=== PATIENT | female | born 1935 | race Caucasian/White ===

== ENCOUNTER 2016-07-12 05:15 | Day surgery (SDC) | payer OTHER ==
[2016-07-03 13:41] VITALS: BMI 41.0
--- NOTE | 2016-07-03 14:07 | PAT Medication Instructions ---
Service Date Jul 03, 2016. Current Home Medication List Albuterol (Ventolin Hfa), 2 PUFFS INH Q4H PRN for RN Aspirin (Aspirin Ec), 81 MG PO HS Hydrochlorothiazide (Hctz), 25 MG PO QAM Ocuvite Preservision (Ocuvite Preservision), 1 TAB PO BID [Dulera], 2 PUFFS INH BID Medication Instructions For Your Scheduled Surgery - Stopped, per pt: Aspirin (Aspirin Ec), 81 MG PO HS - Hold the following medications the morning of surgery: Hydrochlorothiazide (Hctz), 25 MG PO QAM Ocuvite Preservision (Ocuvite Preservision), 1 TAB PO BID - Take the following medications the morning of surgery: Albuterol (Ventolin Hfa), 2 PUFFS INH Q4H PRN (use if needed; BRING TO HOSPITAL ) [Dulera], 2 PUFFS INH BID - Take the following medications as scheduled the night before surgery: [Dulera], 2 PUFFS INH BID Ocuvite Preservision (Ocuvite Preservision), 1 TAB PO BID If you have any questions please call us at [phone] or [phone] or [phone]
[2016-07-03 14:39] LABS: BASO % 1.1 %; BASO ABS # 0.09 K/uL (0-0.2); COMPLETE YES; EOS % 9.2 %; HEMATOCRIT 41.4 % (37-47); IG% 0.4 %; LYMPH % 33.2 %; LYMPH ABS # 2.75 K/uL (1.2-3.4); MEAN CELL VOLUME 86.6 fL (80-100); MEAN CORPUSCULAR HEMOGLOBIN 30.1 pg (25-34); MEAN CORPUSCULAR HGB CONC 34.8 g/dl (32-36); MEAN PLATELET VOLUME 9.2 fL (7.4-10.4); NEUT % 49.1 %; PLATELET COUNT 251 K/uL (130-400); RED BLOOD COUNT 4.78 M/uL (4.2-5.4); WHITE BLOOD COUNT 8.29 K/uL (4.8-10.8)
[2016-07-03 15:27] LABS: BUN/CREATININE RATIO 18.3 (10-20); CREATININE 0.9 mg/dl (0.60-1.20); POTASSIUM 3.9 mmol/L (3.5-5.1)
[~2016-07-12] VITALS: Ht 165.1 cm; Wt 112.9 kg
[~2016-07-12 05:15] MED LIST: ASPI81TA28 PO; DULERA INH; HYDR25TA4 PO; MULT-190 PO; PRVHFAIN INH
[2016-07-12 05:46] VITALS: BP 208/100; PULSE 87; TEMP 36.6; O2SAT 97; Ht 165.1 cm; Wt 112.9 kg
[2016-07-12] MEDS ORDERED: OXYMETAZOLINE HCL 0.05% NA SPR 15 ML BTL NAE SCH (06:00)
[2016-07-12] MEDS ORDERED: CEFAZOLIN 2000 MG/60 ML D5W IV SCH (06:00)
[2016-07-12] MEDS ORDERED: LACTATED RINGER'S 1000ML 1,000 ML IV SCH ×2 (06:00→08:58)
--- NOTE | 2016-07-12 06:38 | History & Physical Bridge Note ---
H&P Re-Evaluation Bridge Note: I have examined the patient, reviewed the History & Physical and in the interval since the performance of the History & Physical I have noted the following changes of clinical significance: No changes noted
[2016-07-12] MEDS ORDERED: GLYCOPYRROLATE INJ 0.2 MG/ML VIAL ONE (06:40)
[2016-07-12] MEDS ORDERED: MIDAZOLAM HCL 1 MG/ML 2ML VIAL ONE (06:40)
[2016-07-12] MEDS ORDERED: LIDOCAINE HCL 2% 2 ML VIAL (20MG/ML) ONE (06:40)
[2016-07-12] MEDS ORDERED: FENTANYL CITRATE INJ 50 MCG/1 ML 2 ML VIAL ONE (06:40)
[2016-07-12] MEDS ORDERED: ROCURONIUM BROMIDE 10 MG/ML 5 ML VIAL ONE (06:40)
[2016-07-12] MEDS ORDERED: DEXAMETHASONE SOD INJ 4 MG/ML VIAL ONE ×2 (06:40→07:40)
[2016-07-12] MEDS ORDERED: ONDANSETRON INJ 2 MG/ML 2 ML VIAL ONE (06:40)
[2016-07-12] MEDS ORDERED: NEOSTIGMINE METHYLSULFATE 5 MG/5 ML SYR ONE (06:40)
[2016-07-12] MEDS ORDERED: PROPOFOL IV EMULSION 10 MG/ML 20 ML VIAL IV ONE (06:40)
[2016-07-12] MEDS ORDERED: LIDOCAINE/EPINEPHRINE 1% 20 ML VIAL ONE (06:55)
[2016-07-12] MEDS ORDERED: LIDOCAINE 4% W/AFRIN NASAL SOLN 4ML ONE (06:55)
[2016-07-12] MEDS ORDERED: TRIAMCINOLONE ACET 40 MG/ML VIAL ONE (06:57)
[2016-07-12] MEDS ORDERED: FENTANYL CITRATE INJ 50 MCG/1 ML 2 ML VIAL IV PRN (07:00)
[2016-07-12] MEDS ORDERED: ONDANSETRON INJ 2 MG/ML 2 ML VIAL IV PRN ×2 (07:00→09:00)
[2016-07-12] MEDS ORDERED: EpHEDrine SULFATE 50MG/5ML SYR ONE (07:55)
[2016-07-12] MEDS ORDERED: SUCCINYLCHOLINE CHLORIDE 20 MG/ML 10 ML VIAL IV ONE (08:16)
[2016-07-12] MEDS ORDERED: LABETALOL HCL IV 5 MG/ML 20ML ONE (08:52)
[2016-07-12] MEDS ORDERED: ESMOLOL HCL 10 MG/ML 10 ML VIAL ONE (08:59)
[2016-07-12] MEDS ORDERED: OXYMETAZOLINE HCL 0.05% NA SPR 15 ML BTL PRN (09:00)
[2016-07-12] MEDS ORDERED: HYDROCODONE/ACETAMOPHEN 5/325MG TAB PO PRN (09:00)
--- NOTE | 2016-07-12 09:02 | [facility] Operative Report ---
Operative Report Operative Date Jul 12, 2016. Pre-Operative Diagnosis Chronic Sinusitis, nasal septal deviation, hypertrophy of both inferior nasal turbinates Post-Operative Diagnosis SAME Procedure(s) Performed IMAGE-GUIDED BILATERAL ENDOSCOPIC SINUS SURGERY AND INFERIOR TURBINATE REDUCTION Surgeon Dr. Gilles Farias Civil Preparedness Officer Surgeon(s) none Estimated Blood Loss 100 ml Findings 1. SEVERE POLYPOID MUCOSAL THICKENING R>L PARANASAL SINUSES 2. SEVERE B ITH 3. MILD B DNS (NON-OBSTRUCTIVE) Specimens none per surgeon I attest to the content of the Intraoperative Record and any orders documented therein. Any exceptions are noted below.
[2016-07-12] MEDS ORDERED: NURSING VERBAL MED ORDER ONE ×2 (09:30→09:45)
[2016-07-12] MEDS ORDERED: LABETALOL HCL IV 5 MG/ML 20ML IV PRN (09:45)
--- NOTE | 2016-07-12 09:59 | OPERATIVE REPORT ---
DATE OF OPERATION: 07/12/2016 PREOPERATIVE DIAGNOSIS: 1. Chronic polypoid rhinosinusitis. 2. Septal deviation. 3. Bilateral inferior turbinate hypertrophy. POSTOPERATIVE DIAGNOSES: Same. PROCEDURE: Image guided bilateral endoscopic sinus surgery consisting of: 1. Bilateral maxillary antrostomies. 2. Bilateral complete ethmoidectomies. 3. Bilateral sphenoidotomies. 4. Bilateral balloon assisted frontal balloon sinuplasty assisted frontal sinusotomies. 5. Bilateral inferior turbinate outfracture and turbinoplasties. SURGEON: Dr. Farias. ANESTHESIA: General endotracheal. ESTIMATED BLOOD LOSS: 100 mL. FINDINGS: 1. Severe right greater than left polypoid mucosal thickening involving all of the paranasal sinuses. 2. Mild bilateral septal deviation which was nonobstructive. 3. Severe bilateral inferior turbinate hypertrophy. SPECIMENS: None. COMPLICATIONS: None. INDICATIONS FOR THE PROCEDURE: The patient is a 80-year-old female with a history of chronic polypoid rhinosinusitis which has been unresponsive to maximal medical therapy including systemic antibiotics and steroids. A post-treatment CT scan of the sinuses revealed pansinusitis as well as mild bilateral septal deviation and severe bilateral inferior turbinate hypertrophy. She has poor pulmonary status, morbid obesity, and obstructive sleep apnea and therefore surgery was done in the hospital on an outpatient elective basis. OPERATION AND FINDINGS: DETAILS OF PROCEDURE: After informed consent had been obtained from the patient, the patient was wheeled to the operating room and placed on the operating table in the supine position. Monitors were placed and after induction of general endotracheal anesthesia, the patient was prepped in the usual fashion for image guided endoscopic sinus surgery. The PingMe headset was placed over the forehead and was registered, calibrated and verified and used for the majority of the procedure, especially the frontal and sphenoid sinus portions of the case. Lidocaine and epinephrine pledgets were placed in the bilateral nasal cavities and pressure applied. After allowing adequate time for vasoconstriction and anesthesia the left-sided pledgets were removed and a [place] elevator was used to medialize the left middle turbinate. The left middle turbinate and uncinate process were injected with 1% lidocaine with 1:100,000 epinephrine. Lidocaine with epinephrine pledget was then placed in the left middle meatus. The right side was then addressed in a similar fashion. The left-sided pledget was removed and a [place] elevator was used to incise the uncinate process and this was removed using straight Tyler-Cut forceps and powered instrumentation. The natural ostia of the left maxillary sinus was identified and this was enlarged anteriorly, inferiorly, and posteriorly using straight Tyler-Cut forceps, backbiting forceps, and powered instrumentation. Of note, there was severe polypoid mucosal thickening involving the left maxillary sinus. A complete ethmoidectomy was then performed using powered instrumentation. Of note, there was severe polypoid mucosal thickening involving the ethmoid sinus as well. Using both a transnasal approach and a transethmoidal approach the sphenoid sinus was entered. There was mild polypoid mucosal thickening blocking the ostia of the sphenoid sinus. Using a curved frontal sinus suction and the imaged guidance the left frontal sinus was cannulated. A #6 frontal sinus balloon was then inserted and inflated to 12 atmospheres of pressure in 2 different locations to dilate the left frontal recess tract. Polypoid tissue was removed using powered instrumentation. Once the frontal sinus was addressed a pledget was placed into the left ethmoid cavity. The right side was then addressed in a similar fashion with similar intraoperative findings, although the polypoid mucosal thickening was more severe on this side. The septum was then inspected. There was right greater than left mild septal deviation which seemed to be nonobstructive. The decision was made not to perform a septoplasty due to the patient's age and trying to get her case done quickly due to her multiple medical comorbidities. A [place] elevator was used to first infracture and subsequently outfracture the inferior turbinates bilaterally. The inferior turbinates were injected with 1% lidocaine with 1:100,000 epinephrine. Using a 2.0 mm turbinate blade and powered instrumentation, bilateral inferior turbinoplasties were performed in a submucosal fashion. The sinonasal cavities were then suctioned. Merogel was placed into the bilateral ethmoid cavities/middle meati. The oral cavity and oropharynx were then suctioned. An orogastric tube was placed and the stomach was suctioned free of air and stomach contents. This marked the end of the case. The patient tolerated the procedure well. There were no apparent complications. The patient was extubated and transferred to recovery room in stable condition. I attest to the content of the Intraoperative Record and any orders documented therein. Any exceptio ns are noted below.
[2016-07-12 10:00] VITALS: BP 188/73; PULSE 85; TEMP 36.6; O2SAT 94
[2016-07-12] MEDS: LACTATED RINGER'S 1000ML 1,000 ML IV PRN ×2 (10:00→10:27)
--- NOTE | 2016-07-12 10:02 | Anesthesiology Progress Note ---
Anesthesia Post Op Note Date & Time Jul 12, 2016 at 10:02 Vital Signs Pain Intensity: 3 Vital Signs Past 12 Hours Date Time Temp Pulse Resp B/P Pulse Ox O2 Delivery O2 Flow Rate FiO2 07/12/16 09:46 72 15 93 07/12/16 09:46 72 15 07/12/16 09:45 184/79 07/12/16 09:43 185/84 07/12/16 09:41 75 15 07/12/16 09:41 75 15 94 07/12/16 09:40 72 16 07/12/16 09:40 72 16 94 07/12/16 09:37 179/92 07/12/16 09:35 73 18 93 07/12/16 09:35 73 18 07/12/16 09:33 180/87 07/12/16 09:30 73 18 92 07/12/16 09:30 72 18 07/12/16 09:29 75 17 07/12/16 09:29 75 17 94 07/12/16 09:28 172/79 07/12/16 09:24 72 20 07/12/16 09:24 72 20 95 07/12/16 09:22 193/78 07/12/16 09:19 73 18 07/12/16 09:19 73 18 98 07/12/16 09:14 77 19 07/12/16 09:14 77 19 98 07/12/16 09:13 176/99 07/12/16 09:09 81 20 07/12/16 09:09 81 20 100 07/12/16 09:04 77 13 07/12/16 09:04 73 13 121/90 100 07/12/16 08:59 76 18 162/94 100 07/12/16 08:59 78 18 07/12/16 08:55 177/113 07/12/16 08:54 86 21 157/107 98 07/12/16 08:54 85 21 07/12/16 08:51 160/126 07/12/16 08:49 90 20 07/12/16 08:49 36.2 92 16 185/113 98 Mask 10 Manual 07/12/16 08:49 93 20 165/151 100 07/12/16 05:46 36.6 87 24 208/100 97 Room Air Notes Mental Status: alert / awake / arousable, participated in evaluation Pt Amnestic to Procedure: Yes Nausea / Vomiting: adequately controlled Pain: adequately controlled Airway Patency, RR, SpO2: stable & adequate BP & HR: stable & adequate Hydration State: stable & adequate Anesthetic Complications: no major complications apparent BP still elevated but improved from baseline. Labetalol given.
[2016-07-12] MEDS ORDERED: LABETALOL HCL IV 5 MG/ML 20ML IV STA (10:11)
[2016-07-12 10:15] VITALS: BP 198/82; PULSE 83; TEMP 36.6; O2SAT 92
[2016-07-12 10:30] VITALS: BP 198/82; PULSE 83; TEMP 36.6; O2SAT 92
[2016-07-12 11:00] VITALS: BP 199/93; PULSE 88; TEMP 36.8; O2SAT 92
[2016-07-12 12:00] VITALS: BP 165/83; PULSE 94; TEMP 36.4; O2SAT 95
--- NOTE | 2016-07-12 12:43 | Discharge Instructions ---
Discharge Instructions Admission Reason for Admission: Chronic Sinusitis, Nasal Septal Deviation, Hypertr Discharge Discharge Diagnosis / Problem: same Discharge Goals Goal(s): Improve function Activity Recommendations Activity Limitations: as noted below 1. LIGHT ACTIVITY FOR 2WEEKS 2. NO NOSE BLOWING FOR 2WEEKS 3. NO DRIVING WHILE ON NORCO . Current Hospital Diet Patient's current hospital diet: Discharge Diet Recommended Diet: Regular Diet Procedures Procedures Performed: Bilateral Endoscopic Sinus Surgery, Bilateral Inferior Turbinate Outfracture and Turbinoplasty Pending Studies Studies pending at discharge: no Medical Emergencies . Who to Call and When: Medical Emergencies: If at any time you feel your situation is an emergency, please call 911 immediately. . Non-Emergent Contact Non-Emergency issues call your: Surgeon . . "Provider Documentation" section prepared by Gilles Farias. VTE Core Measure Inpt VTE Proph given/why not?: SCD's
== END 2016-07-12 13:00 | disposition home or self-care (01) ==
LOC: C.ACU 05:15
DX: J32.9 Chronic sinusitis, unspecified (principal); J33.1 Polypoid sinus degeneration; J34.2 Deviated nasal septum; J34.3 Hypertrophy of nasal turbinates; K21.9 Gastro-esophageal reflux disease without esophagitis; J45.909 Unspecified asthma, uncomplicated; E78.5 Hyperlipidemia, unspecified; I10 Essential (primary) hypertension; E66.9 Obesity, unspecified; G47.30 Sleep apnea, unspecified; H54.7 Unspecified visual loss

== ENCOUNTER 2017-05-30 23:50 | Emergency (ER) | payer OTHER ==
[~2017-05-30] VITALS: Ht 165.1 cm; Wt 100.3 kg
[2017-05-31 00:06] VITALS: TEMP 36.4; Ht 165.1 cm; Wt 100.3 kg
[2017-05-31] MEDS ORDERED: GLC/500 PO (00:41)
[2017-05-31] MEDS ORDERED: ALBUT/IPRATROP 3MG/0.5MG NEB 3 ML VIAL INH STA (00:47)
--- NOTE | 2017-05-31 00:50 | EMERGENCY ROOM VISIT NOTE ---
History Report prepared by Amaris: Crow Mary Under the Supervision of: Dr. Zeny Thomas D.O. First contact with patient: 00:35 Chief Complaint: RESPIRATORY PROBLEMS Stated Complaint: TROUBLE BREATHING History of Present Illness The patient is a 81 year old female who presents to the Emergency Room with complaints of respiratory symptoms that began a couple of days ago. She states that this is an ongoing issue and has been seeing multiple Pulmonologists to try to help her. They diagnosed her with asthma, but notes the treatment has not been helping. She was recently diagnosed with diabetes and was taken off of her original medication 1 week ago secondary to her insurance. She is currently taking Metformin and Hydrochlorothiazide. She has been intermittently using her Ventolin inhaler with very minimal relief. She uses a CPAP machine whenever she lies down and notes that it does usually help her breath easier. However, it did not help her recently. She does not use oxygen at home. She notes her respiratory symptoms worsen with exertion. She notes that bronchoscopies with mucous extraction help her symptoms significantly, but her last one was a couple of years ago. She denies any fevers or chest pain. Source of History: patient Onset: a couple of days ago Position: other (Respiratory System) Symptom Intensity: moderate Quality: other (Shortness of breath) Timing: constant Modifying Factors (Worsening): exertion Associated Symptoms: No fevers, No chest pain Review of Systems See HPI for pertinent positives & negatives. A total of 10 systems reviewed and were otherwise negative. Past Medical & Surgical Medical Problems: (1) Asthma Family History Diabetes mellitus Heart disease Hypertension Social History Smoking Status: Never Smoker Alcohol Use: none Marital Status: Housing Status: lives with significant other Occupation Status: retired Current/Historical Medications Scheduled Aspirin (Aspirin Ec), 81 MG PO HS Hydrochlorothiazide (Hctz), 25 MG PO QAM Metformin Hcl (Glucophage), 500 MG PO BID Ocuvite Preservision (Ocuvite Preservision), 1 TAB PO BID Prednisone (Prednisone), 50 MG PO DAILY [Dulera], 2 PUFFS INH BID Scheduled PRN Albuterol (Ventolin Hfa), 2 PUFFS INH Q4H PRN for RN Allergies Coded Allergies: No Known Allergies (Verified , 05/31/17) Physical Exam Vital Signs Date Time Temp Pulse Resp B/P (MAP) Pulse Ox O2 Delivery O2 Flow Rate FiO2 05/31/17 04:07 80 20 178/72 98 05/31/17 03:14 85 20 197/109 97 Room Air 05/31/17 01:25 Room Air 98 05/31/17 01:05 89 05/31/17 00:06 36.4 100 20 205/107 94 Room Air Physical Exam HEENT: Head - normocephalic and atraumatic Pupils are equal, round, and reactive to light. Extraocular eye muscles are intact, and sclera are anicteric. Nose - moist nasal mucosa without discharge. Mouth - moist buccal mucosa. Oropharynx is nonerythematous and there is no tonsillar exudate or edema noted. Neck: Supple; no JVD, nuchal rigidity, cervical lymphadenopathy, or auscultated bruits. Heart: Regular rate and rhythm. There is a normal S1 and S2 with no murmurs, clicks, or gallops appreciated. Lungs: Diminished bibasilar breath sounds with expiratory wheezing. Abdomen: Soft, completely nontender, nondistended, with good bowel sounds. There are no palpable pulsatile masses or hepatosplenomegaly. There is no guarding, rigidity, or rebound noted. Extremities: No evidence of cyanosis, clubbing, or edema. There are easily palpable peripheral pulses. Skin: warm and dry with good turgor and no rashes. Medical Decision & Procedures ER Provider Diagnostic Interpretation: Radiology results as stated below per my review and the radiologist's interpretation: CHEST X-RAY 1 VIEW: Unremarkable, unchanged from previous x-rays. Per me. Laboratory Results 05/31/17 01:25 Red Blood Count 4.77, Mean Corpuscular Volume 88.3, Mean Corpuscular Hemoglobin 30.4, Mean Corpuscular Hemoglobin Concent 34.4, Mean Platelet Volume 8.7, Neutrophils (%) (Auto) 55.2, Lymphocytes (%) (Auto) 28.4, Monocytes (%) (Auto) 6.7, Eosinophils (%) (Auto) 8.2, Basophils (%) (Auto) 0.9, Neutrophils # (Auto) 5.29, Lymphocytes # (Auto) 2.72, Monocytes # (Auto) 0.64, Eosinophils # (Auto) 0.79, Basophils # (Auto) 0.09 05/31/17 01:25 Test 05/31/17 01:25 White Blood Count 9.59 K/uL (4.8-10.8) Red Blood Count 4.77 M/uL (4.2-5.4) Hemoglobin 14.5 g/dL (12.0-16.0) Hematocrit 42.1 % (37-47) Mean Corpuscular Volume 88.3 fL (80-100) Mean Corpuscular Hemoglobin 30.4 pg (25-34) Mean Corpuscular Hemoglobin Concent 34.4 g/dl (32-36) Platelet Count 265 K/uL (130-400) Mean Platelet Volume 8.7 fL (7.4-10.4) Neutrophils (%) (Auto) 55.2 % Lymphocytes (%) (Auto) 28.4 % Monocytes (%) (Auto) 6.7 % Eosinophils (%) (Auto) 8.2 % Basophils (%) (Auto) 0.9 % Neutrophils # (Auto) 5.29 K/uL (1.4-6.5) Lymphocytes # (Auto) 2.72 K/uL (1.2-3.4) Monocytes # (Auto) 0.64 K/uL (0.11-0.59) Eosinophils # (Auto) 0.79 K/uL (0-0.5) Basophils # (Auto) 0.09 K/uL (0-0.2) RDW Standard Deviation 43.1 fL (36.4-46.3) RDW Coefficient of Variation 13.3 % (11.5-14.5) Immature Granulocyte % (Auto) 0.6 % Immature Granulocyte # (Auto) 0.06 K/uL (0.00-0.02) Anion Gap 6.0 mmol/L (3-11) Est Creatinine Clear Calc Drug Dose 57.8 ml/min Estimated GFR () 69.1 Estimated GFR (Non- 59.6 BUN/Creatinine Ratio 17.2 (10-20) Calcium Level 9.0 mg/dl (8.5-10.1) Total Creatine Kinase 53 U/L (26-192) Creatine Kinase MB 1.1 ng/ml (0.5-3.6) Creatine Kinase MB Ratio 2.1 (0-3.0) Troponin I < 0.015 ng/ml (0-0.045) Pro-B-Type Natriuretic Peptide 93 pg/ml (0-1800) Laboratory results per my review. Medications Administered Medications (Trade) Dose Ordered Sig/Brian Route Start Time Stop Time Status Last Admin Dose Admin Albuterol/ Ipratropium (Duoneb) 3 ml NOW STAT INH 05/31/17 00:47 05/31/17 00:49 DC 05/31/17 00:57 3 ML Procedure DuoNeb 3 ml INH Solu-Medrol IV 125 mg IV ECG Indication: SOB/dyspnea Rate (beats per minute): 92 Rhythm: normal sinus Findings: no acute ischemic change, no ectopy ED Course 0035: Past medical records reviewed. The patient was evaluated in room C3. A complete history and physical exam was performed. An IV lock was initiated and labs are drones above. 0047: Ordered DuoNeb 3 ml INH. The patient had chest x-ray as described above. 0248: I rechecked the patient at this time. She is feeling better after her nebulizer treatment. I will be ordering her Solu-Medrol. Ordered Solu-Medrol IV 125 mg IV 0313: The patient's blood pressure is up, but she notes that she forgot to take her blood pressure medication today. 0327: The patient is ready for discharge. 0357: Upon reevaluation, the patient is doing well. I discussed findings and results with her. She verbalized agreement of the treatment plan. She was discharged home. Medical Decision The patient is an 81 year old female who presents to the ED with shortness of breath. Differential diagnosis includes CHF, pneumonia, and bronchitis. Laboratory Results: Normal renal function, negative troponin BNP 93, glucose 182, white blood cell count 9.5, stable H&H This is an 81-year-old female patient presents to the emergency department with an acute exacerbation of chronic shortness of breath. The patient describes a long-standing history of shortness of breath for which she uses CPAP. She does have a history of wheezing and has had recent courses of prednisone. She became more concerned tonight because she felt more sure of breath than usual. After receiving the nebulizer treatment and steroids IV, the patient is feeling much better. I've asked her to follow-up with her metal forger's assistant for possible bronchoscopy as this is helped her in the past. She was told to return to the ER if the symptoms worsened. Otherwise, follow up with her primary care doctor Medication Reconcilliation Current Medication List: was personally reviewed by me Blood Pressure Screening Patient's blood pressure: Elevated blood pressure Blood pressure disposition: Elevated BP felt to be situational Impression Primary Impression: Acute wheezy bronchitis Scribe Attestation The scribe's documentation has been prepared under my direction and personally reviewed by me in its entirety. I confirm that the note above accurately reflects all work, treatment, procedures, and medical decision making performed by me. Departure Information Dispostion Home / Self-Care Prescriptions Prednisone (PREDNISONE) 50 Mg Tab 50 MG PO DAILY for 5 Days, TAB Prov: Zeny Thomas, D.O. 05/31/17 Referrals Onofre Mirza MD (PCP) Forms HOME CARE DOCUMENTATION FORM, IMPORTANT VISIT INFORMATION, WORK / SCHOOL INSTRUCTIONS Patient Instructions ED Bronchitis Asthmatic, My [facility] Additional Instructions Rest. Take prednisone - daily for next 5 days Use ventolin - 2 puffs every 4 hours. Follow up with pulmonary med for possible bronchoscopy Return to the ER for worsening symptoms
[2017-05-31 01:42] LABS: BASO % 0.9 %; BASO ABS # 0.09 K/uL (0-0.2); EOS % 8.2 %; EOS ABS # 0.79 K/uL (0-0.5); HEMATOCRIT 42.1 % (37-47); HEMOGLOBIN 14.5 g/dL (12.0-16.0); IG# 0.06 K/uL (0.00-0.02); LYMPH % 28.4 %; LYMPH ABS # 2.72 K/uL (1.2-3.4); MEAN CELL VOLUME 88.3 fL (80-100); MEAN CORPUSCULAR HEMOGLOBIN 30.4 pg (25-34); MEAN CORPUSCULAR HGB CONC 34.4 g/dl (32-36); MEAN PLATELET VOLUME 8.7 fL (7.4-10.4); MONO % 6.7 %; MONO ABS # 0.64 K/uL (0.11-0.59); NEUT % 55.2 %; NEUT ABS # 5.29 K/uL (1.4-6.5); PLATELET COUNT 265 K/uL (130-400); RED CELL DISTRIBUTION WIDTH CV 13.3 % (11.5-14.5); RED CELL DISTRIBUTION WIDTH SD 43.1 fL (36.4-46.3); WHITE BLOOD COUNT 9.59 K/uL (4.8-10.8)
[2017-05-31] MEDS ORDERED: METHYLPREDNISOLONE 125 MG VIAL ONE (02:48)
[2017-05-31 02:58] LABS: BLOOD UREA NITROGEN 16 mg/dl (7-18); CARBON DIOXIDE 30 mmol/L (21-32); CKMB 1.1 ng/ml (0.5-3.6); CREATININE 0.91 mg/dl (0.60-1.20); GLUCOSE 182 mg/dl (70-99); POTASSIUM 3.3 mmol/L (3.5-5.1); SODIUM 138 mmol/L (136-145)
[2017-05-31] MEDS ORDERED: PRED50TA PO (03:46)
[2017-05-31 04:07] VITALS: BP 178/72; PULSE 80; O2SAT 98
--- NOTE | 2017-05-31 07:22 | DIAGNOSTIC IMAGING REPORT ---
CHEST 2 VIEWS ROUTINE CLINICAL HISTORY: eval for sob dyspnea COMPARISON STUDY: 05/03/2017. CT chest 12/27/2015 FINDINGS: Lungs are considered clear. No focal infiltrate. Stable bilateral parenchymal nodularity which has been described previously. Diaphragms are smooth. Costophrenic angles are sharp. IMPRESSION: No acute process. Stable bilateral parenchymal nodularity The above report was generated using voice recognition software. It may contain grammatical, syntax or spelling errors. Electronically signed by: Aaron Orosco M.D. 05/31/2017 7:21 AM Dictated Date/Time: 05/31/2017 7:20 AM
== END 2017-05-31 04:08 | disposition home or self-care (01) ==
LOC: C.EDB 23:51 → C.EDC 05-31 04:08
DX: J20.9 Acute bronchitis, unspecified (principal); E11.9 Type 2 diabetes mellitus without complications; J45.909 Unspecified asthma, uncomplicated; Z79.82 Long term (current) use of aspirin; Z79.84 Long term (current) use of oral hypoglycemic drugs; Z79.899 Other long term (current) drug therapy; Z83.3 Family history of diabetes mellitus; Z82.49 Family history of ischemic heart disease and other diseases of the circulatory system

== ENCOUNTER → 2017-08-09 | Outpatient (CLI) | payer OTHER ==
[~2017-08-09] MED LIST changes: +GLC/500 PO
--- NOTE | 2017-08-09 12:36 | DIAGNOSTIC IMAGING REPORT ---
CHEST 2 VIEWS ROUTINE HISTORY: COUGH COMPARISON: Chest 05/31/2017. FINDINGS: The heart is normal in size. No pleural effusions. No pneumothorax. Bilateral calcified and noncalcified pulmonary nodules are not significantly changed. Dominant nodule within the right midlung zone continues to measure 8 mm. Nodular density within the right lower lobe favors a nipple shadow. No focal lung consolidations to suggest pneumonia. IMPRESSION: No significant change compared to the prior study. No acute process. Stable bilateral pulmonary nodules. Electronically signed by: Robbie Santiago M.D. 08/09/2017 12:35 PM Dictated Date/Time: 08/09/2017 12:33 PM
== END | disposition home or self-care (01) ==
LOC: C.RAD1850 12:13
PROVIDERS: ATTEND Family Medicine
DX: R05 Cough (principal); I51.9 Heart disease, unspecified

== ENCOUNTER 2017-12-26 17:26 | Inpatient (IN) | payer OTHER ==
[~2017-12-26] VITALS: Ht 165.1 cm; Wt 96.6 kg
[2017-12-26 18:37] VITALS: BP 192/117; PULSE 94; TEMP 36.9; O2SAT 96
[2017-12-26 18:55] VITALS: O2SAT 96; Ht 165.1 cm; Wt 96.6 kg
[2017-12-26 19:00] VITALS: O2SAT 96
[2017-12-26] MEDS ORDERED: ALBUT/IPRATROP 3MG/0.5MG NEB 3 ML VIAL INH ONE (20:00)
[2017-12-26] MEDS ORDERED: ONDANSETRON INJ 2 MG/ML 2 ML VIAL IV PRN (20:00)
[2017-12-26] MEDS ORDERED: ALUMINUM/MAGNESIUM/SIMETH (MAALOX MAX) 30 ML UDC PO PRN (20:00)
[2017-12-26] MEDS ORDERED: ACETAMINOPHEN 325 MG TAB PO PRN (20:00)
[2017-12-26] MEDS ORDERED: POLYETHYLENE (MIRALAX) 17 GM PACK PO PRN (20:00)
[2017-12-26] MEDS ORDERED: MAGNESIUM HYDROXIDE SUSP 30 ML UDC PO PRN (20:00)
--- NOTE | 2017-12-26 20:29 | History and Physical ---
History & Physical Date & Time of Service: Dec 26, 2017 at 20:27 Chief Complaint: Obstructive Pulmonary Disease Exacerbation Primary Care Physician: Onofre Mirza MD History of Present Illness Source: patient, family, clinic records, hospital records 82y/oF with hx of asthma/allergic bronchopulmonary aspergillosis, HTN, HLD, impaired glucose, ANIL on cpap and chronic bilateral pulmonary nodules (stable since 2007) presents as a direct admit from [facility] clinic for respiratory distress with worsening productive cough, wheezing and sob x 3 days. Pt reports deep productive coughing for hours on end especially at night. Per daughter, she has been breathing rapidly and turning purple at times. She used to be able to climb a flight of stairs to her bedroom but is unable to do that now due to significant sob. Pt reports using cpap during the day and at night now which really helps her. Per family, she has not been using albuterol neb as prescribed for a long time and not using dulera inhaler daily as instructed either. Per family, pt needs more specific written instructions and education. Associated with nasal congestion and postnasal drip. Denies any fever, chills, cp, n/v, abdominal pain, d/c, dysuria. Of note: pt's has an AR last Sunday and is at [facility], [place], operated by [facility] for cath. Pt was with but was brought back for care as she was not doing well and not covered at the [place]. 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 She received voriconazole for 12weeks and steroid taper. Was started on dulera and montelukast. ECHO: 2015 EF > 70%; grade I diastolic dysfunction, mild aortic valve sclerosis and mild aortic regurg Past Medical/Surgical History Medical Problems: (1) Acute asthma exacerbation (2) Acute asthma exacerbation (3) Acute wheezy bronchitis (4) Aortic dissection (5) Asthma (6) Bronchitis (7) Bronchitis (8) COPD exacerbation (9) Hypertensive urgency (10) Pneumonia (11) Respiratory distress (12) SOB (shortness of breath) Family History Diabetes mellitus Heart disease Hypertension Social History Smoking Status: Never Smoker Marital Status: Occupational Status: retired Immunizations History of Influenza Vaccine: Yes History of Tetanus Vaccine?: Yes Tetanus Immunization Date: Mar 23, 1993 History of Pneumococcal: No History of Hepatitis B Vaccine: No Allergies Coded Allergies: No Known Allergies (Verified , 05/31/17) Home Medications Scheduled Aspirin (Aspirin Ec), 81 MG PO HS Hydrochlorothiazide (Hctz), 25 MG PO QAM Metformin Hcl (Glucophage), 500 MG PO BID Ocuvite Preservision (Ocuvite Preservision), 1 TAB PO BID [Dulera], 2 PUFFS INH BID Scheduled PRN Albuterol (Ventolin Hfa), 2 PUFFS INH 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 Constitutional: No fever, No chills ENT: + problem reported (nasal congestion) Respiratory: + cough, + sputum, + wheezing, + shortness of breath, + dyspnea on exertion, + dyspnea at rest Cardiovascular: No chest pain Abdomen: No pain, No nausea, No vomiting, No diarrhea, No constipation Genitourinary - Female: No dysuria Physical Exam Vital Signs Date Time Temp Pulse Resp B/P (MAP) Pulse Ox O2 Delivery O2 Flow Rate FiO2 12/26/17 18:55 96 CPAP 12/26/17 18:37 36.9 94 20 192/117 (142) 96 CPAP General Appearance: + pertinent finding (Pt is working hard to breath and using CPAP) Head: normocephalic, atraumatic Eyes: normal inspection, EOMI ENT: hearing grossly normal, pharynx normal, + nasal congestion Neck: no adenopathy Respiratory/Chest: + decreased breath sounds (significantly diminished BSs), + wheezing (diffuse), + pertinent finding (poor air movement bilaterally; breathing with pursed lips) Cardiovascular: regular rate, rhythm, no murmur Abdomen/GI: normal bowel sounds, non tender, soft Extremities/Musculoskelatal: no calf tenderness, no pedal edema Neurologic/Psych: alert, oriented x 3 Skin: normal color, warm/dry Diagnostics Laboratory Results 12/26/17 21:05 Red Blood Count 5.00, Mean Corpuscular Volume 87.0, Mean Corpuscular Hemoglobin 29.8, Mean Corpuscular Hemoglobin Concent 34.3, Mean Platelet Volume 9.0, Neutrophils (%) (Auto) 45.7, Lymphocytes (%) (Auto) 31.9, Monocytes (%) (Auto) 5.6, Eosinophils (%) (Auto) 15.6, Basophils (%) (Auto) 0.8, Neutrophils # (Auto ) 4.39, Lymphocytes # (Auto) 3.07, Monocytes # (Auto) 0.54, Eosinophils # (Auto ) 1.50, Basophils # (Auto) 0.08 12/26/17 21:04 Test 12/26/17 21:04 12/26/17 21:05 12/26/17 21:06 Prothrombin Time 10.5 SECONDS (9.0-12.0) Prothromb Time International Ratio 1.0 (0.9-1.1) Anion Gap 6.0 mmol/L (3-11) Est Creatinine Clear Calc Drug Dose 66.8 ml/min Estimated GFR () 85.3 Estimated GFR (Non- 73.6 BUN/Creatinine Ratio 23.4 (10-20) Calcium Level 9.3 mg/dl (8.5-10.1) White Blood Count 9.62 K/uL (4.8-10.8) Red Blood Count 5.00 M/uL (4.2-5.4) Hemoglobin 14.9 g/dL (12.0-16.0) Hematocrit 43.5 % (37-47) Mean Corpuscular Volume 87.0 fL (80-100) Mean Corpuscular Hemoglobin 29.8 pg (25-34) Mean Corpuscular Hemoglobin Concent 34.3 g/dl (32-36) Platelet Count 225 K/uL (130-400) Mean Platelet Volume 9.0 fL (7.4-10.4) Neutrophils (%) (Auto) 45.7 % Lymphocytes (%) (Auto) 31.9 % Monocytes (%) (Auto) 5.6 % Eosinophils (%) (Auto) 15.6 % Basophils (%) (Auto) 0.8 % Neutrophils # (Auto) 4.39 K/uL (1.4-6.5) Lymphocytes # (Auto) 3.07 K/uL (1.2-3.4) Monocytes # (Auto) 0.54 K/uL (0.11-0.59) Eosinophils # (Auto) 1.50 K/uL (0-0.5) Basophils # (Auto) 0.08 K/uL (0-0.2) RDW Standard Deviation 43.0 fL (36.4-46.3) RDW Coefficient of Variation 13.6 % (11.5-14.5) Immature Granulocyte % (Auto) 0.4 % Immature Granulocyte # (Auto) 0.04 K/uL (0.00-0.02) Bedside Glucose 132 mg/dl (70-90) Diagnostic Radiology CHEST ONE VIEW PORTABLE HISTORY: Short of breath. Productive cough. COMPARISON: Chest 08/09/2017. Chest CT 12/27/2015. FINDINGS: No pneumothorax. No pleural effusions. The heart is normal in size. No focal lung consolidations to suggest pneumonia. No evidence for pulmonary edema. There are few scattered calcified and noncalcified pulmonary nodules again noted. These do not appear to be significantly changed. Dominant nodule within the right lung measures 8 mm. IMPRESSION: No significant change compared to the prior study. No acute process. Stable bilateral pulmonary nodules. Impression Assessment and Plan 82y/oF with hx of asthma/allergic bronchopulmonary aspergillosis, HTN, HLD, impaired glucose, ANIL on cpap and chronic bilateral pulmonary nodules (stable since 2007) presents as a direct admit from [facility] clinic for respiratory distress with worsening productive cough, wheezing and sob x 3 days. Concerning for acute exacerbation likely in the setting of viral URI vs. poor management at baseline of inflammatory airway disease as pt has not been using maintenance inhaler dulera or using albuterol nebs as prescribed in a long time per family. 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 She received voriconazole for 12weeks and steroid taper. Pt has appt coming up with inventory control clerk at [facility] to further delineate lung disease. Was started on dulera and montelukast. ECHO: 2015 EF > 70%; grade I diastolic dysfunction, mild aortic valve sclerosis and mild aortic regurg. Acute asthma exacerbation - Afebrile, no WBC elevation - CXR unchanged (pt has hx of stable bilateral pulmonary nodules since 2007) and no acute changes - Received methylpred IV 80mg x 1 - Started on methylpred IV 40mg Q8H - Duoneb QID and PRN as needed - Continued home dulera inhaler daily HTN urgency - Continued home medications: HCTZ - Ordered hydralazine IV 10mg for SBP > 180 and/or DBP > 110 DM - Held metformin - Started on Novolog SSI HLD/CAD - Continued home atorvastatin - Continued home aspirin Allergic rhinitis - Continued home flonase DVT prop: Lovenox Full code Diet: DM2 Resident Physician Supervision Note: I interviewed and examined the patient. Discussed with Dr. Lillie Rubio and agree with findings and plan as documented in the note. Any exceptions or clarifications are listed here: Patient was noted to have extensive bilateral wheezing. Patient reports that she is short of breath, however she does not appear to be in any clinical distress. Patient will be admitted for asthma/allergic bronchopulmonary aspergillosis exacerbation. Will place patient on extensive IV steroids and will monitor for clinical improvement. Will hold off antibiotics at this time. Patient is paced on CPAP at this time and is awaiting dinner tray. Documented By: Jeffry Verma Advanced Directives Existing Living Will: Yes Existing Power of Can Worker: Yes Resuscitation Status VTE Prophylaxis Will order VTE Prophylaxis: Yes Resident Involvement: Resident Care Provided Care Provided: Adult Hospital Medicine
[2017-12-26] MEDS ORDERED: METHYLPREDNISOLONE IV 80 MG in SYRINGE 0 ML IV STA (20:34)
[2017-12-26] MEDS: ALBUT/IPRATROP 3MG/0.5MG NEB 3 ML VIAL INH SCH (20:35)
[2017-12-26] MEDS: INSULIN ASPART 100 UNITS/ML 3 ML PEN SC SCH (21:00)
[2017-12-26] MEDS: CEROVITE ADV FORMULA TAB PO SCH (21:14)
[2017-12-26] MEDS: ASPIRIN 81 MG ECTAB PO SCH (21:14)
[2017-12-26 21:20] LABS: BASO % 0.8 %; BASO ABS # 0.08 K/uL (0-0.2); EOS % 15.6 %; HEMATOCRIT 43.5 % (37-47); HEMOGLOBIN 14.9 g/dL (12.0-16.0); IG# 0.04 K/uL (0.00-0.02); LYMPH % 31.9 %; LYMPH ABS # 3.07 K/uL (1.2-3.4); MEAN CORPUSCULAR HEMOGLOBIN 29.8 pg (25-34); MEAN CORPUSCULAR HGB CONC 34.3 g/dl (32-36); MONO % 5.6 %; MONO ABS # 0.54 K/uL (0.11-0.59); NEUT % 45.7 %; NEUT ABS # 4.39 K/uL (1.4-6.5); PLATELET COUNT 225 K/uL (130-400); RED CELL DISTRIBUTION WIDTH CV 13.6 % (11.5-14.5); WHITE BLOOD COUNT 9.62 K/uL (4.8-10.8)
[2017-12-26 21:22] VITALS: PULSE 90; O2SAT 96
[2017-12-26 21:28] VITALS: BP_SYST 184; BP_SYST 189; BP_DIAS 105; BP_DIAS 98
--- NOTE | 2017-12-26 21:30 | DIAGNOSTIC IMAGING REPORT ---
CHEST ONE VIEW PORTABLE HISTORY: Short of breath. Productive cough. COMPARISON: Chest 08/09/2017. Chest CT 12/27/2015. FINDINGS: No pneumothorax. No pleural effusions. The heart is normal in size. No focal lung consolidations to suggest pneumonia. No evidence for pulmonary edema. There are few scattered calcified and noncalcified pulmonary nodules again noted. These do not appear to be significantly changed. Dominant nodule within the right lung measures 8 mm. IMPRESSION: No significant change compared to the prior study. No acute process. Stable bilateral pulmonary nodules. Electronically signed by: Robbie Santiago M.D. 12/26/2017 9:29 PM Dictated Date/Time: 12/26/2017 9:27 PM
[2017-12-26 21:38] LABS: CALCIUM 9.3 mg/dl (8.5-10.1); CREATININE 0.76 mg/dl (0.60-1.20); POTASSIUM 3.6 mmol/L (3.5-5.1)
[2017-12-26] MEDS ORDERED: HydrALAZINE HCL 20 MG/ML VIAL IV. PRN (22:00)
[2017-12-26 22:41] VITALS: BP 170/85
[2017-12-26] MEDS: ENOXAPARIN 40 MG/0.4 ML SYR SQ SCH (22:42)
[2017-12-27] VITALS (9 sets, daily range): BP systolic 146–177; BP diastolic 82–97; PULSE 78–99; TEMP 36.5–36.9; O2SAT 92–99
[2017-12-27] MEDS: METHYLPREDNISOLONE IV 40 MG in SYRINGE 0 ML IV SCH ×3 (03:55→20:29)
[2017-12-27] MEDS: ALBUT/IPRATROP 3MG/0.5MG NEB 3 ML VIAL INH SCH ×2 (06:57→11:25)
[2017-12-27 07:15] LABS: BASO % 0.5 %; BASO ABS # 0.03 K/uL (0-0.2); EOS % 0.2 %; EOS ABS # 0.01 K/uL (0-0.5); HEMATOCRIT 44.1 % (37-47); HEMOGLOBIN 15.5 g/dL (12.0-16.0); IG# 0.03 K/uL (0.00-0.02); LYMPH % 15.7 %; LYMPH ABS # 0.88 K/uL (1.2-3.4); MEAN CELL VOLUME 86.6 fL (80-100); MEAN CORPUSCULAR HEMOGLOBIN 30.5 pg (25-34); MEAN CORPUSCULAR HGB CONC 35.1 g/dl (32-36); MONO % 1.1 %; MONO ABS # 0.06 K/uL (0.11-0.59); NEUT ABS # 4.59 K/uL (1.4-6.5); PLATELET COUNT 225 K/uL (130-400); RED CELL DISTRIBUTION WIDTH CV 13.4 % (11.5-14.5); RED CELL DISTRIBUTION WIDTH SD 42.5 fL (36.4-46.3)
[2017-12-27 07:41] LABS: CALCIUM 8.9 mg/dl (8.5-10.1); CREATININE 0.71 mg/dl (0.60-1.20)
--- NOTE | 2017-12-27 08:09 | Family Medicine Progress Note ---
Progress Note Date of Service Dec 27, 2017. Subjective Pt evaluation today including: conversation w/ patient, conversation w/ family , physical exam, chart review, lab review, review of studies Pain: 0/10 PO Intake: tolerating Diet Extensive History and conversation with family. Patient reported feeling better after steroids, but still had significant cough. Endorsed tolerating diet, sleeping well, and toileting appropriately. Constitutional: No fever, No chills, No sweats ENT: No hearing loss Respiratory: + cough, + sputum, + wheezing, + shortness of breath Cardiovascular: No chest pain Abdomen: No pain, No nausea, No vomiting, No diarrhea, No constipation Musculoskeletal: No joint pain Psychiatric: No depression symptoms Heme: No abnormal bleeding/bruising Skin: No rash, No itch, No new/changing skin lesions All Other Systems: Reviewed and Negative Medications Current Inpatient Medications Medications (Trade) Dose Ordered Sig/Brian Route Start Time Stop Time Status Last Admin Dose Admin Enoxaparin Sodium (Lovenox Inj) 40 mg Q24H SQ 12/26/17 22:00 01/25/18 21:59 12/26/17 22:42 40 MG Acetaminophen (Tylenol Tab) 650 mg Q4H PRN PO 12/26/17 20:00 01/25/18 19:59 Al Hydrox/Mg Hydrox/Simethicone (Maalox Max Susp) 15 ml Q4H PRN PO 12/26/17 20:00 01/25/18 19:59 Magnesium Hydroxide (Milk Of Magnesia Susp) 30 ml Q6H PRN PO 12/26/17 20:00 01/25/18 19:59 Polyethylene (Miralax Powder Packet) 17 gm DAILY PRN PO 12/26/17 20:00 01/25/18 19:59 Ondansetron HCl (Zofran Inj) 4 mg Q6H PRN IV 12/26/17 20:00 01/25/18 19:59 Methylprednisolone Sodium Succinate 40 mg/Syringe 0.64 ml @ 1.5 mls/min Q8H IV 12/27/17 04:00 01/26/18 03:59 12/27/17 03:55 1.5 MLS/MIN Albuterol/ Ipratropium (Duoneb) 3 ml QIDR INH 12/26/17 20:00 01/25/18 19:59 12/27/17 06:57 3 ML Aspirin (Ecotrin Tab) 81 mg HS PO 12/26/17 21:00 01/25/18 20:59 12/26/17 21:14 81 MG Hydrochlorothiazide (Hydrochlorothiazide Tab) 25 mg QAM PO 12/27/17 09:00 01/26/18 08:59 Multivitamins/ Minerals (Multivitamin W/ Minerals Tab) 1 tab BID PO 12/26/17 21:00 01/25/18 20:59 12/26/17 21:14 1 TAB Miscellaneous Information (Order Awaiting Action) 1 ea QS N/A 12/27/17 00:00 01/26/18 00:00 Insulin Aspart (novoLOG ASPART) SLIDING SCALE G... ACHS SC 12/26/17 21:00 01/25/18 20:59 Hydralazine HCl (HydrALAZINE INJ) 10 mg Q6H PRN IV. 12/26/17 22:00 01/25/18 21:59 12/26/17 22:10 10 MG Objective Vital Signs Date Time Temp Pulse Resp B/P (MAP) Pulse Ox O2 Delivery O2 Flow Rate FiO2 12/27/17 07:09 36.5 84 20 177/97 (123) 98 CPAP 12/27/17 06:57 88 20 96 BiPAP/CPAP 3.0 12/27/17 00:16 36.5 97 20 146/83 (104) 99 3.0 12/27/17 00:00 CPAP 12/26/17 22:41 170/85 (113) 12/26/17 21:28 184/98 (126) 12/26/17 21:28 189/105 (133) 12/26/17 21:22 90 30 96 Nasal Cannula 3.0 12/26/17 19:00 96 CPAP 12/26/17 18:55 96 CPAP 12/26/17 18:37 36.9 94 20 192/117 (142) 96 CPAP Physical Exam General Appearance: WD/WN, no apparent distress Eyes: normal inspection, sclerae normal ENT: hearing grossly normal Neck: supple, no adenopathy, thyroid normal, no carotid bruits, trachea midline Respiratory/Chest: no respiratory distress, no accessory muscle use, + wheezing Cardiovascular: regular rate, rhythm, no edema, no gallop, no murmur Abdomen: normal bowel sounds, non tender, soft, no organomegaly, no pulsatile mass Extremities: normal range of motion, normal inspection, no calf tenderness Neurologic/Psychiatric: alert, normal mood/affect Skin: normal color, warm/dry, no rash Lymphatic: no adenopathy Laboratory Results Last Resulted 12/27/17 06:42 Red Blood Count 5.09, Mean Corpuscular Volume 86.6, Mean Corpuscular Hemoglobin 30.5, Mean Corpuscular Hemoglobin Concent 35.1, Mean Platelet Volume 9.0, Neutrophils (%) (Auto) 82.0, Lymphocytes (%) (Auto) 15.7, Monocytes (%) (Auto) 1.1, Eosinophils (%) (Auto) 0.2, Basophils (%) (Auto) 0.5, Neutrophils # (Auto) 4.59, Lymphocytes # (Auto) 0.88, Monocytes # (Auto) 0.06, Eosinophils # (Auto) 0.01, Basophils # (Auto) 0.03 Last Resulted 12/27/17 06:42 Past 24 Hours Test 12/26/17 21:04 Range/Units Prothromb Time International Ratio 1.0 0.9-1.1 Prothrombin Time 10.5 9.0-12.0 SECONDS Date/Time Source Procedure Growth Status 12/26/17 22:00 Nasal MRSA DNA Surveillance Screen - Final Specimen Positive for MRSA by DNA Probe Complete Assessment and Plan 82y/oF with hx of asthma/allergic bronchopulmonary aspergillosis, HTN, HLD, impaired glucose, ANIL on cpap and chronic bilateral pulmonary nodules (stable since 2007) presents as a direct admit from [facility] clinic for respiratory distress with worsening productive cough, wheezing and sob x 3 days. Concerning for acute exacerbation likely in the setting of viral URI vs. poor management at baseline of inflammatory airway disease as pt has not been using maintenance inhaler dulera or using albuterol nebs as prescribed in a long time per family. 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 She received voriconazole for 12weeks and steroid taper. Pt has appt coming up with cottrell operator at [facility] to further delineate lung disease. Was started on dulera and montelukast. ECHO: 2015 EF > 70%; grade I diastolic dysfunction, mild aortic valve sclerosis and mild aortic regurg. Acute asthma exacerbation - Afebrile, no WBC elevation - CXR unchanged (pt has hx of stable bilateral pulmonary nodules since 2007) and no acute changes - Received methylpred IV 80mg x 1 - Started on methylpred IV 40mg Q8H - Duoneb D/C as it possess anti cholinergic properties and likely will dry her out further exacerbating episode - Started Budesonide q12 and albuterol q4 (nebulized -Mucinex 1200mg q12 for to help clear secretions -1/2 NS @ 80 cc as tolerated to help her rehydrate and hopefully thin secretions - Continued home dulera inhaler daily - could be exacerbation 2/2 to gerd or aspiration - F/U Aspergillus IgG/IgE to rule out Aspergillus and sputum cultures - although unlikely cannot rule out MAC follow up ct scan tomorrow - would consider empiric zithromax as it has anti-inflammatory properties and would tx atypicals Auto-Immune Workup -Given her extensive family history of similar respiratory problems that only respond to steroids, brother on daily pred. 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 -F/U DANISH, EH, RF, C3/C4, ANCA, SPEP, Quantative Ig, Alpha 1 anti trypsin. -When stable suggest PFT with DLCO -For CT Scan tomorrow -Most likely will not have a dx while inpatient however goal is to set a plan in action and work from there HTN urgency - D/C'd HCTZ and would recommend staying away from diuretics as the are very drying - Started losartan - Ordered hydralazine IV 10mg for SBP > 180 and/or DBP > 110 DM - Held metformin, per admitting team I would consider restarting - Started on Novolog SSI HLD/CAD - Continued home atorvastatin - Continued home aspirin Allergic rhinitis - Continued home flonase DVT prop: Lovenox Full code Diet: DM2 Resident Physician Supervision Note: I interviewed and examined the patient. Discussed with Dr. Celaya and agree with findings and plan as documented in the note. Any exceptions or clarifications are listed here: None Documented By: Florentino Pozo cough and wheeze better - notes steroids always help but not long nothing else seems to help has been going on a long time did seem to get better briefly after antifungal treatment years ago vitals noted fatigued but nad no sob at the time of my eval no accessory muscles good effort cough/wheeze/sob -EXTENSIVE review of charts, data, and medical literature and then extensive time in the room w pt and family - likely 75mins involved (or more) today -suspect most likely reactivation of aspergillus causing asthma like picture, vs less likely other similar subtle infections vs least likely autoimmune. doesn't seem to be "regular" asthma or COPD given lack of meaningful response to other treatments -CT chest to check progression from 2016, repeat sputum --> if negative, would ask pulm to bronch for samples. autoimmune labs pending -- if postive for telling findings, would also ocnsider bronch for lung biopsy if possible -for now steroids and supportive care again ~75mins at least spent on case today Continued [facility] stay due to: multiple IV medications needed Discharge planning: home Resident Tracking Resident Involvement: Resident Care Provided Care Provided: Adult Hospital Medicine
[2017-12-27] MEDS: CEROVITE ADV FORMULA TAB PO SCH ×2 (08:20→21:56)
[2017-12-27] MEDS: INSULIN ASPART 100 UNITS/ML 3 ML PEN SC SCH ×4 (08:21→21:54)
--- NOTE | 2017-12-27 08:32 | Clinical Documentation Query ---
KELLI Escobedo : CLINICAL DOCUMENTATION QUERY Patient is an 82 year female admitted for acute asthma exacerbation in the setting of bronchopulmonary aspergillosis. H&P physical assessment noted "pt is working hard to breathe and using CPAP" and "breathing with pursed lips". Respirations as high as 30/minute in the setting of continuous CPAP and supplemental oxygen. As appropriate, consider capture of this clinical scenario as suggested below. Thank you. In your clinical opinion is this patient being managed for: ( X ) Acute respiratory failure POA ( ) Not Agree ( ) Other explanation of clinical findings (No explanation is considered a No Response) ( ) Unable to determine ( ) Need to Discuss (Phone CDS or qliq) (No discussion is considered a No Response) The medical record reflects the following clinical findings, treatment, and risk factors. Clinical Indicators: As above Treatment: continuous CPAP and supplemental oxygen Risk Factors: bronchopulmonary aspergillosis Please clarify and document your clinical opinion in the progress notes and discharge summary. Terms such as "probable", "suspected", "likely", "questionable", "possible", or "still to be ruled out" are acceptable. IF IN AGREEMENT, YOU MUST DOCUMENT ABOVE DIAGNOSTIC STATEMENT IN DAILY PROGRESS NOTES AND DISCHARGE SUMMARY. This document is not part of the patient's record. Thank You, Santino Simpson RN [phone]
[2017-12-27] MEDS ORDERED: HYDROCHLOROTHIAZIDE 25 MG TAB PO SCH (09:00)
[2017-12-27] MEDS ORDERED: PHARMACY GLYCEMIC MGMT CONSULT PRN (12:14)
[2017-12-27] MEDS: SODIUM CHLORIDE 0.45% 1000ML 1,000 ML IV SCH (14:23)
[2017-12-27] MEDS ORDERED: INSULIN GLARGINE SOLOSTAR 100 UNITS/ML 3 ML PEN SC STA (14:35)
[2017-12-27] MEDS: ALBUTEROL 0.5% NEB SOLN 2.5 MG/0.5 ML VIAL INH SCH ×3 (15:14→22:58)
[2017-12-27] MEDS: BUDESONIDE 0.5 MG/2 ML VIAL (PULMICORT) INH SCH (19:03)
--- NOTE | 2017-12-27 19:58 | DIAGNOSTIC IMAGING REPORT ---
(CHEST) THORAX WITHOUT CLINICAL HISTORY: Cough, wheezing, history of aspergillosis. COMPARISON STUDY: Chest x-ray dated 12/26/2017, CT scan dated 12/27/2015 CT DOSE: 411.23 mGy.cm TECHNIQUE: CT of the thorax was performed from the thoracic inlet to the lung bases. Images are reviewed in the axial, sagittal, and coronal planes. IV contrast was not administered for this examination. A dose lowering technique was utilized adhering to the principles of ALARA. FINDINGS: Thyroid: Imaged portions of the thyroid gland are normal in appearance. Thoracic aorta: There is mild dilatation of the ascending thoracic aorta which measures 4 cm. Heart: The heart is normal in size. There are coronary artery calcifications. There is a small pericardial effusion. Lungs and pleural spaces: There are dependent atelectatic changes. There are stable bilateral pulmonary nodules most of which are calcified and likely postinflammatory. There is no acute parenchymal consolidation. There are no pleural effusions. There is minor lower lobe bronchial wall thickening and mucoid impaction. Mediastinum: There is no mediastinal lymphadenopathy. Elisa: There is no evidence of pathologic hilar adenopathy given the limitations of a noncontrast study Axilla: There is no evidence of pathologic axillary lymphadenopathy. Upper abdomen: There are stable hepatic cysts. Skeletal structures: There are no lytic or blastic osseous lesions. IMPRESSION: 1. Minor lower lobe bronchial wall thickening and mucoid impaction 2. Stable postinflammatory pulmonary nodules 3. No focal airspace opacities to indicate a pneumonia. Electronically signed by: Lalo Jimenez M.D. 12/27/2017 7:57 PM Dictated Date/Time: 12/27/2017 7:51 PM
[2017-12-27] MEDS: GUAIFENESIN 600 MG TABCR PO SCH (20:31)
[2017-12-27] MEDS: ASPIRIN 81 MG ECTAB PO SCH (20:32)
[2017-12-27] MEDS ORDERED: INSULIN GLARGINE SOLOSTAR 100 UNITS/ML 3 ML PEN SC ONE (21:00)
[2017-12-27] MEDS: ENOXAPARIN 40 MG/0.4 ML SYR SQ SCH (21:53)
[2017-12-27] MEDS ORDERED: POTASSIUM CHLORIDE 20 MEQ TABCR PO STA (22:27)
[2017-12-28] VITALS: BP 151/90; PULSE 73; TEMP 36.6; O2SAT 91
[2017-12-28] MEDS: INSULIN ASPART 100 UNITS/ML 3 ML PEN SC SCH ×4 (00:30→12:10)
[2017-12-28] MEDS: SODIUM CHLORIDE 0.45% 1000ML 1,000 ML IV SCH (00:31)
[2017-12-28] MEDS: ALBUTEROL 0.5% NEB SOLN 2.5 MG/0.5 ML VIAL INH SCH ×4 (04:00→15:28)
[2017-12-28] MEDS: METHYLPREDNISOLONE IV 40 MG in SYRINGE 0 ML IV SCH ×2 (04:04→12:11)
[2017-12-28 07:07] LABS: HEMOGLOBIN A1C 6.6 % (4.5-5.6)
[2017-12-28 07:14] VITALS: PULSE 80; O2SAT 95
[2017-12-28] MEDS: BUDESONIDE 0.5 MG/2 ML VIAL (PULMICORT) INH SCH (07:14)
[2017-12-28 07:24] VITALS: BP_SYST 179; BP_SYST 180; BP_DIAS 103; BP_DIAS 90; PULSE 83; TEMP 36.5; O2SAT 98
--- NOTE | 2017-12-28 07:32 | Family Medicine Progress Note ---
Progress Note Date of Service Dec 28, 2017. Medications Current Inpatient Medications Medications (Trade) Dose Ordered Sig/Brian Route Start Time Stop Time Status Last Admin Dose Admin Enoxaparin Sodium (Lovenox Inj) 40 mg Q24H SQ 12/26/17 22:00 01/25/18 21:59 12/27/17 21:53 40 MG Acetaminophen (Tylenol Tab) 650 mg Q4H PRN PO 12/26/17 20:00 01/25/18 19:59 Al Hydrox/Mg Hydrox/Simethicone (Maalox Max Susp) 15 ml Q4H PRN PO 12/26/17 20:00 01/25/18 19:59 Magnesium Hydroxide (Milk Of Magnesia Susp) 30 ml Q6H PRN PO 12/26/17 20:00 01/25/18 19:59 Polyethylene (Miralax Powder Packet) 17 gm DAILY PRN PO 12/26/17 20:00 01/25/18 19:59 Ondansetron HCl (Zofran Inj) 4 mg Q6H PRN IV 12/26/17 20:00 01/25/18 19:59 Methylprednisolone Sodium Succinate 40 mg/Syringe 0.64 ml @ 1.5 mls/min Q8H IV 12/27/17 04:00 01/26/18 03:59 12/28/17 04:04 1.5 MLS/MIN Aspirin (Ecotrin Tab) 81 mg HS PO 12/26/17 21:00 01/25/18 20:59 12/27/17 20:32 81 MG Multivitamins/ Minerals (Multivitamin W/ Minerals Tab) 1 tab BID PO 12/26/17 21:00 01/25/18 20:59 12/27/17 21:56 1 TAB Miscellaneous Information (Order Awaiting Action) 1 ea QS N/A 12/27/17 00:00 01/26/18 00:00 Insulin Aspart (novoLOG ASPART) SLIDING SCALE G... ACHS SC 12/26/17 21:00 01/25/18 20:59 12/27/17 21:54 5 UNITS Hydralazine HCl (HydrALAZINE INJ) 10 mg Q6H PRN IV. 12/26/17 22:00 01/25/18 21:59 12/26/17 22:10 10 MG Miscellaneous Information (Consult Glycemic Management Pharmacy) 1 ea UD PRN N/A 12/27/17 12:14 01/26/18 12:13 Albuterol Sulfate (Ventolin 0.5% 2.5MG/0.5ML Neb) 2.5 mg Q4R INH 12/27/17 16:00 01/26/18 15:59 12/28/17 07:14 2.5 MG Budesonide (Pulmicort Respules 0.5MG/ 2ML Neb Soln) 0.5 mg Q12R INH 12/27/17 20:00 01/26/18 19:59 12/28/17 07:14 0.5 MG Sodium Chloride 1,000 ml @ 80 mls/hr [id number] IV 12/27/17 13:45 12/28/17 13:45 12/28/17 00:31 80 MLS/HR Guaifenesin (Mucinex Contr Rel Tab) 1,200 mg Q12 PO 12/27/17 21:00 01/26/18 20:59 12/27/17 20:31 1,200 MG Losartan Potassium (coZAAR TAB) 50 mg QAM PO 12/28/17 09:00 01/27/18 08:59 Objective Vital Signs Date Time Temp Pulse Resp B/P (MAP) Pulse Ox O2 Delivery O2 Flow Rate FiO2 12/28/17 07:24 36.5 83 20 179/103 (128) 98 Room Air 180/90 (120) 12/28/17 07:14 80 16 95 BiPAP/CPAP 21 12/28/17 00:00 CPAP 12/28/17 00:00 36.6 73 18 151/90 (110) 91 CPAP 12/27/17 22:58 78 18 96 Room Air 12/27/17 19:05 99 16 93 Room Air 12/27/17 16:00 93 CPAP 12/27/17 15:15 79 18 93 BiPAP/CPAP 12/27/17 14:45 36.9 86 16 149/82 (104) 92 CPAP 12/27/17 11:26 88 20 96 Room Air 12/27/17 08:20 Room Air Laboratory Results Last Resulted 12/27/17 06:42 Red Blood Count 5.09, Mean Corpuscular Volume 86.6, Mean Corpuscular Hemoglobin 30.5, Mean Corpuscular Hemoglobin Concent 35.1, Mean Platelet Volume 9.0, Neutrophils (%) (Auto) 82.0, Lymphocytes (%) (Auto) 15.7, Monocytes (%) (Auto) 1.1, Eosinophils (%) (Auto) 0.2, Basophils (%) (Auto) 0.5, Neutrophils # (Auto) 4.59, Lymphocytes # (Auto) 0.88, Monocytes # (Auto) 0.06, Eosinophils # (Auto) 0.01, Basophils # (Auto) 0.03 Last Resulted 12/27/17 06:42 12/27/17 07:54 Date/Time Source Procedure Growth Status 12/26/17 22:00 Nasal MRSA DNA Surveillance Screen - Final Specimen Positive for MRSA by DNA Probe Complete 12/27/17 20:34 Sputum Expectorated Sputum Gram Stain Pending Received 12/27/17 20:34 Sputum Expectorated Sputum Sputum Culture Pending Received Assessment and Plan 82y/oF with hx of asthma/allergic bronchopulmonary aspergillosis, HTN, HLD, impaired glucose, ANIL on cpap and chronic bilateral pulmonary nodules (stable since 2007) presents as a direct admit from [facility] clinic for respiratory distress with worsening productive cough, wheezing and sob x 3 days. Concerning for acute exacerbation likely in the setting of viral URI vs. poor management at baseline of inflammatory airway disease as pt has not been using maintenance inhaler dulera or using albuterol nebs as prescribed in a long time per family. 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 She received voriconazole for 12weeks and steroid taper. Pt has appt coming up with cigar roller at [facility] to further delineate lung disease. Was started on dulera and montelukast. ECHO: 2015 EF > 70%; grade I diastolic dysfunction, mild aortic valve sclerosis and mild aortic regurg. Acute asthma exacerbation - Afebrile, no WBC elevation - CXR unchanged (pt has hx of stable bilateral pulmonary nodules since 2007) and no acute changes - Received methylpred IV 80mg x 1 - Started on methylpred IV 40mg Q8H - Duoneb D/C as it possess anti cholinergic properties and likely will dry her out further exacerbating episode - Started Budesonide q12 and albuterol q4 (nebulized -Mucinex 1200mg q12 for to help clear secretions -1/2 NS @ 80 cc as tolerated to help her rehydrate and hopefully thin secretions - Continued home dulera inhaler daily - could be exacerbation 2/2 to gerd or aspiration - F/U Aspergillus IgG/IgE to rule out Aspergillus and sputum cultures - although unlikely cannot rule out MAC follow up ct scan tomorrow - would consider empiric zithromax as it has anti-inflammatory properties and would tx atypicals Auto-Immune Workup -Given her extensive family history of similar respiratory problems that only respond to steroids, brother on daily pred. 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 -F/U DANISH, EH, RF, C3/C4, ANCA, SPEP, Quantative Ig, Alpha 1 anti trypsin. -When stable suggest PFT with DLCO -For CT Scan tomorrow -Most likely will not have a dx while inpatient however goal is to set a plan in action and work from there HTN urgency - D/C'd HCTZ and would recommend staying away from diuretics as the are very drying - Started losartan - Ordered hydralazine IV 10mg for SBP > 180 and/or DBP > 110 DM - Held metformin, per admitting team I would consider restarting - Started on Novolog SSI HLD/CAD - Continued home atorvastatin - Continued home aspirin Allergic rhinitis - Continued home flonase DVT prop: Lovenox Full code Diet: DM2 Resident Tracking Resident Involvement: Resident Care Provided Care Provided: Adult Hospital Medicine
[2017-12-28] MEDS: GUAIFENESIN 600 MG TABCR PO SCH (08:47)
[2017-12-28] MEDS ORDERED: INSULIN GLARGINE SOLOSTAR 100 UNITS/ML 3 ML PEN SC SCH (09:00)
[2017-12-28] MEDS ORDERED: LOSARTAN POTASSIUM 50 MG TAB PO SCH (09:00)
[2017-12-28] MEDS: CEROVITE ADV FORMULA TAB PO SCH (10:29)
[2017-12-28 11:20] VITALS: PULSE 101; O2SAT 94
[2017-12-28] MEDS ORDERED: PLMINS INH ×2 (13:03→14:58)
[2017-12-28] MEDS ORDERED: PRVIN525 INH ×2 (13:03→14:58)
[2017-12-28] MEDS ORDERED: CZR50 PO (13:03)
[2017-12-28] MEDS ORDERED: GFNSR600 PO (13:03)
[2017-12-28] MEDS ORDERED: TRIA1SPR4 NAE (13:03)
--- NOTE | 2017-12-28 13:06 | Pharmacy Progress Note ---
Glycemic Control Intl Consult Date of Service Dec 28, 2017. Scope Glycemic Pharmacist consulted by Dr Celaya on 12/28/17 for glycemic control and to write orders per [facility] inpatient glycemic control protocol Objective Weight (Kilograms): 96.600 Accuchecks BSG (last 24hrs): Test 12/27/17 17:21 12/27/17 20:49 12/28/17 00:17 12/28/17 03:59 Bedside Glucose 207 mg/dl (70-90) 253 mg/dl (70-90) 194 mg/dl (70-90) 192 mg/dl (70-90) Test 12/28/17 07:41 12/28/17 11:30 Bedside Glucose 179 mg/dl (70-90) 253 mg/dl (70-90) Laboratory Data (last 24hrs) Test 12/28/17 06:44 Hemoglobin A1c 6.6 % HbA1c Test 12/28/17 06:44 Hemoglobin A1c 6.6 % (4.5-5.6) H Recent Pertinent Medications Outpatient Anti-diabetic Regimen: * Metformin 500mg BID * A1c = 6.6 % 12/28/17 Risk Factors for Insulin Resistance: * Steroids: Solumedrol 40mg ATC Assessment & Plan ASSESSMENT: * Ms. Lomeli is an 82 yo F unbeknownst to the pharmacy glycemic service. PMHx: HTN , HLD, DMII. P/w acute on chronic Pulmonary exacerbation. Received 80mg SM in the ED 12/26/17 then started on ATC Solumedrol 40mg IV. BSGs have been elevated over the previous 24hrs: [phone]. Likely due to steroids and lack of metabolic coverage. Once I received the glycemic consult I initiated basal insulin and add checks. PLAN FOR INPATIENT GLYCEMIC CONTROL: * Holding outpatient oral diabetes medications * Basal insulin with LANTUS 20 units given 12/27/17 and added lantus scale evening of 12/27/17. Ongoing lantus scale: 16 units for BSGs <200mg/dL. 20 units for BSGs >/=200. * Correctional Insulin with NOVOLOG per scale ACHS * Goal Range: Low 120 mg/dL - High 160 mg/dL * Correction Factor: 20 mg/dL/unit * Nutritional / Prandial insulin per carb ratio of 1 unit per 5 grams CHO consumed * 00,04 checks to help ensure euglycemia in the setting of ATC SM * Please note that the plan above was derived based on current level of insulin resistance and hospital stress. These recommendations are appropriate for inpatient admission only. Plan of care upon discharge will need to be reassessed to avoid potential outpatient hypo/hyperglycemia. Thank you.
--- NOTE | 2017-12-28 13:39 | Discharge Instructions ---
Discharge Instructions Date of Service Dec 28, 2017. Admission Reason for Admission: Obstructive Pulmonary Disease Exacerbation Discharge Discharge Diagnosis / Problem: Obstructive Respirtory Disease Discharge Goals Goal(s): Improve function, Diagnostic testing Activity Recommendations Activity Limitations: resume your previous activity Exercise/Sports Limitations: as tolerated May Resume Sexual Activity: when tolerated Shower/Bathe: no limitations Driving or Machine Use: no limitations Resume activity as tolerated, Do not overexert yourself . Instructions / Follow-Up Instructions / Follow-Up Obstructive Respiratory Disease During this admission you were evaluated for a chronic respiratory disorder. Though an extensive history and physical examination we were unable to conclusively diagnose the cause of your current respiratory condition however we preformed numerous diagnostic tests with that should result in approximately 1 week. During this hospitalization we also made several medication changes in hope to better control your disease. Currently we are casting a wide net and have a large differential (see below) - EH, RF, C3, C4: Collagen vascular disease causing interstitial lung disease - Quantitative Immunoglobulins: were Negative Test for Possible Immunodeficiency - SPEP same for Possible Immunodeficiency - Alpha one antitrypsin: for antitrypsin deficiency or heterogeneity - Aspergillus titers: Aspergillus ABPA and Hypersensitivity Pneumonitis -Aspergillus sputum cultures - DANISH: titer for Sarcoidosis - ANCA levels: for Carlota's Granulomatosis and other Vasculitis - CAT SCAN: to better assess the Lungs and mediastinum - PFT's with DLCO: looking for intestinal lung disease, obstructive vs restrictive vs reversible lung disease - Eosinophil levels: For Eosinophilic Asthma if positive you may be an excellent candidate for NUCALA therapy. Medications: Your chest CT show mucoid impaction and after reviewing your history and outpatient medications we were concerned that you were on too many drying agents, anticholinergic medications, HCTZ. We recommend you stay adequately hydrated and avoid any drying medications - We discontinued your HCTZ and transitioned you to Losartan - We also recommend you drink at a minimum 64fl oz (1/2 gallon) of water everyday as this will help clearing secretions - You may find relief from coughing by turn the shower on full hot and breathing deeply in the steam filled room - While in patient you were given a flutter valve (green oblong device) please try to use out patient once a day to help clear secretions - High blood sugar secondary to Diabetes will cause your body to dry out as well therefore blood sugar control is of the ut most importance. -please resume metformin - Please follow the Prednisone taper as prescribed (60mg for 2 days, then 50mg for 2 days, then 40mg for 2 days, then 30mg for 2 days, then 20mg for 2 days, then 10mg for 2 days. It's Ok to take all the pills at once, and we would recommend taking them earlier in the day since prednisone can make you feel hyper). Should your symptoms not improve or worsen please contact your primary care physician Dr. Mirza or precede directly to the E.R. Should you experience significant shortness of breath, chest pain, paralysis, or weakness please call 911. Thank you for allowing me to participate in your care. Have a wonderful Summer Thank you for allowing Current Hospital Diet Patient's current hospital diet: Diabetes Type 2 Diet Discharge Diet Recommended Diet: AHA Diet (Heart Healthy), Diabetes Type 2 Diet Procedures Procedures Performed: Chest Ct:1. Minor lower lobe bronchial wall thickening and mucoid impaction 2. Stable postinflammatory pulmonary nodules 3. No focal airspace opacities to indicate a pneumonia. CXR:No significant change compared to the prior study. No acute process. Stable bilateral pulmonary nodules. Pending Studies Studies pending at discharge: yes List of pending studies: Please see above Laboratory Results Hemoglobin A1c Test 12/28/17 06:44 Range/Units Estimated Average Glucose 143 mg/dl Hemoglobin A1c 6.6 H 4.5-5.6 % Medical Emergencies . Who to Call and When: Medical Emergencies: If at any time you feel your situation is an emergency, please call 911 immediately. . Non-Emergent Contact Non-Emergency issues call your: Primary Care Provider . . "Provider Documentation" section prepared by Garfield Celaya. .
[2017-12-28] MEDS ORDERED: PRED10TA PO (14:58)
[2017-12-28 15:32] VITALS: BP 180/90; PULSE 101; PULSE 99; TEMP 36.5; O2SAT 94; O2SAT 95
--- NOTE | 2017-12-28 18:47 | Discharge Summary ---
Discharge Summary Date of Service Dec 28, 2017. Discharge Summary Admission Date: Dec 26, 2017 at 17:59 Discharge Date: Dec 28, 2017 Discharge Disposition: Home Principal Diagnosis: Obstructive Repiratory Disease Immunizations: Have You Had Influenza Vaccine: Yes History of Tetanus Vaccine?: Yes Tetanus Immunization Date: Mar 23, 1993 History of Pneumococcal: No History of Hepatitis B Vaccine: No Procedures: Chest CT: IMPRESSION: 1. Minor lower lobe bronchial wall thickening and mucoid impaction 2. Stable postinflammatory pulmonary nodules 3. No focal airspace opacities to indicate a pneumonia. CXR:No significant change compared to the prior study. No acute process. Stable bilateral pulmonary nodules. Consultations: Glycemic consult: Ms. Lomeli is an 82 yo F unbeknownst to the pharmacy glycemic service. PMHx: HTN, HLD, DMII. P/w acute on chronic Pulmonary exacerbation. Received 80mg SM in the ED 12/26/17 then started on ATC Solumedrol 40mg IV. BSGs have been elevated over the previous 24hrs: [phone]. Likely due to steroids and lack of metabolic coverage. Once I received the glycemic consult I initiated basal insulin and add 00,04 checks. Medication Reconciliation New Medications: Prednisone Tab (Prednisone) 10 Mg Tab 10 MG PO UD, #42 TAB 60mg x 2 days then 50mg x 2 days then 40mg x 2 days then 30mg x 2 days then 20mg x 2 days then 10mg x 2 days then stop Triamcinolone Acetonide (Nasal (Nasacort Allergy 24Hr) 55 Mcg/Act Spr 2 SPRAYS KEMAR QD for 30 Days 2 sprays in each nostril once per day Albuterol Sulf (Albuterol Sulfate) 2.5 Mg/0.5 Ml Nebu 2.5 MG INH Q6 for 30 Days, #1 BOX Please take 4 times a day twice in the morning and twice in the evening preferably 6 hours apart until your are seen in the office. Then as needed for chest congestion Budesonide (Inhalation) (Pulmicort Respules 0.5MG/2ML) 0.5 Mg/2 Ml Key 0.5 MG INH Q12R, #60 AMP Please take 2 times a day once in the morning and once before bed until your are seen in the office. Then as needed for chest congestion Guaifenesin Ext Rel (Mucinex Ext Rel) 600 Mg Tabcr 1200 MG PO Q12 for 30 Days Take every 12 hours until your a seen in the office next week and than as needed for chest congestion Losartan Potassium (Losartan Potassium) 50 Mg Tab 50 MG PO QAM for 30 Days, #30 TAB Continued Medications: Albuterol (Ventolin Hfa) 60 Puffs/5400 Mcg Aers 2 PUFFS INH Q4H PRN for RN Aspirin (Aspirin Ec) 81 Mg Tab 81 MG PO HS Metformin Hcl (Glucophage) 500 Mg Tab 500 MG PO BID, TAB Ocuvite Preservision (Ocuvite Preservision) 1 Tab Tab 1 TAB PO BID, TAB [Dulera] () 2 PUFFS INH BID Discontinued Medications: Hydrochlorothiazide (Hctz) 25 Mg Tab 25 MG PO QAM, TAB Discharge Exam Patient was resting comfortably during exam this am. Reports significant improvement in respiratory status. No complaints. Did not sleep well due to hustle and bustle of the hospital. Tolerating diet and toileting appropriately. Review of Systems: Constitutional: No fever, No chills, No sweats Eyes: No worsening of vision ENT: No hearing loss Respiratory: + cough (Resolving), + shortness of breath (Resolving ) Cardiovascular: No chest pain, No edema Abdomen: No pain, No nausea, No vomiting, No diarrhea, No constipation Musculoskeletal: No calf pain Psychiatric: No depression symptoms Endocrine: No fatigue, No excessive thirst, No excessive urination Hematologic / Lymphatic: No abnormal bleeding/bruising, No clotting problems , No swollen lymph nodes Integumentary: No rash, No itch, No new/changing skin lesions Physical Exam: General Appearance: WD/WN, no apparent distress Eyes: normal inspection, EOMI, sclerae normal Neck: supple, no adenopathy, thyroid normal, no JVD, no carotid bruits, trachea midline Respiratory/Chest: chest non-tender, no respiratory distress, no accessory muscle use, + pertinent finding (Obstructive respiratory pattern resolving ) Cardiovascular: regular rate, rhythm, no edema, no gallop, no JVD, no murmur , normal peripheral pulses Abdomen / GI: normal bowel sounds, non tender, soft, no organomegaly, no pulsatile mass, normal rectal exam Extremities: normal inspection, no calf tenderness, normal capillary refill , + pedal edema (1+) Neurologic/Psychiatric: alert, normal mood/affect Skin: normal color, warm/dry, no rash Lymphatic: no adenopathy Hospital Course 82y/oF with hx of asthma/allergic bronchopulmonary aspergillosis, HTN, HLD, impaired glucose, ANIL on cpap and chronic bilateral pulmonary nodules (stable since 2007) presented as a direct admit from [facility] clinic for respiratory distress with worsening productive cough, wheezing and sob x 3 days. Concerned for acute exacerbation likely in the setting of viral URI vs. poor management at baseline of inflammatory airway disease as pt has not been using maintenance inhaler dulera or using albuterol nebs as prescribed in a long time per family. 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 She received voriconazole for 12weeks and steroid taper. Pt has appt coming up with imaging manager at [facility] to further delineate lung disease. Was started on dulera and montelukast. ECHO: 2015 EF > 70%; grade I diastolic dysfunction, mild aortic valve sclerosis and mild aortic regurg. Acute asthma exacerbation - She was Afebrile, no WBC elevation - CXR unchanged (pt has hx of stable bilateral pulmonary nodules since 2007) and no acute changes - Received methylpred IV 80mg x 1 - Started on methylpred IV 40mg Q8H - Duoneb was D/C'd as it possess anti cholinergic properties and likely will dry her out further exacerbating episode - Started Budesonide q12 and albuterol q4 (nebulized) - Mucinex 1200mg q12 for to help clear secretions -1/2 NS @ 80 cc was started to help her rehydrate and hopefully thin secretions - Continued home dulera inhaler daily - could be exacerbation 2/2 to gerd or aspiration - F/U Aspergillus IgG/IgE to rule out Aspergillus and sputum cultures - although unlikely cannot rule out MAC follow up ct scan tomorrow - considered empiric zithromax as it has anti-inflammatory properties and would tx atypicals Auto-Immune Workup -Obtained extensive family history of similar respiratory problems brother on daily pred (brothers, mother, father), and HPI that her respiratory status only improves s/p po/iv steroids. 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 -unable to conclusively diagnose the cause of Pts current respiratory condition during inpatient hospitalization -preformed numerous diagnostic tests with that should result in approximately 1 week. - Currently we are casting a wide net and have a large differential (see below) - EH, RF, C3, C4: Collagen vascular disease causing interstitial lung disease - Quantitative Immunoglobulins: were Negative Test for Possible Immunodeficiency - SPEP same for Possible Immunodeficiency - Alpha one antitrypsin: for antitrypsin deficiency or heterogeneity - Aspergillus titers: Aspergillus ABPA and Hypersensitivity Pneumonitis -Aspergillus sputum cultures - DANISH: titer for Sarcoidosis - ANCA levels: for Carlota's Granulomatosis and other Vasculitis - CAT SCAN: to better assess the Lungs and mediastinum - PFT's with DLCO: looking for intestinal lung disease, obstructive vs restrictive vs reversible lung disease - Eosinophil levels: For Eosinophilic Asthma if positive she may be an excellent candidate for NUCALA therapy. - Plan for close follow up as an outpatient, will f/u next week in clinic and scheduled for pulm f/u next week - Should sputum cultures return negative request pulmonology obtain washings. Cx Dr. Singh Medications Management: - Chest CT showed mucoid impaction - After reviewing history and outpatient medications concerned PT was/is on too many drying agents, anticholinergic medications, HCTZ. -Episode may be 2/2 to significant dryness - Recommended she stay adequately hydrated and avoid any drying medications - Discontinued her HCTZ and transitioned you to Losartan - Recommended she drink at a minimum 64fl oz (1/2 gallon) of water everyday as this will help clearing secretions - Suggested steam therapy to help thin secretions (turn the shower on full hot and breathing deeply in the steam filled room) - Recommended regular use of flutter valve at least qd to clear secretions - High blood sugar 2/2 to Diabetes contributes enhances drying effects, stressed blood sugar control is very important. -please resume metformin - DC'd on Prednisone taper (60mg for 2 days, then 50mg for 2 days, then 40mg for 2 days, then 30mg for 2 days, then 20mg for 2 days, then 10mg for 2 days) HTN urgency - D/C'd HCTZ and recommended staying away from diuretics as the are very drying - Started losartan - Ordered hydralazine IV 10mg for SBP > 180 and/or DBP > 110 DM - Held metformin - Started on Novolog SSI HLD/CAD - Continued home atorvastatin - Continued home aspirin Allergic rhinitis - Dc'd Flonase in favor of Nasacort -Flonase is in an alcohol suspension that can be quite irritating to the nasal epithelium DVT prop: Lovenox Full code Diet: DM2 DC'd: Home Resident Physician Supervision Note: I interviewed and examined the patient. Discussed with Dr. Celaya and agree with findings and plan as documented in the note. Any exceptions or clarifications are listed here: None Documented By: Florentino Pozo feeling better wants to go home vitals noted nad breathing unlabored no pallor or icterus asthma-type flare -?reactivated aspergillus vs other -sputum collected here pending - if negative would ask pulm to do bronch for washings -autoimmune labs pending. if positive, consider lung bx as well if etiology not clear (but would suspect more likely reactivated aspergillus) -stable for home, prednisone taper -accelerated outpt f/u and close f/u as above Total Time Spent: Less than 30 minutes This includes examination of the patient, discharge planning, medication reconciliation, and communication with other providers. Discharge Instructions Please refer to the electronic Patient Visit Report (Discharge Instructions) for additional information. Additional Copies To Katherine Ni PA-C; Onofre Mirza MD; Garfield Celaya M.D.; Coleman Kamara M.D. Resident Tracking Resident Involvement: Resident Care Provided Care Provided: Adult Hospital Medicine
[2017-12-29] MEDS ORDERED: INSULIN ASPART 100 UNITS/ML 3 ML PEN SC SCH
[2017-12-31 13:36] LABS: ANA SCREEN TC 249X NEGATIVE (NEGATIVE)
[2018-01-01 13:24] LABS: COMPLEMENT C4** TC 44982E 26 MG/DL
== END 2017-12-28 15:59 | disposition home or self-care (01) | DRG 198 ==
LOC: C.MED 17:59 → UNDOADMIN 17:59 → C.MS2W 12-27 22:17
PROVIDERS: ADMIT Hospitalist; ATTEND Family Medicine
DX: B44.81 Allergic bronchopulmonary aspergillosis (principal); I16.0 Hypertensive urgency; E11.9 Type 2 diabetes mellitus without complications; E78.5 Hyperlipidemia, unspecified; I25.10 Atherosclerotic heart disease of native coronary artery without angina pectoris; J30.9 Allergic rhinitis, unspecified; G47.33 Obstructive sleep apnea (adult) (pediatric); R91.8 Other nonspecific abnormal finding of lung field; Z79.82 Long term (current) use of aspirin; Z79.84 Long term (current) use of oral hypoglycemic drugs; Z79.899 Other long term (current) drug therapy; Z82.5 Family history of asthma and other chronic lower respiratory diseases

== ENCOUNTER → 2018-01-08 | Outpatient (CLI) | payer OTHER ==
[~2018-01-08] MED LIST changes: +CZR50 PO; +GFNSR600 PO; -HYDR25TA4 PO; +PLMINS INH; +PRED10TA PO; +PRVIN525 INH; +TRIA1SPR4 NAE
--- NOTE | 2018-01-09 08:21 | PULMONARY FUNCTION TEST ---
Pre-bronchodilator spirometry reveals a moderate obstructive ventilatory defect, even more pronounced at low lung volumes. There was an excellent response to bronchodilator suggesting a reversible airways component. Lung volumes demonstrate evidence for significant air trapping. Diffusion capacity was well within normal limits. Clinical correlation is needed.
--- NOTE | 2018-01-13 15:20 | PULMONARY FUNCTION TEST ---
Spirometry is consistent with a moderate obstructive pattern. Repeat study done following bronchodilators showed significant improvement with a 28% increase in FEV1. This would suggest at least partially reversible obstructive airways disease. Flow volume loops were consistent with spirometric findings. Lung volume showed an increased residual volume and FRC and TLC and would be consistent with airflow obstruction. Diffusion capacity was normal at 100%.
== END | disposition home or self-care (01) ==
LOC: C.RC 12:46
PROVIDERS: ATTEND Family Medicine
DX: J45.909 Unspecified asthma, uncomplicated (principal); R05 Cough; R09.82 Postnasal drip; Z99.89 Dependence on other enabling machines and devices

== ENCOUNTER 2022-05-08 14:41 | Observation (INO) ==
[2022-05-08 15:42] LABS: Basophils # (auto) 0.04 K/uL (0-0.2); Basophils % (auto) 0.4 %; Eosinophils # (auto) 0.01 K/uL (0-0.50); Eosinophils % (auto) 0.1 %; Hematocrit (blood only) 40.2 % (34.1-44.9); Hemoglobin 13.6 g/dl (12.0-16.0); Immature Granulocytes # (auto) 0.06 K/uL (0.00-0.02); Immature Granulocytes % (auto) 0.7 %; Lymphocytes # (auto) 1.13 K/uL (1.2-3.4); Lymphocytes % (auto) 12.7 %; Mean Corpuscular Hemoglobin 29.9 pg (25.0-34.0); Mean Corpuscular Hgb Conc 33.8 g/dL (32.0-36.0); Mean Corpuscular Volume 88.4 fL (80.0-100.0); Mean Platelet Volume 9.2 fL (9.4-12.3); Monocytes # (auto) 0.51 K/uL (0.24-0.82); Monocytes % (auto) 5.7 %; Neutrophils # (auto) 7.17 K/uL (1.4-6.5); Neutrophils % (auto) 80.4 %; Platelet Count 274 K/uL (130-400); RDW Coefficient of Variation 13.2 % (11.5-14.5); RDW Standard Deviation 42.5 fL (36.4-46.3); Red Blood Count 4.55 M/uL (3.93-5.22); White Blood Count 8.92 K/ul (4.8-10.8)
[2022-05-08 16:02] LABS: Partial Thromboplastin Ratio 0.9; Partial Thromboplastin Time 25.5 Seconds (21.0-31.0); Prothrombin Time 10.9 Seconds (9.0-12.0)
[2022-05-08 16:10] LABS: Alanine Aminotransferase 15 U/L (7-52); Albumin Globulin Ratio 1.3 (0.9-2); Albumin Level 4.2 gm/dl (3.4-5.0); Alkaline Phosphatase 106 U/L (34-104); Anion Gap 11 (3-11); Aspartate Aminotransferase 20 U/L (13-39); Bilirubin,Total 0.9 mg/dl (0.2-1.0); Blood Urea Nitrogen 29 mg/dl (6-23); Calcium 9.5 mg/dl (8.5-10.1); Carbon Dioxide 28 mmol/L (21-32); Chloride 99 mmol/L (98-107); Est GFR (African American) 40.3 ml/min; Est GFR (Non-African American) 34.8 ml/min; Globulin 3.2 gm/dl (2.5-4.0); Glucose 175 mg/dl (70-99(Fasting)); Potassium 3.7 mmol/L (3.5-5.1); Sodium 138 mmol/L (136-145); Total Protein 7.4 gm/dl (6.0-8.3)
--- NOTE | 2022-05-08 17:03 | Emergency Department Note ---
Impression & Plan Lumbar compression fracture, Cognitive impairment, Fall ED Provider Note NAME: LORIN CHAUDHRY AGE: 86 SEX: F : 1935 ARRIVES VIA: Walk-In INFORMANT: Patient, ED PROVIDER(S): Alpesh Galvan MD Chief Complaint: Fall HPI: Patient presents with family member at bedside due to concern for possible injury status post fall. Patient does not complain of any acute pain or symptoms at this time but the family member heard her fall earlier the morning made around 6 AM. No reported head strike and there was no LOC. The patient was unwilling to get up off the couch but eventually was able to. The patient's family were states that she had complained of some pain at that time. Patient currently denies any pain. Family over did notice a bruise to the left scapular area. Patient does not take any blood thinner medications. Patient does have a known history of memory issues. No pain medication taken prior to arrival and patient denies any current head neck chest back abdominal or extremity pain. Patient does not use a walker or cane at home ROS: See HPI for pertinent positives and negatives. A total of 10 systems were reviewed and otherwise negative. Past medical history: See below Surgical history: See below Social history: See below Physical Exam: GENERAL: NAD, wearing a mask, non-toxic. EYE EXAM: Normal conjunctiva. PERRL, no anisocoria and EOM's grossly intact w/o pain. Head: No reproducible head pain, normocephalic atraumatic. NECK: Supple, no nuchal rigidity, no adenopathy, non-tender. No signs of meningismus. FROM of the neck with good chin to chest and neck extension. No stridor. LUNGS: Clear to auscultation. Normal chest wall mechanics. HEART: NSR, systolic ejection murmur noted. ABDOMEN: Abdomen soft, non-tender, normo-active bowel sounds, no masses, no rebound or guarding. BACK: No CVA TTP. No midline thoracic or lumbar TTP. No overlying skin changes. SKIN: Bruising noted to the left scapular area but without any TTP or overlying skin changes UPPER EXTREMITIES: Upper extremities are grossly normal. No TTP or obvious deformity. LOWER EXTREMITIES: Grossly normal, no edema. No TTP or obvious deformity and no leg length discrepancy. NEURO EXAM: A&O x3, cranial nerves II-XII grossly intact, normal speech, moves all 4 extremities. Differential diagnoses: Fracture, dislocation, contusion, intra-abdominal, pneumothorax, intrathoracic, intracranial, neurologic, compartment syndrome, rhabdomyolysis, as well as other pathologies. Course: Patient was seen and evaluated the bedside. Full history physical exam was performed. Imaging Studies: See Below Cardiac monitoring: An order was placed for continuous cardiac monitoring. The monitor shows a rate of 82 with sinus rhythm. MDM: Patient presents due to concern for fall. The patient does have a bruise to the left scapula but the patient has no reproducible pain is no pain with movement of the left upper extremity. I did offer an x-ray but the patient's family were declined. The patient did with CT head and cervical spine given the unknown mechanism of fall. Lumbar CT also obtained given that the patient had refused to want to walk earlier. Patient had a screening chest x-ray given the scapular bruise. The patient does not exhibit any signs of respiratory distress and has clear breath sounds bilaterally. Check screening no acute findings. CT head and cervical spine negative. The ariel conde's lumbar spinal CT shows concern for L-spine fracture. There is noted retropulsion and mild central canal stenosis. The patient has no lower extremity deficits and was able to get up and ambulate. Given this finding and the patient's dementia I do think the patient would benefit from admission and orthotics. To believe the patient may benefit from a TLSO brace. I did speak the on-call hospitalist Dr. Dailey and the patient was admitted to the medicine service. Past Med/Surg History Medical History (Updated 05/08/22 @ 23:14 by Alpesh Galvan MD) Asthma Bronchitis Cognitive impairment Diabetes Hypertensive urgency Obesity Pneumonia Surgical History H/O tubal ligation Family History Other Family history non-contributory Social History Smoking Status: Never smoker Hx Alcohol Use: Yes Alcohol type: wine Hx Substance Use: No Communication Ability: Effective Outbound Sales Professional Required: No Beliefs That Will Affect Care: None marital status: Current Living Situation: Family current occupational status: retired current occupation: retired teacher Feels Safe at Home: Yes Assistive Devices: CPAP Allergies Allergies Allergy/AdvReac Type Severity Reaction Status Date / Time No Known Allergies Allergy Unknown Verified 08/26/20 20:47 Home Meds Home Medications Medication Instructions Recorded Confirmed aspirin 81 mg tablet,delayed 81 mg PO HS 02/21/18 05/08/22 release metformin 500 mg tablet 1,000 mg PO QAM 02/21/18 05/08/22 atorvastatin 40 mg tablet 40 mg PO QAM 08/29/18 05/08/22 losartan 100 mg tablet 100 mg PO QAM 08/29/18 05/08/22 chlorthalidone 25 mg tablet 25 mg PO DAILY 12/21/18 05/08/22 glipizide 2.5 mg tablet, extended 2.5 mg PO DAILY 12/21/18 05/08/22 release 24 hr metformin 500 mg tablet 500 mg PO QPM 12/21/18 05/08/22 multivitamin with minerals 1 tab PO BID 12/21/18 05/08/22 mometasone-formoterol HFA 100 2 puff inhalation DAILY 08/26/20 05/08/22 mcg-5 mcg/actuation aerosol inhaler (Dulera) sertraline 50 mg tablet 50 mg PO DAILY 08/26/20 05/08/22 alendronate 70 mg tablet 70 mg PO WK 05/08/22 05/08/22 donepezil 10 mg tablet 10 mg PO HS 05/08/22 05/08/22 memantine 10 mg tablet 10 mg PO DAILY 05/08/22 05/08/22 Results & Data (ED) Vital Signs Vital Signs - 24 hr 05/08/22 14:43 05/08/22 18:41 05/08/22 19:42 Temperature 36.7 C Temperature Source Temporal Artery Scan Pulse Rate 86 Pulse Rate [Finger] 80 Respiratory Rate 20 18 Blood Pressure 166/85 H Blood Pressure [Right Arm] 219/107 H Blood Pressure Mean 112 Blood Pressure Mean [Right Arm] 144 Pulse Oximetry 98 95 100 Oxygen Delivery Method Room Air Room Air Room Air Sepsis Recent Fever Within 48 Hours No Sepsis New/Unexplained Change in Mental Status N/A Sepsis Action Taken by Nursing No Action Required 05/08/22 21:27 Temperature Temperature Source Pulse Rate Pulse Rate [Finger] 92 H Respiratory Rate 20 Blood Pressure Blood Pressure [Right Arm] 196/96 H Blood Pressure Mean Blood Pressure Mean [Right Arm] 129 Pulse Oximetry 96 Oxygen Delivery Method Room Air Sepsis Recent Fever Within 48 Hours Sepsis New/Unexplained Change in Mental Status Sepsis Action Taken by Care Home Medications Current Medication List: was personally reviewed by me Laboratory Data Attestation: I reviewed the patient's lab results. Result diagrams: 05/08/22 15:36 05/08/22 15:36 Lab Results 05/08/22 05/08/22 05/08/22 Range/Units 15:36 15:36 15:36 WBC 8.92 (4.8-10.8) K/ul RBC 4.55 (3.93-5.22) M/uL Hgb 13.6 (12.0-16.0) g/dl Hct 40.2 (34.1-44.9) % MCV 88.4 (80.0-100.0) fL MCH 29.9 (25.0-34.0) pg MCHC 33.8 (32.0-36.0) g/dL RDW Std Deviation 42.5 (36.4-46.3) fL RDW Coeff of Shanti 13.2 (11.5-14.5) % Plt Count 274 (130-400) K/uL MPV 9.2 L (9.4-12.3) fL Immature Gran % (Auto) 0.7 % Neut % (Auto) 80.4 % Lymph % (Auto) 12.7 % Parke % (Auto) 5.7 % Eos % (Auto) 0.1 % Baso % (Auto) 0.4 % Neut # (Auto) 7.17 H (1.4-6.5) K/uL Lymph # (Auto) 1.13 L (1.2-3.4) K/uL Parke # (Auto) 0.51 (0.24-0.82) K/uL Eos # (Auto) 0.01 (0-0.50) K/uL Baso # (Auto) 0.04 (0-0.2) K/uL Immature Gran # (Auto) 0.06 H (0.00-0.02) K/uL PT 10.9 (9.0-12.0) Seconds INR 1.0 (0.9-1.1) APTT 25.5 (21.0-31.0) Seconds PTT Ratio 0.9 Sodium 138 (136-145) mmol/L Potassium 3.7 (3.5-5.1) mmol/L Chloride 99 (98-107) mmol/L Carbon Dioxide 28 (21-32) mmol/L Anion Gap 11 (3-11) BUN 29 H (6-23) mg/dl Creatinine 1.38 H (0.6-1.2) mg/dl Est Cr Clr Drug Dosing Not Reportable Est GFR ( Amer) 40.3 ml/min Est GFR (Non-Af Amer) 34.8 ml/min BUN/Creatinine Ratio 21.0 H (10-20) Glucose 175 H (70-99(Fasting)) mg/dl Calcium 9.5 (8.5-10.1) mg/dl Total Bilirubin 0.9 (0.2-1.0) mg/dl AST 20 (13-39) U/L ALT 15 (7-52) U/L Alkaline Phosphatase 106 H (34-104) U/L Total Protein 7.4 (6.0-8.3) gm/dl Albumin 4.2 (3.4-5.0) gm/dl Globulin 3.2 (2.5-4.0) gm/dl Albumin/Globulin Ratio 1.3 (0.9-2) Urine Color Urine Appearance (Clear) Urine pH (4.5-7.5) Ur Specific Bracey (1.000-1.030) Urine Protein (Negative) Urine Glucose (UA) (Negative) Urine Ketones (Negative) Urine Blood (Negative) Urine Nitrite (Negative) Urine Bilirubin (Negative) Urine Urobilinogen (Negative) Ur Leukocyte Esterase (Negative) Urine WBC (Auto) (0-5) /hpf Urine RBC (Auto) (0-4) /hpf U Hyaline Cast (Auto) (0-5) /lpf U Epithel Cells (Auto) (0-5) /lpf Urine Bacteria (Auto) (Negative) Urine Yeast 05/08/22 Range/Units 21:36 WBC (4.8-10.8) K/ul RBC (3.93-5.22) M/uL Hgb (12.0-16.0) g/dl Hct (34.1-44.9) % MCV (80.0-100.0) fL MCH (25.0-34.0) pg MCHC (32.0-36.0) g/dL RDW Std Deviation (36.4-46.3) fL RDW Coeff of Shanti (11.5-14.5) % Plt Count (130-400) K/uL MPV (9.4-12.3) fL Immature Gran % (Auto) % Neut % (Auto) % Lymph % (Auto) % Parke % (Auto) % Eos % (Auto) % Baso % (Auto) % Neut # (Auto) (1.4-6.5) K/uL Lymph # (Auto) (1.2-3.4) K/uL Parke # (Auto) (0.24-0.82) K/uL Eos # (Auto) (0-0.50) K/uL Baso # (Auto) (0-0.2) K/uL Immature Gran # (Auto) (0.00-0.02) K/uL PT (9.0-12.0) Seconds INR (0.9-1.1) APTT (21.0-31.0) Seconds PTT Ratio Sodium (136-145) mmol/L Potassium (3.5-5.1) mmol/L Chloride (98-107) mmol/L Carbon Dioxide (21-32) mmol/L Anion Gap (3-11) BUN (6-23) mg/dl Creatinine (0.6-1.2) mg/dl Est Cr Clr Drug Dosing Est GFR ( Amer) ml/min Est GFR (Non-Af Amer) ml/min BUN/Creatinine Ratio (10-20) Glucose (70-99(Fasting)) mg/dl Calcium (8.5-10.1) mg/dl Total Bilirubin (0.2-1.0) mg/dl AST (13-39) U/L ALT (7-52) U/L Alkaline Phosphatase (34-104) U/L Total Protein (6.0-8.3) gm/dl Albumin (3.4-5.0) gm/dl Globulin (2.5-4.0) gm/dl Albumin/Globulin Ratio (0.9-2) Urine Color Dark Yellow Urine Appearance Turbid A (Clear) Urine pH 5.5 (4.5-7.5) Ur Specific Bracey 1.023 (1.000-1.030) Urine Protein Trace H (Negative) Urine Glucose (UA) Negative (Negative) Urine Ketones 1+ H (Negative) Urine Blood 2+ H (Negative) Urine Nitrite Positive A (Negative) Urine Bilirubin Negative (Negative) Urine Urobilinogen Negative (Negative) Ur Leukocyte Esterase 2+ H (Negative) Urine WBC (Auto) >30 H (0-5) /hpf Urine RBC (Auto) 5-10 H (0-4) /hpf U Hyaline Cast (Auto) 1-5 (0-5) /lpf U Epithel Cells (Auto) 20-30 H (0-5) /lpf Urine Bacteria (Auto) 4+ H (Negative) Urine Yeast Not Reportable Imaging Data Radiologist's Impression: Chest X-Ray 05/08/22 14:50 XR chest 2V PA/lateral HISTORY: 86 years-old Female possible syncope acute syncope COMPARISON: Chest radiographs 08/26/2020 TECHNIQUE: PA and lateral views of the chest FINDINGS: Cardiac silhouette is enlarged. Atherosclerosis of the aorta. No pneumothorax, pleural effusion, airspace consolidation or overt pulmonary edema. Chronic blunting of the costophrenic angles. Chronic interstitial coarsening. Multiple subcentimeter pulmonary nodules appear similar to prior, several of which are calcified. Degenerative changes of the shoulders and spine. IMPRESSION: Cardiomegaly without acute process. ACT 112: Negative or not required by law. The above report was generated using voice recognition software. It may contain grammatical, syntax or spelling errors. Electronically signed by: Hipolito Chavez M.D. 05/08/2022 5:[address] 05/08/22 17:18 CT cervical spine wo con CT DOSE: 466.95 mGycm CLINICAL HISTORY: 86 years-old Female with Trauma. Acute neck pain status post fall COMPARISON: None. TECHNIQUE: Multiple axial CT images of the cervical spine were obtained without contrast. A dose lowering technique was utilized adhering to the principles of ALARA. FINDINGS: Demineralized appearance of the bones. Moderate to severe multilevel degenerative changes of the cervical spine. Degenerative partial bony fusion at C4-C5. Moderate to severe multilevel facet arthrosis. Minimal superior endplate compression at C7 and T1 is likely chronic. No prevertebral edema. Calcified plaque of the carotid bulbs. Mild mucosal thickening of the paranasal sinuses. Calcified granulomata of the left lung apex. No pneumothorax. IMPRESSION: No acute cervical spine fracture or subluxation identified. ACT 112: Negative or not required by law. The above report was generated using voice recognition software. It may contain grammatical, syntax or spelling errors. Electronically signed by: Hipolito Chavez M.D. 05/08/2022 8:[address] 05/08/22 17:18 CT head/brain wo con CLINICAL HISTORY: 86 years-old Female with Trauma. Acute head trauma TECHNIQUE: Multiple axial CT images of the head were obtained without contrast. A dose lowering technique was utilized adhering to the principles of ALARA. CT DOSE: 1459.56 mGycm COMPARISON: Head CT 10/21/2020, brain MRI 06/06/2021 FINDINGS: No acute intracranial hemorrhage, midline shift, intracranial mass, hydrocephalus, territorial ischemia or abnormal extra-axial collection. Involutional changes of the brain parenchyma. White matter hypodensities sugges tive of chronic microvascular ischemic disease. The calvarium is intact. Mastoid air cells are clear. Mild mucoperiosteal thickening of the paranasal sinuses. Hyperostosis frontalis interna. Prior bilateral lens repair. IMPRESSION: No acute intracranial abnormality or calvarial fracture. ACT 112: Negative or not required by law. The above report was generated using voice recognition software. It may contain grammatical, syntax or spelling errors. Electronically signed by: Hipolito Chavez M.D. 05/08/2022 7:[address] 05/08/22 17:18 CT lumbar spine wo con HISTORY: 86 years-old Female Trauma acute low back pain status post fall COMPARISON: CTA chest 02/21/2018 TECHNIQUE: Multiple axial CT images of the lumbar spine were obtained without the use of IV contrast. A dose lowering technique was used consistent with the principals of ALARA. FINDINGS: There is no acute 35% superior endplate compression deformity of the L1 vertebral body with 4 mm retropulsion. Mild central canal stenosis. The posterior elements at this level appear intact. Minimal superior endplate compression without acute fracture line identified involving the L2 and L3 vertebral bodies, likely chronic. Moderate disc space narrowing and vacuum disc phenomenon at L3-L4 and L5-S1. Severe multilevel facet arthrosis. Mild lumbar levoscoliosis. No additional acute fracture or subluxation identified. Nonobstructing 3 mm calculus of the superior pole right kidney. Atherosclerosis of the abdominal aorta without aneurysm. Partially imaged left hepatic lobe cysts redemonstrated. IMPRESSION: 1. Acute 35% superior endplate compression deformity of the L1 vertebral body with 4 mm retropulsion results in mild central canal stenosis. 2. Demineralized appearance of the bones without additional acute fracture or subluxation identified. 3. Right nephrolithiasis. ACT 112: Negative or not required by law. The above report was generated using voice recognition software. It may contain grammatical, syntax or spelling errors. Electronically signed by: Hipolito Chavez M.D. 05/08/2022 8:34 PM Discharge Plan Visit Data Chief Complaint: Back Injury/Pain Stated Complaint: FALL, BACK PAIN ED Provider: Alpesh Galvan Discharge Problem: Lumbar compression fracture, Cognitive impairment, Fall Patient Disposition: Admitted As Inpatient Forms Stand Alone Forms: My [facility] Prescriptions Prescriptions: No Action aspirin 81 mg Tablet,Delayed Release (Dr/Ec) 81 mg PO HS metformin 500 mg Tablet 1,000 mg PO QAM losartan 100 mg tablet 100 mg PO QAM atorvastatin 40 mg tablet 40 mg PO QAM multivitamin with minerals Tablet 1 tab PO BID metformin 500 mg Tablet 500 mg PO QPM glipizide 2.5 mg Tablet Extended Release 24hr 2.5 mg PO DAILY chlorthalidone 25 mg Tablet 25 mg PO DAILY sertraline 50 mg tablet 50 mg PO DAILY Dulera 100-5 mcg/actuation HFA aerosol inhaler 2 puff INHALATION DAILY memantine 10 mg tablet 10 mg PO DAILY donepezil 10 mg tablet 10 mg PO HS alendronate 70 mg tablet 70 mg PO WK Referrals Referrals: Lars Mirza MD [Primary Care Provider] -
--- NOTE | 2022-05-08 17:15 | Electrocardiogram Report ---
Test Reason : Blood Pressure : / mmHG Vent. Rate : 080 BPM Atrial Rate : 080 BPM P-R Int : 148 ms QRS Dur : 098 ms QT Int : 392 ms P-R-T Axes : 055 002 083 degrees QTc Int : 452 ms Sinus rhythm with Premature atrial complexes Nonspecific ST and T wave abnormality Abnormal ECG When compared with ECG of 26-AUG-2020 19:56, No significant change was found Confirmed by Sebastian Briceño ([id number]) on 05/08/2022 5:14:38 PM Referred By: Confirmed By:Sebastian Briceño
--- NOTE | 2022-05-08 17:15 | XRay Report ---
XR chest 2V PA/lateral HISTORY: 86 years-old Female possible syncope acute syncope COMPARISON: Chest radiographs 08/26/2020 TECHNIQUE: PA and lateral views of the chest FINDINGS: Cardiac silhouette is enlarged. Atherosclerosis of the aorta. No pneumothorax, pleural effusion, airs pace consolidation or overt pulmonary edema. Chronic blunting of the costophrenic angles. Chronic int erstitial coarsening. Multiple subcentimeter pulmonary nodules appear similar to prior, several of wh ich are calcified. Degenerative changes of the shoulders and spine. IMPRESSION: Cardiomegaly without acute process. ACT 112: Negative or not required by law. The above report was generated using voice recognition software. It may contain grammatical, syntax o r spelling errors. Electronically signed by: Hipolito Chavez M.D. 05/08/2022 5:14 PM
--- NOTE | 2022-05-08 19:31 | CT Scan Report ---
CT head/brain wo con CLINICAL HISTORY: 86 years-old Female with Trauma. Acute head trauma TECHNIQUE: Multiple axial CT images of the head were obtained without contrast. A dose lowering tech nique was utilized adhering to the principles of ALARA. CT DOSE: 1459.56 mGycm COMPARISON: Head CT 10/21/2020, brain MRI 06/06/2021 FINDINGS: No acute intracranial hemorrhage, midline shift, intracranial mass, hydrocephalus, territorial ischem ia or abnormal extra-axial collection. Involutional changes of the brain parenchyma. White matter hyp odensities suggestive of chronic microvascular ischemic disease. The calvarium is intact. Mastoid air cells are clear. Mild mucoperiosteal thickening of the paranasa l sinuses. Hyperostosis frontalis interna. Prior bilateral lens repair. IMPRESSION: No acute intracranial abnormality or calvarial fracture. ACT 112: Negative or not required by law. The above report was generated using voice recognition software. It may contain grammatical, syntax o r spelling errors. Electronically signed by: Hipolito Chavez M.D. 05/08/2022 7:30 PM
--- NOTE | 2022-05-08 20:26 | CT Scan Report ---
CT cervical spine wo con CT DOSE: 466.95 mGycm CLINICAL HISTORY: 86 years-old Female with Trauma. Acute neck pain status post fall COMPARISON: None. TECHNIQUE: Multiple axial CT images of the cervical spine were obtained without contrast. A dose low ering technique was utilized adhering to the principles of ALARA. FINDINGS: Demineralized appearance of the bones. Moderate to severe multilevel degenerative changes o f the cervical spine. Degenerative partial bony fusion at C4-C5. Moderate to severe multilevel facet arthrosis. Minimal superior endplate compression at C7 and T1 is likely chronic. No prevertebral edema. Calcified plaque of the carotid bulbs. Mild mucosal thickening of the paranasa l sinuses. Calcified granulomata of the left lung apex. No pneumothorax. IMPRESSION: No acute cervical spine fracture or subluxation identified. ACT 112: Negative or not required by law. The above report was generated using voice recognition software. It may contain grammatical, syntax o r spelling errors. Electronically signed by: Hipolito Chavez M.D. 05/08/2022 8:25 PM
--- NOTE | 2022-05-08 20:36 | CT Scan Report ---
CT lumbar spine wo con HISTORY: 86 years-old Female Trauma acute low back pain status post fall COMPARISON: CTA chest 02/21/2018 TECHNIQUE: Multiple axial CT images of the lumbar spine were obtained without the use of IV contrast. A dose lowering technique was used consistent with the principals of ALARA. FINDINGS: There is no acute 35% superior endplate compression deformity of the L1 vertebral body with 4 mm retr opulsion. Mild central canal stenosis. The posterior elements at this level appear intact. Minimal perez perior endplate compression without acute fracture line identified involving the L2 and L3 vertebral bodies, likely chronic. Moderate disc space narrowing and vacuum disc phenomenon at L3-L4 and L5-S1. Severe multilevel facet arthrosis. Mild lumbar levoscoliosis. No additional acute fracture or subluxa tion identified. Nonobstructing 3 mm calculus of the superior pole right kidney. Atherosclerosis of the abdominal aort a without aneurysm. Partially imaged left hepatic lobe cysts redemonstrated. IMPRESSION: 1. Acute 35% superior endplate compression deformity of the L1 vertebral body with 4 mm retropulsion results in mild central canal stenosis. 2. Demineralized appearance of the bones without additional acute fracture or subluxation identified. 3. Right nephrolithiasis. ACT 112: Negative or not required by law. The above report was generated using voice recognition software. It may contain grammatical, syntax o r spelling errors. Electronically signed by: Hipolito Chavez M.D. 05/08/2022 8:34 PM
[2022-05-08 22:06] LABS: Appearance Urine Turbid (Clear); Bacteria Urine Automated 4+ (Negative); Bilirubin Urine Negative (Negative); Blood Urine 2+ (Negative); Color Urine Dark Yellow; Epithelial Cell Urine Auto 20-30 /lpf (0-5); Glucose Urine UA Negative (Negative); Ketones Urine 1+ (Negative); Leukocyte Esterase Urine 2+ (Negative); Nitrite Urine Positive (Negative); Protein Urine Trace (Negative); Specific Gravity Urine 1.023 (1.000-1.030); Urobilinogen Urine Negative (Negative); WBC Urine Automated >30 /hpf (0-5); pH Urine 5.5 (4.5-7.5)
--- NOTE | 2022-05-08 22:23 | History & Physical Report ---
Date of Service May 08, 2022 Assessment & Plan (1) Lumbar compression fracture: Plan: Stephanie is a 86-year-old female with a history of COPD, hypertension, cognitive impairment who presented to [facility] for evaluation of a fall and difficulty ambulating, subsequently found to have an L1 compression fracture. L1 Compression Fracture Unwitnessed mechanical fall onto the ground from the couch at home CT of the lumbar spine demonstrated demineralized appearance of the spine with an acute 35% superior endplate compression deformity of the L1 with 4 mm retropulsion, resulting in mild central canal stenosis. Pain control: Calcitonin spray once daily ordered Tylenol 650mg q8h LISBETH Can consider low-dose tramadol or NSAID (once JENNIFER resolves) if needed - however, attempt to avoid deliriogenic medications w/ history of dementia Consult orthopedics: appreciate insight and guidance on need for back pracing PT, OT ordered Fall precautions ordered, ok to get OOB to chair No red flag symptoms on exam. Monitor. (2) HTN (hypertension): Plan: HTN Hydrate tonight - JENNIFER is mild. Hold losartan for now, resume pending labs tomorrow Continue chlorthalidone (3) Diabetes: Plan: T2DM Last A1c at 6.6% in May 2021 Redraw A1c in the a.m. 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 on Dulera and albuterol as needed We will continue these while she is here No signs of acute exacerbation (6) Dementia: Plan: Dementia History of dementia that is being followed by PCP Continue home dementia medications, donepezil and memantine Delirium precautions Plan Code: DNR/DNI - confirmed with and son at bedside Diet: Diabetic diet Prophylaxis: Heparin Dispo: MedSurg History of Present Illness Primary Care Provider: Lars Mirza MD Stephanie is a 86-year-old female with a history of eosinophilic asthma,ANIL requiring CPAP, diabetes, dementia, osteoporosis, urinary incontinence, hypertension, cognitive impairment who presented to [facility] for evaluation of a fall and difficulty ambulating. and son are at the bedside and provide the majority of the history given patient's dementia. tells me that approximately 3 days ago, he thinks that her fell early in the morning. He initially did not realize anything, however the next day, she reported mild low back pain. She then recounted that she may have fallen the day before. As the day went on, pain became more noticeable, specifically with getting up from chairs and going from the seated to a sitting position. Beginning yesterday, the pain began to get much worse. She denies any numbness or tingling. Denies any loss of bowel or bladder control. Denies any fever, chills, sweats. This is her first fall at home per . She is chronically incontinent, but does not have a significant history of UTIs per . Medications reviewed and include Albuterol, atorvastatin, chlorthalidone, dexamethasone, donezepil, Dulera, Fosamax, glipizide, loratadine, losartan, memantine, metformin, Nucala, sertraline, vitamin B12, vitamin D3 Upon arrival in the emergency room, patient was found to be hypertensive to 166/85 with otherwise normal vital signs. Admission labs revealed BUN 29/creatinine 1.38 (baseline creatinine usually around 1-1.2 per [facility] records) with ALP 106. Urinalysis revealing turbid appearing urine with trace urine, 2+ blood, positive nitrates, and 2+ leuk esterase. Chest x-ray did not demonstrate acute process. Head CT and cervical spine CT did not demonstrate any acute processes. CT of the lumbar spine demonstrated demineralized appearance of the spine with an acute 35% superior endplate compression deformity of the L1 with 4 mm retropulsion, resulting in mild central canal stenosis. Allergies Allergy/AdvReac Type Severity Reaction Status Date / Time No Known Allergies Allergy Unknown Verified 08/26/20 20:47 Home Medications Medication Instructions Recorded Confirmed Type aspirin 81 mg tablet,delayed 81 mg PO HS 02/21/18 05/08/22 History release metformin 500 mg tablet 1,000 mg PO QAM 02/21/18 05/08/22 History atorvastatin 40 mg tablet 40 mg PO QAM 08/29/18 05/08/22 History losartan 100 mg tablet 100 mg PO QAM 08/29/18 05/08/22 History chlorthalidone 25 mg tablet 25 mg PO DAILY 12/21/18 05/08/22 History metformin 500 mg tablet 500 mg PO QPM 12/21/18 05/08/22 History multivitamin with minerals 1 tab PO BID 12/21/18 05/08/22 History mometasone-formoterol HFA 100 2 puff inhalation DAILY 08/26/20 05/08/22 History mcg-5 mcg/actuation aerosol inhaler (Dulera) sertraline 50 mg tablet 50 mg PO DAILY 08/26/20 05/08/22 History alendronate 70 mg tablet 70 mg PO WK 05/08/22 05/08/22 History donepezil 10 mg tablet 10 mg PO HS 05/08/22 05/08/22 History memantine 10 mg tablet 10 mg PO DAILY 05/08/22 05/08/22 History acetaminophen 325 mg tablet 650 mg PO Q6 2 weeks #120 tabs 05/09/22 Rx calcitonin (salmon) 200 1 spray NA DAILY 28 days #3.7 mL 05/09/22 Rx unit/actuation nasal spray cefdinir 300 mg capsule 300 mg PO BID #10 caps 05/09/22 Rx Past Med/Surg History Medical History Asthma Bronchitis Cognitive impairment Diabetes Hypertensive urgency Obesity Pneumonia Surgical History H/O tubal ligation Family History Other Family history non-contributory Social History Smoking Status: Never smoker Hx Alcohol Use: No Hx Substance Use: No Preferred Language: Mauritanian Communication Ability: Impaired Pastry Artist Required: No Beliefs That Will Affect Care: None marital status: Current Living Situation: Spouse current occupational status: retired current occupation: retired teacher How many Children do You have: 2 Other Information That Helps Us Care for You: No Feels Safe at Home: Yes Safety Concerns: Feels Safe At This Time Assistive Devices: Cane and Walker Review of Systems Review of Systems: as per HPI Physical Exam Physical Exam: General: 86-year old female who is alert, oriented, and appears in no acute distress. HEENT: NCAT. - Eyes - Sclera are white, anicteric, and without injection. - Mouth - MMM - Neck - supple, no appreciable JVD Cardiac: Normal rate and regular rhythm; S1 and S2 present with no murmurs, rubs, or gallops. Pulmonary: Good respiratory effort with symmetric expansion of the chest. No use of accessory muscles. Lungs were clear to auscultation bilaterally with no crackles or wheezes. Abdominal: Normoactive bowel sounds. Abdomen was soft, nondistended, and non- tender to palpation. MSK: - Back: Direct observation of the back reveals no appreciable deformities. There was no point tenderness upon vertebral palpation. There was no paraspinal firmn ess and/or tenderness appreciated. Log rolling the hip did not reveal any limitations. Knee ROM and strength were full. Ankle ROM and strength were full. Sensation to light-touch was in-tact. Patellar and Achilles reflexes were 2+. No clonus. Extremities: Upper and lower extremities are warm and well perfused. [] peripheral edema in the lower extremities bilaterally Psych: Well-developed, well-nourished, appropriately dressed for occasion. Behavior is cooperative and appropriate. Affect is WNL. Insight is appropriate. Results & Data Results & Data ([facility]) Vital Signs (Past 12 Hours) Vital Signs Temp Pulse Pulse Resp BP BP Pulse Ox 05/08/22 21:27 92 H 20 196/96 H 96 05/08/22 19:42 80 18 219/107 H 100 05/08/22 18:41 95 05/08/22 14:43 36.7 C 86 20 166/85 H 98 O2 Del Method 05/08/22 21:27 Room Air 05/08/22 19:42 Room Air 05/08/22 18:41 Room Air 05/08/22 14:43 Room Air Supervising Physician Co-Signing Physician Notes Attending addendum: I have physically seen this patient, have supervised the medical residents activities, and agree with the H&P unless as otherwise noted. Assessment and Plan: Superior endplate L1 compression fracture 35%- Admit for pain control Calcitonin spray daily Acetaminophen 650 mg p.o. every 8 hours scheduled Lidoderm patch may be useful Consult PT/OT Consult orthopedics Hypertension/JENNIFER- Creatinine 1.3 at admission, with base 0.99 Hold losartan and chlorthalidone IV fluids recheck laboratories in a.m. Diabetes mellitus- Check hemoglobin A1c Adjust insulin as noted Eosinophilic asthma- Continue Dulera and as needed albuterol Remaining orders and notations as noted Resident Activity Tracking Resident Involvement: Resident Care Provided Care Provided: Adult Hospital Medicine
[2022-05-08] MEDS ORDERED: ACETAMINOPHEN 325 MG TAB PO PRN (23:02)
[2022-05-08] MEDS ORDERED: LACTATED RINGER'S 500 ML IV ONE (23:09)
[2022-05-09] MEDS ORDERED: LACTATED RINGER'S 1,000 ML IV SCH (01:29)
[2022-05-09] MEDS ORDERED: CARBOHYDRATES FOR HYPOGLYCEMIA PO PRN (01:29)
[2022-05-09] MEDS ORDERED: GLUCOSE 40% GEL 15 GM TUBE PO PRN (01:29)
[2022-05-09] MEDS ORDERED: GLUCAGON FOR INJ 1 MG VIAL SQ PRN (01:29)
[2022-05-09] MEDS ORDERED: GLUCOSE 10 TAB/TUBE PO PRN (01:29)
[2022-05-09] MEDS ORDERED: DEXTROSE 50% 50 ML SYRINGE IV PRN (01:29)
[2022-05-09] MEDS ORDERED: INFLUENZA VACCINE HIGH DOSE PF 65+ 0.7 ML SYR IM ONE (01:48)
[2022-05-09] MEDS: ACETAMINOPHEN 325 MG TAB PO SCH ×3 (02:12→12:43)
[2022-05-09 02:32] LABS: Basophils # (auto) 0.05 K/uL (0-0.2); Basophils % (auto) 0.6 %; Eosinophils # (auto) 0.06 K/uL (0-0.50); Eosinophils % (auto) 0.7 %; Hematocrit (blood only) 36.8 % (34.1-44.9); Hemoglobin 12.6 g/dl (12.0-16.0); Immature Granulocytes # (auto) 0.07 K/uL (0.00-0.02); Immature Granulocytes % (auto) 0.8 %; Lymphocytes # (auto) 2.02 K/uL (1.2-3.4); Lymphocytes % (auto) 23.9 %; Mean Corpuscular Hemoglobin 30.2 pg (25.0-34.0); Mean Corpuscular Hgb Conc 34.2 g/dL (32.0-36.0); Mean Corpuscular Volume 88.2 fL (80.0-100.0); Mean Platelet Volume 9.4 fL (9.4-12.3); Monocytes # (auto) 0.66 K/uL (0.24-0.82); Monocytes % (auto) 7.8 %; Neutrophils # (auto) 5.59 K/uL (1.4-6.5); Neutrophils % (auto) 66.2 %; Platelet Count 249 K/uL (130-400); RDW Coefficient of Variation 13.2 % (11.5-14.5); RDW Standard Deviation 42.7 fL (36.4-46.3); Red Blood Count 4.17 M/uL (3.93-5.22); White Blood Count 8.45 K/ul (4.8-10.8)
[2022-05-09 03:10] LABS: Albumin Globulin Ratio 1.4 (0.9-2); Albumin Level 3.8 gm/dl (3.4-5.0); BUN Creatinine Ratio 20.4 (10-20); Bilirubin,Total 0.8 mg/dl (0.2-1.0); Calcium 9.1 mg/dl (8.5-10.1); Creatinine Clr Calc Pharmacy 32.3 ml/min; Est GFR (African American) 38.9 ml/min; Est GFR (Non-African American) 33.6 ml/min; Globulin 2.8 gm/dl (2.5-4.0); Potassium 3.5 mmol/L (3.5-5.1); Total Protein 6.6 gm/dl (6.0-8.3)
[2022-05-09] MEDS: CEFDINIR 300 MG CAP PO SCH ×2 (03:15→08:12)
[2022-05-09] MEDS ORDERED: FLUTICASONE/VILANTEROL 100/25MCG 14 PUFFS/INHALER INH SCH (09:00)
[2022-05-09] MEDS ORDERED: SERTRALINE HCL 50 MG TABLET PO SCH (09:00)
[2022-05-09] MEDS ORDERED: MEMANTINE HCL 10 MG TAB PO SCH (09:00)
[2022-05-09] MEDS ORDERED: CALCITONIN SALMON NA 200 IU/AC 3.7 ML BTL SCH (09:00)
[2022-05-09] MEDS ORDERED: CHLORTHALIDONE 25 MG TAB PO SCH (09:00)
[2022-05-09] MEDS ORDERED: ATORVASTATIN 40 MG TAB PO SCH (09:00)
[2022-05-09] MEDS: INSULIN ASPART PER UNIT SC SCH ×2 (09:02→12:45)
--- NOTE | 2022-05-09 10:18 | Consultation ---
Date of Consultation May 09, 2022 Assessment & Plan (1) Lumbar compression fracture: Dr. Ryder has reviewed imaging. Patient has an acute L1 superior endplate compression fracture status post unwitnessed fall. Pain is minimal. Plan is conservative. I have ordered a TLSO brace to be worn at all times. May remove to bathe. No lifting greater than 5 pounds. Ambulate ad omaira. She is orthopedically stable for discharge. We will see her in the office in about 2 to 3 weeks for follow-up. History of Present Illness Reason for Consultation: Lumbar compression fracture Attending Physician: Jeffry Verma History of Present Illness This is an 86-year-old female who had an unwitnessed fall roughly 2 days ago. Most of her story is relayed from her children in the room with her. She lives at home with her . She states she ambulates independently. There is concern that she fell off the couch a few days ago. [place]aza is able to get up on her own. She has been ambulatory since. She came into the emergency room due to the family noticing a bruise on her right shoulder and complaints of back pain.Lumbar compression fracture She denies leg pain. Denies back pain today. She is up and using the restroom. Allergies Allergy/AdvReac Type Severity Reaction Status Date / Time No Known Allergies Allergy Unknown Verified 08/26/20 20:47 Home Medications Medication Instructions Recorded Confirmed Type aspirin 81 mg tablet,delayed 81 mg PO HS 02/21/18 05/08/22 History release metformin 500 mg tablet 1,000 mg PO QAM 02/21/18 05/08/22 History atorvastatin 40 mg tablet 40 mg PO QAM 08/29/18 05/08/22 History losartan 100 mg tablet 100 mg PO QAM 08/29/18 05/08/22 History chlorthalidone 25 mg tablet 25 mg PO DAILY 12/21/18 05/08/22 History glipizide 2.5 mg tablet, extended 2.5 mg PO DAILY 12/21/18 05/08/22 History release 24 hr metformin 500 mg tablet 500 mg PO QPM 12/21/18 05/08/22 History multivitamin with minerals 1 tab PO BID 12/21/18 05/08/22 History mometasone-formoterol HFA 100 2 puff inhalation DAILY 08/26/20 05/08/22 History mcg-5 mcg/actuation aerosol inhaler (Dulera) sertraline 50 mg tablet 50 mg PO DAILY 08/26/20 05/08/22 History alendronate 70 mg tablet 70 mg PO WK 05/08/22 05/08/22 History donepezil 10 mg tablet 10 mg PO HS 05/08/22 05/08/22 History memantine 10 mg tablet 10 mg PO DAILY 05/08/22 05/08/22 History Patient History Medical History Asthma Bronchitis Cognitive impairment Diabetes Hypertensive urgency Obesity Pneumonia Surgical History H/O tubal ligation Family History Other Family history non-contributory Social History Smoking Status: Never smoker Hx Alcohol Use: No Hx Substance Use: No Preferred Language: Turkish Communication Ability: Effective Rodent Exterminator Required: No Beliefs That Will Affect Care: None marital status: Current Living Situation: Spouse current occupational status: retired current occupation: retired teacher Other Information That Helps Us Care for You: No Feels Safe at Home: Yes Safety Concerns: Feels Safe At This Time Assistive Devices: None Review of Systems Review of Systems: All systems reviewed & are unremarkable except as noted in HPI & below Physical Exam Physical Exam: She is lying in bed in no acute distress. She is seen in conjunction with her son and her daughter She rolls over with ease unassisted She is nontender to patient and percussion about the midline thoracic and lumbar spine No palpable step-offs Strength is intact bilateral lower extremity Negative tension signs bilaterally Negative logrolling bilaterally Constitutional: well developed Eyes: normal visual adams by confrontation ENMT: external ear and nose normal, oropharynx normal Neck: normal visual inspection Respiratory: normal respiratory effort Cardiovascular: Extremities: normal capillary refill Gastrointestinal (Abdomen): Inspection/Auscultation: abdomen normal to inspection Musculoskeletal: Extremities: extremities normal to inspection and strength 5/5 throughout Skin: no rashes, warm and dry Neurologic: normal touch/pain/proprioception and moves all extremities Psychiatric: A+Ox3, euthymic affect Eye Contact: good eye contact Speech: normal rate/rhythm/volume of speech Results & Data ([facility]) Vital Signs (Past 12 Hours) Vital Signs Temp Pulse Resp BP BP Pulse Ox O2 Del Method 05/09/22 06:54 37 C 76 18 164/78 H 98 Room Air 05/09/22 01:38 36.5 C 85 18 160/90 H 98 Room Air 05/08/22 23:43 78 18 208/122 H 99 Room Air Diagnostic Findings [place], [place] [phone] CT Scan Report Patient:LORIN CHAUDHRY Admit Date:05/08/22 MR#:[id number] Address1:[address] [facility] [address] Acct ID:[id number] Address2: Date:[address] [facility] Zip:[place] [address] Age:86 Location:ED Sex:F Room/Bed: Att Phy: Diagnosis:FALL, BACK PAIN Trina Phy:Onofre Mirza MD Service Date:05/08/22 Fam Phy: Interpreting Phy:Hipolito ChavezAdmit Phy: Ordering Phy:Alpesh Galvan MD cc: ~ CT lumbar spine wo con HISTORY: 86 years-old Female Trauma acute low back pain status post fall COMPARISON: CTA chest 02/21/2018 TECHNIQUE: Multiple axial CT images of the lumbar spine were obtained without the use of IV contrast. A dose lowering technique was used consistent with the principals of ALARA. FINDINGS: There is no acute 35% superior endplate compression deformity of the L1 vertebral body with 4 mm retropulsion. Mild central canal stenosis. The posterior elements at this level appear intact. Minimal superior endplate compression without acute fracture line identified involving the L2 and L3 vertebral bodies, likely chronic. Moderate disc space narrowing and vacuum disc phenomenon at L3-L4 and L5-S1. Severe multilevel facet arthrosis. Mild lumbar levoscoliosis. No additional acute fracture or subluxation identified. Nonobstructing 3 mm calculus of the superior pole right kidney. Atherosclerosis of the abdominal aorta without aneurysm. Partially imaged left hepatic lobe cysts redemonstrated. IMPRESSION: 1. Acute 35% superior endplate compression deformity of the L1 vertebral body with 4 mm retropulsion results in mild central canal stenosis. 2. Demineralized appearance of the bones without additional acute fracture or subluxation identified. 3. Right nephrolithiasis. ACT 112: Negative or not required by law. The above report was generated using voice recognition software. It may contain grammatical, syntax or spelling errors. Electronically signed by: Hipolito Chavez M.D. 05/08/2022 8:34 PM Dictated:05/08/222024 Transcribed: 05/08/222024 [place], [place] [phone] CT Scan Report Patient:LORIN CHAUDHRY Admit Date:05/08/22 MR#:[id number] Address1:[address] [facility] Acct ID:[id number] Address2: Date:[address] [facility] Zip:[place] [address] Age:86 Location:ED Sex:F Room/Bed: Att Phy: Diagnosis:FALL, BACK PAIN Trina Phy:Onofre Mirza MD Service Date:05/08/22 Fam Phy: Interpreting Phy:Hipolito ChavezAdmit Phy: Ordering Phy:Alpesh Galvan MD cc: ~ CT cervical spine wo con CT DOSE: 466.95 mGycm CLINICAL HISTORY: 86 years-old Female with Trauma. Acute neck pain status post fall COMPARISON: None. TECHNIQUE: Multiple axial CT images of the cervical spine were obtained without contrast. A dose lowering technique was utilized adhering to the principles of ALARA. FINDINGS: Demineralized appearance of the bones. Moderate to severe multilevel degenerative changes of the cervical spine. Degenerative partial bony fusion at C4-C5. Moderate to severe multilevel facet arthrosis. Minimal superior endplate compression at C7 and T1 is likely chronic. No prevertebral edema. Calcified plaque of the carotid bulbs. Mild mucosal thickening of the paranasal sinuses. Calcified granulomata of the left lung apex. No pneumothorax. IMPRESSION: No acute cervical spine fracture or subluxation identified. ACT 112: Negative or not required by law. The above report was generated using voice recognition software. It may contain grammatical, syntax or spelling errors. Electronically signed by: Hipolito Chavez M.D. 05/08/2022 8:25 PM Dictated:05/08/222020 Transcribed: 05/08/222020 (1) Lumbar compression fracture Encounter type: initial encounter Lumbar vertebra fracture level: L1 Qu alified Code(s): S32.010A - Wedge compression fracture of first lumbar vertebra, initial encounter for closed fracture
[2022-05-09 10:47] LABS: Estimated Average Glucose 131 mg/dl; Hemoglobin A1C 6.2 % (4.5-5.6)
[2022-05-09 11:00] LABS: BUN Creatinine Ratio 21.6 (10-20); Calcium 9.1 mg/dl (8.5-10.1); Est GFR (Non-African American) 34.5 ml/min; Potassium 3.4 mmol/L (3.5-5.1)
[2022-05-09] MEDS ORDERED: POTASSIUM CHLORIDE CRTAB 20 MEQ TABCR PO STA (12:33)
--- NOTE | 2022-05-09 13:03 | Communication Note ---
Date of Service: May 09, 2022 By CMS guidelines, a determination that the admission or continued stay is not medically necessary has been made by a member of the UR committee and a phy sician for this hospital stay, therefore a Code 44 will be completed and the Inpatient admission will be changed to outpatient.
[2022-05-09] MEDS ORDERED: ASPIRIN 81 MG ECTAB PO SCH (21:00)
[2022-05-09] MEDS ORDERED: DONEPEZIL HCL 10 MG TAB PO SCH (21:00)
--- NOTE | 2022-05-10 06:07 | Billing Data ---
Date of Service May 10, 2022 Coding Level of Care Code INT OBSERVATION CARE 70M LVL 3
--- NOTE | 2022-05-16 12:50 | Discharge Summary ---
Date of Service May 09, 2022 Admission HPI Per Admitting Provider Stephanie is a 86-year-old female with a history of eosinophilic asthma,ANIL requiring CPAP, diabetes, dementia, osteoporosis, urinary incontinence, hypertension, cognitive impairment who presented to [facility] for evaluation of a fall and difficulty ambulating. and son are at the bedside and provide the majority of the history given patient's dementia. tells me that approximately 3 days ago, he thinks that her fell early in the morning. He initially did not realize anything, however the next day, she reported mild low back pain. She then recounted that she may have fallen the day before. As the day went on, pain became more noticeable, specifically with getting up from chairs and going from the seated to a sitting position. Beginning yesterday, the pain began to get much worse. She denies any numbness or tingling. Denies any loss of bowel or bladder control. Denies any fever, chills, sweats. This is her first fall at home per . She is chronically incontinent, but does not have a significant history of UTIs per . Medications reviewed and include Albuterol, atorvastatin, chlorthalidone, dexamethasone, donezepil, Dulera, Fosamax, glipizide, loratadine, losartan, memantine, metformin, Nucala, sertraline, vitamin B12, vitamin D3 Upon arrival in the emergency room, patient was found to be hypertensive to 166/85 with otherwise normal vital signs. Admission labs revealed BUN 29/creatinine 1.38 (baseline creatinine usually around 1-1.2 per [facility] records) with ALP 106. Urinalysis revealing turbid appearing urine with trace urine, 2+ blood, positive nitrates, and 2+ leuk esterase. Chest x-ray did not demonstrate acute process. Head CT and cervical spine CT did not demonstrate any acute processes. CT of the lumbar spine demonstrated demineralized appearance of the spine with an acute 35% superior endplate compression deformity of the L1 with 4 mm retropulsion, resulting in mild central canal stenosis. Principal Diagnosis lumbar compression fracture Discharge Exam General: 86-year old female who is alert, oriented, and appears in no acute distress. HEENT: NCAT. - Eyes - Sclera are white, anicteric, and without injection. - Mouth - MMM - Neck - supple, no appreciable JVD Cardiac: Normal rate and regular rhythm; S1 and S2 present with no murmurs, rubs, or gallops. Pulmonary: Good respiratory effort with symmetric expansion of the chest. No use of accessory muscles. Lungs were clear to auscultation bilaterally with no crackles or wheezes. Abdominal: Normoactive bowel sounds. Abdomen was soft, nondistended, and non- tender to palpation. MSK: - Back: Direct observation of the back reveals no appreciable deformities. There was no point tenderness upon vertebral palpation. There was no paraspinal firmness and/or tenderness appreciated. Log rolling the hip did not reveal any limitations. Knee ROM and strength were full. Ankle ROM and strength were full. Sensation to light-touch was in-tact. Patellar and Achilles reflexes were 2+. No clonus. Extremities: Upper and lower extremities are warm and well perfused. [] peripheral edema in the lower extremities bilaterally Psych: Well-developed, well-nourished, appropriately dressed for occasion. Behavior is cooperative and appropriate. Affect is WNL. Insight is appropriate. Discharge Data Allergies Allergy/AdvReac Type Severity Reaction Status Date / Time No Known Allergies Allergy Unknown Verified 08/26/20 20:47 Consultations 05/08/22 22:43 ED Decision to Admit Stat 05/08/22 23:08 Consult Orthopedic Surgery Routine 05/09/22 09:31 Consult Orthopedic Surgery Routine Ordered Studies 05/08/22 17:18 CT cervical spine wo con Stat CT head/brain wo con Stat CT lumbar spine wo con Stat Hospital Course (1) Lumbar compression fracture: Stephanie is a 86-year-old female with a history of COPD, hypertension, cognitive impairment who presented to [facility] for evaluation of a fall and difficulty ambulating, subsequently found to have an L1 compression fracture. L1 Compression Fracture Unwitnessed mechanical fall onto the ground from the couch at home CT of the lumbar spine demonstrated demineralized appearance of the spine with an acute 35% superior endplate compression deformity of the L1 with 4 mm retropulsion, resulting in mild central canal stenosis. Pain control: Calcitonin spray once daily ordered Tylenol 650mg q8h LISBETH Can consider low-dose tramadol or NSAID (once JENNIFER resolves) if needed - however, attempt to avoid deliriogenic medications w/ history of dementia Consult orthopedics: appreciate insight and guidance on need for back pracing PT, OT ordered Fall precautions ordered, ok to get OOB to chair No red flag symptoms on exam. Monitor. On day of discharge: Pain was better controlled. appreciate input from Ortho Dr. Ryder has reviewed imaging. Patient has an acute L1 superior endplate compression fracture status post unwitnessed fall. Pain is minimal. Plan is conservative. I have ordered a TLSO brace to be worn at all times. May remove to bathe. No lifting greater than 5 pounds. Ambulate ad omaira. She is orthopedically stable for discharge. We will see her in the office in about 2 to 3 weeks for follow-up. Will discharge on calcitonin spray (2) HTN (hypertension): HTN Hydrate tonight - JENNIFER is mild. Hold losartan for now, resume pending labs tomorrow Continue chlorthalidone (3) Diabetes: T2DM Last A1c at 6.6% in May 2021 -A!C 6.2 recommend holding glipizide at discharge. (4) JENNIFER (acute kidney injury): JENNIFER Admission labs revealed BUN 29/creatinine 1.38 Baseline creatinine usually around 1-1.2 per [facility] records We will provide gentle rehydration -- suspect she is slightly dehydrated improved to 1.39 (5) Eosinophilic asthma: Eosinophilic Asthma History of eosinophilic asthma well-controlled on Dulera and albuterol as needed We will continue these while she is here No signs of acute exacerbation (6) Dementia: Dementia History of dementia that is being followed by PCP Continue home dementia medications, donepezil and memantine Delirium precautions Plan Code: DNR/DNI - confirmed with and son at bedside Diet: Diabetic diet Total Time Total Time Spent Total Time Spent (In Minutes): 32 Discharge Plan Discharge Items Patient Disposition: Home - Self-Care Reason For Visit: VERTEBRAL FX Discharge Diagnosis: vertebral fracture Activity: Resume your previous activity Non-emergency contact: Primary Care Provider Call non-emergency contact if: you have any medication questions Follow-up/Referrals: Timmy Ryder DO [Surgeon] - 06/14/22 1:40 pm (05/09/22@Ady @ [facility] to call patient if sooner appointment with Dr. Ryder becomes available.) Lars Mirza MD [Primary Care Provider] - Diet: Carb Consistent or DM2 Addtl Attending Provider Instructions: Good afternoon Mrs. Armani, We are glad that you will benefit from your brace and that your pain is minimal. This brace should be worn at all times. May remove to bathe. No lifting greater than [address] Ryder's office to schedule an appointment so that they can see you in 2 to 3 weeks for follow-up. [phone] In regards to your diabetes, our A!C is 6.2; It is very tightly controlled, may benefit from leaving you a little bit sweeter, as there may be concern of having your blood sugars drop too much. Please hold the glipizide and will defer to your PCP when to restart. YOu eduardo need to continue the cefdinir for 5 more days to treat the UTI. Pending Studies at Discharge: No Stand-Alone Forms: My [facility], Smoking Cessation Medications and DC Order Prescriptions: New cefdinir 300 mg Capsule 300 mg PO BID Qty: 10 0RF acetaminophen 325 mg Tablet 650 mg PO Q6 14 Days Qty: 120 0RF calcitonin (salmon) 200 unit/actuation [place],Non-Aerosol 1 spray NA DAILY 28 Days Qty: 3.7 0RF Rx Instructions: One spray in only one nostril per day; alternate your nostrils every day. Continued aspirin 81 mg Tablet,Delayed Release (Dr/Ec) 81 mg PO HS metformin 500 mg Tablet 1,000 mg PO QAM losartan 100 mg tablet 100 mg PO QAM atorvastatin 40 mg tablet 40 mg PO QAM multivitamin with minerals Tablet 1 tab PO BID metformin 500 mg Tablet 500 mg PO QPM chlorthalidone 25 mg Tablet 25 mg PO DAILY sertraline 50 mg tablet 50 mg PO DAILY Dulera 100-5 mcg/actuation HFA aerosol inhaler 2 puff INHALATION DAILY memantine 10 mg tablet 10 mg PO DAILY donepezil 10 mg tablet 10 mg PO HS alendronate 70 mg tablet 70 mg PO WK Discontinued glipizide 2.5 mg Tablet Extended Release 24hr 2.5 mg PO DAILY Discharge Orders: Discharge Order (Routine); Ordered 05/09/22 Ordered By: Jeffry Munson/Other Patient Handouts: Falls Prevent Adjust Living Space Admission Data Admit Date/Time: 05/08/22 23:02 Attending Provider: Jeffry Verma Admit Provider: Florentino Handley Primary Care Provider: Lars Mirza Other Providers: Venkat Celaya ; Savage Mckeon ; Timmy Ryder ; [facility] Other Interventions: Discharge Summary Assessment (RN) Last Done: 05/09/22 13:25 Coding Level of Care Code 14371 OBS Care - Discharge Diagnoses Lumbar compression fracture S32.010A Encounter type: initial encounter Lumbar vertebra fracture level: L1 HTN (hypertension) I10 Diabetes E11.9 JENNIFER (acute kidney injury) N17.9 Eosinophilic asthma J82.83 Dementia F03.90
== END 2022-05-09 15:28 | disposition home or self-care (01) ==
LOC: ED 14:41 → SUATTDRO 23:02 → 3W 23:02 → INTOOBSV 23:02 → 3W 05-09 00:24 → UNDODISIN 05-09 14:01
DX: S32.010A Wedge compression fracture of first lumbar vertebra, initial encounter for closed fracture; N17.9 Acute kidney failure, unspecified; Z79.899 Other long term (current) drug therapy; F03.90 Unspecified dementia, unspecified severity, without behavioral disturbance, psychotic disturbance, mood disturbance, and anxiety; J82.83 Eosinophilic asthma; Z79.84 Long term (current) use of oral hypoglycemic drugs; E11.9 Type 2 diabetes mellitus without complications; I10 Essential (primary) hypertension; W19.XXXA Unspecified fall, initial encounter; Z79.82 Long term (current) use of aspirin; Z66 Do not resuscitate

== ENCOUNTER 2023-05-29 13:57 | Inpatient (IN) ==
[2023-05-29] MEDS ORDERED: SODIUM CHLORIDE 0.9% 500 ML IV ONE (14:17)
[2023-05-29] MEDS ORDERED: SODIUM CHLORIDE 0.9% 500 ML IV SCH (14:30)
[2023-05-29 15:29] LABS: Basophils # (auto) 0.04 K/uL (0.00-0.20); Basophils % (auto) 0.3 %; Hematocrit (blood only) 45.8 % (37.0-47.0); Hemoglobin 15.6 g/dl (12.0-16.0); Immature Granulocytes # (auto) 0.12 K/uL (0.01-0.20); Lymphocytes # (auto) 1.23 K/uL (1.20-3.40); Lymphocytes % (auto) 10.2 %; Mean Corpuscular Hemoglobin 30.6 pg (25.0-34.0); Mean Corpuscular Hgb Conc 34.1 g/dL (32.0-36.0); Mean Platelet Volume 9.2 fL (9.4-12.4); Monocytes # (auto) 0.67 K/uL (0.11-0.59); Monocytes % (auto) 5.5 %; Neutrophils # (auto) 10.04 K/uL (1.40-6.50); Platelet Count 304 K/uL (130-400); RDW Coefficient of Variation 13.5 % (11.5-14.5); RDW Standard Deviation 44.5 fL (36.4-46.3); Red Blood Count 5.09 M/uL (4.20-5.40)
[2023-05-29 15:39] LABS: iSTAT Blood Urea Nitrogen 50 mg/dl (7-18); iSTAT Carbon Dioxide 28 mmol/L (24-31); iSTAT Chloride 97 mmol/L (101-112); iSTAT Glucose > 700 mg/dl (70-99); iSTAT Hematocrit 47 % (37-47); iSTAT Ionized Calcium 1.17 mmol/l (1.12-1.32); iSTAT Potassium 3.3 mmol/L (3.3-5.0); iSTAT Sodium 139 mmol/L (135-144)
[2023-05-29 15:46] LABS: Base Excess VBG 6.3 mEq/L; HCO3 VBG 32 mmol/L; Oxygen Saturation VBG < 60.0 %; PCO2 VBG 51 mmHg (38-50); PO2 VBG 31 mmHg; pH VBG 7.41 (7.36-7.41)
[2023-05-29 15:51] LABS: Albumin Level 4.2 gm/dl (3.4-5.0); BUN Creatinine Ratio 27.2 (10-20); Bilirubin Direct 0.2 mg/dl (0-0.2); Bilirubin,Total 1.1 mg/dl (0.2-1.0); Calcium 10.2 mg/dl (8.6-10.3); Creatinine Clr Calc Pharmacy 23.7 ml/min; Est GFR (African American) 24.7 ml/min; Est GFR (Non-African American) 21.3 ml/min; Magnesium 2.7 mg/dl (1.7-2.4); Potassium 3.4 mmol/L (3.5-5.1); Total Protein 7.8 gm/dl (6.0-8.3); Troponin I High Sensitivity 47.1 pg/ml (0-14)
[2023-05-29 15:55] LABS: Partial Thromboplastin Ratio 0.7; Partial Thromboplastin Time 21 Seconds (21-31); Prothrombin Time 10.9 Seconds (9.0-12.0)
--- OUTSIDE RECORDS SUMMARY | 2023-05-29 16:09 | External Medical Summary | Continuity of Care Document ---
Author Name Unknown Organization [place] [id number] Address [address] [place] [id number] Care Team Providers Care Journalist Name Role Phone Onofre Mirza Primary Care Physician [phone] Encounter [facility] [id number] Date(s): 03/21/23 - 03/21/23 [facility] [employer] [place] [id number] [address] [place], [place] [id number] Encounter Diagnosis Diabetes(Discharge Diagnosis) - 03/21/23 Tinea unguium(Discharge Diagnosis) - 03/21/23 Discharge Disposition: Home or Self Care Attending Physician: NILS Lafleur Christina L Allergies, Adverse Reactions, Alerts No Known Medication Allergies Assessment and Plan Extracted from: Title:Follow Up Visit Author:NILS Lafleur, Lesley Yadav Date:03/21/23 1.Diabetes 2.Tinea unguium -Patient unable to provide self care to toenails due to - verbal consent obtained for debridement with witness -Recommend toenail debridement -Patient had toenails of bilateral digits 1-5 debrided using nail nippers to tolerance, no bleeding noted -Patient instructed to use emery board to nails once per week -Patient had no ingrown toenails or infection noted -Patient is to follow up in3-4 months for treatment if needed in the future Immunizations Given and Recorded Vaccine Date Status Refusal Reason SARS-CoV-2 mRNA (Pfizer 12+) bivalent 1 02/17/22 R ecorded SARS-CoV-2 (COVID-19) mRNA-1273 vaccine 2 08/13/20 Recorded SARS-CoV-2 (COVID-19) mRNA-1273 vaccine 3 07/16/20 Recorded tetanus/diphtheria/pertuss, acel (Tdap) 10/26/17 G iven influenza virus vaccine, inactivated 03/29/17 Give n influenza virus vaccine, inactivated 4 05/24/16 Re corded pneumococcal 13-valent vaccine 5 05/24/16 Recorded tetanus toxoids-diphtheria, Td (Adult) 6 02/20/03 Recorded tetanus toxoids-diphtheria, Td (Adult) 7 01/02/93 Recorded pneumococcal 23-valent vaccine 8 04/11/01 Recorded 1Result Comment: 2022-03-28: Historical information-source unspecified 2Result Comment: 2020-10-18: Historical information-source unspecified 3Result Comment: 2020-10-18: Historical information-source unspecified 4Result Comment: 2017-03-07: Historical information-source unspecified 5Result Comment: 2017-03-07: Historical information-source unspecified 6Result Comment: 2017-03-07: Historical information-source unspecified 7Result Comment: 2017-03-07: Historical information-source unspecified 8Result Comment: 2017-03-07: Historical information-source unspecified Medications albuterol 0.083% for nebulization Start: 04/29/21 16:38:00 EST, 6 mL, inhaled, q6h, Disp# 2,160 mL, Refills: 3, dx reactive airway disease, eosinophilic lung disease, Note to Pharmacy: diagnosis J45.909, PRN: as needed for wheezing, Pharmacy: [facility] Start Date: 04/29/21 Status: Ordered atorvastatin 40 mg oral tablet Start: 03/01/23 16:49:00 EDT, See Instructions, Disp# 90 tab, Refills: 4, TAKE 1 TABLET BY MOUTH DAILY, Pharmacy: [facility] Start Date: 03/01/23 Status: Ordered chlorthalidone 25 mg oral tablet Start: 09/29/22 12:43:00 EDT, See Instructions, Disp# 90 tab, Refills: 1, Take 1 tablet by mouth once daily, Pharmacy: [facility] Start Date: 09/29/22 Status: Ordered Colace Start: 06/06/22 14:06:00 EST Start Date: 06/06/22 Status: Ordered dexAMETHasone 4 mg oral tablet Start: 01/15/23 14:11:00 EDT, See Instructions, Disp# 5 tab, Refills: 2, TAKE 5 TABLETS BY MOUTH 1/2 HOUR PRIOR TO INJECTION ONCE MONTHLY, Pharmacy: [facility] Start Date: 01/15/23 Status: Ordered donepezil 10 mg oral tablet Start: 05/05/22 15:07:00 EST, 1 tab, PO, Daily, Disp# 30 tab, Refills: 5, Pharmacy: [facility] Start Date: 05/05/22 Stop Date: 11/01/22 Status: Ordered Dulera 100 mcg-5 mcg/inh inhalation aerosol Start: 11/20/22 12:32:00 EDT, 2 puff, inhaled, Daily, Disp# 13 g, Refills: 3, Pharmacy: [facility] Start Date: 11/20/22 Stop Date: 03/20/23 Status: Ordered loratadine 10 mg oral tablet Start: 12/27/21 13:59:00 EDT Start Date: 12/27/21 Status: Ordered memantine 10 mg oral tablet Start: 03/12/23 22:19:00 EDT, 0.5 tab, PO, Daily, Disp# 30 tab, Refills: 3, Take half a tab daily, may increase to 1 tab daily in 2 wks on 07/11/21, Note to Pharmacy: Take half a tab daily, may increase to 1 tab daily in 2 wks on 07/11/21, Pharmacy: [facility]... Start Date: 03/12/23 Stop Date: 07/10/23 Status: Ordered Nucala 100 mg subcutaneous injection Start: 04/26/21 14:03:00 EST, 100 mg =, subQ, [id number], Disp# 30 each, Refills: 1, Pharmacy: [facility] Start Date: 04/26/21 Stop Date: 10/11/21 Status: Ordered PreserVision Start: 04/06/17 10:12:00, 1 tab, PO, bid Start Date: 04/06/17 Status: Ordered sertraline 50 mg oral tablet Start: 01/25/23 18:23:00 EDT, See Instructions, Disp# 90 tab, Refills: 0, Take 1 tablet by mouth once daily, Pharmacy: [facility] Start Date: 01/25/23 Status: Ordered Vitamin B12 1000 mcg oral tablet Start: 12/27/21 14:00:00 EDT, 1 tab, PO, Daily Start Date: 12/27/21 Status: Ordered Vitamin D3 5000 intl units (125 mcg) oral tablet Start: 12/27/21 14:02:00 EDT Start Date: 12/27/21 Status: Ordered Mental Status 03/21/23 Barriers to Learning one year None evide nt Mandatory Health Literacy Documentation Yes Health Literacy Communication Barriers N ever Primary Language Thai Problem List Condition Confirmation Course Effective Dates Status H ealth Status Informant Decreased activities of daily living (ADL) Confirmed Active Eosinophilic asthma Confirmed Active Weight disorder Confirmed Active Chronic pulmonary disease Confirmed Active Macular degeneration disease Confirmed Active Moderate dementia without behavioral disturbance Confirmed Active CPAP (continuous positive airway pressure) dependence Confirmed Active Diabetes Confirmed Active Pulmonary eosinophilia Confirmed Active Hyperlipidemia Confirmed Active Hypertension Confirmed Active Cognitive impairment Confirmed Active Tinea unguium Confirmed Active Osteoporosis Confirmed Active Urinary incontinence Confirmed Active Diagnosis Diagnosis Type Effective Dates Health Status Cl inical Service Informant Diabetes Discharge Diagnosis 03/21/23 Tinea unguium Discharge Diagnosis 03/21/23 Procedures Procedure Date Related Diagnosis Body Site Status Chest X-ray 1 11/01/22 Completed KUB X-ray 2 06/01/22 Completed MRI of brain 3 06/06/21 Completed Dual energy X-ray absorptiom etry (DEXA) scan of femoral neck result normal 4 11/18/[address] of head/brain 5 10/21/20 Comple bonita Chest x-ray 6 12/20/18 Completed ECG 12/20/18 Completed DEXA (dual energy X-ray phot on absorptiometry) scan of lateral spine 7 10/10/18 Completed Spirometry 8 01/13/[address] 9 12/27/17 Completed Chest x-ray 10 08/09/17 Completed Chest X-ray 11 05/03/17 Completed Echocardiography 12 02/14/[address] 13 12/27/[address] 14 09/02/15 Completed Echocardiogram 15 09/07/[address] of chest 16 11/06/13 Completed Mammogram 17 10/24/[address] of abdomen and pelvis 18 05/05/08 Completed Colonoscopy 19 09/23/07 Completed REMOTE 30 DAY ECG REV/REPORT 20 11/13/05 Completed Bilateral tubal ligation Completed Chest x-ray one view portable 21 Completed History of nasal sinus surgery Completed 1Impression: No acute abnormalities and in particular no radiographic evidence of pneumonia. 2impression: There is a large stool burden without evidence of inspissated stool 3Senescent change as above with no acute intracranial abnormality identified 4impression: AP spine L1-L4 T-score -1.8 Femur Neck Left T-score -2.6 Femur neck right T-score -2.0 Femur total left T-score -2.2 Femur total right T-score --1.7 Z-score -0.3 5No acute intracranial abnormality. 6no cardiomegaly, n o pleural effusions, no focal consolidation, no acute pulmonary edema, no pneumonia 7The patient is considered osteopenic. AP Spine L1-L4, femur neck right and femur total mean: fracture risk is moderate. Femur neck left: fracture risk is high. 8Spirometry is consistent with a moderate obstructive pattern. Repeat study done following bronchodilators showed significant imporvement with a 28% increase in FEV1. This would suggest at least paartially reversible obstructive airways disease. Flow volume loops were consistent with spirometric findings. Lung volume showed an increased residual volume and FRC and TLC and wo uld be consistent with airflow obstruciton. Diffusion capacity was normal at 100% 91. Minor lower lobe bronchial wall thickening and mucoid impaction 2. Stable postinflammatory pulmonary nodules 3. No focal airspace opacities to indicate a pneumonia 10no significant change compared to the prior study. No acute process. Stable bilateral pulmonary nodules. 11Impression stable pulmonary nodularity. no acute process. no change from the prior exam 12the primary indication after review was seemed appropriate and the exam was preformed there is a 4.6 x 5.6 cm cystic appearing structure in or adjacent to the liver, reommende further imaging normal LV chamber size with mikld concentric LVH nromal LV systolic function without regional wall motion abnormality, ER 55-60% grade I diastolic dysfunciton moderate mitral annular calcification 131. numerous noncalcified and calcified pulmonary nodules. the majority of these are unchanged sinceCT apr 09, 2008 and therefore benign. A few have slightly enlarged but are likely genign given relative stablilty 2. no acute intrathoracic findings. mild subpleural groundglass opacity with no areas of conslidation to suggest pneumonia. no mucoid impaction 141. no evidence of pulmonary embolus 2. interstitial changes at both lung bases 3. Atherosclerotic change with a small focal dissection thoracic aortic apeax 4. pulmonary nodularity slightly progressive from the prior exam [address] suggested 15normal LV chamber size with moderate concentration LVH. Hyperdynamic LV systolc function, EF >70%. no segmental left ventricular wall motion abnormalities are noted. Grade I diastolid cysfunction.Aortic valves sclerosis mild, without significant aortic valvular stenosis. Mild aortic regurgitaiton. Mild mitral annular calcification. Small, loculated anterior pericardial effusion without hemodynamic significance 161. there is no lateral right lung base nodule, to account for the rectly described radiographic finding. this finding therefore represents artifact 2. multiple stable partially calcified and noncalcified bilateral lung nodules, unchanged in size and location since 2007, consistent with benign process. no new nodules in the interaval 3. stable incidental hepatic cysts 17there is no mammographic evidenc of malignancy. 1 yr screening recommended 181. probable liver cysts 2. pulmonary nodules previously described on prior chest Ct 3. no abnormalities seen in kidneys ureters or bladder 4. ken cute abdominal or pelvice process noted 5. calciffied uterine fibroid 19diverticulosis, hemorrhoids repeat in 10 yrs 206 episodes of sob and lightheadedness associated with 4 episodes of isolated ventricular ectopy andtranstelephonic event monitor. no significant arrhythmias observed 21Impression: No significant change compared to the prior study. No acute process. Stable bilateral pulmonary nodules. Social History Social History Type Response Smoking Status Never smoked cigaret meri Sex Female Ortho Outpt Note * NILS Lafleur, Amy Yadav: PERFORM Event Display: Ortho Outpt Note Authored Date: [id number] Chief Complaint scott lcare Primary Care Provider MD Hermes, Onofre Subjective Patient is a very pleasant [id number] today for care. Last seen December 13, 2022. Lowrisk diabetic. No acute concerns noted today. Review of Systems Diabetes,shortness of breath wheezing persistent cough decreased vision cataracts Objective Physical Exam Problem focused bilateral feet: Dorsalis pedis pulsepalpable1 out of 4 posterior tibial pulse nonpalpable capillary refill timeless than 3 secondsskin turgor is good to all digits of both feet with pedal hair noted to be present. Neurovascular status is grossly intact to both feetpatient does not have any burning numbness or tingling,monofilament showed decreased sensation to distal extremitiesproprioception was mildly decreased light touch was mildly decreased Skin is clean and dry without infection no open wounds or breakdowns Interspaces intact without maceration Toenails of digits 1 through 5 of both feet with thickening greater than 1 mm, dystrophy, elongation, pain recommend debridement Assessment/Plan 1.Diabetes 2.Tinea unguium -Patient unable to provide self care to toenails due to - verbal consent obtained for debridement with witness -Recommend toenail debridement -Patient had toenails of bilateral digits 1-5 debrided using nail nippers to tolerance, no bleedingnoted -Patient instructed to use emery board to nails once per week -Patient had no ingrown toenails or infection noted -Patient is to follow up in3-4 months for treatment if needed in the future Electronic Signature on File Electronically Reviewed/Signed by: Amy Lafleur DPM Author Signature Dt/Tm:03/21/2023 03:32 PM Division of Sports Medicine CLR Patient Care team information Care Team Personnel Name: MD Ly Jonathan D Position: Physician - Family Med Member Role: Lifetime Relationship Address: Address: [address] [place] [address] [place] Name: MD Mirza Christopher Position: Physician - Family Med Member Role: Primary Care Provider Address: Address: [address] [place] [address] [place] Care Team Related Persons Name: LIANNA CHAUDHRY Address: home [address] [facility] [place] [phone]
--- OUTSIDE RECORDS SUMMARY | 2023-05-29 16:09 | External Medical Summary | Summary of Care ---
Author Name Unknown Organization [facility] Address [address] [place] [address] Phone [phone] Care Team Providers Care Human Services Manager Name Role Phone Unavailable Primary Care Provider Unavailabl e Reason for Visit * Reason Comments Rash Encounter Details Date Type Department Care Team Description 02/26/2023 Convenient Care Visit [facility] [place] [address] [place] [address] Brent Jaffe PA-C [address] [place] [address] Rash and nonspecific skin eruption* Allergies Active Allergy Reactions Severity Noted Date Comments Atorvastatin Calcium 10/24/2005 Muscle aches Povidone Iodine Other (Please comment) 01/31/20 13 Vaginal irritation during prep for cervical procedure Dairy Digestive 10/08/2012 All dairy products cause congestion/phlegm Simvastatin 07/25/2012 aches and "allergies" with Zocor- resolved off medication documented as of this encounter (statuses as of 02/26/2023) Medications Medication Sig Dispensed Refills Start Date End Date Status PRESERVISION AREDS 2 PO CAPS 1 pill 2 times a day 0 Active VENTOLIN HFA 108 (90 BASE) MCG/ACT IN AERSIndications:Asth ma, moderate persistent,Asthma exacerbation Use two puffs four times a day as needed for increased shortness of breath, cough, or wheezing. 1 Inhaler 3 02/16/2014 Active ALBUTEROL SULFATE (2.5 MG/3ML) 0.083% IN NEBU 3 ml vial in nebulizer every 4 hours as needed, use in place of rescue inhaler (Process through Medicare B - Dx 493.90) 60 Vial 3 08/20/2014 Active albuterol-ipratropiu m (DUONEB) 2.5-0.5 MG/3ML nebulizer solution Inhale 3 mL via nebulizer every 6 hours as needed for Cough or Shortness of Breath. 120 Vial 0 09/24/2014 Active Misc. Devices MISC Use as directed. CPAP at night and with naps 0 Active Respiratory Therapy Supplies (FLUTTER) CARRIE flutter device , use 4- 6 times a day 1 Device 4 03/13/2016 Active Mometasone Furo-Formoterol Fum (DULERA) 200-5 MCG/ACT Inhaler Inhale 2 Puffs by mouth 2 times a day. 1 Inhaler 4 03/16/2016 Active fluticasone (FLONASE) 50 MCG/ACT nasal spray Administer 2 Sprays into each nostril 2 times a day. 1 Bottle 11 05/10/2016 Active PredniSONE (DELTASONE) 20 MG TabletIndications:As thma exacerbation Take 3 tabs for 3 days, 2 tabs for 3 days, 1 tab for 3 days, 1/2 tab for 3 days 20 Tab 0 09/05/2016 Active hydrochlorothiazide (HYDRODIURIL) 25 MG TabletIndications:HT N, goal below 140/90 TAKE ONE TABLET BY MOUTH ONCE DAILY 90 Tab 3 12/11/2016 Active Donepezil HCl 10 MG Oral Tablet (Aricept) TAKE 1 TABLET BY MOUTH ONCE DAILY FOR 30 DAYS 0 01/29/2023 Active Atorvastatin Calcium 40 MG Oral Tablet (Lipitor) Take 1 Tablet by mouth in the morning. 0 Active Aspirin 81 MG Oral Tablet Delayed Release Take by mouth. 0 Active Chlorthalidone 25 MG Oral Tablet (Hygroton) Take 1 Tablet by mouth in the morning. 0 Active Memantine HCl 10 MG Oral Tablet (Namenda) TAKE 1/2 (ONE-HALF) TABLET BY MOUTH ONCE DAILY MAY INCREASE TO 1 TABLET DAILY IN 2 WEEKS ON 07/11/21 0 Active Sertraline HCl 50 MG Oral Tablet (Zoloft) Take 1 Tablet by mouth in the morning. 0 Active documented as of this encounter (statuses as of 02/26/2023) Active Problems Problem Noted Date Moderate persistent asthma with acute ex acerbation 09/06/2016 Elevated IgE level 08/20/2014 Vitamin D deficiency 08/20/2014 Chronic sinusitis 02/13/2013 Nasal sinus polyp 02/13/2013 Mixed rhinitis 01/30/2013 PND (post-nasal drip) 01/30/2013 Thyroid mass 01/03/2013 Overview: 12/14 US 1.5 cm right sided mass. -Left nodular neck mass most likely a lipoma was recently evaluated by ultrasound in January 2013 stable in size per patient report. - The pathophysiology of thyroid nodules reviewed with patient. Since the size of the nodule has been stable in the right side I do not recommend any biopsy at this point. - I do recommend repeat thyroid ultrasound in a couple of years or earlier if there is any change in clinical status. Thyroid nodule 12/25/2012 Overview: 12/14 US ordered. Hx biopsies in past. Former smoker 09/01/2012 ANIL (obstructive sleep apnea) 09/01/2012 Overview: Wears CPAP T and B Retinal hemorrhage, right 09/01/2012 Hepatic cyst 09/01/2012 Rosacea 09/01/2012 Pulmonary nodules 09/01/2012 Overview: Stable on CT [facility] Routine general medical examination at a health care facility 09/01/2012 Overview: 09/16 Blood in urine--DEIRDRE ordered, 09/17 CT chest 8mm nodule, deirdre [address] Elder ordered. PFT @Dr elder 3mo 09/16 hospital ASthma exac. Restart prev inhalers. Seeing Dr Elder 10/14 & 10/13 [facility] Mammo WNl, declined DEXA scan Intolerant statin, zetia, niaspan 2000-Carotid, MRI Brain, TTE WNL Asthma, moderate persistent 08/01/2012 Overview: 04/01/15 IgE high serum. 07/20 PFT_mild restriction, 02/15 ERC-hdt-hscbfnvgdgu 01/30/13 revealed an FEV1 / FVC ratio 61%. FEV1 1.31 L, 62% of predicted. Findings consistent with moderate obstructive airways disease, significant 33% improvement in FEV1 noted post beta 2 agonist bronchodilator. 08/14 PFT--IMPRESSION: Mild obstructive pattern is suggested by reduction in FEV1 to 78% of predicted with a borderline normal obstructive index. There is a clinically significant bronchodilator response. The total lung capacity is normal with a normal diffusion capacity. In past asmanex, dulera used with little relief 09/13 PFT mild obstruction,+air trapping with normal DLCO 09/14 DNR Scanned. Dyslipidemia, goal LDL below 130 009 Overview: Non-toxic multinodular goiter 11/25/2007 HTN, goal below 140/90 11/01/2004 Overview: Cough with ACEI in past DIVERTICULOSIS OF COLON 01/26/2000 FAM HX-ISCHEM HEART DIS documented as of this encounter (statuses as of 02/26/2023) Resolved Problems Problem Noted Date Resolved Date PURE HYPERCHOLESTEROLEM 08/24/1997 05/13/20 09 Overview: Per Lipid Taxonomy. documented as of this encounter (statuses as of 02/26/2023) Immunizations Name Administration Dates Next Due Pneumococcal Conjugate Vacc, 13 Valent (Prevnar) 05/24/2016 Seasonal Influenza, Quadriva lent, No Preserve, IM 05/24/2016 Seasonal Influenza, Split, I IV3, With Preserve, Inj 04/15/2014,04/08/2013,06/02/2012,2005 documented as of this encounter Social History Tobacco Use Types Packs/Day Years Used Date Smoking Tobacco: Never Smokeless Tobacco: Never Tobacco Cessation:Counseling Given: Not Answered Comments:Has lived with second hand smoke most of her life. Alcohol Use Standard Drinks/Week Comments Yes 0 (1 standard drink = 0.6 oz pur e alcohol) occ Sex Assigned at Date Recorded Not on file Job Start Date Occupation Industry Not on file Not on file Not on file documented as of this encounter Last Filed Vital Signs Vital Sign Reading Time Taken Comments Blood Pressure 128/78 02/26/2023 12:40 PM EDT Pulse 82 02/26/2023 12:40 PM EDT Temperature 36.2 C (97.2 F) 02/26/2023 12:40 PM E DT Respiratory Rate 20 02/26/2023 12:40 PM EDT Oxygen Saturation 96% 02/26/2023 12:40 PM EDT Inhaled Oxygen Concentration - - Weight 93.9 kg (207 lb) 02/26/2023 12:40 PM EDT Height 165.1 cm (5' 5") 02/26/2023 12:40 PM EDT Body Mass Index 34.45 02/26/2023 12:40 PM EDT documented in this encounter Progress Notes * Brent Jaffe PA-C - 02/26/2023 1:00 PM EDT Images from the original note were not included. Convenient Care Basic Exam HPI: Stephanie Lomeli is a 87 year old year old female who presents for evaluation of possible shingleson back. Patient has a hx of dementia where was concerned when he noticed a large scatteredrash on the right side of her back on Sunday. Caregiver came this morning and also noticed the rash where he was told to bring patient in for an evaluation (to rule out shingles). Patient does not have a fever or chills. No other symptoms. Review of Systems Unable to perform ROS: Dementia PAST MEDICAL HISTORY: Past Medical History: Diagnosis Date Asthma, severity to be determined 08/01/2012 Diverticulosis of colon 01/26/2000 Dyslipidemia, goal to be determined 05/13/2009 FAM HX-ISCHEM HEART DIS Former smoker 09/01/2012 Hepatic cyst 09/01/2012 HTN, goal to be determined Mucous polyp of cervix atypical squamous metaplasia- no dysplasia/carconoma NONTOX MULTINODUL GOITER 11/25/2007 ANIL (obstructive sleep apnea) 09/01/2012 Pulmonary nodules 09/01/2012 Retinal hemorrhage, right 09/01/2012 Rosacea 09/01/2012 Status asthmaticus Past Surgical History: Procedure Laterality Date COLORECTAL CANCER SCREEN; NOT AT RISK 09/23/07 repeat in 10 years COLORECTAL CANCER SCREEN;W/FLE 01/26/00 Flex/sigmoidsocopy- negative DILATION AND CURETTAGE (D&C) D&C EXERCISE ECHO 12/03 Negative stress echo LIGATE/CUT OVIDUCT(S) Tubal Ligation SINUS SURGERY PROCEDURE NEC Bilateral 07/12/2016 Dr Farias [facility] Social History Tobacco Use Smoking status: Never Smokeless tobacco: Never Tobacco comments: Has lived with second hand smoke most of her life. Substance Use Topics Alcohol use: Yes Comment: occ Vaping/E-Cigarette Use Vaping/E-Cigarette Substances Vaping/E-Cigarette Devices Patient Active Problem List Diagnosis Code DIVERTICULOSIS OF COLON K57.30 FAM HX-ISCHEM HEART DIS Z82.49 HTN, goal below 140/90 I10 Non-toxic multinodular goiter E04.2 Dyslipidemia, goal LDL below 130 E78.5 Asthma, moderate persistent J45.40 Former smoker Z87.891 ANIL (obstructive sleep apnea) G47.33 Retinal hemorrhage, right H35.61 Hepatic cyst K76.89 Rosacea L71.9 Pulmonary nodules R91.8 Routine general medical examination at a health care facility Z00.00 Thyroid nodule E04.1 Thyroid mass E07.9 Mixed rhinitis J31.0 PND (post-nasal drip) R09.82 Chronic sinusitis J32.9 Nasal sinus polyp J33.8 Elevated IgE level R76.8 Vitamin D deficiency E55.9 Moderate persistent asthma with acute exacerbation J45.41 Review of patient's allergies indicates: Allergen Reactions Atorvastatin [Atorvastatin Calcium] Muscle aches Betadine [Povidone Iodine] Other (Please comment) Vaginal irritation during prep for cervical procedure Dairy Digestive All dairy products cause congestion/phlegm Simvastatin aches and "allergies" with Zocor- resolved off medication Current Outpatient Medications Medication Sig Dispense Refill PRESERVISION AREDS 2 PO CAPS 1 pill 2 times a day Mometasone Furo-Formoterol Fum (DULERA) 200-5 MCG/ACT Inhaler Inhale 2 Puffs by mouth 2 times a day. 1 Inhaler 4 fluticasone (FLONASE) 50 MCG/ACT nasal spray Administer 2 Sprays into each nostril 2 times a day. 1Bottle 11 PredniSONE (DELTASONE) 20 MG Tablet Take 3 tabs for 3 days, 2 tabs for 3 days, 1 tab for 3 days, 1/2 tab for 3 days 20 Tab 0 hydrochlorothiazide (HYDRODIURIL) 25 MG Tablet TAKE ONE TABLET BY MOUTH ONCE DAILY 90 Tab 3 Donepezil HCl 10 MG Oral Tablet (Aricept) TAKE 1 TABLET BY MOUTH ONCE DAILY FOR 30 DAYS Atorvastatin Calcium 40 MG Oral Tablet (Lipitor) Take 1 Tablet by mouth in the morning. Aspirin 81 MG Oral Tablet Delayed Release Take by mouth. Chlorthalidone 25 MG Oral Tablet (Hygroton) Take 1 Tablet by mouth in the morning. Memantine HCl 10 MG Oral Tablet (Namenda) TAKE 1/2 (ONE-HALF) TABLET BY MOUTH ONCE DAILY MAY INCREASE TO 1 TABLET DAILY IN 2 WEEKS ON 07/11/21 Sertraline HCl 50 MG Oral Tablet (Zoloft) Take 1 Tablet by mouth in the morning. VENTOLIN HFA 108 (90 BASE) MCG/ACT IN AERS Use two puffs four times a day as needed for increased shortness of breath, cough, or wheezing. 1 Inhaler 3 ALBUTEROL SULFATE (2.5 MG/3ML) 0.083% IN NEBU 3 ml vial in nebulizer every 4 hours as needed, use in place of rescue inhaler (Process through Medicare B - Dx 493.90) 60 Vial 3 albuterol-ipratropium (DUONEB) 2.5-0.5 MG/3ML nebulizer solution Inhale 3 mL via nebulizer every 6 hours as needed for Cough or Shortness of Breath. 120 Vial 0 Misc. Devices MISC Use as directed. CPAP at night and with naps Respiratory Therapy Supplies (FLUTTER) CARRIE flutter device , use 4- 6 times a day 1 Device 4 No current facility-administered medications for this visit. Nursing Notes and Vital Signs reviewed. BP 128/78 (BP Site: Left Arm, BP Position: Sitting, BP Cuff Size: Regular) | Pulse 82 | Temp 36.2 C (97.2 F) (Tympanic) | Resp 20 | Ht 1.651 m (5' 5") | Wt 93.9 kg (207 lb) | SpO2 96% | BMI 34.45kg/m | BSA 2.08 m Physical Exam Vitals and nursing note reviewed. Constitutional: General: She is awake. Appearance: She is obese. HENT: Head: Normocephalic. Skin: Comments: states rash seemed to have improved. Neurological: Mental Status: She is alert. Psychiatric: Behavior: Behavior is cooperative. 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 Patient goals for plan of care were discussed with and let himknow the results (if positive). Follow up with PCP or seek emergency medical attention as needed if symptoms worsen, evolve, or fail to improve. demonstrates understanding of the visit, course of treatment, and instructions. All questions were answered and patient along with agrees to plan of care. Brent Jaffe PA-C [facility] [address] [facility] [address] documented in this encounter Nursing Notes * Coni Malhotra LPN - 02/26/2023 12:47 PM EDT Stephanie Lomeli,is a 87 year old female, who presents to the walk in clinic today c/o painful rash to left side of back since Sunday. Used tylenol that hasn't helped. 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, PCR Lab STAT Rash and nonspecific skin eruption 02/26/2023 1:02 PM EDT Health Maintenance Due Date Last Done Comments DXA Scan 1936 Albumin/Creatinine Ratio 1954 Zoster Vaccines (1 of 2) 1986 DTaP,Tdap,and Td Vaccines (1 - Tdap) 02/21/2003 02/20/2003, 01/02/1993 Pneumococcal Vaccine: 65+ Years (3 - PPSV23 or PCV20) 05/24/2017 05/24/2016, 04/11/2001 Depression Screening 09/06/2017 09/06/2016 Influenza Vaccine (FLU shot) (#1) 2023 03/29/2017, 05/24/2016, 05/24/2016, Additional history exists COVID-19 Vaccine Completed 02/17/2022 GARDASIL-HPV IMMUNIZATION SERIES Aged Out No longer eligible based on patient's age to complete this topic Hepatitis B Aged Out No longer eligi ble based on patient's age to complete this topic MENINGOCOCCAL (MENACTRA/MENVEO) Aged Out No longer eligible based on patient's age to complete this topic documented as of this encounter Medical Devices Not on filedocumented as of this encounter Visit Diagnoses Diagnosis Rash and nonspecific skin eruption- Primary Rash and other nonspecific skin eruption documented in this encounter
--- OUTSIDE RECORDS SUMMARY | 2023-05-29 16:09 | External Medical Summary ---
Author Name Unknown Address Unknown Organization K01:[facility] - [address] [place] [address] Ave. [facility] [address] Laboratory Report Ordering Provider Test Date Status CHELA BERNSTEIN 02/26/2023 13:02:50 Final Observation Date Value Abnormality Reference (Units ) Status Herpes simplex virus 1+2 DNA [Presence] in Specimen by [facility] with probe detection 02/26/2023 13:02:50 Negative Negative Final No Herpes Simplex Virus Type 1 detected by PCR (amplified probe). Herpes simplex virus 1+2 DNA [Presence] in Specimen by SOCO with probe detection 02/26/2023 13:02:50 Negative Negative Final No Herpes Simplex Virus Type 2 detected by PCR (amplified probe). Varicella zoster virus DNA [Presence] in Specimen by [facility] with probe detection 02/26/2023 13:02:50 Negative. No Varicella Zoster Virus detected by PCR (amplified Probe). Negative Final This test was developed and its performance characteristics determined by [facility]. It has not been cleared or approved by the FDA. The laboratory is regulated under CLIA as qualified to perform high- complexity testing. This test is used for clinical purposes. It should not be regarded as investigational or for research. Performing Location LABORATORY [place] [address] [facility] [address]
--- OUTSIDE RECORDS SUMMARY | 2023-05-29 16:10 | External Medical Summary | Continuity of Care Document ---
Author Name Unknown Organization [address] [employer] [place] [id number] Address [address] [place] [id number] Care Team Providers Care Seed Analyst Name Role Phone Onofre Mirza Primary Care Physician [phone] Encounter [facility] [id number] Date(s): 12/13/22 - 12/13/22 [facility] [address] [place] [id number] [facility] [address] [place] [id number] Encounter Diagnosis Diabetes(Discharge Diagnosis) - 12/13/22 Tinea unguium(Discharge Diagnosis) - 12/13/22 Discharge Disposition: Home or Self Care Attending Physician: NILS Lafleur Christina L Referring Physician: MD Mirza Christopher Allergies, Adverse Reactions, Alerts No Known Medication Allergies Assessment and Plan Extracted from: Title:Follow Up Visit Author:NILS Lafleur, Lesley Yadav Date:12/13/22 1.Diabetes 2.Tinea unguium -Patient unable to provide self care to toenails due todiabetes - verbal consent obtained for debridement -Recommend toenail debridement -Patient had toenails of bilateral digits 1-5 debrided using nail nippers to tolerance, no bleeding noted -Patient instructed to use emery board to nails once per week -Patient had no ingrown toenails or infection noted -Patient is to follow up in months for treatment if needed in the future Immunizations Given and Recorded Vaccine Date Status Refusal Reason SARS-CoV-2 mRNA (Pfizer 12+) bivalent 1 02/17/22 R ecorded SARS-CoV-2 (COVID-19) mRNA-1273 vaccine 2 08/13/20 Recorded SARS-CoV-2 (COVID-19) mRNA-1273 vaccine 3 07/16/20 Recorded tetanus/diphtheria/pertuss, acel (Tdap) 03/29/17 G iven influenza virus vaccine, inactivated 03/29/17 [...] J45.909, PRN: as needed for wheezing, Pharmacy: [facility] Start Date: 04/29/21 Status: Ordered atorvastatin 40 mg oral tablet Start: 12/19/21 17:10:00 EDT, See Instructions, Disp# 90 tab, Refills: 4, TAKE 1 TABLET BY MOUTH DAILY, Pharmacy: [facility] Start Date: 12/19/21 Status: Ordered chlorthalidone 25 mg oral tablet Start: 09/29/22 12:43:00 EDT, See Instructions, Disp# 90 tab, Refills: 1, Take 1 tablet by mouth once daily, Pharmacy: [facility] Start Date: 09/29/22 Status: Ordered Colace Start: 06/06/22 14:06:00 EST Start Date: 06/06/22 Status: Ordered dexamethasone 4 mg oral tablet Start: 09/28/22 13:01:00 EDT, See Instructions, Disp# 5 tab, Refills: 2, TAKE 5 TABLETS BY MOUTH 1/2 HOUR PRIOR TO INJECTION ONCE MONTHLY, Pharmacy: [facility] Start Date: 09/28/22 Status: Ordered donepezil 10 mg oral tablet Start: 05/05/22 15:07:00 EST, 1 tab, PO, Daily, Disp# 30 tab, Refills: 5, Pharmacy: [facility] Start Date: 05/05/22 Stop Date: 11/01/22 Status: Ordered Dulera 100 mcg-5 mcg/inh inhalation aerosol Start: 11/20/22 12:32:00 EDT, 2 puff, inhaled, Daily, Disp# 13 g, Refills: 3, Pharmacy: [facility] Start Date: 11/20/22 Stop Date: 03/20/23 Status: Ordered loratadine 10 mg oral tablet Start: 12/27/21 13:59:00 EDT Start Date: 12/27/21 Status: Ordered memantine 10 mg oral tablet Start: 11/22/22 9:08:00 EDT, 0.5 tab, PO, Daily, Disp# 30 tab, Refills: 3, Take half a tab daily, may increase to 1 tab daily in 2 wks on 07/11/21, Note to Pharmacy: Take half a tab daily, may increaseto 1 tab daily in 2 wks on 07/11/21, Pharmacy: [facility]... Start Date: 11/22/22 Stop Date: 03/22/23 Status: Ordered Nucala 100 mg subcutaneous injection Start: 04/26/21 14:03:00 EST, 100 mg =, subQ, [id number], Disp# 30 each, Refills: 1, Pharmacy: [facility] Start Date: 04/26/21 Stop Date: 10/11/21 Status: Ordered PreserVision Start: 04/06/17 10:12:00, 1 tab, PO, bid Start Date: 04/06/17 Status: Ordered sertraline 50 mg oral tablet Start: 05/05/22 15:07:00 EST, See Instructions, Disp# 90 tab, Refills: 2, TAKE 1 TABLET BY MOUTH DAILY, Pharmacy: [facility] Start Date: 05/05/22 Status: Ordered Vitamin B12 1000 mcg oral tablet Start: 12/27/21 14:00:00 EDT, 1 tab, PO, Daily Start Date: 12/27/21 Status: Ordered Vitamin D3 5000 intl units (125 mcg) oral tablet Start: 12/27/21 14:02:00 EDT Start Date: 12/27/21 Status: Ordered Mental Status 12/13/22 Barriers to Learning one year None evide nt Mandatory Health Literacy Documentation Yes Health Literacy Communication Barriers N ever Primary Language Kyrgyz Problem List Condition Confirmation Course Effective Dates [...] Cl inical Service Informant Diabetes Discharge Diagnosis 12/13/22 Tinea unguium Discharge Diagnosis 12/13/22 Procedures Procedure Date Related Diagnosis Body Site [...] Sex Female Ortho Outpt Note * NILS Lafleur Christina L: PERFORM Event Display: Ortho Outpt Note Authored Date: [id number] Chief Complaint nail care Primary Care Provider MD Hermes, Onofre Subjective Patient is a very pleasant 87-year-old female presenting today for care last seen June 14, 2022,low risk diabetic. No acute concerns noted today. Review [...] Toenails of digits 1 through 5 of bilateral feet with thickening greater than 1 mm, dystrophy, elongation, subungual debris, pain recommend debridement Assessment/Plan 1.Diabetes 2.Tinea unguium -Patient unable to provide self care to toenails due todiabetes - verbal consent obtained for debridement -Recommend toenail debridement -Patient had toenails of bilateral digits 1-5 debrided using nail nippers to tolerance, no bleedingnoted -Patient instructed to use emery board to nails once per week -Patient had no ingrown toenails or infection noted -Patient is to follow up in months for treatment if needed in the future Electronic Signature on File Electronically Reviewed/Signed by: Amy Lafleur DPM Author Signature Dt/Tm:12/13/2022 01:43 PM Division of Sports Medicine CLR Patient Care team information Care Team Personnel Name: MD Ly Jonathan D Position: Physician - Family Med Member Role: Lifetime Relationship Address: Address: [address] [place] [address] [place] Name: MD Mirza Christopher Position: Physician - Family Med Member Role: Primary Care Provider Address: Address: [address] [place] [address] Care Team Related Persons Name: LIANNA CHAUDHRY Address: home [address] [facility] [phone]
--- OUTSIDE RECORDS SUMMARY | 2023-05-29 16:10 | External Medical Summary | Continuity of Care Document ---
Author Name Unknown Organization [facility] [address] [place] [address] [address] [id number] Care Team Providers Care Frame Wirer Name Role Phone Onofre Mirza Primary Care Physician [phone] Encounter [facility] [id number] Date(s): 11/30/22 - 11/30/22 [facility] 0 [facility] 207 [facility] Practice Site [address] [facility] [address] [place], [place] [address]Lbrfu [phone] Encounter Diagnosis Skin lesion of back(Discharge Diagnosis) - 11/30/22 Discharge Disposition: Home or Self Care Attending Physician: MD Mirza Christopher Allergies, Adverse Reactions, Alerts No Known Medication Allergies Assessment and Plan Extracted from: Title:Office Visit Note Author:DO Baldwin Audrey Date:11/30/22 1.Skin lesion of back Reassured patient and family the only noted skin lesions are SKs and old scar tissue, they are not cancerous. Patient's family aware to obtain photo of any new skin lesions of concern. Immunizations Given and Recorded Vaccine Date Status Refusal Reason SARS-CoV-2 mRNA ([employer] 12+) bivalent 1 02/17/22 R ecorded SARS-CoV-2 [...] J45.909, PRN: as needed for wheezing, Pharmacy: [facility] [id number] Start Date: 04/29/21 Status: Ordered atorvastatin 40 mg oral tablet Start: 12/19/21 17:10:00 EDT, See Instructions, Disp# 90 tab, Refills: 4, TAKE 1 TABLET BY MOUTH DAILY, Pharmacy: [facility] [id number] Start Date: 12/19/21 Status: Ordered chlorthalidone 25 mg oral tablet Start: 09/29/22 12:43:00 EDT, See Instructions, Disp# 90 tab, Refills: 1, Take 1 tablet by mouth once daily, Pharmacy: [id number] Start Date: 09/29/22 Status: Ordered Colace Start: 06/06/22 14:06:00 EST Start Date: 06/06/22 Status: Ordered dexamethasone 4 mg oral tablet Start: 09/28/22 13:01:00 EDT, See Instructions, Disp# 5 tab, Refills: 2, TAKE 5 TABLETS BY MOUTH 1/2 HOUR PRIOR TO INJECTION ONCE MONTHLY, Pharmacy: [facility] [id number] Start Date: 09/28/22 Status: Ordered donepezil 10 mg oral tablet Start: 05/05/22 15:07:00 EST, 1 tab, PO, Daily, Disp# 30 tab, Refills: 5, Pharmacy: [id number] Start Date: 05/05/22 Stop Date: 11/01/22 Status: Ordered Dulera 100 mcg-5 mcg/inh inhalation aerosol Start: 11/20/22 12:32:00 EDT, 2 puff, inhaled, Daily, Disp# 13 g, Refills: 3, Pharmacy: [id number] Start Date: 11/20/22 Stop Date: [...] daily in 2 wks on 07/11/21, Pharmacy: [facility]... Start Date: 11/22/22 Stop Date: 03/22/23 Status: Ordered Nucala 100 mg subcutaneous injection Start: 04/26/21 14:03:00 EST, 100 mg =, subQ, [id number], Disp# 30 each, Refills: 1, Pharmacy: [facility] Start Date: 04/26/21 Stop Date: 10/11/21 Status: Ordered PreserVision Start: 04/06/17 10:12:00, 1 tab, PO, bid Start Date: 04/06/17 Status: Ordered sertraline 50 mg oral tablet Start: 05/05/22 15:07:00 EST, See Instructions, Disp# 90 tab, Refills: 2, TAKE 1 TABLET BY MOUTH DAILY, Pharmacy: [id number] Start Date: 05/05/22 Status: Ordered Vitamin B12 1000 mcg oral tablet Start: 12/27/21 14:00:00 EDT, 1 tab, PO, Daily Start Date: 12/27/21 Status: Ordered Vitamin D3 5000 intl units (125 mcg) oral tablet Start: 12/27/21 14:02:00 EDT Start Date: 12/27/21 Status: Ordered Mental Status 11/30/22 Barriers to Learning one year None evide nt Mandatory Health Literacy Documentation Yes Health Literacy Communication Barriers N ever Primary Language Yi Problem List Condition Confirmation Course Effective Dates [...] Dates Health Status Cl inical Service Informant Skin lesion of back Discharge Diagnosis 11/30/22 Procedures Procedure Date Related Diagnosis Body Site [...] No acute process. Stable bilateral pulmonary nodules. Vital Signs Most recent to oldest [Reference Range]: 1 Patient Weight 94.5 kg (11/30/22 4:12 PM) Temperature [36.5-37.9 DegC] 36.7 DegC (11/30/22 4:12 PM) Respiratory Rate 20 br/min (11/30/22 4:12 PM) Blood Pressure 130/78mmHg (11/30/22 4:12 PM) Cuff Pulse Pressure 52 mmHg (11/30/22 4:12 PM) BP Location # 1 Right Arm (11/30/22 4:12 PM) Social History Social History Type Response Smoking Status Never smoked cigaret meri Sex Female [facility]CM Outpt Note * DO Baldwin Audrey: WANG Ly MD, Josep Ibanez: MODIFY Event Display: [facility] Outpt Note Authored Date: [id number] Chief Complaint pt is here for a new mole that is a different color and size. Located lower middle of her back. History of Present Illness 87yo Female here for new spot on back. Complained for 2-3 days for bug on her back. noticed a new purple spot on back, size of a dime, sparkly things on the top like sugar or salt. Caregiver also took a look, told them to call thedoctor. Saw it 4 days ago. Not painful Physical Exam Vitals & Measurements T:36.7C RR:20 BP:130/78 SpO2:98% WT:94.5kg WT:94.500kg(Dosing) PHQ2 Data(Data Documented on:11/30/2022 16:10) Emotional health assessment NEGATIVE General: well appearing age appropriate Skin: skin check performed on back, face, chest, abd, arms. Noted SKs on back with some hemangiomas, small area of pale slightly raised scar tissue on mid lower back, no blood vessels noted in tissue. Unable to locate area of concern Assessment/Plan 1.Skin lesion of back Reassured patient and family the only noted skin lesions are SKs and old scar tissue, they are not cancerous. Patient's family aware to obtain photo of any new skin lesions of concern. Attestation I separately obtained a brief history and exam on this patient, discussed the case with and agree with the assessment and plan of Dr. Baldwin. 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 Osteoporosis Pulmonary eosinophilia Sleep apnea Tinea unguium Urinary incontinence Weight disorder Procedure/Surgical History Chest X-ray (11/01/2022)KUB X-ray (06/01/2022)MRI of brain (06/06/2021)Dual energy X-ray absorptiometry (DEXA) scan of femoral neck result normal (11/18/2020)CT of head/brain (10/21/2020)ECG (12/20/2018)Chest x-ray (12/20/2018)DEXA (dual energy X-ray photon absorptiometry) scan of lateral spine (10/10/2018)Spirometry (01/13/2018)Chest CT (12/27/2017)Chest x-ray (08/09/2017)Chest X-ray (05/03/2017)Echocardiography (02/14/2016)Chest CT (12/27/2015)Chest CT (09/02/2015)Echocardiogram (09/07/2014)CT of chest (11/06/2013)Mammogram (10/24/2012)CT of abdomen and pelvis (05/05/2008)Colonoscopy (09/23/2007)REMOTE 30 DAY ECG REV/REPORT ()Chest x-ray one view portableBilateral tubal ligationHistory of nasal sinus surgery Medications albuterol(albuterol 0.083% for nebulization), 5 mg= 6 mL, inhaled, q6h, PRN, 3 refills atorvastatin(atorvastatin 40 mg oral tablet), See Instructions, 4 refills chlorthalidone(chlorthalidone 25 mg oral tablet), See Instructions cholecalciferol(Vitamin D3 5000 intl units (125 mcg) oral tablet) cyanocobalamin(Vitamin B12 1000 mcg oral tablet), 1000 mcg= 1 tab, PO, Daily dexamethasone(dexamethasone 4 mg oral tablet), See Instructions, 2 refills docusate(Colace) donepezil(donepezil 10 mg oral tablet), 10 mg= 1 tab, PO, Daily, 5 refills formoterol-mometasone(Dulera 100 mcg-5 mcg/inh inhalation aerosol), 2 puff, inhaled, Daily, 3 refills loratadine(loratadine 10 mg oral tablet) memantine(memantine 10 mg oral tablet), 5 mg= 0.5 tab, PO, Daily, 3 refills mepolizumab(Nucala 100 mg subcutaneous injection), 100 mg, subQ, [id number], 1 refills multivitamin with minerals(PreserVision), 1 tab, PO, bid sertraline(sertraline 50 mg oral tablet), See Instructions, 2 refills Allergies No Known Medication Allergies Social History Smoking Status Never smoked cigarettes Alcohol - Low Risk - Comments: one ounce wine daily Exercise - Does not exercise Home/Environment Lives with:Spouse Living situation:Home with assistance Nutrition/Health - Medium Risk Other - Comments: 1.5 cups coffee Substance Abuse - Denies Substance Abuse Tobacco - Denies Tobacco Use Family History Cancer...: MGM. Heart attack: Father. Hypertension: Mother, Father, Sister and Brother. Lung disease...: Brother. Stroke: Mother. Health Status Family Member(s) Immunizations Vaccine Date Status SARS-CoV-2 mRNA ([employer] +) bivalent 02/17/2022 Recorded Comments : 2022-03-28: Historical information-source unspecified SARS-CoV-2 (COVID-19) mRNA-1273 vaccine 08/13/2020 Recorded Comments : 2020-10-18: Historical information-source unspecified SARS-CoV-2 (COVID-19) mRNA-1273 vaccine 07/16/2020 Recorded Comments : 2020-10-18: Historical information-source unspecified tetanus/diphtheria/pertuss, acel (Tdap) 03/29/2017 Given influenza virus vaccine, inactivated 03/29/2017 Given pneumococcal 13-valent vaccine 05/24/2016 Recorded Comments : 2017-03-07: Historical information-source unspecified influenza virus vaccine, inactivated 05/24/2016 Recorded Comments : 2017-03-07: Historical information-source unspecified tetanus toxoids-diphtheria, Td (Adult) 02/20/2003 Recorded Comments : 2017-03-07: Historical information-source unspecified pneumococcal 23-valent vaccine 04/11/2001 Recorded Comments : 2017-03-07: Historical information-source unspecified tetanus toxoids-diphtheria, Td (Adult) 01/02/1993 Recorded Comments : 2017-03-07: Historical information-source unspecified Recommendations Health Maintenance Pending(in the next year) OverDue Adult Influenza Vaccine due12/02/21and every 1year Due Adult COVID-19 Vaccination due11/30/22Unknown Frequency Falls Plan of Care due11/30/22Unknown Frequency Pneumococcal Vaccine Older Adults due11/30/22One-time only Shingles Vaccine due11/30/22One-time only Due In Future Medicare Annual Wellness Visit not due until12/27/22and every 1year Diabetes Management A1c not due until05/09/23and every 1year Diabetic Eye Exam not due until06/13/23and every 2year Body Mass Index not due until11/30/23and every 1year Satisfied(in the past 1 year) Satisfied Adult COVID-19 Vaccination on02/17/22.Satisfied by DO Baldwin Audrey Body Mass Index on11/01/22.Satisfied by FAM Wolfe Paul Diabetes Management A1c on05/09/22.Satisfied by GAVIOTA Campuzano Lynnae Medicare Annual Wellness Visit on12/27/21.Satisfied by SYSTEM Electronic Signature on File Electronically Reviewed/Signed by: Sheila Baldwin DO Author Signature Dt/Tm:11/30/2022 04:44 PM Resident Department of Family Medicine Electronically Reviewed/Signed by: Josep Ly MD Cosigner Signature Dt/Tm: 11/30/2022 05:47 PM [facility]oc[facility] [address] [place] [address] , [place] Patient Care team information Care Team Personnel Name: MD Malachi, Josep Ibanez Position: Physician - Family Med Member Role: Lifetime Relationship Address: Address: [address] [place] [address] [place] Name: MD Mirza Christopher Position: Physician - Family Med Member Role: Primary Care Provider Address: Address: [address] [place] [address] [place] Care Team Related Persons Name: RICHA LIANNA Address: home [address] [place] [id number]
--- NOTE | 2023-05-29 16:12 | CT Scan Report ---
CT SCAN OF THE CERVICAL SPINE CLINICAL HISTORY: Fall. COMPARISON STUDY: CT of the cervical spine dated 05/08/2022. TECHNIQUE: CT scan of the cervical spine is performed from the skull base to the upper thoracic spine . Images are reviewed in the axial, sagittal, and coronal planes. IV contrast was not administered fo r this examination. A dose lowering technique was utilized adhering to the principles of ALARA. FINDINGS: Skeletal structures: The skeletal structures are osteopenic. There is no evidence of fracture or subl uxation involving the cervical spine. Vertebral body height and alignment are maintained. There is st raightening of the cervical lordosis. Anterior osteophytes are seen throughout. The odontoid process and lateral masses are intact. The atlantoaxial articulation is preserved noting productive degenerat jennie change. The spinous processes appear intact. There is mild multilevel facet arthropathy. Intervertebral discs: Moderate to severe disc space narrowing is seen at all cervical levels between C3-C4 and C6-C7. Central canal: Posterior disc osteophyte complexes are seen at all cervical disc between C3-C4 and C6 -C7. This may contribute to mild multilevel acquired compromise of the central canal. Soft tissues: The prevertebral and paraspinous soft tissues are within normal limits. There is athero sclerotic calcification of the carotid bulbs. Calvarium: The visualized calvarium at the skull base appears intact. Brain parenchyma: Partially visualized brain parenchyma at the skull base is within normal limits. Sinuses and mastoids: There is [id number] mucosal thickening within the ethmoid and maxillary s inuses. Mild mucosal thickening is noted in the sphenoid sinuses. The mastoid air cells are well pneu matized. Lung apices: Calcified granulomas are noted in the left upper lobe. Apical lung parenchyma is otherwi se clear as visualized. IMPRESSION: 1. There is no evidence of fracture or subluxation involving the cervical spine. 2. Osteopenia and spondylotic change as above. ACT 112: Negative or not required by law. Electronically signed by: Bryant Cr M.D. 05/29/2023 4:09 PM
--- NOTE | 2023-05-29 16:14 | CT Scan Report ---
CT SCAN OF THE BRAIN WITHOUT IV CONTRAST CLINICAL HISTORY: Fall. COMPARISON STUDY: CT of the brain dated 05/08/2022. TECHNIQUE: Unenhanced axial CT scan of the brain is performed from the vertex to the skull base. A do se lowering technique was utilized adhering to the principles of ALARA. The patient was scanned twice due to motion artifact. FINDINGS: Brain parenchyma: There is age-related involutional change noting [id number] subcortical and pe riventricular microangiopathic disease. There is no hemorrhage, mass effect, or evidence of acute ter ritorial ischemia by CT criteria. Corrales-white matter differentiation is preserved. No extra-axial flui d collection is seen. Ventricles, sulci, cisterns: Prominent secondary to involutional change. Intracranial vasculature: There is atherosclerotic calcification of the cavernous carotid and vertebr al artery. Calvarium: The skeletal structures are osteopenic. No depressed calvarial fracture is seen. Sinuses and mastoids: There is evidence of previous paranasal sinus surgery. Mucosal thickening is no bonita within the ethmoid, maxillary, and sphenoid sinuses. The mastoid air cells are well pneumatized. Orbits: The bony orbits are grossly intact. There are bilateral ocular lens implants. IMPRESSION: There is no hemorrhage, mass effect, or evidence of acute territorial ischemia by CT santi quinones. ACT 112: Negative or not required by law. Electronically signed by: Bryant Cr M.D. 05/29/2023 4:12 PM
--- NOTE | 2023-05-29 16:15 | CT Scan Report ---
ABDOMEN AND PELVIS CT WITHOUT CONTRAST CT DOSE: 3064.62 mGy.cm HISTORY: Acute abdominal trauma status post fall fall TECHNIQUE: Multiaxial CT images of the abdomen and pelvis were performed without contrast. A dose lo wering technique was utilized adhering to the principles of ALARA. COMPARISON STUDY: CT abdomen 05/05/2008, CT lumbar spine 05/08/2022 FINDINGS: Coronary artery and dense mitral annular calcifications. Calcified granulomata of the right lower lobe. No free air. The unenhanced spleen, adrenal glands and gallbladder appear unremarkable. Mildly atrophic pancreas with scattered punctate calcifications suggestive of chronic pancreatitis. A few probable cysts of the liver again seen measuring up to 2.5 cm. There are 2 nonobstructing calculi in the right kidney measuring up to 3 mm. Mildly atrophic left kid reanna with cortical thinning. No ureteral calculi or hydronephrosis. The urinary bladder is within norm al limits. Fibroid uterus. Atherosclerosis of the aorta and branch vessels. Mild fusiform ectasia of the infrarenal abdominal aorta measures about 2.5 cm. No lymphadenopathy. Tiny hiatal hernia. Colonic diverticulosis. No bowel obstruction or bowel wall thickening. Normal gianluca endix. Unremarkable soft tissues. Degenerative changes of the spine, pelvis and hips. There is progre ssive vertebral body height loss in the chronic severe L1 burst fracture demonstrating 6 mm retropuls ion and moderate central canal stenosis with AP dimension of the thecal sac measuring 7 mm. IMPRESSION: 1. No acute posttraumatic intra-abdominal or intrapelvic abnormality. 2. No acute fracture identified. 3. Nonobstructing right nephrolithiasis. No ureteral calculi or hydronephrosis. 4. Progressive vertebral body height loss and retropulsion within the chronic L1 burst fracture now r esulting in moderate central canal stenosis. 5. Additional findings as above. ACT 112: Negative or not required by law. The above report was generated using voice recognition software. It may contain grammatical, syntax o r spelling errors. Electronically signed by: Hipolito Chavez M.D. 05/29/2023 4:13 PM
[2023-05-29] MEDS ORDERED: POTASSIUM CHLORIDE 20 MEQ/15 ML UDC PO STA (16:32)
[2023-05-29] MEDS ORDERED: GLUCOSE 40% GEL 15 GM TUBE PO PRN (16:33)
[2023-05-29] MEDS ORDERED: DEXTROSE 50% 50 ML SYRINGE IV PRN (16:33)
[2023-05-29] MEDS ORDERED: STAT IV Infusion **Titration per Protocol STA (16:33)
[2023-05-29] MEDS ORDERED: CARBOHYDRATES FOR HYPOGLYCEMIA PO PRN (16:33)
[2023-05-29] MEDS ORDERED: GLUCOSE 10 TAB/TUBE PO PRN (16:33)
[2023-05-29] MEDS ORDERED: GLUCAGON FOR INJ 1 MG VIAL SQ PRN (16:33)
[2023-05-29] MEDS ORDERED: DKA GOAL RANGE 150-250 mg/dl ONE (16:35)
[2023-05-29] MEDS ORDERED: INSULIN REGULAR 250 UNITS in SODIUM CHLORIDE 0.9% 247.5 ML IV SCH (16:45)
[2023-05-29] MEDS: NSS + 20MEQ KCL 20 MEQ/1,000 ML BAG IV SCH (16:47)
[2023-05-29] MEDS: POTASSIUM CHLORIDE / WTR 10 MEQ/100 ML PLCT IV SCH ×2 (16:47→18:45)
[2023-05-29 17:09] LABS: HCO3 ABG 27 mmol/L (19-24); PCO2 ABG 39 mmHg (35-46); PO2 ABG 116 mmHg (80-95); pH ABG 7.45 (7.35-7.45)
[2023-05-29 17:10] LABS: Allen Test Pos (Pos)
[2023-05-29 17:14] LABS: Basophils # (auto) 0.03 K/uL (0.00-0.20); Basophils % (auto) 0.3 %; Immature Granulocytes # (auto) 0.08 K/uL (0.01-0.20); Immature Granulocytes % (auto) 0.7 %; Lymphocytes # (auto) 1.16 K/uL (1.20-3.40); Lymphocytes % (auto) 10.5 %; Mean Corpuscular Hemoglobin 30.4 pg (25.0-34.0); Mean Corpuscular Hgb Conc 34.1 g/dL (32.0-36.0); Mean Corpuscular Volume 89.1 fL (80.0-100.0); Mean Platelet Volume 9.2 fL (9.4-12.4); Monocytes # (auto) 0.64 K/uL (0.11-0.59); Monocytes % (auto) 5.8 %; Neutrophils # (auto) 9.15 K/uL (1.40-6.50); Neutrophils % (auto) 82.7 %; Platelet Count 270 K/uL (130-400); RDW Coefficient of Variation 13.4 % (11.5-14.5); RDW Standard Deviation 43.4 fL (36.4-46.3); White Blood Count 11.06 K/ul (4.8-10.8)
[2023-05-29 17:33] LABS: Estimated Average Glucose 295 mg/dl; Hemoglobin A1C 11.9 % (4.5-5.6)
[2023-05-29 17:38] LABS: Albumin Globulin Ratio 1.2 (0.9-2); Albumin Level 3.6 gm/dl (3.4-5.0); BUN Creatinine Ratio 30.5 (10-20); Bilirubin,Total 0.9 mg/dl (0.2-1.0); Calcium 9.3 mg/dl (8.6-10.3); Creatinine Clr Calc Pharmacy 27.6 ml/min; Est GFR (African American) 29.6 ml/min; Est GFR (Non-African American) 25.6 ml/min; Globulin 3.1 gm/dl (2.5-4.0); Magnesium 2.5 mg/dl (1.7-2.4); Phosphorus 4.2 mg/dl (2.5-4.9); Potassium 3.2 mmol/L (3.5-5.1); Total Protein 6.7 gm/dl (6.0-8.3)
[2023-05-29 18:40] LABS: Appearance Urine Clear (Clear); Bacteria Urine Automated Negative (Negative); Bilirubin Urine Negative (Negative); Blood Urine 1+ (Negative); Color Urine Yellow; Epithelial Cell Urine Auto 0-5 /lpf (0-5); Glucose Urine UA 3+ (Negative); Ketones Urine 1+ (Negative); Leukocyte Esterase Urine Negative (Negative); Nitrite Urine Negative (Negative); Protein Urine Trace (Negative); Specific Gravity Urine 1.028 (1.000-1.030); Urobilinogen Urine Negative (Negative)
--- NOTE | 2023-05-29 19:44 | History & Physical Report ---
Date of Service May 29, 2023 Assessment & Plan (1) Hyperglycemia due to diabetes mellitus: Plan: 87yo Female with PMH DM2 Dementia COPD HTN here for concern AMS found to have hyperglycemia. DKA -on admit glucose 718 -potassium 3.4 -anion gap 16 -WBC 12.1 -started insulin drip -potassium repleted, on NSS+KCl -admit to med/tele -consulted glycemic pharmacy -BMP q4h -continue either glipizide 2.5mg or insulin regime for outpatient Fall -CT head A/P cervical spine negative -XR pelvis femur chest unremarkable JENNIFER on CKD -creat 1.77 -continue fluids -UA consistent with DKA, urine culture pending Hypermagesium -Mg 2.7 -continue fluids Trop elevated -trop 47.1, likely exertional ishemia COPD -continue dulera Depression -continue sertraline Dementia -continue donipezil and memantine -continue Seroquel HS HTN -continue chlorthalidone HLD -continue atorvastatin FENa: carb consistent Code Status: DNR/DNI DVT PPX: SCDs PT/OT: ordered Dispo: med/tele Sheila Baldwin D.O. PGY 3, FCM (2) Dementia: (3) Fall: (4) HTN (hypertension): (5) COPD (chronic obstructive pulmonary disease): History of Present Illness Primary Care Provider: Sheila Baldwin DO 87yo Female with PMH DM2 Dementia COPD HTN here for concern AMS found to have hyperglycemia. Patient here with and daughter, history from daughter. 4 days ago patient had decrease in appetite and water intake, was sleeping significantly more, had a fall where she hit her head, was difficult for family to help her to the bathroom. Daughter had home test kits noted her urine had ketones and some concern for UTI. Patient was brought to ED. Family states her mentation improved significantly on insulin. At this time patient denies any pain. Lives with son and family program specialist. Patient was initially on metformin for DM2, this was discontinued due to continued GI upset, was originally doing well without medication, appetite was doing better on liberalized diet. Discussed with family given this hospitalization it would be better for her to start a different medication for her diabetes, family open to possible glipizide or insulin if needed. Allergies Allergy/AdvReac Type Severity Reaction Status Date / Time No Known Allergies Allergy Unknown Verified 05/29/23 21:29 Home Medications Medication Instructions Recorded Confirmed Type atorvastatin 40 mg tablet 40 mg PO QAM 08/29/18 05/29/23 History chlorthalidone 25 mg tablet 25 mg PO DAILY 12/21/18 05/29/23 History multivitamin with minerals 1 tab PO BID 12/21/18 05/29/23 History mometasone-formoterol HFA 100 2 puff inhalation DAILY 08/26/20 05/29/23 History mcg-5 mcg/actuation aerosol inhaler (Dulera) sertraline 50 mg tablet 50 mg PO DAILY 08/26/20 05/29/23 History donepezil 10 mg tablet 10 mg PO HS 05/08/22 05/29/23 History memantine 10 mg tablet 10 mg PO DAILY 05/08/22 05/29/23 History albuterol sulfate 2.5 mg/3 mL 2.5 mg inhalation DIRECTED PRN 05/29/23 05/29/23 History (0.083 %) solution for nebulization Shortness Of Breath Or Wheezing cholecalciferol (vitamin D3) 125 5,000 unit PO DAILY 05/29/23 05/29/23 History mcg (5,000 unit) tablet (Vitamin D3) cyanocobalamin (vitamin B-12) 1,000 mcg PO DAILY 05/29/23 05/29/23 History 1,000 mcg tablet (Vitamin B-12) dexamethasone 4 mg tablet 4 mg PO DIRECTED 05/29/23 05/29/23 History loratadine 10 mg tablet (Claritin) 10 mg PO DAILY 05/29/23 05/29/23 History mepolizumab 100 mg subcutaneous 100 mg subcut .[id number] 05/29/23 05/29/23 History solution (Nucala) quetiapine 25 mg tablet 12.5 mg PO HS 05/29/23 05/29/23 History Past Med/Surg History Medical History (Updated 05/29/23 @ 21:52 by Jesse Donaldson MD) Cognitive impairment Obesity Diabetes Hypertensive urgency Pneumonia Bronchitis Asthma Surgical History H/O tubal ligation Family History Other Family history non-contributory Social History Smoking Status: Never smoker Second Hand Exposure: No; Do You Dip or Chew Tobacco: No; Tobacco Cessation Education Requested by Patient: No Hx Alcohol Use: No Hx Substance Use: No Preferred Language: Malay Communication Ability: Effective Lap Winding Machine Operator Required: No Beliefs That Will Affect Care: None marital status: Current Living Situation: Spouse current occupational status: retired current occupation: retired teacher How many Children do You have: 2 Other Information That Helps Us Care for You: No Feels Safe at Home: Yes Safety Concerns: Feels Safe At This Time Assistive Devices: Walker Physical Exam Constitutional: well developed, well nourished and + obese Eyes: PERRL, conjunctivae normal, anicteric sclerae ENMT: external ear and nose normal, oropharynx normal Neck: trachea midline, no thyromegaly Respiratory: normal respiratory effort Auscultation: + wheezes (throughout) Cardiovascular: Rate/Rhythm: regular rate and regular rhythm Heart Sounds: + murmur (systolic) Gastrointestinal (Abdomen): Inspection/Auscultation: abdomen normal to inspection Percussion/Palpation: abdomen nontender Skin: no rashes, warm and dry Genitourinary: sutton in place Results & Data Results & Data Vital Signs (Past 12 Hours) Vital Signs Temp Pulse Pulse Resp BP BP Pulse Ox 05/29/23 18:41 102 H 18 146/94 H 97 05/29/23 17:40 101 H 05/29/23 16:03 93 H 18 200/120 H 95 05/29/23 15:04 89 05/29/23 14:17 05/29/23 14:09 37.2 C 91 H 12 181/121 H 94 O2 Del Method 05/29/23 18:41 05/29/23 17:40 05/29/23 16:03 Room Air 05/29/23 15:04 05/29/23 14:17 Room Air 05/29/23 14:09 Room Air Supervising Physician Co-Signing Physician Notes Attending addendum: I have physically seen this patient, have supervised the medical residents activities, and agree with the H&P unless as otherwise noted. Assessment and Plan: Hyperglycemia due to diabetes mellitus- Glucose 718 on admission Anion gap 16, WBC 12.1, potassium 3.4 Patient was started on insulin drip in ED per protocol Glycemic pharmacy consult BMP, magnesium, venous blood gas and phosphorus every 4 hours Holding oral medications Patient had been having episodes of low blood sugar on her previous medication of metformin, which was held appropriately Patient likely had excessive intake is associated with holiday season Acute kidney injury superimposed on CKD- Creatinine 2.06, and improved to 1.7 1:07 liter normal saline, with base 1.3 Continue to follow serially Elevated troponin/hypertension- The patient will be admitted to telemetry for serial cardiac enzymes, serial EKG's, cardiac rhythm monitoring and a 2-D echocardiogram with Dopplers. Troponin 47.1 likely supply demand mismatch type II process Status post fall CT head and cervical spine negative X-ray pelvis, femur and chest all negative Remaining orders and notations as noted Resident Activity Tracking Resident Involvement: Resident Care Provided Care Provided: Adult Hospital Medicine (3) Fall Encounter type: initial encounter Qualified Code(s): W19.XXXA - Unspecified fall, initial encounter
[2023-05-29] MEDS ORDERED: PHARMACY GLYCEMIC MGMT CONSULT PRN (20:02)
[2023-05-29] MEDS: INSULIN ASPART PER UNIT CHARGE SC SCH (20:31)
[2023-05-29] MEDS ORDERED: ALBUTEROL 0.083% NEBU SOLN 3 ML VIAL NEB PRN (21:18)
--- NOTE | 2023-05-29 21:41 | Emergency Department Note ---
History of Present Illness General Chief complaint: Illness Time Seen by Provider: 05/29/23 14:08 Source: family (Daughter and at bedside) History of Present Illness Provider complaint: Fatigue 87-year-old female with history of dementia presents emergency department with daughter and who are at bedside. Daughter reports that the patient been increasingly fatigued. They reports for the last 5 days it has been going on since she fell. They report that the patient not been eating or drinking. Daughter reports that the patient's blood sugars have been high and she is not been eating or drinking. Daughter reports she is concerned that the patient has UTI. Daughter reports that the patient has a history of diabetes however her doctors and herself have decided not to give the patient metformin anymore because is been causing her problems and that they decided not to switch her to insulin because they thought to be too much for the patient to manage. Home Medications Medication Instructions Recorded Confirmed Type atorvastatin 40 mg tablet 40 mg PO QAM 08/29/18 05/29/23 History chlorthalidone 25 mg tablet 25 mg PO DAILY 12/21/18 05/29/23 History multivitamin with minerals 1 tab PO BID 12/21/18 05/29/23 History mometasone-formoterol HFA 100 2 puff inhalation DAILY 08/26/20 05/29/23 History mcg-5 mcg/actuation aerosol inhaler (Dulera) sertraline 50 mg tablet 50 mg PO DAILY 08/26/20 05/29/23 History donepezil 10 mg tablet 10 mg PO HS 05/08/22 05/29/23 History memantine 10 mg tablet 10 mg PO DAILY 05/08/22 05/29/23 History albuterol sulfate 2.5 mg/3 mL 2.5 mg inhalation DIRECTED PRN 05/29/23 05/29/23 History (0.083 %) solution for nebulization Shortness Of Breath Or Wheezing cholecalciferol (vitamin D3) 125 5,000 unit PO DAILY 05/29/23 05/29/23 History mcg (5,000 unit) tablet (Vitamin D3) cyanocobalamin (vitamin B-12) 1,000 mcg PO DAILY 05/29/23 05/29/23 History 1,000 mcg tablet (Vitamin B-12) dexamethasone 4 mg tablet 4 mg PO DIRECTED 05/29/23 05/29/23 History loratadine 10 mg tablet (Claritin) 10 mg PO DAILY 05/29/23 05/29/23 History mepolizumab 100 mg subcutaneous 100 mg subcut .[id number] 05/29/23 05/29/23 History solution (Nucala) quetiapine 25 mg tablet 12.5 mg PO HS 05/29/23 05/29/23 History Allergies Allergy/AdvReac Type Severity Reaction Status Date / Time No Known Allergies Allergy Unknown Verified 05/29/23 21:29 Past Med/Surg History Medical History (Updated 05/29/23 @ 21:52 by Jesse Donaldson MD) Cognitive impairment Obesity Diabetes Hypertensive urgency Pneumonia Bronchitis Asthma Surgical History H/O tubal ligation Family History Other Family history non-contributory Social History Smoking Status: Former smoker Do You Dip or Chew Tobacco: No; Hx Alcohol Use: No Hx Substance Use: No Preferred Language: [place] Communication Ability: Impaired Informatics Developer Required: No Beliefs That Will Affect Care: None marital status: Current Living Situation: Spouse current occupational status: retired current occupation: retired teacher How many Children do You have: 2 Feels Safe at Home: Yes Assistive Devices: Cane and Walker Physical Exam Vital Signs Vital Signs - 24 hr 05/29/23 14:09 05/29/23 14:17 05/29/23 15:04 Temperature 37.2 C Temperature Source Oral Pulse Rate 91 H 89 Pulse Rate [Apical] Respiratory Rate 12 Respiratory Effort / Characteristics Respiratory Depth Respiratory Pattern Blood Pressure 181/121 H Blood Pressure [Left Arm] Blood Pressure Mean 141 Blood Pressure Mean [Left Arm] Pulse Oximetry 94 Oxygen Delivery Method Room Air Room Air Sepsis Recent Fever Within 48 Hours No Sepsis New/Unexplained Change in Mental Status N/A Sepsis Action Taken by Nursing No Action Required 05/29/23 16:03 05/29/23 17:40 05/29/23 18:41 Temperature Temperature Source Pulse Rate 101 H Pulse Rate [Apical] 93 H 102 H Respiratory Rate 18 18 Respiratory Effort / Characteristics Respiratory Depth Respiratory Pattern Blood Pressure Blood Pressure [Left Arm] 200/120 H 146/94 H Blood Pressure Mean Blood Pressure Mean [Left Arm] 146 111 Pulse Oximetry 95 97 Oxygen Delivery Method Room Air Sepsis Recent Fever Within 48 Hours Sepsis New/Unexplained Change in Mental Status Sepsis Action Taken by Nursing 05/29/23 20:27 05/29/23 21:24 Temperature Temperature Source Pulse Rate 81 Pulse Rate [Apical] 81 Respiratory Rate 18 Respiratory Effort / Characteristics Non-Labored Spontaneous Respiratory Depth Normal Respiratory Pattern Regular Blood Pressure Blood Pressure [Left Arm] 135/86 Blood Pressure Mean Blood Pressure Mean [Left Arm] 102 Pulse Oximetry 97 Oxygen Delivery Method Sepsis Recent Fever Within 48 Hours Sepsis New/Unexplained Change in Mental Status Sepsis Action Taken by Nursing Physical Exam GENERAL: Ill-appearing HENT: Exam performed. -Head: Normocephalic and atraumatic. -Mouth: dry mucous membranes EYES: Conjunctivae and EOM are normal. Pupils are equal, round, and reactive to light. Right eye exhibits no discharge. Left eye exhibits no discharge. No scleral icterus. NECK: Normal range of motion. Neck supple. No JVD present. No spinous process tenderness present. No rigidity. No tracheal deviation and normal range of motion present. CV: Normal rate, regular rhythm, normal heart sounds and intact distal pulses. There is no peripheral edema. Palpable radial pulses bue. PULM/CHEST: Effort normal and breath sounds normal. No respiratory distress. No stridor. She has no wheezes. She has no rales. ABD: The abdomen is soft. She has no distension. No mass is present. There is no tenderness. There is no rebound, no guarding MUSC/SKEL: Normal range of motion. There is no peripheral edema, tenderness or deformity. Pelvis stable. LYMPH: No cervical adenopathy. NEURO: Motor and sensation grossly intact Course Course 1408: The patient was evaluated in room B12A. A complete history and physical exam was performed Cardiac monitoring: An order was placed for continuous cardiac monitoring. The monitor shows a rate of 80 with sinus rhythm interpreted by me Discussed with the patient's daughter who is the POA. She states that the patient is DNR/DNI but they are okay with getting IV fluids IV antibiotics and IV insulin if needed. 1914: Vital signs stable. Labs show white blood cell count 12.1 hemoglobin 15.6. VBG shows venous pH of 7.41 venous pCO2 51 bicarb 32. Potassium 3.4. Anion gap 16. Glucose 789. Creatinine 2.06. Potassium repletion will be started in the emergency department as well as insulin drip. Imaging shows no acute traumatic injury.Patient will be admitted to the medicine service. Dr. Johnson notified and aware of the patient. Administered Medications Potassium Chloride/Sodium Chloride (Normal Saline W/20 Meq Kcl) 20 meq in 1,000 mls @ 100 mls/hr IV .Q10H LISBETH; Protocol Stop: 06/28/23 16:44 Last Admin: 05/29/23 16:47 Dose: 100 mls/hr Documented By: ALISON Insulin Human Regular 250 (units/ Sodium Chloride) 250 mls @ 13.2 mls/hr IV .[id number] LISBETH; Protocol Stop: 06/28/23 16:44 Last Titration: 05/29/23 21:03 Dose: 13.2 unit/hr, 13.2 mls/hr Documented By: LATONIA Co-signed By: NICHOLE Titration: 05/29/23 20:09 Dose: 13.2 unit/hr, 13.2 mls/hr Documented By: LATONIA Co-signed By: NICHOLE Titration: 05/29/23 18:54 Dose: 11 unit/hr, 11 mls/hr Documented By: ALISON Co-signed By: fixture designer: 05/29/23 17:23 Dose: 9.2 unit/hr, 9.2 mls/hr Documented By: ALISON Co-signed By: IHSAN Insulin Aspart (Insulin Aspart Per Unit Charge) 0 units SC Q6 [facility] Stop: 06/28/23 17:59 Last Admin: 05/29/23 20:31 Dose: Not Given Documented By: MED Co-signed By: ERICW Discontinued Medications Sodium Chloride (Nss) 500 mls @ 125 mls/hr IV .Q4H LISBETH Stop: 06/28/23 14:29 Last Admin: 05/29/23 18:46 Dose: Not Given Documented By: ALISON Sodium Chloride (Nss) 500 mls @ 999 mls/hr IV .Q31M ONE Stop: 05/29/23 14:47 Last Infusion: 05/29/23 18:45 Dose: Infused Documented By: Admin: 05/29/23 16:06 Dose: 999 mls/hr Documented By: ALISON Potassium Chloride (K Uche / Wtr) 10 meq in 100 mls @ 100 mls/hr IV Q1H LISBETH Stop: 05/29/23 18:44 Last Admin: 05/29/23 18:45 Dose: 100 mls/hr Documented By: Infusion: 05/29/23 17:47 Dose: Infused Documented By: Admin: 05/29/23 16:47 Dose: 100 mls/hr Documented By: ALISON Potassium Chloride (Potassium Chloride 20 Meq/15 Ml Udc) 40 meq PO NOW STA Stop: 05/29/23 16:33 Last Admin: 05/29/23 16:47 Dose: 40 meq Documented By: ALISON Critical Care Time Critical Care Time: Yes Total Critical Care Time: 86 I have personally spent greater than 86 minutes of critical care time in the direct management of this patient. This includes bedside care, interpretation of diagnostic studies, and testing, discussion with consultants, patient, and family members, and other required patient management activities. This 86 minutes is in excess of all separately billable procedures. Medical Decision Making Laboratory Data Attestation: I reviewed the patient's lab results. 05/29/23 16:59 05/29/23 16:59 Lab Results 05/29/23 05/29/23 05/29/23 Range/Units 14:09 15:13 15:21 WBC 12.10 H (4.8-10.8) K/ul RBC 5.09 (4.20-5.40) M/uL Hgb 15.6 (12.0-16.0) g/dl POC Hgb 16.0 (12.0-16.0) g/dl Hct 45.8 (37.0-47.0) % POC Hct 47 (37-47) % MCV 90.0 (80.0-100.0) fL MCH 30.6 (25.0-34.0) pg MCHC 34.1 (32.0-36.0) g/dL RDW Std Deviation 44.5 (36.4-46.3) fL RDW Coeff of Shanti 13.5 (11.5-14.5) % Plt Count 304 (130-400) K/uL MPV 9.2 L (9.4-12.4) fL Immature Gran % (Auto) 1.0 % Neut % (Auto) 83.0 % Lymph % (Auto) 10.2 % Dickens % (Auto) 5.5 % Eos % (Auto) 0.0 % Baso % (Auto) 0.3 % Neut # (Auto) 10.04 H (1.40-6.50) K/uL Lymph # (Auto) 1.23 (1.20-3.40) K/uL Dickens # (Auto) 0.67 H (0.11-0.59) K/uL Eos # (Auto) 0.00 (0.00-0.50) K/uL Baso # (Auto) 0.04 (0.00-0.20) K/uL Immature Gran # (Auto) 0.12 (0.01-0.20) K/uL PT 10.9 (9.0-12.0) Seconds INR 1.0 (0.9-1.1) APTT 21 (21-31) Seconds PTT Ratio 0.7 ABG pH (7.35-7.45) ABG pCO2 (35-46) mmHg ABG pO2 (80-95) mmHg ABG HCO3 (19-24) mmol/L ABG O2 Saturation (90-95) % ABG Base Excess (-9-1.8) mEq/L Milad Test (Pos) VBG pH (7.36-7.41) VBG pCO2 (38-50) mmHg VBG pO2 mmHg VBG HCO3 mmol/L VBG O2 Saturation % VBG Base Excess mEq/L Oxygen Given POC Sodium 139 (135-144) mmol/L Sodium 140 (136-145) mmol/L POC Potassium 3.3 (3.3-5.0) mmol/L Potassium 3.4 L (3.5-5.1) mmol/L POC Chloride 97 L (101-112) mmol/L Chloride 94 L (98-107) mmol/L Carbon Dioxide 30 (21-32) mmol/L POC Total CO2 28 (24-31) mmol/L Anion Gap 16 H (3-11) POC Anion Gap 18.0 (16-25) mmol/L POC BUN 50 H (7-18) mg/dl BUN 56 H (6-23) mg/dl Creatinine 2.06 H (0.6-1.2) mg/dl POC Creatinine 2.0 H (0.6-1.3) mg/dl Est Cr Clr Drug Dosing 23.7 ml/min Est GFR ( Amer) 24.7 ml/min Est GFR (Non-Af Amer) 21.3 ml/min BUN/Creatinine Ratio 27.2 H (10-20) Glucose 789 H* (70-99(Fasting)) mg/dl POC Glucose > 600 H* (70-99) mg/dl POC Glucose (other) > 700 H* (70-99) mg/dl Estimat Average Glucose mg/dl Hemoglobin A1c (4.5-5.6) % Calcium 10.2 (8.6-10.3) mg/dl POC Ioniz Calcium Clarence 1.17 (1.12-1.32) mmol/l Phosphorus (2.5-4.9) mg/dl Magnesium 2.7 H (1.7-2.4) mg/dl Total Bilirubin 1.1 H (0.2-1.0) mg/dl Direct Bilirubin 0.2 (0-0.2) mg/dl AST 17 (13-39) U/L ALT 20 (7-52) U/L Alkaline Phosphatase 126 H (34-104) U/L Troponin I High Sens 47.1 H (0-14) pg/ml Total Protein 7.8 (6.0-8.3) gm/dl Albumin 4.2 (3.4-5.0) gm/dl Globulin (2.5-4.0) gm/dl Albumin/Globulin Ratio (0.9-2) Lipase 50 (11-82) U/L Urine Color Urine Appearance (Clear) Urine pH (4.5-7.5) Ur Specific [place] (1.000-1.030) Urine Protein (Negative) Urine Glucose (UA) (Negative) Urine Ketones (Negative) Urine Blood (Negative) Urine Nitrite (Negative) Urine Bilirubin (Negative) Urine Urobilinogen (Negative) Ur Leukocyte Esterase (Negative) Urine WBC (Auto) (0-5) /hpf Urine RBC (Auto) (0-4) /hpf U Hyaline Cast (Auto) (0-5) /lpf U Epithel Cells (Auto) (0-5) /lpf Urine Bacteria (Auto) (Negative) 05/29/23 05/29/23 05/29/23 Range/Units 15:36 16:59 17:17 WBC 11.06 H (4.8-10.8) K/ul RBC 4.60 (4.20-5.40) M/uL Hgb 14.0 (12.0-16.0) g/dl POC Hgb (12.0-16.0) g/dl Hct 41.0 (37.0-47.0) % POC Hct (37-47) % MCV 89.1 (80.0-100.0) fL MCH 30.4 (25.0-34.0) pg MCHC 34.1 (32.0-36.0) g/dL RDW Std Deviation 43.4 (36.4-46.3) fL RDW Coeff of Shanti 13.4 (11.5-14.5) % Plt Count 270 (130-400) K/uL MPV 9.2 L (9.4-12.4) fL Immature Gran % (Auto) 0.7 % Neut % (Auto) 82.7 % Lymph % (Auto) 10.5 % Dickens % (Auto) 5.8 % Eos % (Auto) 0.0 % Baso % (Auto) 0.3 % Neut # (Auto) 9.15 H (1.40-6.50) K/uL Lymph # (Auto) 1.16 L (1.20-3.40) K/uL Dickens # (Auto) 0.64 H (0.11-0.59) K/uL Eos # (Auto) 0.00 (0.00-0.50) K/uL Baso # (Auto) 0.03 (0.00-0.20) K/uL Immature Gran # (Auto) 0.08 (0.01-0.20) K/uL PT (9.0-12.0) Seconds INR (0.9-1.1) APTT (21-31) Seconds PTT Ratio ABG pH 7.45 (7.35-7.45) ABG pCO2 39 (35-46) mmHg ABG pO2 116 H (80-95) mmHg ABG HCO3 27 H (19-24) mmol/L ABG O2 Saturation 99.0 H (90-95) % ABG Base Excess 3.0 H (-9-1.8) mEq/L Milad Test Pos (Pos) VBG pH 7.41 (7.36-7.41) VBG pCO2 51 H (38-50) mmHg VBG pO2 31 mmHg VBG HCO3 32 mmol/L VBG O2 Saturation < 60.0 % VBG Base Excess 6.3 mEq/L Oxygen Given 2 L POC Sodium (135-144) mmol/L Sodium 140 (136-145) mmol/L POC Potassium (3.3-5.0) mmol/L Potassium 3.2 L (3.5-5.1) mmol/L POC Chloride (101-112) mmol/L Chloride 99 (98-107) mmol/L Carbon Dioxide 26 (21-32) mmol/L POC Total CO2 (24-31) mmol/L Anion Gap 15 H (3-11) POC Anion Gap (16-25) mmol/L POC BUN (7-18) mg/dl BUN 54 H (6-23) mg/dl Creatinine 1.77 H (0.6-1.2) mg/dl POC Creatinine (0.6-1.3) mg/dl Est Cr Clr Drug Dosing 27.6 ml/min Est GFR ( Amer) 29.6 ml/min Est GFR (Non-Af Amer) 25.6 ml/min BUN/Creatinine Ratio 30.5 H (10-20) Glucose 718 H* (70-99(Fasting)) mg/dl POC Glucose > 600 H* (70-99) mg/dl POC Glucose (other) (70-99) mg/dl Estimat Average Glucose 295 mg/dl Hemoglobin A1c 11.9 H (4.5-5.6) % Calcium 9.3 (8.6-10.3) mg/dl POC Ioniz Calcium Clarence (1.12-1.32) mmol/l Phosphorus 4.2 (2.5-4.9) mg/dl Magnesium 2.5 H (1.7-2.4) mg/dl Total Bilirubin 0.9 (0.2-1.0) mg/dl Direct Bilirubin (0-0.2) mg/dl AST 17 (13-39) U/L ALT 16 (7-52) U/L Alkaline Phosphatase 107 H (34-104) U/L Troponin I High Sens (0-14) pg/ml Total Protein 6.7 (6.0-8.3) gm/dl Albumin 3.6 (3.4-5.0) gm/dl Globulin 3.1 (2.5-4.0) gm/dl Albumin/Globulin Ratio 1.2 (0.9-2) Lipase (11-82) U/L Urine Color Urine Appearance (Clear) Urine pH (4.5-7.5) Ur Specific [place] (1.000-1.030) Urine Protein (Negative) Urine Glucose (UA) (Negative) Urine Ketones (Negative) Urine Blood (Negative) Urine Nitrite (Negative) Urine Bilirubin (Negative) Urine Urobilinogen (Negative) Ur Leukocyte Esterase (Negative) Urine WBC (Auto) (0-5) /hpf Urine RBC (Auto) (0-4) /hpf U Hyaline Cast (Auto) (0-5) /lpf U Epithel Cells (Auto) (0-5) /lpf Urine Bacteria (Auto) (Negative) 05/29/23 05/29/23 05/29/23 Range/Units 18:22 19:37 20:03 WBC (4.8-10.8) K/ul RBC (4.20-5.40) M/uL Hgb (12.0-16.0) g/dl POC Hgb (12.0-16.0) g/dl Hct (37.0-47.0) % POC Hct (37-47) % MCV (80.0-100.0) fL MCH (25.0-34.0) pg MCHC (32.0-36.0) g/dL RDW Std Deviation (36.4-46.3) fL RDW Coeff of Shanti (11.5-14.5) % Plt Count (130-400) K/uL MPV (9.4-12.4) fL Immature Gran % (Auto) % Neut % (Auto) % Lymph % (Auto) % Dickens % (Auto) % Eos % (Auto) % Baso % (Auto) % Neut # (Auto) (1.40-6.50) K/uL Lymph # (Auto) (1.20-3.40) K/uL Dickens # (Auto) (0.11-0.59) K/uL Eos # (Auto) (0.00-0.50) K/uL Baso # (Auto) (0.00-0.20) K/uL Immature Gran # (Auto) (0.01-0.20) K/uL PT (9.0-12.0) Seconds INR (0.9-1.1) APTT (21-31) Seconds PTT Ratio ABG pH (7.35-7.45) ABG pCO2 (35-46) mmHg ABG pO2 (80-95) mmHg ABG HCO3 (19-24) mmol/L ABG O2 Saturation (90-95) % ABG Base Excess (-9-1.8) mEq/L Milad Test (Pos) VBG pH (7.36-7.41) VBG pCO2 (38-50) mmHg VBG pO2 mmHg VBG HCO3 mmol/L VBG O2 Saturation % VBG Base Excess mEq/L Oxygen Given POC Sodium (135-144) mmol/L Sodium (136-145) mmol/L POC Potassium (3.3-5.0) mmol/L Potassium (3.5-5.1) mmol/L POC Chloride (101-112) mmol/L Chloride (98-107) mmol/L Carbon Dioxide (21-32) mmol/L POC Total CO2 (24-31) mmol/L Anion Gap (3-11) POC Anion Gap (16-25) mmol/L POC BUN (7-18) mg/dl BUN (6-23) mg/dl Creatinine (0.6-1.2) mg/dl POC Creatinine (0.6-1.3) mg/dl Est Cr Clr Drug Dosing ml/min Est GFR ( Amer) ml/min Est GFR (Non-Af Amer) ml/min BUN/Creatinine Ratio (10-20) Glucose (70-99(Fasting)) mg/dl POC Glucose 539 H* 577 H* (70-99) mg/dl POC Glucose (other) (70-99) mg/dl Estimat Average Glucose mg/dl Hemoglobin A1c (4.5-5.6) % Calcium (8.6-10.3) mg/dl POC Ioniz Calcium Clarence (1.12-1.32) mmol/l Phosphorus (2.5-4.9) mg/dl Magnesium (1.7-2.4) mg/dl Total Bilirubin (0.2-1.0) mg/dl Direct Bilirubin (0-0.2) mg/dl AST (13-39) U/L ALT (7-52) U/L Alkaline Phosphatase (34-104) U/L Troponin I High Sens (0-14) pg/ml Total Protein (6.0-8.3) gm/dl Albumin (3.4-5.0) gm/dl Globulin (2.5-4.0) gm/dl Albumin/Globulin Ratio (0.9-2) Lipase (11-82) U/L Urine Color Yellow Urine Appearance Clear (Clear) Urine pH 6.0 (4.5-7.5) Ur Specific [place] 1.028 (1.000-1.030) Urine Protein Trace H (Negative) Urine Glucose (UA) 3+ H (Negative) Urine Ketones 1+ H (Negative) Urine Blood 1+ H (Negative) Urine Nitrite Negative (Negative) Urine Bilirubin Negative (Negative) Urine Urobilinogen Negative (Negative) Ur Leukocyte Esterase Negative (Negative) Urine WBC (Auto) 1-5 (0-5) /hpf Urine RBC (Auto) 5-10 H (0-4) /hpf U Hyaline Cast (Auto) 1-5 (0-5) /lpf U Epithel Cells (Auto) 0-5 (0-5) /lpf Urine Bacteria (Auto) Negative (Negative) 05/29/23 Range/Units 20:59 WBC (4.8-10.8) K/ul RBC (4.20-5.40) M/uL Hgb (12.0-16.0) g/dl POC Hgb (12.0-16.0) g/dl Hct (37.0-47.0) % POC Hct (37-47) % MCV (80.0-100.0) fL MCH (25.0-34.0) pg MCHC (32.0-36.0) g/dL RDW Std Deviation (36.4-46.3) fL RDW Coeff of Shanti (11.5-14.5) % Plt Count (130-400) K/uL MPV (9.4-12.4) fL Immature Gran % (Auto) % Neut % (Auto) % Lymph % (Auto) % Dickens % (Auto) % Eos % (Auto) % Baso % (Auto) % Neut # (Auto) (1.40-6.50) K/uL Lymph # (Auto) (1.20-3.40) K/uL Dickens # (Auto) (0.11-0.59) K/uL Eos # (Auto) (0.00-0.50) K/uL Baso # (Auto) (0.00-0.20) K/uL Immature Gran # (Auto) (0.01-0.20) K/uL PT (9.0-12.0) Seconds INR (0.9-1.1) APTT (21-31) Seconds PTT Ratio ABG pH (7.35-7.45) ABG pCO2 (35-46) mmHg ABG pO2 (80-95) mmHg ABG HCO3 (19-24) mmol/L ABG O2 Saturation (90-95) % ABG Base Excess (-9-1.8) mEq/L Milad Test (Pos) VBG pH (7.36-7.41) VBG pCO2 (38-50) mmHg VBG pO2 mmHg VBG HCO3 mmol/L VBG O2 Saturation % VBG Base Excess mEq/L Oxygen Given POC Sodium (135-144) mmol/L Sodium (136-145) mmol/L POC Potassium (3.3-5.0) mmol/L Potassium (3.5-5.1) mmol/L POC Chloride (101-112) mmol/L Chloride (98-107) mmol/L Carbon Dioxide (21-32) mmol/L POC Total CO2 (24-31) mmol/L Anion Gap (3-11) POC Anion Gap (16-25) mmol/L POC BUN (7-18) mg/dl BUN (6-23) mg/dl Creatinine (0.6-1.2) mg/dl POC Creatinine (0.6-1.3) mg/dl Est Cr Clr Drug Dosing ml/min Est GFR ( Amer) ml/min Est GFR (Non-Af Amer) ml/min BUN/Creatinine Ratio (10-20) Glucose (70-99(Fasting)) mg/dl POC Glucose 462 H* (70-99) mg/dl POC Glucose (other) (70-99) mg/dl Estimat Average Glucose mg/dl Hemoglobin A1c (4.5-5.6) % Calcium (8.6-10.3) mg/dl POC Ioniz Calcium Clarence (1.12-1.32) mmol/l Phosphorus (2.5-4.9) mg/dl Magnesium (1.7-2.4) mg/dl Total Bilirubin (0.2-1.0) mg/dl Direct Bilirubin (0-0.2) mg/dl AST (13-39) U/L ALT (7-52) U/L Alkaline Phosphatase (34-104) U/L Troponin I High Sens (0-14) pg/ml Total Protein (6.0-8.3) gm/dl Albumin (3.4-5.0) gm/dl Globulin (2.5-4.0) gm/dl Albumin/Globulin Ratio (0.9-2) Lipase (11-82) U/L Urine Color Urine Appearance (Clear) Urine pH (4.5-7.5) Ur Specific [place] (1.000-1.030) Urine Protein (Negative) Urine Glucose (UA) (Negative) Urine Ketones (Negative) Urine Blood (Negative) Urine Nitrite (Negative) Urine Bilirubin (Negative) Urine Urobilinogen (Negative) Ur Leukocyte Esterase (Negative) Urine WBC (Auto) (0-5) /hpf Urine RBC (Auto) (0-4) /hpf U Hyaline Cast (Auto) (0-5) /lpf U Epithel Cells (Auto) (0-5) /lpf Urine Bacteria (Auto) (Negative) Imaging Data Attestation: I personally reviewed and interpreted this imaging study as follows: My Impression: Chest x-ray: Chest x-ray negative. Airway clear. No pneumothorax. No consolidation. No cardiomegaly or cephalization.. No free air under the diaphragm. No fractures of the skeletal structures. Pelvis x-ray: No acute fracture or dislocation Femur x-ray: No acute fracture or dislocation Radiologist's Impression: Cervical Spine CT 05/29/23 14:17 CT SCAN OF THE CERVICAL SPINE CLINICAL HISTORY: Fall. COMPARISON STUDY: CT of the cervical spine dated 05/08/2022. TECHNIQUE: CT scan of the cervical spine is performed from the skull base to the upper thoracic spine. Images are reviewed in the axial, sagittal, and coronal planes. IV contrast was not administered for this examination. A dose lowering technique was utilized adhering to the principles of ALARA. FINDINGS: Skeletal structures: The skeletal structures are osteopenic. There is no evidence of fracture or subluxation involving the cervical spine. Vertebral body height and alignment are maintained. There is straightening of the cervical lordosis. Anterior osteophytes are seen throughout. The odontoid process and lateral masses are intact. The atlantoaxial articulation is preserved noting productive degenerative change. The spinous processes appear intact. There is mild multilevel facet arthropathy. Intervertebral discs: Moderate to severe disc space narrowing is seen at all cervical levels between C3-C4 and C6-C7. Central canal: Posterior disc osteophyte complexes are seen at all cervical disc between C3-C4 and C6-C7. This may contribute to mild multilevel acquired compromise of the central canal. Soft tissues: The prevertebral and paraspinous soft tissues are within normal limits. There is atherosclerotic calcification of the carotid bulbs. Calvarium: The visualized calvarium at the skull base appears intact. Brain parenchyma: Partially visualized brain parenchyma at the skull base is within normal limits. Sinuses and mastoids: There is [id number] mucosal thickening within the ethmoid and maxillary sinuses. Mild mucosal thickening is noted in the sphenoid sinuses. The mastoid air cells are well pneumatized. Lung apices: Calcified granulomas are noted in the left upper lobe. Apical lung parenchyma is otherwise clear as visualized. IMPRESSION: 1. There is no evidence of fracture or subluxation involving the cervical spine. 2. Osteopenia and spondylotic change as above. ACT 112: Negative or not required by law. Electronically signed by: Bryant Cr M.D. 05/29/2023 4:[address] 05/29/23 14:17 CT SCAN OF THE BRAIN WITHOUT IV CONTRAST CLINICAL HISTORY: Fall. COMPARISON STUDY: CT of the brain dated 05/08/2022. TECHNIQUE: Unenhanced axial CT scan of the brain is performed from the vertex to the skull base. A dose lowering technique was utilized adhering to the principles of ALARA. The patient was scanned twice due to motion artifact. FINDINGS: Brain parenchyma: There is age-related involutional change noting [id number] subcortical and periventricular microangiopathic disease. There is no hemorrhage, mass effect, or evidence of acute territorial ischemia by CT criteria. [place]-white matter differentiation is preserved. No extra-axial fluid collection is seen. Ventricles, sulci, cisterns: Prominent secondary to involutional change. Intracranial vasculature: There is atherosclerotic calcification of the cavernous carotid and vertebral artery. Calvarium: The skeletal structures are osteopenic. No depressed calvarial fracture is seen. Sinuses and mastoids: There is evidence of previous paranasal sinus surgery. Mucosal thickening is noted within the ethmoid, maxillary, and sphenoid sinuses. The mastoid air cells are well pneumatized. Orbits: The bony orbits are grossly intact. There are bilateral ocular lens implants. IMPRESSION: There is no hemorrhage, mass effect, or evidence of acute territorial ischemia by CT criteria. ACT 112: Negative or not required by law. Electronically signed by: Bryant Cr M.D. 05/29/2023 4:12 PM Abdomen/Pelvis CT 05/29/23 15:[address] WITHOUT CONTRAST CT DOSE: 3064.62 mGy.cm HISTORY: Acute abdominal trauma status post fall fall TECHNIQUE: Multiaxial CT images of the abdomen and pelvis were performed without contrast. A dose lowering technique was utilized adhering to the principles of ALARA. COMPARISON STUDY: CT abdomen 05/05/2008, CT lumbar spine 05/08/2022 FINDINGS: Coronary artery and dense mitral annular calcifications. Calcified granulomata of the right lower lobe. No free air. The unenhanced spleen, adrenal glands and gallbladder appear unremarkable. Mildly atrophic pancreas with scattered punctate calcifications suggestive of chronic pancreatitis. A few probable cysts of the liver again seen measuring up to 2.5 cm. There are 2 nonobstructing calculi in the right kidney measuring up to 3 mm. Mildly atrophic left kidney with cortical thinning. No ureteral calculi or hydronephrosis. The urinary bladder is within normal limits. Fibroid uterus. Atherosclerosis of the aorta and branch vessels. Mild fusiform ectasia of the infrarenal abdominal aorta measures about 2.5 cm. No lymphadenopathy. Tiny hiatal hernia. Colonic diverticulosis. No bowel obstruction or bowel wall thickening. Normal appendix. Unremarkable soft tissues. Degenerative changes of the spine, pelvis and hips. There is progressive vertebral body height loss in the chronic severe L1 burst fracture demonstrating 6 mm retropulsion and moderate central canal stenosis with AP dimension of the thecal sac measuring 7 mm. IMPRESSION: 1. No acute posttraumatic intra-abdominal or intrapelvic abnormality. 2. No acute fracture identified. 3. Nonobstructing right nephrolithiasis. No ureteral calculi or hydronephrosis. 4. Progressive vertebral body height loss and retropulsion within the chronic L1 burst fracture now resulting in moderate central canal stenosis. 5. Additional findings as above. ACT 112: Negative or not required by law. The above report was generated using voice recognition software. It may contain grammatical, syntax or spelling errors. Electronically signed by: Hipolito Chavez M.D. 05/29/2023 4:13 PM [facility] Narrative 1408: The patient was evaluated in room B12A. A complete history and physical exam was performed Cardiac monitoring: An order was placed for continuous cardiac monitoring. The monitor shows a rate of 80 with sinus rhythm interpreted by me Discussed with the patient's daughter who is the POA. She states that the patient is DNR/DNI but they are okay with getting IV fluids IV antibiotics and IV insulin if needed. 1914: Vital signs stable. Labs show white blood cell count 12.1 hemoglobin 15.6. VBG shows venous pH of 7.41 venous pCO2 51 bicarb 32. Potassium 3.4. Anion gap 16. Glucose 789. Creatinine 2.06. Potassium repletion will be started in the emergency department as well as insulin drip. Imaging shows no acute traumatic injury.Patient will be admitted to the medicine service. Dr. Johnson notified and aware of the patient. Impression & Plan DKA (diabetic ketoacidosis), JENNIFER (acute kidney injury), Dementia, Acute dehydration Discharge Plan Visit Data Chief Complaint: Illness ED Provider: Jesse Donaldson Discharge Problem: DKA (diabetic ketoacidosis), JENNIFER (acute kidney injury), Dementia, Acute dehydration Patient Disposition: Admitted As Inpatient Forms Stand Alone Forms: My [facility] Prescriptions Prescriptions: No Action atorvastatin 40 mg tablet 40 mg PO QAM multivitamin with minerals Tablet 1 tab PO BID chlorthalidone 25 mg Tablet 25 mg PO DAILY sertraline 50 mg tablet 50 mg PO DAILY Dulera 100-5 mcg/actuation HFA aerosol inhaler 2 puff INHALATION DAILY memantine 10 mg tablet 10 mg PO DAILY donepezil 10 mg tablet 10 mg PO HS quetiapine 25 mg tablet 12.5 mg PO HS albuterol sulfate 2.5 mg /3 mL (0.083 %) Solution For Nebulization 2.5 mg INHALATION DIRECTED PRN (Reason: Shortness Of Breath Or Wheezing) cyanocobalamin (vitamin B-12) [Vitamin B-12] 1,000 mcg Tablet 1,000 mcg PO DAILY dexamethasone 4 mg tablet 4 mg PO DIRECTED loratadine [Claritin] 10 mg Tablet 10 mg PO DAILY cholecalciferol (vitamin D3) [Vitamin D3] 125 mcg (5,000 unit) Tablet 5,000 unit PO DAILY Nucala 100 mg Recon Soln 100 mg SUBCUT .[id number] Referrals Referrals: Sheila Baldwin DO [Primary Care Provider] - Discharge Problem: DKA (diabetic ketoacidosis) Qualifiers: Diabetes mellitus type: other specified (including ESTEBAN) Diabetes mellitus complication detail: without coma Qualified Code(s): E13.10 - Other specified diabetes mellitus with ketoacidosis without coma Dementia Qualifiers: Dementia type: unspecified type Dementia severity: unspecified severity D ementia behavioral or psychological symptom: unspecified whether behavioral, psychotic, or mood disturbance or anxiety Qualified Code(s): F03.90 - Unspecified dementia, unspecified severity, without behavioral disturbance, psychotic disturbance, mood disturbance, and anxiety
[2023-05-29 21:45] LABS: BUN Creatinine Ratio 27.9 (10-20); Calcium 9.6 mg/dl (8.6-10.3); Creatinine Clr Calc Pharmacy 26.7 ml/min; Est GFR (African American) 28.5 ml/min; Est GFR (Non-African American) 24.5 ml/min; Magnesium 2.5 mg/dl (1.7-2.4); Phosphorus 2.3 mg/dl (2.5-4.9); Potassium 3.5 mmol/L (3.5-5.1)
[2023-05-29] MEDS ORDERED: POTASSIUM PHOS 3 MMOL/1 ML INFUSION IV STA (22:27)
[2023-05-29] MEDS ORDERED: POTASSIUM PHOSPHATE 6 MMOL in 0.9 % SODIUM CHLORIDE 100 ML IV ONE (22:45)
[2023-05-30] MEDS: DONEPEZIL HCL 10 MG TAB PO SCH ×2 (00:55→21:13)
[2023-05-30 01:23] LABS: BUN Creatinine Ratio 26.6 (10-20); Calcium 9.6 mg/dl (8.6-10.3); Creatinine Clr Calc Pharmacy 26.5 ml/min; Est GFR (African American) 28.3 ml/min; Est GFR (Non-African American) 24.4 ml/min; Magnesium 2.5 mg/dl (1.7-2.4); Phosphorus 2.5 mg/dl (2.5-4.9); Potassium 3.4 mmol/L (3.5-5.1)
[2023-05-30] MEDS: INSULIN ASPART PER UNIT CHARGE SC SCH ×2 (02:25→06:19)
[2023-05-30] MEDS: SODIUM CHLOR 0.45% + 20MEQ KCL 20 MEQ/1,000 ML BAG IV SCH ×2 (03:48→14:28)
[2023-05-30 05:30] LABS: BUN Creatinine Ratio 27.2 (10-20); Calcium 9.4 mg/dl (8.6-10.3); Creatinine Clr Calc Pharmacy 28.2 ml/min; Est GFR (African American) 30.5 ml/min; Est GFR (Non-African American) 26.3 ml/min; Magnesium 2.4 mg/dl (1.7-2.4); Phosphorus 2.6 mg/dl (2.5-4.9); Potassium 3.2 mmol/L (3.5-5.1)
[2023-05-30] MEDS ORDERED: POTASSIUM CHLORIDE CRTAB 20 MEQ TABCR PO ONE (06:30)
--- NOTE | 2023-05-30 07:01 | XRay Report ---
XR chest 1V not portable HISTORY: 87 years-old Female fall acute chest trauma status post fall COMPARISON: 11/01/2022 TECHNIQUE: AP view of the chest FINDINGS: Cardiomediastinal and hilar silhouettes are within normal limits. There is no pneumothorax, pleural e ffusion, airspace consolidation or pulmonary edema. Degenerative changes of the shoulders and spine. Unchanged calcified granulomata of the lungs. IMPRESSION: No acute process of the chest. ACT 112: Negative or not required by law. The above report was generated using voice recognition software. It may contain grammatical, syntax o r spelling errors. Electronically signed by: Hipolito Chavez M.D. 05/30/2023 6:59 AM
[2023-05-30] MEDS: NSS + 20MEQ KCL 20 MEQ/1,000 ML BAG IV SCH (07:03)
--- NOTE | 2023-05-30 07:05 | XRay Report ---
XR pelvis 1-2V routine, XR femur RT 2V routine HISTORY: 87 years-old Female fall acute pain of the pelvis and right hip status post recent fall. COMPARISON: CT abdomen and pelvis of same day TECHNIQUE: AP view of the pelvis with 2 views of the right femur FINDINGS: PELVIS: Calcified uterine fibroids. Arterial calcifications are also noted. Moderate osteoarthritis of the hi ps. No acute fracture, dislocation or avascular necrosis. FEMUR: No acute fracture or dislocation. IMPRESSION: No acute fracture or dislocation. ACT 112: Negative or not required by law. The above report was generated using voice recognition software. It may contain grammatical, syntax o r spelling errors. Electronically signed by: Hipolito Chavez M.D. 05/30/2023 7:04 AM
--- NOTE | 2023-05-30 07:40 | Hospitalist Progress Note ---
Date of Service May 30, 2023 Assessment & Plan (1) Hyperglycemia due to diabetes mellitus: Plan: Pt is a 87 yo female with a past medical history of uncontrolled DMT2 not on any medications outpatient, HTN, COPD, and dementia who presents to the hospital on 05/29/23 for DKA, fall, and AMS. Diabetic ketoacidosis - on admit glucose 718, potassium 3.4, anion gap 16 - HA1c was 11.9% on admission - was on insulin drip initially until AG closed, then started on lantus and SSI, glycemic consult to pharmacy - potassium 3.2, so will do TID repletion today with check tomorrow - suggest continue insulin regime for outpatient, likely benefit most from just daily lantus to keep her sugars under better control, goal would not be ideal control but HA1c <10% would be hopefully enough to avoid another incidence of DKA Fall - appears to be a mechanical fall/due to deconditioning/weakness - CT head A/P cervical spine negative, CXR, hip/pelvis, CT abd all negative for signs of injury - brain MRI pending - will get PT/OT eval HTN, uncontrolled - BP here has been high but at first permissible, now 200/130s, so will do labetolol - continue home chlorthalidone Trop elevated - trop 47, 62, trop repeat pending - suspect likely exertional ischemia JENNIFER on CKD - creat 1.6 today - continue to monitor - UA consistent with DKA, urine culture pending - with climbing WBC count, will do Rocephin empirically while awaiting urine cx COPD -continue Dulera Depression -continue sertraline Dementia -continue donepezil and memantine -continue Seroquel HS HLD -continue atorvastatin DVT PPX: SCDs (2) Dementia: (3) Fall: (4) HTN (hypertension): (5) COPD (chronic obstructive pulmonary disease): Admission and Anticipated Discharge Date Admission Date: May 29, 2023 Supervising Physician Co-Signing Physician Notes ATTESTATION I also saw the patient and confirmed seay portions of the history and exam. I agree with the impression and plan in the resident documentation, and as summarized below. At the time of our examination, the patient had remained in the emergency department awaiting an inpatient bed. and daughter at bedside. Daughter explains that the patient seems to be more tired today compared to late yesterday. Patient herself has no complaints other than being tired. EXAM 109/64, 102, 21, 37.2, 95% on room air Sleepy but awakens to voice. Seemingly alert and oriented. Heart tachycardic but regular Respirations symmetrical, nonlabored; lungs clear Abdomen is soft and nontender Extremities with trace edema at the sock line. DATA Labs White blood cell count 16.4, hemoglobin 14.2 Sodium 147, potassium 4.1, BUN 46, creatinine 1.61 Phosphorus 3 Magnesium 2.3 Troponin I 47.1, 62.3 Micro Urine cultures pending IMPRESSION & PLAN DKA Insulin drip transition to Lantus with short acting before every meal Discussed with family would like to see her discharged on daily dose of long- acting insulin; very loose glycemic goals given overall condition, and doubt that before every meal short acting dosing would be feasible given home situation Status post fall Suspect preceding weakness leading to fall CT head unremarkable MRI brain is pending Leukocytosis Suspect reactive, will cover with empiric antibiotics pending urine culture results Additional per resident documentation Subjective Pt is a 87 yo female with a past medical history of uncontrolled DMT2 not on any medications outpatient, HTN, COPD, and dementia who presents to the hospital on 05/29/23 for DKA, fall, and AMS. Today, pt was seen this morning and appeared tearful but denied pain anywhere. Was difficult to get history from her as she states that she lives at home with her parents (which is highly unlikely given her age 87) and she denied having any recollection of falling or what happened the last few days to bring her in. Called daughter and spoke to her over the phone. She states that the pt had fallen in the living room 4-5 days ago, seemed to just be weak and her legs gave out from under her. She states she denied any pain anywhere after the fall, had not passed out, and seemed normal after the fall. She states that then the days afterwards she was sleeping a lot more than usual, stopped wanting to eat, and stopped wanting to drink anything. She states yesterday she was noted to be really weak when standing so they decided to bring her in. She usually lives at home with her and a nurse aid visits daily and her son usually lives with her as well but he is in [place] visiting family for the holidays. Review of Systems Review of Systems: Per HPI. Physical Exam Physical Exam: General:Fatigued appearing but awake, no acute distress, not oriented Cardio: Regular rate and rhythm, Resp:Lungs clear to auscultation b/l, GI: Soft and nontender, nondistended, bowel sounds active Skin: Warm, pink, dry, Ext: Minor LE edema Results & Data Results & Data Vital Signs (Past 12 Hours) Vital Signs Pulse Pulse Resp BP BP Pulse Ox Pulse Ox 05/30/23 07:29 91 H 05/30/23 06:00 163/109 H 05/30/23 06:00 86 18 97 05/30/23 05:30 92 H 14 98 05/30/23 05:02 135/80 05/30/23 05:02 86 16 92 05/30/23 05:00 90 17 97 05/30/23 04:30 101 H 15 98 05/30/23 04:00 184/103 H 05/30/23 04:00 95 H 15 96 05/30/23 03:30 96 H 13 97 05/30/23 03:00 94 H 17 96 05/30/23 03:00 165/97 H 05/30/23 02:30 87 14 05/30/23 02:01 90 19 98 05/30/23 02:01 170/78 H 05/30/23 02:00 88 15 96 05/30/23 01:30 79 21 92 05/30/23 01:00 134/87 05/30/23 01:00 86 16 97 05/30/23 00:57 97 05/30/23 00:30 82 14 97 05/30/23 00:00 149/86 H 05/30/23 00:00 88 18 99 05/29/23 23:30 84 16 97 05/29/23 23:01 85 16 98 05/29/23 23:01 155/90 H 05/29/23 23:00 83 16 98 05/29/23 22:30 85 17 95 05/29/23 22:27 133/87 05/29/23 22:27 89 24 96 05/29/23 22:13 83 24 128/90 96 05/29/23 22:00 84 20 97 05/29/23 22:00 128/90 05/29/23 21:31 82 16 97 05/29/23 21:31 154/89 H 12/26/23 21:30 82 16 97 05/29/23 21:24 81 05/29/23 21:00 84 22 98 05/29/23 21:00 129/96 05/29/23 20:30 131/81 05/29/23 20:30 78 15 97 05/29/23 20:28 84 17 98 05/29/23 20:28 135/86 05/29/23 20:27 81 18 135/86 97 05/29/23 20:00 156/95 H 05/29/23 20:00 81 16 97 O2 Del Method O2 Del Method O2 Flow Rate 05/30/23 07:29 05/30/23 06:00 05/30/23 06:00 05/30/23 05:30 05/30/23 05:02 05/30/23 05:02 05/30/23 05:00 05/30/23 04:30 05/30/23 04:00 05/30/23 04:00 05/30/23 03:30 05/30/23 03:00 05/30/23 03:00 05/30/23 02:30 05/30/23 02:01 05/30/23 02:01 05/30/23 02:00 05/30/23 01:30 05/30/23 01:00 05/30/23 01:00 05/30/23 00:57 Room Air 05/30/23 00:30 05/30/23 00:00 05/30/23 00:00 05/29/23 23:30 05/29/23 23:01 05/29/23 23:01 05/29/23 23:00 05/29/23 22:30 05/29/23 22:27 05/29/23 22:27 05/29/23 22:13 Nasal Cannula 1 05/29/23 22:00 05/29/23 22:00 05/29/23 21:31 05/29/23 21:31 05/29/23 21:30 05/29/23 21:24 05/29/23 21:00 05/29/23 21:00 05/29/23 20:30 05/29/23 20:30 05/29/23 20:28 05/29/23 20:28 05/29/23 20:27 05/29/23 20:00 05/29/23 20:00 Resident Activity Tracking Resident Involvement: Resident Care Provided Care Provided: Adult Hospital Medicine (2) Dementia Dementia behavioral or psychological symptom: unspecified whether behavioral, psychotic, or mood disturbance or anxiety Dementia severity: unspecified severity Dementia type: unspecified type Qualified Code(s): F03.90 - Unspecified dementia, unspecified severity, without behavioral disturbance, psychotic disturbance, mood disturbance, and anxiety (3) Fall Encounter type: initial encounter Qualified Code(s): W19.XXXA - Unspecified fall, initial encounter
[2023-05-30] MEDS ORDERED: LANTUS PER UNIT CHARGE SC ONE ×2 (08:00→11:00)
[2023-05-30 09:25] LABS: Hematocrit (blood only) 43.4 % (37.0-47.0); Hemoglobin 14.2 g/dl (12.0-16.0); Mean Corpuscular Hemoglobin 30.3 pg (25.0-34.0); Mean Corpuscular Hgb Conc 32.7 g/dL (32.0-36.0); Mean Corpuscular Volume 92.5 fL (80.0-100.0); Mean Platelet Volume 8.7 fL (9.4-12.4); Platelet Count 285 K/uL (130-400); RDW Coefficient of Variation 13.7 % (11.5-14.5); RDW Standard Deviation 45.7 fL (36.4-46.3); Red Blood Count 4.69 M/uL (4.20-5.40)
[2023-05-30 09:46] LABS: BUN Creatinine Ratio 28.6 (10-20); Calcium 9.2 mg/dl (8.6-10.3); Creatinine Clr Calc Pharmacy 30.3 ml/min; Est GFR (African American) 33.2 ml/min; Est GFR (Non-African American) 28.7 ml/min; Magnesium 2.3 mg/dl (1.7-2.4); Potassium 4.1 mmol/L (3.5-5.1)
[2023-05-30] MEDS: ATORVASTATIN 40 MG TAB PO SCH (10:08)
[2023-05-30] MEDS: FLUTICASONE/VILANTEROL 100/25MCG 14 PUFFS/INHALER INH SCH (10:09)
[2023-05-30] MEDS: CHLORTHALIDONE 25 MG TAB PO SCH (10:09)
[2023-05-30] MEDS: MEMANTINE HCL 10 MG TAB PO SCH (10:10)
[2023-05-30] MEDS: SERTRALINE HCL 50 MG TABLET PO SCH (10:11)
[2023-05-30] MEDS: POTASSIUM CHLORIDE CRTAB 20 MEQ TABCR PO SCH ×3 (10:14→21:18)
--- NOTE | 2023-05-30 10:37 | Billing Data ---
Date of Service May 30, 2023 Coding Level of Care Code 13217 INT INP/OBS CARE
[2023-05-30 10:45] LABS: Troponin I High Sensitivity 62.3 pg/ml (0-14)
[2023-05-30] MEDS: INSULIN ASPART PER UNIT CHARGE SQ SCH ×4 (11:02→21:11)
[2023-05-30] MEDS ORDERED: LABETALOL HCL IV 5 MG/ML 20ML IV STA (13:07)
[2023-05-30] MEDS: cefTRIAXone SODIUM 2,000 MG in DEXTROSE 5 % MINI-B 50 ML IV SCH (14:28)
--- NOTE | 2023-05-30 14:49 | Pharmacy Report ---
Pharmacy Glycemic Short Note 2 - Date of Service May 30, 2023 - Glycemic Short BSG Results (Last 24 hours): 05/29/23 05/29/23 05/29/23 15:13 15:21 16:59 Glucose 789 H* 718 H* POC Glucose POC Glucose (other) > 700 H* 05/29/23 05/29/23 05/29/23 17:17 19:37 20:03 Glucose POC Glucose > 600 H* 539 H* 577 H* POC Glucose (other) 05/29/23 05/29/23 05/29/23 20:59 21:00 22:01 Glucose 495 H* POC Glucose 462 H* 362 H* POC Glucose (other) 05/29/23 05/30/23 05/30/23 23:02 00:00 00:50 Glucose 209 H POC Glucose 320 H* 251 H POC Glucose (other) 05/30/23 05/30/23 05/30/23 01:03 01:26 02:00 Glucose POC Glucose 148 H 147 H 139 H POC Glucose (other) 05/30/23 05/30/23 05/30/23 02:42 03:47 04:56 Glucose POC Glucose 173 H 167 H 141 H POC Glucose (other) 05/30/23 05/30/23 05/30/23 05:02 06:03 07:07 Glucose 168 H POC Glucose 133 H 114 H POC Glucose (other) 05/30/23 05/30/23 05/30/23 09:07 10:32 14:23 Glucose 223 H POC Glucose 244 H 304 H* POC Glucose (other) OUTPATIENT ANTIDIABETIC REGIMEN: * N/A * HbA1C = 11.9% ASSESSMENT: * Ms Lomeli is an 87 y/o F without a history of diabetes who presents with hyperglycemia. * Patient's insulin infusion was initially begun at 9 units/hour and was titrated upwards to 10.6 units/hr. Eventually overnight, the insulin infusion titrated down to 3.3 units/hr until it was held in the AM. Patient's potassium was < 3.5 meq/L * Insulin infusion stopped at 0.2 units/kg (20 units) of Lantus given. Insulin dosing as been delayed due to patient testing. * Will have scale of Lantus this evening which is weight-based. * Novolog weight-based stress of 2. PLAN FOR INPATIENT GLYCEMIC CONTROL: * Basal insulin * Lantus 20 units SQ x 1 then 0-15 units SQ BID * Bolus insulin * NovoLog per scale ACHS or Q6hrs while NPO * Goal Range: Low 110 mg/dL - High 140 mg/dL * Correction Factor: 25 mg/dL/unit * Nutritional / Prandial insulin per carb ratio of 1 unit per 8 grams CHO consumed
[2023-05-30] MEDS ORDERED: LORazepam 2 MG/1 ML VIAL IV PRN (15:04)
[2023-05-30 15:36] LABS: BUN Creatinine Ratio 27.1 (10-20); Calcium 8.6 mg/dl (8.6-10.3); Creatinine Clr Calc Pharmacy 27.6 ml/min; Est GFR (African American) 29.6 ml/min; Est GFR (Non-African American) 25.6 ml/min; Magnesium 2.1 mg/dl (1.7-2.4); Phosphorus 3.2 mg/dl (2.5-4.9); Potassium 4.3 mmol/L (3.5-5.1); Troponin I High Sensitivity 44.5 pg/ml (0-14)
[2023-05-30] MEDS ORDERED: LORazepam 1 MG/1 ML SYR ED Inj Use ONE (16:59)
--- NOTE | 2023-05-30 18:39 | Magnetic Resonance Report ---
MRI OF THE BRAIN WITHOUT CONTRAST CLINICAL HISTORY: Increased fatigue. Fall. Evaluate for stroke. COMPARISON STUDY: MRI of the brain June 06, 2021. Head CT May 29, 2023. TECHNIQUE: Utilizing a 1.5 Marissa magnet and dedicated coil, multiplanar, multiecho imaging of the bra in was performed without IV contrast. FINDINGS: There are no foci of restricted diffusion to suggest acute infarct. No acute intracranial h emorrhage, midline shift or mass effect is present. Ventricular system is stable. Basal cisterns are patent. Moderate atrophy is again noted. Scattered small white matter T2 hyperintense foci suggest mi ld small vessel disease. Calvarial signal is normal. The appearance of the brain is similar to MRI of June 06, 2021. No intracranial masses identified on unenhanced exam. Flow-voids for the major intr acranial vessels are present. IMPRESSION: No acute intracranial findings. ACT 112: Negative or not required by law. Electronically signed by: Lai Ramos M.D. 05/30/2023 6:37 PM
[2023-05-30 19:38] LABS: BUN Creatinine Ratio 25.4 (10-20); Blood Urea Nitrogen 46 mg/dl (6-23); Calcium 8.5 mg/dl (8.6-10.3); Carbon Dioxide 23 mmol/L (21-32); Chloride 105 mmol/L (98-107); Est GFR (African American) 28.8 ml/min; Est GFR (Non-African American) 24.9 ml/min; Glucose 333 mg/dl (70-99(Fasting)); Phosphorus 3.1 mg/dl (2.5-4.9)
[2023-05-30 20:06] LABS: Magnesium 2.1 mg/dl (1.7-2.4); Potassium 4.1 mmol/L (3.5-5.1)
[2023-05-30] MEDS: LANTUS PER UNIT CHARGE SC SCH (21:14)
[2023-05-30] MEDS: QUEtiapine FUMARATE 25 MG TABLET PO SCH (21:50)
[2023-05-31 01:40] LABS: BUN Creatinine Ratio 26.7 (10-20); Calcium 8.6 mg/dl (8.6-10.3); Creatinine Clr Calc Pharmacy 28.4 ml/min; Est GFR (African American) 30.7 ml/min; Est GFR (Non-African American) 26.5 ml/min; Magnesium 2.2 mg/dl (1.7-2.4); Phosphorus 2.6 mg/dl (2.5-4.9); Potassium 4.4 mmol/L (3.5-5.1)
[2023-05-31] MEDS: SODIUM CHLOR 0.45% + 20MEQ KCL 20 MEQ/1,000 ML BAG IV SCH ×2 (01:57→12:06)
[2023-05-31 03:06] LABS: Basophils # (auto) 0.05 K/uL (0.00-0.20); Basophils % (auto) 0.4 %; Eosinophils # (auto) 0.08 K/uL (0.00-0.50); Eosinophils % (auto) 0.7 %; Hematocrit (blood only) 41.2 % (37.0-47.0); Hemoglobin 13.3 g/dl (12.0-16.0); Immature Granulocytes # (auto) 0.23 K/uL (0.01-0.20); Lymphocytes # (auto) 2.78 K/uL (1.20-3.40); Lymphocytes % (auto) 24.2 %; Mean Corpuscular Hgb Conc 32.3 g/dL (32.0-36.0); Mean Corpuscular Volume 92.8 fL (80.0-100.0); Monocytes # (auto) 0.81 K/uL (0.11-0.59); Neutrophils # (auto) 7.55 K/uL (1.40-6.50); Neutrophils % (auto) 65.7 %; Nucleated RBC # (auto) 0.03 K/uL (0.00-0.12); Nucleated RBC % (auto) 0.3 %; Platelet Count 266 K/uL (130-400); RDW Coefficient of Variation 13.8 % (11.5-14.5); RDW Standard Deviation 46.7 fL (36.4-46.3); Red Blood Count 4.44 M/uL (4.20-5.40)
[2023-05-31 03:23] LABS: Albumin Globulin Ratio 1.2 (0.9-2); Albumin Level 3.3 gm/dl (3.4-5.0); BUN Creatinine Ratio 26.3 (10-20); Bilirubin,Total 0.8 mg/dl (0.2-1.0); Calcium 8.3 mg/dl (8.6-10.3); Creatinine Clr Calc Pharmacy 28.6 ml/min; Est GFR (African American) 30.9 ml/min; Est GFR (Non-African American) 26.6 ml/min; Globulin 2.8 gm/dl (2.5-4.0); Potassium 3.9 mmol/L (3.5-5.1); Total Protein 6.1 gm/dl (6.0-8.3)
--- NOTE | 2023-05-31 07:31 | Hospitalist Progress Note ---
Date of Service May 31, 2023 Assessment & Plan (1) Hyperglycemia due to diabetes mellitus: Plan: Pt is a 87 yo female with a past medical history of uncontrolled DMT2 not on any medications outpatient, HTN, COPD, and dementia who presents to the hospital on 05/29/23 for DKA, fall, and AMS. Today, PT/OT recommend rehab. Started losartan for persistently elevated BPs. Spoke to daughter Austen over the phone this morning and she is agreeable to have pt go to rehab with preference for a place in or close to [place] where she lives. Pt also agreeable to rehab as well. Will D/C IVF and encourage oral intake. Diabetic ketoacidosis - on admit glucose 718, potassium 3.4, anion gap 16 - HA1c was 11.9% on admission - was on insulin drip initially until AG closed, then started on lantus and SSI, glycemic consult to pharmacy - potassium 3.2, so will do TID repletion today with check tomorrow - suggest continue insulin regime for outpatient, likely benefit most from just daily lantus to keep her sugars under better control, goal would not be ideal control but HA1c <10% would be hopefully enough to avoid another incidence of DKA Fall - appears to be a mechanical fall/due to deconditioning/weakness - CT head A/P cervical spine negative, CXR, hip/pelvis, CT abd all negative for signs of injury - brain MRI pending - PT/OT eval; recommending rehab HTN, uncontrolled - BP here has been high, permissible at first before straying into 190-200s systolic - continue home chlorthalidone - will start her on losartan today Trop elevated - trop 47, 62, now downtrending - suspect likely exertional ischemia JENNIFER on CKD - creat 1.6 today - continue to monitor - UA consistent with DKA, urine culture pending - with climbing WBC count, will do Rocephin empirically while awaiting urine cx COPD -continue Dulera Depression -continue sertraline Dementia -continue donepezil and memantine -continue Seroquel HS HLD -continue atorvastatin DVT PPX: SCDs (2) Dementia: (3) Fall: (4) HTN (hypertension): (5) COPD (chronic obstructive pulmonary disease): Admission and Anticipated Discharge Date Admission Date: May 29, 2023 Supervising Physician Co-Signing Physician Notes ATTESTATION I also saw the patient and confirmed seay portions of the history and exam. I agree with the impression and plan in the resident documentation, and as summarized below. At the time of our examination, the patient remains in the emergency department awaiting bed availability. He seems to be more awake today when compared to yesterday. Unfortunately, her and daughter are not at bedside; has been admitted to another facility in [place] after suffering a fall. EXAM 112/63, 80, 20, 37.2, 94% on room air Awake. Alert and oriented. Soft-spoken but answers questions appropriately Heart is regular Respirations symmetrical, nonlabored; lungs clear Abdomen is soft and nontender Extremities with trace edema at the sock line. DATA Labs White blood cell count 11.5, hemoglobin 13.3 Sodium 140, potassium 3.9, BUN 45, creatinine 1.71 Micro Pulmonary urine culture collected 05/30/2023 shows no growth IMPRESSION & PLAN DKA Insulin drip transition to Lantus with short acting before every meal Discussed with family would like to see her discharged on daily dose of long- acting insulin; very loose glycemic goals given overall condition; Given logistics, probably would not be able to administer sliding scale insulin, so goal would be to use long-acting insulin once daily Status post fall Suspect preceding weakness leading to fall CT head unremarkable MRI brain nonacute PT/OT consultation pending With her now hospitalized, there may be a placement issue as well Leukocytosis Suspect reactive, Improving, cultures negative; No recurrence of fever last 24 hours Additional per resident documentation Subjective Pt is a 87 yo female with a past medical history of uncontrolled DMT2 not on any medications outpatient, HTN, COPD, and dementia who presents to the hospital on 05/29/23 for DKA, fall, and AMS. Today, pt states she is feeling fine. She states that she thinks she probably feels better than she did yesterday. No acute questions or concerns today. No acute distress. Review of Systems Review of Systems: Per HPI. Physical Exam Physical Exam: General:Fatigued appearing, no acute distress, oriented to self and place today Cardio: Regular rate and rhythm, Resp:Lungs clear to auscultation b/l, GI: Soft and nontender, nondistended, bowel sounds active Skin: Warm, pink, dry, Ext: Minor LE edema Results & Data Results & Data Vital Signs (Past 12 Hours) Vital Signs Pulse Resp BP Pulse Ox O2 Del Method 05/31/23 07:02 83 05/31/23 05:00 81 16 197/102 H 96 Room Air 05/31/23 02:23 85 05/31/23 01:10 83 18 196/111 H 95 Room Air 05/30/23 22:30 79 18 111/83 96 05/30/23 22:30 154/103 H 05/30/23 22:30 97 05/30/23 22:15 97 05/30/23 22:01 98 05/30/23 22:00 97 05/30/23 21:45 155/109 H 05/30/23 21:45 155/109 H 05/30/23 21:45 96 05/30/23 21:31 96 05/30/23 21:31 136/94 05/30/23 21:15 160/105 H 05/30/23 21:15 95 05/30/23 21:00 96 05/30/23 21:00 151/108 H 05/30/23 21:00 151/108 H 05/30/23 20:47 179/95 H 05/30/23 20:47 98 05/30/23 20:30 97 05/30/23 20:16 96 05/30/23 20:00 94 05/30/23 19:45 133/102 H Resident Activity Tracking Resident Involvement: Resident Care Provided Care Provided: Adult Hospital Medicine (2) Dementia Dementia behavioral or psychological symptom: unspecified whether behavioral, psychotic, or mood disturbance or anxiety Dementia severity: unspecified sever ity Dementia type: unspecified type Qualified Code(s): F03.90 - Unspecified dementia, unspecified severity, without behavioral disturbance, psychotic disturbance, mood disturbance, and anxiety (3) Fall Encounter type: initial encounter Qualified Code(s): W19.XXXA - Unspecified fall, initial encounter
[2023-05-31] MEDS: LOSARTAN POTASSIUM 25 MG TAB PO SCH (08:59)
[2023-05-31] MEDS: CHLORTHALIDONE 25 MG TAB PO SCH (09:01)
[2023-05-31] MEDS: SERTRALINE HCL 50 MG TABLET PO SCH (09:01)
[2023-05-31] MEDS: ATORVASTATIN 40 MG TAB PO SCH (09:01)
[2023-05-31] MEDS: MEMANTINE HCL 10 MG TAB PO SCH (09:02)
[2023-05-31] MEDS: INSULIN ASPART PER UNIT CHARGE SQ SCH ×4 (09:32→21:01)
[2023-05-31] MEDS: FLUTICASONE/VILANTEROL 100/25MCG 14 PUFFS/INHALER INH SCH (09:34)
[2023-05-31] MEDS: LANTUS PER UNIT CHARGE SC SCH ×2 (10:01→21:00)
[2023-05-31] MEDS: cefTRIAXone SODIUM 2,000 MG in DEXTROSE 5 % MINI-B 50 ML IV SCH (14:06)
[2023-05-31] MEDS: DONEPEZIL HCL 10 MG TAB PO SCH (20:47)
[2023-05-31] MEDS: QUEtiapine FUMARATE 25 MG TABLET PO SCH (20:47)
[2023-06-01 06:34] LABS: Basophils # (auto) 0.07 K/uL (0.00-0.20); Basophils % (auto) 0.7 %; Eosinophils # (auto) 0.07 K/uL (0.00-0.50); Eosinophils % (auto) 0.7 %; Hematocrit (blood only) 37.9 % (37.0-47.0); Hemoglobin 12.6 g/dl (12.0-16.0); Immature Granulocytes # (auto) 0.41 K/uL (0.01-0.20); Immature Granulocytes % (auto) 4.1 %; Lymphocytes # (auto) 2.72 K/uL (1.20-3.40); Lymphocytes % (auto) 26.9 %; Mean Corpuscular Hemoglobin 29.9 pg (25.0-34.0); Mean Corpuscular Hgb Conc 33.2 g/dL (32.0-36.0); Mean Platelet Volume 8.9 fL (9.4-12.4); Monocytes # (auto) 0.62 K/uL (0.11-0.59); Monocytes % (auto) 6.1 %; Neutrophils # (auto) 6.22 K/uL (1.40-6.50); Neutrophils % (auto) 61.5 %; Platelet Count 199 K/uL (130-400); RDW Coefficient of Variation 13.8 % (11.5-14.5); RDW Standard Deviation 44.8 fL (36.4-46.3); Red Blood Count 4.21 M/uL (4.20-5.40); White Blood Count 10.11 K/ul (4.8-10.8)
--- NOTE | 2023-06-01 06:48 | Hospitalist Progress Note ---
Date of Service June 01, 2023 Assessment & Plan (1) Hyperglycemia due to diabetes mellitus: Plan: Pt is a 87 yo female with a past medical history of uncontrolled DMT2 not on any medications outpatient, HTN, COPD, and dementia who presents to the hospital on 05/29/23 for DKA, fall, and AMS. Today, awaiting placement to rehab at this time. Potassium low today and being repleted. Given softer BPs yesterday, will decrease losartan 25 -> 12.5. Pharmacy to find adequate once daily dosing of insulin in anticipation for discharge hopefully in the next few days so we can send her home with a once daily regime that works for her. Diabetic ketoacidosis - on admit glucose 718, potassium 3.4, anion gap 16 - HA1c was 11.9% on admission - was on insulin drip initially until AG closed, then started on lantus and SSI, glycemic consult to pharmacy - potassium 3.2, so will do TID repletion today with check tomorrow - suggest continue insulin regime for outpatient, likely benefit most from just daily lantus to keep her sugars under better control, goal would not be ideal control but HA1c <10% would be hopefully enough to avoid another incidence of DKA Fall - appears to be a mechanical fall/due to deconditioning/weakness - CT head A/P cervical spine negative, CXR, hip/pelvis, CT abd all negative for signs of injury - brain MRI pending - PT/OT eval; recommending rehab HTN, uncontrolled - BP here has been high, permissible at first before straying into 190-200s systolic - continue home chlorthalidone - BPs have improved, continue losartan but at a lower dose Trop elevated - trop 47, 62, now downtrending - suspect likely exertional ischemia JENNIFER on CKD - creat 1.6 today - continue to monitor - UA consistent with DKA, urine culture pending, negative so far COPD -continue Dulera Depression -continue sertraline Dementia -continue donepezil and memantine -continue Seroquel HS HLD -continue atorvastatin DVT PPX: SCDs (2) Dementia: (3) Fall: (4) HTN (hypertension): (5) COPD (chronic obstructive pulmonary disease): Admission and Anticipated Discharge Date Admission Date: May 29, 2023 Supervising Physician Co-Signing Physician Notes I personally examined the patient and verified seay points of history and exam, discussed case, and agree with decision making and plan documented by Dr. Renae. Appreciate pharmacy assisting with insulin titration, will work to get patient on Lantus once daily dosing. Monitoring blood pressures closely. Continue potassium supplementation. Anticipate discharge to [facility] in [place]. Subjective Pt is a 87 yo female with a past medical history of uncontrolled DMT2 not on any medications outpatient, HTN, COPD, and dementia who presents to the hospital on 05/29/23 for DKA, fall, and AMS. Today, pt states she is feeling fine. No pain anywhere and thinks she was able to eat without trouble yesterday (says she does not recall getting sick at least). No chest pain or SOB. No questions or complaints at this time. Review of Systems Review of Systems: Per HPI. Physical Exam Physical Exam: General:Fatigued appearing, no acute distress, oriented to self and place today Cardio: Regular rate and rhythm, Resp:Lungs clear to auscultation b/l, GI: Soft and nontender, nondistended, bowel sounds active Skin: Warm, pink, dry, Ext: Minor LE edema Results & Data Results & Data Vital Signs (Past 12 Hours) Vital Signs Temp Pulse Pulse Resp BP Pulse Ox O2 Del Method 06/01/23 04:46 36.7 C 73 18 158/88 H 96 Room Air 06/01/23 00:00 36.4 C L 77 20 131/82 96 Room Air 05/31/23 22:23 Room Air 05/31/23 21:35 79 05/31/23 19:42 37.1 C 85 16 130/79 97 Room Air Resident Activity Tracking Resident Involvement: Resident Care Provided Care Provided: Adult Hospital Medicine (2) Dementia Dementia behavioral or psychological symptom: unspecified whether behavioral, psychotic, or mood disturbance or anxiety Dementia severity: unspecified severity Dementia type: unspecified type Qualified Code(s): F03.90 - Unspecified dementia, unspecified severity, without behavioral disturbance, psychotic disturbance, mood disturbance, and anxiety (3) Fall Encounter type: initial encounter Qualified Code(s): W19.XXXA - Unspecified fall, initial encounter
[2023-06-01 07:14] LABS: Albumin Globulin Ratio 1.2 (0.9-2); Albumin Level 2.9 gm/dl (3.4-5.0); BUN Creatinine Ratio 27.6 (10-20); Bilirubin,Total 0.7 mg/dl (0.2-1.0); Calcium 7.8 mg/dl (8.6-10.3); Creatinine Clr Calc Pharmacy 36.9 ml/min; Est GFR (African American) 41.5 ml/min; Est GFR (Non-African American) 35.8 ml/min; Globulin 2.4 gm/dl (2.5-4.0); Potassium 2.8 mmol/L (3.5-5.1); Total Protein 5.3 gm/dl (6.0-8.3)
[2023-06-01] MEDS: CHLORTHALIDONE 25 MG TAB PO SCH (08:38)
[2023-06-01] MEDS: SERTRALINE HCL 50 MG TABLET PO SCH (08:39)
[2023-06-01] MEDS: LOSARTAN POTASSIUM 25 MG TAB PO SCH (08:39)
[2023-06-01] MEDS: ATORVASTATIN 40 MG TAB PO SCH (08:39)
[2023-06-01] MEDS: MEMANTINE HCL 10 MG TAB PO SCH (08:39)
[2023-06-01] MEDS ORDERED: LANTUS PER UNIT CHARGE SC SCH ×2 (09:00→16:30)
[2023-06-01] MEDS: INSULIN ASPART PER UNIT CHARGE SQ SCH ×4 (09:45→21:17)
[2023-06-01] MEDS: FLUTICASONE/VILANTEROL 100/25MCG 14 PUFFS/INHALER INH SCH (09:46)
[2023-06-01] MEDS: POTASSIUM CHLORIDE CRTAB 20 MEQ TABCR PO SCH ×3 (09:46→19:31)
--- NOTE | 2023-06-01 14:19 | Pharmacy Report ---
Pharmacy Glycemic Short Note 2 - Date of Service June 01, 2023 - Glycemic Short BSG Results (Last 24 hours): 05/31/23 05/31/23 06/01/23 16:43 20:29 06:09 Glucose 101 H POC Glucose 155 H 224 H 06/01/23 06/01/23 07:43 12:06 Glucose POC Glucose 101 H 204 H OUTPATIENT ANTIDIABETIC REGIMEN: * N/A * HbA1C = 11.9% ASSESSMENT: 06/01/23 * Patient's BSGs yesterday were [id number] mg/dL. Patient received 33 units of insulin (25 units of basal and 8 units of bolus). * BSGs today are 101-204 mg/dL. * Will transition patient to once daily Lantus dosing to help with discharge. Lantus 8 units this AM with 4 units at dinner. * Scale of Lantus for tomorrow. * Continue Novolog. Suspect patient is carbohydrate sensitive so consider tightening CR tomorrow. BACKGROUND * Ms Lomeli is an 87 y/o F without a history of diabetes who presents with hyperglycemia. * Patient's insulin infusion was initially begun at 9 units/hour and was titrated upwards to 10.6 units/hr. Eventually overnight, the insulin infusion titrated down to 3.3 units/hr until it was held in the AM. Patient's potassium was < 3.5 meq/L * Insulin infusion stopped at 0.2 units/kg (20 units) of Lantus given. Insulin dosing as been delayed due to patient testing. * Will have scale of Lantus this evening which is weight-based. * Novolog weight-based stress of 2. PLAN FOR INPATIENT GLYCEMIC CONTROL: * Basal insulin * Lantus 8 units this morning and 4 units with dinner * Lantus 10-12 units SQ qAM (see eMAR for details) * Bolus insulin * NovoLog per scale ACHS or Q6hrs while NPO * Goal Range: Low 110 mg/dL - High 140 mg/dL * Correction Factor: 25 mg/dL/unit * Nutritional / Prandial insulin per carb ratio of 1 unit per 6 grams CHO consumed
[2023-06-01 16:49] LABS: BUN Creatinine Ratio 26.2 (10-20); Blood Urea Nitrogen 38 mg/dl (6-23); Carbon Dioxide 25 mmol/L (21-32); Chloride 99 mmol/L (98-107); Creatinine Clr Calc Pharmacy 34.1 ml/min; Est GFR (African American) 37.7 ml/min; Est GFR (Non-African American) 32.5 ml/min; Glucose 154 mg/dl (70-99(Fasting))
[2023-06-01] MEDS: DONEPEZIL HCL 10 MG TAB PO SCH (19:31)
[2023-06-01] MEDS: QUEtiapine FUMARATE 25 MG TABLET PO SCH (19:31)
--- NOTE | 2023-06-02 06:53 | Hospitalist Progress Note ---
Date of Service June 02, 2023 Assessment & Plan (1) Hyperglycemia due to diabetes mellitus: Plan: Pt is a 87 yo female with a past medical history of uncontrolled DMT2 not on any medications outpatient, HTN, COPD, and dementia who presents to the hospital on 05/29/23 for DKA, fall, and AMS. Today, awaiting placement. Diabetic ketoacidosis - on admit glucose 718, potassium 3.4, anion gap 16 - HA1c was 11.9% on admission - was on insulin drip initially until AG closed, then started on lantus and SSI, glycemic consult to pharmacy - potassium 3.2, so will do TID repletion today with check tomorrow - suggest continue insulin regime for outpatient, likely benefit most from just daily lantus to keep her sugars under better control, goal would not be ideal control but HA1c <10% would be hopefully enough to avoid another incidence of DKA - pt got 10 units lantus yesterday and sugars acceptable if not better than necessarily desired, will D/C SSI to see how sugars do today on this regime of 10 units basal a day, as pt will only do 1x daily lantus on discharge Fall - appears to be a mechanical fall/due to deconditioning/weakness - CT head A/P cervical spine negative, CXR, hip/pelvis, CT abd all negative for signs of injury - brain MRI pending - PT/OT eval; recommending rehab Hypokalemia - noted to have hypokalemia yesterday which was repleted with 40 mEq po K TID yesterday - several incidences of hypokalemia likely related to initiation of insulin during this admission when pt is insulin naive and the intracellular shift of potassium secondary to insulin - will do 40 mEq of insulin daily for her, K+ stable today HTN, uncontrolled - BP here has been high, permissible at first before straying into 190-200s systolic - continue home chlorthalidone - BPs have improved, continue losartan but at a lower dose Trop elevated - trop 47, 62, now downtrending - suspect likely exertional ischemia JENNIFER on CKD - creat 1.6 today - continue to monitor - UA consistent with DKA, urine culture pending, negative so far COPD -continue Dulera Depression -continue sertraline Dementia -continue donepezil and memantine -continue Seroquel HS HLD -continue atorvastatin DVT PPX: SCDs (2) Dementia: (3) Fall: (4) HTN (hypertension): (5) COPD (chronic obstructive pulmonary disease): Admission and Anticipated Discharge Date Admission Date: May 29, 2023 Supervising Physician Co-Signing Physician Notes I personally examined the patient and verified seay points of history and exam, discussed case, and agree with decision making and plan documented by Dr. Renae. Patient with son at bedside during exam. Patient eating lunch. She denied any pain or concerns and remains pleasantly confused. Working on insulin requirement for once daily dosing and glycemic control. Plan is for discharge to [facility] for rehabilitation. Subjective Pt is a 87 yo female with a past medical history of uncontrolled DMT2 not on any medications outpatient, HTN, COPD, and dementia who presents to the hospital on 05/29/23 for DKA, fall, and AMS. Today, pt states she is feeling okay today. No acute questions or complaints. Pt not very talkative this morning but denies pain anywhere. Review of Systems Review of Systems: Per HPI. Physical Exam Physical Exam: General:Fatigued appearing, no acute distress, oriented to self and place Cardio: Regular rate and rhythm, systolic murmur appreciated Resp:Lungs clear to auscultation b/l, GI: Soft and nontender, nondistended, bowel sounds active Skin: Warm, pink, dry, Ext: Minor LE edema, extensive bruising noted on R hand and elbow Results & Data Results & Data Vital Signs (Past 12 Hours) Vital Signs Temp Pulse Resp BP Pulse Ox O2 Del Method 06/02/23 03:14 36.6 C 82 18 119/72 99 Room Air 06/02/23 00:00 36.5 C 80 18 134/78 100 Room Air 06/01/23 19:00 36.5 C 78 20 148/83 H 99 Room Air Resident Activity Tracking Resident Involvement: Resident Care Provided Care Provided: Adult Hospital Medicine (2) Dementia Dementia behavioral or psychological symptom: unspecified whether behavioral, psychotic, or mood disturbance or anxiety Dementia severity: unspecified severity Dementia type: unspecified type Qualified Code(s): F03.90 - Unspecified dementia, unspecified severity, without behavioral disturbance, psychotic disturbance, mood disturbance, and anxiety (3) Fall Encounter type: initial encounter Qualified Code(s): W19.XXXA - Unspecified fall, initial encounter
[2023-06-02 06:55] LABS: Basophils # (auto) 0.05 K/uL (0.00-0.20); Basophils % (auto) 0.5 %; Eosinophils # (auto) 0.06 K/uL (0.00-0.50); Eosinophils % (auto) 0.6 %; Hematocrit (blood only) 37.8 % (37.0-47.0); Hemoglobin 12.8 g/dl (12.0-16.0); Immature Granulocytes # (auto) 0.33 K/uL (0.01-0.20); Immature Granulocytes % (auto) 3.4 %; Lymphocytes # (auto) 1.96 K/uL (1.20-3.40); Lymphocytes % (auto) 20.4 %; Mean Corpuscular Hemoglobin 30.3 pg (25.0-34.0); Mean Corpuscular Hgb Conc 33.9 g/dL (32.0-36.0); Mean Corpuscular Volume 89.6 fL (80.0-100.0); Monocytes # (auto) 0.65 K/uL (0.11-0.59); Monocytes % (auto) 6.8 %; Neutrophils # (auto) 6.54 K/uL (1.40-6.50); Neutrophils % (auto) 68.3 %; Platelet Count 192 K/uL (130-400); RDW Coefficient of Variation 13.8 % (11.5-14.5); RDW Standard Deviation 44.4 fL (36.4-46.3); Red Blood Count 4.22 M/uL (4.20-5.40); White Blood Count 9.59 K/ul (4.8-10.8)
[2023-06-02 07:14] LABS: Albumin Globulin Ratio 1.2 (0.9-2); BUN Creatinine Ratio 23.1 (10-20); Bilirubin,Total 0.8 mg/dl (0.2-1.0); Calcium 7.8 mg/dl (8.6-10.3); Creatinine Clr Calc Pharmacy 38.2 ml/min; Est GFR (Non-African American) 37.1 ml/min; Globulin 2.5 gm/dl (2.5-4.0); Potassium 3.5 mmol/L (3.5-5.1); Total Protein 5.5 gm/dl (6.0-8.3)
[2023-06-02] MEDS: CHLORTHALIDONE 25 MG TAB PO SCH (09:14)
[2023-06-02] MEDS: MEMANTINE HCL 10 MG TAB PO SCH (09:14)
[2023-06-02] MEDS: SERTRALINE HCL 50 MG TABLET PO SCH (09:14)
[2023-06-02] MEDS: ATORVASTATIN 40 MG TAB PO SCH (09:14)
[2023-06-02] MEDS: LOSARTAN POTASSIUM 25 MG TAB PO SCH (09:15)
[2023-06-02] MEDS: FLUTICASONE/VILANTEROL 100/25MCG 14 PUFFS/INHALER INH SCH (09:15)
[2023-06-02] MEDS: INSULIN ASPART PER UNIT CHARGE SQ SCH ×4 (09:16→21:32)
[2023-06-02] MEDS: LANTUS PER UNIT CHARGE SC SCH (09:19)
[2023-06-02] MEDS: DONEPEZIL HCL 10 MG TAB PO SCH (21:23)
[2023-06-02] MEDS: QUEtiapine FUMARATE 25 MG TABLET PO SCH (21:23)
[2023-06-03 06:25] LABS: Basophils # (auto) 0.06 K/uL (0.00-0.20); Basophils % (auto) 0.7 %; Eosinophils # (auto) 0.02 K/uL (0.00-0.50); Eosinophils % (auto) 0.2 %; Hematocrit (blood only) 36.5 % (37.0-47.0); Hemoglobin 12.8 g/dl (12.0-16.0); Immature Granulocytes # (auto) 0.32 K/uL (0.01-0.20); Immature Granulocytes % (auto) 3.5 %; Lymphocytes # (auto) 1.92 K/uL (1.20-3.40); Lymphocytes % (auto) 21.1 %; Mean Corpuscular Hemoglobin 30.4 pg (25.0-34.0); Mean Corpuscular Hgb Conc 35.1 g/dL (32.0-36.0); Mean Corpuscular Volume 86.7 fL (80.0-100.0); Mean Platelet Volume 9.4 fL (9.4-12.4); Monocytes # (auto) 0.67 K/uL (0.11-0.59); Monocytes % (auto) 7.4 %; Neutrophils # (auto) 6.09 K/uL (1.40-6.50); Neutrophils % (auto) 67.1 %; Platelet Count 218 K/uL (130-400); RDW Coefficient of Variation 13.7 % (11.5-14.5); RDW Standard Deviation 41.6 fL (36.4-46.3); Red Blood Count 4.21 M/uL (4.20-5.40); White Blood Count 9.08 K/ul (4.8-10.8)
[2023-06-03 06:41] LABS: Albumin Globulin Ratio 1.2 (0.9-2); BUN Creatinine Ratio 21.2 (10-20); Bilirubin,Total 0.8 mg/dl (0.2-1.0); Creatinine Clr Calc Pharmacy 43.9 ml/min; Globulin 2.6 gm/dl (2.5-4.0); Total Protein 5.6 gm/dl (6.0-8.3)
--- NOTE | 2023-06-03 06:58 | Hospitalist Progress Note ---
Date of Service June 03, 2023 Assessment & Plan (1) Hyperglycemia due to diabetes mellitus: Plan: Pt is a 87 yo female with a past medical history of uncontrolled DMT2 not on any medications outpatient, HTN, COPD, and dementia who presents to the hospital on 05/29/23 for DKA, fall, and AMS. Today, awaiting placement. Diabetic ketoacidosis - on admit glucose 718, potassium 3.4, anion gap 16 - HA1c was 11.9% on admission - was on insulin drip initially until AG closed, then started on lantus and SSI, glycemic consult to pharmacy - potassium 3.2, so will do TID repletion today with check tomorrow - suggest continue insulin regime for outpatient, likely benefit most from just daily lantus to keep her sugars under better control, goal would not be ideal control but HA1c <10% would be hopefully enough to avoid another incidence of DKA - pt got 10 units lantus yesterday and sugars acceptable if not better than necessarily desired, will D/C SSI to see how sugars do today on this regime of 10 units basal a day, as pt will only do 1x daily lantus on discharge Fall - appears to be a mechanical fall/due to deconditioning/weakness - CT head A/P cervical spine negative, CXR, hip/pelvis, CT abd all negative for signs of injury - brain MRI pending - PT/OT eval; recommending rehab Hypokalemia - noted to have hypokalemia yesterday which was repleted with 40 mEq po K TID yesterday - several incidences of hypokalemia likely related to initiation of insulin during this admission when pt is insulin naive and the intracellular shift of potassium secondary to insulin - will do 40 mEq of insulin daily for her, K+ stable today HTN, uncontrolled - BP here has been high, permissible at first before straying into 190-200s systolic - continue home chlorthalidone - BPs have improved, continue losartan but at a lower dose Trop elevated - trop 47, 62, now downtrending - suspect likely exertional ischemia JENNIFER on CKD - creat 1.6 today - continue to monitor - UA consistent with DKA, urine culture pending, negative so far COPD -continue Dulera Depression -continue sertraline Dementia -continue donepezil and memantine -continue Seroquel HS HLD -continue atorvastatin DVT PPX: SCDs (2) Dementia: (3) Fall: (4) HTN (hypertension): (5) COPD (chronic obstructive pulmonary disease): Admission and Anticipated Discharge Date Admission Date: May 29, 2023 Subjective Pt is a 87 yo female with a past medical history of uncontrolled DMT2 not on any medications outpatient, HTN, COPD, and dementia who presents to the hospital on 05/29/23 for DKA, fall, and AMS. Today, Review of Systems Review of Systems: Per HPI. Physical Exam Physical Exam: General:Fatigued appearing, no acute distress, oriented to self and place Cardio: Regular rate and rhythm, systolic murmur appreciated Resp:Lungs clear to auscultation b/l, GI: Soft and nontender, nondistended, bowel sounds active Skin: Warm, pink, dry, Ext: Minor LE edema, extensive bruising noted on R hand and elbow Results & Data Results & Data Vital Signs (Past 12 Hours) Vital Signs Temp Pulse Pulse Resp BP Pulse Ox O2 Del Method 06/03/23 03:59 36.7 C 79 20 122/73 98 Room Air 06/03/23 00:45 Room Air 06/03/23 00:44 82 06/02/23 23:30 36.5 C 86 18 134/79 96 Room Air 06/02/23 19:00 36.9 C 81 18 140/82 98 Room Air (2) Dementia Dementia behavioral or psychological symptom: unspecified whether behavioral, psychotic, or mood disturbance or anxiety Dementia severity: unspecified severity Dementia type: unspecified type Qualified Code(s): F03.90 - Unspecified dementia, unspecified severity, without behavioral disturbance, psychotic disturbance, mood disturbance, and anxiety (3) Fall Encounter type: initial encounter Qualified Code(s): W19.XXXA - Unspecified fall, initial encounter
[2023-06-03] MEDS ORDERED: POTASSIUM CHLORIDE CRTAB 20 MEQ TABCR PO SCH (09:00)
[2023-06-03] MEDS: ATORVASTATIN 40 MG TAB PO SCH (09:59)
[2023-06-03] MEDS: FLUTICASONE/VILANTEROL 100/25MCG 14 PUFFS/INHALER INH SCH (09:59)
[2023-06-03] MEDS: SERTRALINE HCL 50 MG TABLET PO SCH (09:59)
[2023-06-03] MEDS: MEMANTINE HCL 10 MG TAB PO SCH (10:00)
[2023-06-03] MEDS: LOSARTAN POTASSIUM 25 MG TAB PO SCH (10:00)
[2023-06-03] MEDS: CHLORTHALIDONE 25 MG TAB PO SCH (10:00)
[2023-06-03] MEDS: LANTUS PER UNIT CHARGE SC SCH (10:07)
[2023-06-03] MEDS: INSULIN ASPART PER UNIT CHARGE SQ SCH ×2 (10:07→13:37)
[2023-06-03] MEDS ORDERED: POTASSIUM CHLORIDE CRTAB 20 MEQ TABCR PO ONE (14:00)
--- NOTE | 2023-06-03 14:14 | Discharge Summary ---
Date of Service June 03, 2023 Admission HPI Per Admitting Provider 87yo Female with PMH DM2 Dementia COPD HTN here for concern AMS found to have hyperglycemia. Patient here with and daughter, history from daughter. 4 days ago patient had decrease in appetite and water intake, was sleeping significantly more, had a fall where she hit her head, was difficult for family to help her to the bathroom. Daughter had home test kits noted her urine had ketones and some concern for UTI. Patient was brought to ED. Family states her mentation improved significantly on insulin. At this time patient denies any pain. Lives with son and sports physician. Patient was initially on metformin for DM2, this was discontinued due to continued GI upset, was originally doing well without medication, appetite was doing better on liberalized diet. Discussed with family given this hospita lization it would be better for her to start a different medication for her diabetes, family open to possible glipizide or insulin if needed. Admission Exam Per Admitting Provider Constitutional: well developed, well nourished and + obese Eyes: PERRL, conjunctivae normal, anicteric sclerae ENMT: external ear and nose normal, oropharynx normal Neck: trachea midline, no thyromegaly Respiratory: normal respiratory effort Auscultation: + wheezes (throughout) Cardiovascular: Rate/Rhythm: regular rate and regular rhythm Heart Sounds: + murmur (systolic) Gastrointestinal (Abdomen): Inspection/Auscultation: abdomen normal to inspection Percussion/Palpation: abdomen nontender Skin: no rashes, warm and dry Genitourinary: sutton in place Principal Diagnosis Diabetic ketoacidosis, weakness with fall Discharge Exam General:Fatigued appearing, no acute distress, oriented to self and place Cardio: Regular rate and rhythm, systolic murmur appreciated Resp:Lungs clear to auscultation b/l, GI: Soft and nontender, nondistended, bowel sounds active Skin: Warm, pink, dry, Ext: Minor LE edema, extensive bruising noted on R hand and elbow Discharge Data Allergies Allergy/AdvReac Type Severity Reaction Status Date / Time No Known Allergies Allergy Unknown Verified 05/29/23 21:29 Consultations 05/29/23 16:34 ED Decision to Admit Stat Ordered Studies 05/29/23 14:17 CT cervical spine wo con Stat CT head/brain wo con Stat 05/29/23 15:25 CT abd pelvis wo con Stat 05/30/23 15:05 MRI Brain [MR brain wo con] Urgent Diabetes Follow up Diabetes Follow-up Needed for HgbA1c >9% Hospital Course (1) Hyperglycemia due to diabetes mellitus: Pt is a 87 yo female with a past medical history of uncontrolled DMT2 not on any medications outpatient, HTN, COPD, and dementia who presented to the hospital on 05/29/23 for DKA, fall, and AMS. Pt has remained stable, sugars have been stable on 10 units daily lantus + SSI (range 110-160, correction factor 15, carb ratio 5), goal is not perfect HA1c but keeping pt safely out of DKA range, so this regime can be loosened. Ideally, she would be on a once daily lantus only. Potassium level needs to be monitored as with the initiation of insulin, pt gets hypokalemic (as expected). Will maintain her on 40 mEq of K+ daily but monitor. Diabetic ketoacidosis - on admit glucose 718, potassium 3.4, anion gap 16 - HA1c was 11.9% on admission - was on insulin drip initially until AG closed, then started on lantus and SSI, glycemic consult to pharmacy - potassium 3.2, so will do TID repletion today with check tomorrow - suggest continue insulin regime for outpatient, likely benefit most from just daily lantus to keep her sugars under better control, goal would not be ideal control but HA1c <10% would be hopefully enough to avoid another incidence of DKA - pt given 10 units lantus + SSI and sugars acceptable if not better than necessarily desired, Fall - appears to be a mechanical fall/due to deconditioning/weakness - CT head A/P cervical spine negative, CXR, hip/pelvis, CT abd all negative for signs of injury - brain MRI pending - PT/OT eval; recommending rehab Hypokalemia - noted to have hypokalemia yesterday which was repleted with 40 mEq po K TID yesterday - several incidences of hypokalemia likely related to initiation of insulin during this admission when pt is insulin naive and the intracellular shift of potassium secondary to insulin - will do 40 mEq of insulin daily for her, K+ stable today HTN, uncontrolled - BP here has been high, permissible at first before straying into 190-200s systolic - continue home chlorthalidone - BPs have improved, continue losartan but at a lower dose Trop elevated - trop 47, 62, now downtrending - suspect likely exertional ischemia JENNIFER on CKD - creat 1.6 today - continue to monitor - UA consistent with DKA, urine culture pending, negative so far COPD -continue Dulera Depression -continue sertraline Dementia -continue donepezil and memantine -continue Seroquel HS HLD -continue atorvastatin (2) Dementia: (3) Fall: (4) HTN (hypertension): (5) COPD (chronic obstructive pulmonary disease): Total Time Total Time Spent Total Time Spent (In Minutes): As per attending attestation. Discharge Plan Discharge Items Patient Disposition: Transfer Inpatient Rehab Fac Reason For Visit: HYPERGLYCEMIA Discharge Diagnosis: Diabetic ketoacidosis, weakness with fall Activity: As commented below Activity Comment: As tolerated. Non-emergency contact: Primary Care Provider Call non-emergency contact if: you have any medication questions Follow-up/Referrals: Sheila Baldwin DO [Primary Care Provider] - Diet: Carb Consistent or DM2 Addtl Attending Provider Instructions: Pt is a 87 yo female with a past medical history of uncontrolled DMT2 not on any medications outpatient, HTN, COPD, and dementia who presented to the hospital on 05/29/23 for DKA, fall, and AMS. Pt has remained stable, sugars have been stable on 10 units daily lantus + SSI (range 110-160, correction factor 15, carb ratio 5), goal is not perfect HA1c but keeping pt safely out of DKA range, so this regime can be loosened. Ideally, she would be on a once daily lantus only. Potassium level needs to be monitored as with the initiation of insulin, pt gets hypokalemic (as expected). Will maintain her on 40 mEq of K+ daily but monitor. Pt also started on losartan 12.5mg for BP control, which has been well tolerated. Recommend continuing. Pt is incontinent of urine so we will send to [facility] with sutton, but ideally if pt gets stronger and able to transfer more safely it should be pulled to reduce future risk of infection. New meds: - losartan 12.5 mg daily - potassium chloride 40 mEq daily - lantus 10 units qam - Insulin aspart (BG range 110-160, CF 15, CR 5) - recommended Diabetic ketoacidosis - on admit glucose 718, potassium 3.4, anion gap 16 - HA1c was 11.9% on admission - was on insulin drip initially until AG closed, then started on lantus and SSI, glycemic consult to pharmacy - potassium 3.2, so will do TID repletion today with check tomorrow - suggest continue insulin regime for outpatient, likely benefit most from just daily lantus to keep her sugars under better control, goal would not be ideal control but HA1c <10% would be hopefully enough to avoid another incidence of DKA - pt given 10 units lantus + SSI and sugars acceptable if not better than necessarily desired, Fall - appears to be a mechanical fall/due to deconditioning/weakness - CT head A/P cervical spine negative, CXR, hip/pelvis, CT abd all negative for signs of injury - brain MRI pending - PT/OT eval; recommending rehab Hypokalemia - noted to have hypokalemia yesterday which was repleted with 40 mEq po K TID yesterday - several incidences of hypokalemia likely related to initiation of insulin during this admission when pt is insulin naive and the intracellular shift of potassium secondary to insulin - will do 40 mEq of insulin daily for her, K+ stable today HTN, uncontrolled - BP here has been high, permissible at first before straying into 190-200s systolic - continue home chlorthalidone - BPs have improved, continue losartan but at a lower dose Trop elevated - trop 47, 62, now downtrending - suspect likely exertional ischemia JENNIFER on CKD - creat 1.6 today - continue to monitor - UA consistent with DKA, urine culture pending, negative so far COPD -continue Dulera Depression -continue sertraline Dementia -continue donepezil and memantine -continue Seroquel HS HLD -continue atorvastatin DVT PPX: SCDs Pending Studies at Discharge: No Stand-Alone Forms: My [facility] Skilled Items Patient informed of condition?: Yes DNR: Yes Discharge Level of Care: Acute rehab Communicable Disease: No Discharge Prognosis: Stable Lines: None Urinary Catheter: Yes Medications and DC Order Prescriptions: New insulin glargine [Lantus U-100 Insulin] 100 unit/mL Solution 10 unit SC QAM Qty: 10 2RF potassium chloride 20 mEq Tablet,Er Particles/Crystals 40 meq PO QAM Qty: 30 1RF losartan 25 mg Tablet 12.5 mg PO QAM Qty: 30 3RF Continued atorvastatin 40 mg tablet 40 mg PO QAM multivitamin with minerals Tablet 1 tab PO BID chlorthalidone 25 mg Tablet 25 mg PO DAILY sertraline 50 mg tablet 50 mg PO DAILY Dulera 100-5 mcg/actuation HFA aerosol inhaler 2 puff INHALATION DAILY memantine 10 mg tablet 10 mg PO DAILY donepezil 10 mg tablet 10 mg PO HS quetiapine 25 mg tablet 12.5 mg PO HS albuterol sulfate 2.5 mg /3 mL (0.083 %) Solution For Nebulization 2.5 mg INHALATION DIRECTED PRN (Reason: Shortness Of Breath Or Wheezing) cyanocobalamin (vitamin B-12) [Vitamin B-12] 1,000 mcg Tablet 1,000 mcg PO DAILY dexamethasone 4 mg tablet 4 mg PO DIRECTED loratadine [Claritin] 10 mg Tablet 10 mg PO DAILY cholecalciferol (vitamin D3) [Vitamin D3] 125 mcg (5,000 unit) Tablet 5,000 unit PO DAILY Nucala 100 mg Recon Soln 100 mg SUBCUT .[id number] Discharge Orders: Discharge Order (Routine); Ordered 06/03/23 Ordered By: Estella Munson/Other Patient Handouts: High Blood Sugar (Hyperglycemia), Managing Type 2 Diabetes Admission Data Admit Date/Time: 05/29/23 19:46 Attending Provider: Lauren Velásquez Admit Provider: Sheila Baldwin Primary Care Provider: Sheila Baldwin Other Providers: Savage Mckeon Supervising Physician Co-Signing Physician Notes I personally examined the patient and verified seay points of history and exam, discussed case, and agree with decision making and plan documented by Dr. Renae. Improvement of glycemic control on insulin regimen including basal and sliding scale coverage, A1c currently 11.9%, patient will need to maintain follow-up with PCP to improve A1c, she is on an ARB and statin, unfortunately this is difficult in the setting of her advanced dementia. Advised continued monitoring of potassium levels as patient has been requiring supplementation throughout hospitalization. Patient medically stable for discharge to [facility] in [place], thankfully she will be joining her who is also staying there. Resident Activity Tracking Resident Involvement: Resident Care Provided Care Provided: Adult Hospital Medicine
== END 2023-06-03 17:24 | DRG 638 ==
LOC: ED 13:57 → SUATTDRO 19:46 → EDINP 19:46 → 2N 05-30 23:11

== ENCOUNTER 2023-08-28 15:30 | Inpatient (IN) ==
--- NOTE | 2023-08-28 16:13 | Emergency Department Note ---
History of Present Illness General Chief complaint: Illness Time Seen by Provider: 08/28/23 15:47 History of Present Illness 88-year-old female presents emergency department with her daughter who is at bedside who states that on Sunday she tested positive for COVID. Patient's son who is her primary caregiver is also very sick at home with COVID that started on Sunday. Patient has a history of dementia. Patient's had decreased p.o. intake of fever to 100 this morning some increased work of breathing and shortness of breath and generalized weakness. Patient is unable to ambulate due to weakness. Patient's daughter is at bedside states that she cannot handle her at home and cannot lift her at all there is no other complaints such as reported chest pain or significant shortness of breath according to the patient's daughter. Patient has had clear sputum. There are no other mitigating or alleviating factors. Home Medications Medication Instructions Recorded Confirmed Type atorvastatin 40 mg tablet 40 mg PO QAM 08/29/18 05/29/23 History chlorthalidone 25 mg tablet 25 mg PO DAILY 12/21/18 05/29/23 History multivitamin with minerals 1 tab PO BID 12/21/18 05/29/23 History mometasone-formoterol HFA 100 2 puff inhalation DAILY 08/26/20 05/29/23 History mcg-5 mcg/actuation aerosol inhaler (Dulera) sertraline 50 mg tablet 50 mg PO DAILY 08/26/20 05/29/23 History donepezil 10 mg tablet 10 mg PO HS 05/08/22 05/29/23 History memantine 10 mg tablet 10 mg PO DAILY 05/08/22 05/29/23 History albuterol sulfate 2.5 mg/3 mL 2.5 mg inhalation DIRECTED PRN 05/29/23 05/29/23 History (0.083 %) solution for nebulization Shortness Of Breath Or Wheezing cholecalciferol (vitamin D3) 125 5,000 unit PO DAILY 05/29/23 05/29/23 History mcg (5,000 unit) tablet (Vitamin D3) cyanocobalamin (vitamin B-12) 1,000 mcg PO DAILY 05/29/23 05/29/23 History 1,000 mcg tablet (Vitamin B-12) dexamethasone 4 mg tablet 4 mg PO DIRECTED 05/29/23 05/29/23 History loratadine 10 mg tablet (Claritin) 10 mg PO DAILY 05/29/23 05/29/23 History mepolizumab 100 mg subcutaneous 100 mg subcut .[id number] 05/29/23 05/29/23 History solution (Nucala) quetiapine 25 mg tablet 12.5 mg PO HS 05/29/23 05/29/23 History insulin glargine 100 unit/mL (3 15 unit (0.15 mL) subcut QAM #15 mL 06/03/23 Rx mL) subcutaneous pen losartan 25 mg tablet 12.5 mg (1/2 x 25 mg) PO QAM #30 06/03/23 Rx tabs potassium chloride 20 mEq 40 meq (2 x 20 mEq) PO QAM #30 tabs 06/03/23 Rx tablet,extended release(part/cryst) Allergies Allergy/AdvReac Type Severity Reaction Status Date / Time No Known Allergies Allergy Unknown Verified 05/29/23 21:29 Past Med/Surg History Medical History (Updated 08/28/23 @ 17:08 by Rai Newsome DO) Acute dehydration DKA (diabetic ketoacidosis) Fall Cognitive impairment Obesity Diabetes Hypertensive urgency Pneumonia Bronchitis Asthma Surgical History H/O tubal ligation Family History Other Family history non-contributory Social History Smoking Status: Never smoker Second Hand Exposure: No; Do You Dip or Chew Tobacco: No; Hx Alcohol Use: No Hx Substance Use: No Preferred Language: Wolof Communication Ability: Impaired Press Operator Apprentice Required: No Beliefs That Will Affect Care: None marital status: Current Living Situation: Spouse current occupational status: retired current occupation: retired teacher How many Children do You have: 2 Feels Safe at Home: Yes Assistive Devices: Walker Review of Systems Unobtainable due to cognitive status Physical Exam Vital Signs Vital Signs - 24 hr 08/28/23 15:42 08/28/23 15:42 08/28/23 16:04 Temperature 36.9 C Temperature Source Oral Pulse Rate 94 H 94 H Pulse Rate [Apical] 94 H Respiratory Rate 20 20 Respiratory Effort / Characteristics Non-Labored Spontaneous Short of Breath Respiratory Depth Normal Normal Respiratory Pattern Regular Blood Pressure 156/89 H Blood Pressure [Right Arm] 156/89 H Blood Pressure Mean 111 Blood Pressure Mean [Right Arm] 111 Blood Pressure Position Lying Blood Pressure Position [Right Arm] Lying Pulse Oximetry 94 94 Oxygen Delivery Method Room Air Room Air Sepsis Recent Fever Within 48 Hours Yes Sepsis New/Unexplained Change in Mental Status N/A Sepsis Action Taken by Nursing No Action Required 08/28/23 16:19 08/28/23 17:24 Temperature Temperature Source Pulse Rate 90 Pulse Rate [Apical] 84 Respiratory Rate 20 20 Respiratory Effort / Characteristics Non-Labored Accessory Muscle Use Respiratory Depth Normal Respiratory Pattern Regular Blood Pressure Blood Pressure [Right Arm] 156/90 H Blood Pressure Mean Blood Pressure Mean [Right Arm] 112 Blood Pressure Position Blood Pressure Position [Right Arm] Lying Pulse Oximetry 92 95 Oxygen Delivery Method Room Air Room Air Sepsis Recent Fever Within 48 Hours Sepsis New/Unexplained Change in Mental Status Sepsis Action Taken by Nursing GENERAL: Patient is awake alert in no acute distress patient is resting comfortably and showing no signs of anxiety EYES: The conjunctivae are clear. The pupils are round and reactive. EARS, NOSE, MOUTH AND THROAT: The nose is without any evidence of any deformity. Mucous membranes are moist. Tongue is midline. NECK: The neck is nontender and supple. RESPIRATORY: Normal respiratory effort is noted there is no evidence of wheezing rhonchi or rales CARDIOVASCULAR: Regular rate and rhythm noted there no murmurs rubs or gallops normal S1 normal S2. GASTROINTESTINAL: The abdomen is soft. Abdomen is nontender. BACK: No midline tenderness or or step-off noted range of motion in flexion extension as well as rotation no signs of muscle spasm noted MUSCULOSKELETAL/EXTREMITIES: There is no evidence of gross deformity full range of motion is noted in the hips and shoulders. Bilateral lower extremity edema SKIN: There is no obvious evidence of any rash. There are no petechiae, pallor or cyanosis noted. NEUROLOGIC: Patient is awake alert; nonverbal Course Reevaluation(s) Reevaluation #1: Patient was started on IV fluids, p.o. potassium. Time: 17:52 Consultations Consultation #1: Case was discussed with the [facility] hospitalist for admission for COVID and weakness Time: 17:52 Administered Medications Discontinued Medications Sodium Chloride (Nss) 1,000 mls @ 999 mls/hr IV .[id number] ONE Stop: 08/28/23 17:01 Last Infusion: 08/28/23 17:25 Dose: Infused Documented By: Admin: 08/28/23 16:14 Dose: 999 mls/hr Documented By: LIT Potassium Chloride (Potassium Chloride 10 Meq Tabcr) 40 meq PO NOW STA Stop: 08/28/23 16:51 Last Admin: 08/28/23 17:37 Dose: 40 meq Documented By: BRITTANY Medical Decision Making Medical Records Attestation: I reviewed the patient's medical records. Home Medications Current Medication List: was personally reviewed by me Laboratory Data Attestation: I reviewed the patient's lab results. Patient's labs interpreted by me mild hypokalemia, mild hyperglycemia 08/28/23 15:44 08/28/23 15:44 Lab Results 08/28/23 08/28/23 08/28/23 Range/Units 15:44 16:15 17:05 WBC 6.86 (4.8-10.8) K/ul RBC 4.54 (4.20-5.40) M/uL Hgb 12.7 (12.0-16.0) g/dl Hct 38.1 (37.0-47.0) % MCV 83.9 (80.0-100.0) fL MCH 28.0 (25.0-34.0) pg MCHC 33.3 (32.0-36.0) g/dL RDW Std Deviation 44.4 (36.4-46.3) fL RDW Coeff of Shanti 14.7 H (11.5-14.5) % Plt Count 226 (130-400) K/uL MPV 9.2 L (9.4-12.4) fL Immature Gran % (Auto) 0.9 % Neut % (Auto) 74.3 % Lymph % (Auto) 16.9 % [place] % (Auto) 7.0 % Eos % (Auto) 0.0 % Baso % (Auto) 0.9 % Neut # (Auto) 5.10 (1.40-6.50) K/uL Lymph # (Auto) 1.16 L (1.20-3.40) K/uL [place] # (Auto) 0.48 (0.11-0.59) K/uL Eos # (Auto) 0.00 (0.00-0.50) K/uL Baso # (Auto) 0.06 (0.00-0.20) K/uL Immature Gran # (Auto) 0.06 (0.01-0.20) K/uL Sodium 137 (136-145) mmol/L Potassium 3.1 L (3.5-5.1) mmol/L Chloride 97 L (98-107) mmol/L Carbon Dioxide 32 (21-32) mmol/L Anion Gap 8 (3-11) BUN 23 (6-23) mg/dl Creatinine 1.22 H (0.6-1.2) mg/dl Est Cr Clr Drug Dosing 36.2 ml/min Est GFR ( Amer) 46.1 ml/min Est GFR (Non-Af Amer) 39.8 ml/min BUN/Creatinine Ratio 18.9 (10-20) Glucose 146 H (70-99(Fasting)) mg/dl Lactate 1.1 (0.4-2.0) mmol/L Calcium 9.2 (8.6-10.3) mg/dl Magnesium 1.8 (1.7-2.4) mg/dl Total Bilirubin 0.6 (0.2-1.0) mg/dl Direct Bilirubin 0.1 (0-0.2) mg/dl AST 17 (13-39) U/L ALT 11 (7-52) U/L Alkaline Phosphatase 87 (34-104) U/L Troponin I High Sens 24.8 H (0-14) pg/ml Total Protein 6.8 (6.0-8.3) gm/dl Albumin 3.7 (3.4-5.0) gm/dl Procalcitonin 0.07 (0-0.5) ng/ml SARS-CoV-2 (PCR) POSITIVE (Negative) Influenza Type A (PCR) Negative (Neg) Influenza Type B (PCR) Negative (Neg) RSV (RT-PCR) Negative (Neg) Imaging Data Attestation: I personally reviewed and interpreted this imaging study as follows: My Impression: Chest x-ray interpreted by me as negative for infiltrate Radiologist's Impression: Chest X-Ray 08/28/23 15:50 XR chest 1V portable CLINICAL HISTORY: Sepsis TECHNIQUE: Single frontal radiograph of the chest was obtained. Comparison: Comparison is made to chest radiograph 05/29/2023 FINDINGS: No lines and tubes are seen. The cardiomediastinal silhouette is normal. The lungs are clear. No evidence of pleural effusion or pneumothorax. IMPRESSION: No acute abnormalities and in particular no radiographic evidence of pneumonia. ACT 112: Negative or not required by law. Electronically signed by: Peter Bosch M.D. 08/28/2023 4:13 PM ECG Data Attestation: I personally reviewed and interpreted this ECG as follows: MDM Narrative Medical decision making differential diagnosis includes COVID, pneumonia, electrolyte disturbance, dehydration, viral syndrome, failure to thrive Plan is to check sepsis labs, give IV fluids, respiratory swab Patient's daughter at bedside provide me history of the patient having COVID and history of dementia he is unable to take care of her at home as her son is also positive with COVID and is the primary caregiver to the mother. Patient was started on IV fluids, given p.o. potassium. Patient is COVID- positive. Patient has significant weakness but no signs of severe sepsis at this time. According to the family the patient is unable to be cared for at home and daughter is unable to take care of her as the son of the patient is also violently sick according to them at home with COVID and he is the primary caregiver. Case will be discussed with the [facility] hospitalist for admission Impression & Plan COVID-19, Weakness, Acute hypokalemia Discharge Plan Visit Data Chief Complaint: Illness ED Provider: Rai Newsome Discharge Problem: COVID-19, Weakness, Acute hypokalemia Patient Disposition: Admitted As Inpatient Forms Stand Alone Forms: My [facility] Prescriptions Prescriptions: No Action atorvastatin 40 mg tablet 40 mg PO QAM multivitamin with minerals Tablet 1 tab PO BID chlorthalidone 25 mg Tablet 25 mg PO DAILY sertraline 50 mg tablet 50 mg PO DAILY Dulera 100-5 mcg/actuation HFA aerosol inhaler 2 puff INHALATION DAILY memantine 10 mg tablet 10 mg PO DAILY donepezil 10 mg tablet 10 mg PO HS quetiapine 25 mg tablet 12.5 mg PO HS albuterol sulfate 2.5 mg /3 mL (0.083 %) Solution For Nebulization 2.5 mg INHALATION DIRECTED PRN (Reason: Shortness Of Breath Or Wheezing) cyanocobalamin (vitamin B-12) [Vitamin B-12] 1,000 mcg Tablet 1,000 mcg PO DAILY dexamethasone 4 mg tablet 4 mg PO DIRECTED loratadine [Claritin] 10 mg Tablet 10 mg PO DAILY cholecalciferol (vitamin D3) [Vitamin D3] 125 mcg (5,000 unit) Tablet 5,000 unit PO DAILY Nucala 100 mg Recon Soln 100 mg SUBCUT .[id number] potassium chloride 20 mEq Tablet,Er Particles/Crystals 40 meq PO QAM Qty: 30 1RF losartan 25 mg Tablet 12.5 mg PO QAM Qty: 30 3RF insulin glargine 100 unit/mL (3 mL) insulin pen 15 unit subcut QAM Qty: 15 3RF Referrals Referrals: Sheila Baldwin DO [Primary Care Provider] -
[2023-08-28] MEDS: SODIUM CHLORIDE 0.9% 1,000 ML IV ONE (16:14)
[2023-08-28 16:23] LABS: Basophils # (auto) 0.06 K/uL (0.00-0.20); Basophils % (auto) 0.9 %; Hematocrit (blood only) 38.1 % (37.0-47.0); Hemoglobin 12.7 g/dl (12.0-16.0); Immature Granulocytes # (auto) 0.06 K/uL (0.01-0.20); Immature Granulocytes % (auto) 0.9 %; Lymphocytes # (auto) 1.16 K/uL (1.20-3.40); Lymphocytes % (auto) 16.9 %; Mean Corpuscular Hgb Conc 33.3 g/dL (32.0-36.0); Mean Corpuscular Volume 83.9 fL (80.0-100.0); Mean Platelet Volume 9.2 fL (9.4-12.4); Monocytes # (auto) 0.48 K/uL (0.11-0.59); Neutrophils % (auto) 74.3 %; Platelet Count 226 K/uL (130-400); RDW Coefficient of Variation 14.7 % (11.5-14.5); RDW Standard Deviation 44.4 fL (36.4-46.3); Red Blood Count 4.54 M/uL (4.20-5.40); White Blood Count 6.86 K/ul (4.8-10.8)
[2023-08-28 16:40] LABS: Albumin Level 3.7 gm/dl (3.4-5.0); BUN Creatinine Ratio 18.9 (10-20); Bilirubin Direct 0.1 mg/dl (0-0.2); Bilirubin,Total 0.6 mg/dl (0.2-1.0); Calcium 9.2 mg/dl (8.6-10.3); Creatinine Clr Calc Pharmacy 36.2 ml/min; Est GFR (African American) 46.1 ml/min; Est GFR (Non-African American) 39.8 ml/min; Magnesium 1.8 mg/dl (1.7-2.4); Potassium 3.1 mmol/L (3.5-5.1); Total Protein 6.8 gm/dl (6.0-8.3)
[2023-08-28 16:46] LABS: Troponin I High Sensitivity 24.8 pg/ml (0-14)
[2023-08-28 17:03] LABS: Influenza A virus by PCR Negative (Neg); Influenza B virus by PCR Negative (Neg); RSV by PCR Negative (Neg); SARS CoV2 RNA(COVID-19) Ceph POSITIVE (Negative)
[2023-08-28] MEDS: POTASSIUM CHLORIDE 10 MEQ TABCR PO STA (17:37)
--- NOTE | 2023-08-28 19:51 | History & Physical Report ---
Date of Service August 28, 2023 Assessment & Plan (1) COVID-19: Plan: No hypoxia to suggest need for steroids Discussed Paxlovid with her daughter and she would like to start this (renal dosing sent to pharmacy and daughter will bring in) PT/OT (2) Asthma exacerbation: Plan: Duonbes, formoterol\budesonide NEB Discussed systemic steroids with her daughter and elected to hold off for now as significantly improved with IV fluids only since coming to the ER and diabetes will be much harder to control. (3) Right leg swelling: Plan: US venous doppler (4) Acute hypokalemia: Plan: On admission: magnesium 1.8, Potassium 3.1 Replace with 40 mEq KCl p.o. Holding chlorthalidone due to dehydration Repeat with a.m. labs (5) Weakness: (6) Dementia: Plan: Continue donepezil and memantine Adderall ER QAM - reportedly this has helped tremendously with her night and day cycles Monitor for delirium (7) Eosinophilic asthma: Plan: Switch inhalers to formoterol/budesonide nebulizers BID On Nucala as outpatient (8) Diabetes: Plan: HbA1C 11.9 in May, repeat with AM labs Continue Lantus 28 units daily Novolog: --Goal BSG Range: Low 140 mg/dL, High 180 mg/dL --Correction Factor: 45 mg/dL/unit --Carbohydrate ratio = 15 g/unit --BSGs ACHS if eating, q6h if npo (9) HTN (hypertension): Plan: Hold chlorthalidone due to dehydration Continue losartan Plan VTE Prophylaxis - Heparin 5000 units SQ BID Diet - T2DM Disposition - admit to med/surg Admission and Anticipated Discharge Date Admission Date: August 28, 2023 History of Present Illness Chief Complaint: Generalized weakness Primary Care Provider: Sheila Baldwin DO Stephanie Lomeli is an 88 year old female with dementia and eosinophilic asthma who presents to the ER with generalized weakness, shortness of breath. Patient unable to give any history due to dementia. History taken from her daughter at bedside. She lives with her son who was diagnosed with COVID. The patient has symptoms for the last 2 days with increased weakness, shortness of breath and tired all the time. No cough, nasal congestion, nausea, vomiting, abdominal pain, diarrhea, urinary symptoms. The patient has severe eosinophilic asthma treated with Nucala once a month. Reportedly steroids have not been effective for exacerbations in the past. Allergies Allergy/AdvReac Type Severity Reaction Status Date / Time No Known Allergies Allergy Unknown Verified 08/28/23 18:11 Home Medications Medication Instructions Recorded Confirmed Type atorvastatin 40 mg tablet 40 mg PO QAM 08/29/18 08/28/23 History chlorthalidone 25 mg tablet 25 mg PO DAILY 12/21/18 08/28/23 History multivitamin with minerals 1 tab PO BID 12/21/18 08/28/23 History mometasone-formoterol HFA 100 2 puff inhalation DAILY 08/26/20 08/28/23 History mcg-5 mcg/actuation aerosol inhaler (Dulera) sertraline 50 mg tablet 50 mg PO DAILY 08/26/20 08/28/23 History donepezil 10 mg tablet 10 mg PO HS 05/08/22 08/28/23 History memantine 10 mg tablet 10 mg PO DAILY 05/08/22 08/28/23 History albuterol sulfate 2.5 mg/3 mL 2.5 mg inhalation DIRECTED PRN 05/29/23 08/28/23 History (0.083 %) solution for nebulization Shortness Of Breath Or Wheezing cholecalciferol (vitamin D3) 125 5,000 unit PO DAILY 05/29/23 08/28/23 History mcg (5,000 unit) tablet (Vitamin D3) cyanocobalamin (vitamin B-12) 1,000 mcg PO DAILY 05/29/23 08/28/23 History 1,000 mcg tablet (Vitamin B-12) dexamethasone 4 mg tablet 4 mg PO DIRECTED 05/29/23 08/28/23 History loratadine 10 mg tablet (Claritin) 10 mg PO DAILY 05/29/23 08/28/23 History mepolizumab 100 mg subcutaneous 100 mg subcut .[id number] 05/29/23 08/28/23 History solution (Nucala) losartan 25 mg tablet 12.5 mg (1/2 x 25 mg) PO QAM #30 06/03/23 08/28/23 Rx tabs potassium chloride 20 mEq 40 meq (2 x 20 mEq) PO QAM #30 tabs 06/03/23 08/28/23 Rx tablet,extended release(part/cryst) bromocriptine 5 mg capsule 5 mg PO BID 08/28/23 08/28/23 History dextroamphetamine-amphetamine ER 15 mg PO DAILY 08/28/23 08/28/23 History 15 mg 24hr capsule,extend release docusate sodium 100 mg capsule 100 mg PO DAILY 08/28/23 08/28/23 History (Colace) insulin glargine 100 unit/mL (3 28 unit subcut QAM 08/28/23 08/28/23 History mL) subcutaneous pen (Lantus Solostar U-100 Insulin) mometasone-formoterol HFA 100 2 inh inhalation DAILY 08/28/23 08/28/23 History mcg-5 mcg/actuation aerosol inhaler (Dulera) nirmatrelvir 150 mg-ritonavir 100 See Rx Instructions PO .COMPLEX 08/28/23 Rx mg tablets in a dose pack #20 ea (Paxlovid) Past Med/Surg History Medical History (Updated 08/29/23 @ 02:07 by Josep Montero MD) Acute dehydration DKA (diabetic ketoacidosis) Fall Cognitive impairment Obesity Diabetes Hypertensive urgency Pneumonia Bronchitis Asthma Surgical History H/O tubal ligation Family History Other Family history non-contributory Social History Smoking Status: Never smoker Second Hand Exposure: No; Do You Dip or Chew Tobacco: No; Hx Alcohol Use: No Hx Substance Use: No Preferred Language: Kazakh Communication Ability: Effective Communication Ability Comment: Dementia Flatbed Driver Required: No Beliefs That Will Affect Care: None marital status: Current Living Situation: Family current occupational status: retired current occupation: retired teacher How many Children do You have: 2 Feels Safe at Home: Yes Assistive Devices: Walker Review of Systems Review of Systems: All systems reviewed & are unremarkable except as noted in HPI & below Physical Exam Constitutional: WD/WN, vitals as above Eyes: + anicteric sclerae; normal pupil size ENMT: Mouth: + dry oral mucous membranes Respiratory: normal respiratory effort; no respiratory distress Auscultation: + wheezes (expirator); breath sounds present, no diminished lung sounds, no crackles, no rales and no rhonchi Cardiovascular: RRR, no murmur, no edema Gastrointestinal (Abdomen): normal bowel sounds, soft, nontender, no hepatosplenomegaly Skin: no rashes, warm and dry Neurologic: moves all extremities and awake; not confused Results & Data Results & Data Vital Signs (Past 12 Hours) Vital Signs Temp Pulse Pulse Resp BP BP Pulse Ox 08/28/23 19:29 08/28/23 19:18 84 20 174/103 H 94 08/28/23 17:24 84 20 156/90 H 95 08/28/23 16:19 90 20 92 08/28/23 16:04 94 H 08/28/23 15:42 94 H 20 156/89 H 94 08/28/23 15:42 36.9 C 94 H 20 156/89 H 94 O2 Del Method 08/28/23 19:29 Room Air 08/28/23 19:18 Room Air 08/28/23 17:24 Room Air 08/28/23 16:19 Room Air 08/28/23 16:04 08/28/23 15:42 Room Air 08/28/23 15:42 Room Air Laboratory Results Abnormal lab results 08/28/23 08/28/23 Range/Units 15:44 17:44 RDW Coeff of Shanti 14.7 H (11.5-14.5) % MPV 9.2 L (9.4-12.4) fL Lymph # (Auto) 1.16 L (1.20-3.40) K/uL Potassium 3.1 L (3.5-5.1) mmol/L Chloride 97 L (98-107) mmol/L Creatinine 1.22 H (0.6-1.2) mg/dl Glucose 146 H (70-99(Fasting)) mg/dl Troponin I High Sens 24.8 H 24.1 H (0-14) pg/ml Diagnostic Findings XR chest 1V portable CLINICAL HISTORY: Sepsis TECHNIQUE: Single frontal radiograph of the chest was obtained. Comparison: Comparison is made to chest radiograph 05/29/2023 FINDINGS: No lines and tubes are seen. The cardiomediastinal silhouette is normal. The lungs are clear. No evidence of pleural effusion or pneumothorax. IMPRESSION: No acute abnormalities and in particular no radiographic evidence of pneumonia. Medications Administered ER Medications Given: Normal saline 1000ml bolus Potassium chloride 40 meq PO Code Status & VTE Plan Code Status DNR/DNI VTE Prophylaxis Plan VTE Prophylaxis will be ordered: Yes PG Care Time/CCT Total # of Minutes Spent Total Time Spent with Patient: Total time spent is greater than 50% in coordination of care (as documented) at patient's floor/unit and/or counseling patient: Coding Level of Care Code 98090 INT INP/OBS CARE 3/75MIN Diagnoses COVID-19 U07.1 Asthma exacerbation J45.901 Right leg swelling M79.89 Acute hypokalemia E87.6 Weakness R53.1 Dementia F03.90 Dementia behavioral or psychological symptom: unspecified whether behavioral, psychotic, or mood disturbance or anxiety Dementia severity: unspecified severity Dementia type: unspecified type Eosinophilic asthma J82.83 Diabetes E11.9 HTN (hypertension) I10 (6) Dementia Dementia behavioral or psychological symptom: unspecified whether behavioral, psychotic, or mood disturbance or anxiety Dementia severity: unspecified severity Dementia type: unspecified type Qualified Code(s): F03.90 - Unspecified dementia, unspecified severity, without behavioral disturbance, psychotic disturbance, mood disturbance, and anxiety
[2023-08-28] MEDS ORDERED: GLUCAGON FOR INJ 1 MG VIAL SQ PRN (20:46)
[2023-08-28] MEDS ORDERED: GLUCOSE 10 TAB/TUBE PO PRN (20:46)
[2023-08-28] MEDS ORDERED: DEXTROSE 50% 50 ML SYRINGE IV PRN (20:46)
[2023-08-28] MEDS ORDERED: CARBOHYDRATES FOR HYPOGLYCEMIA PO PRN (20:46)
[2023-08-28] MEDS ORDERED: GLUCOSE 40% GEL 15 GM TUBE PO PRN (20:46)
[2023-08-28] MEDS: BUDESONIDE 0.5 MG/2 ML VIAL (PULMICORT) NEB SCH (21:10)
[2023-08-28] MEDS: FORMOTEROL 20 MCG/2 ML VIAL NEB SCH (21:10)
[2023-08-28] MEDS: INSULIN ASPART PER UNIT CHARGE SC SCH (21:15)
[2023-08-28] MEDS: BROMOCRIPTINE MESYLATE 2.5 MG TAB PO SCH (21:50)
[2023-08-28] MEDS: DONEPEZIL HCL 10 MG TAB PO SCH (21:50)
[2023-08-28] MEDS: ALBUT/IPRATROP 3MG/0.5MG NEB 3 ML VIAL NEB SCH (23:27)
[2023-08-28] MEDS: LACTATED RINGER'S 1,000 ML IV SCH (23:39)
[2023-08-28] MEDS: HEPARIN SOD 5,000 UNIT/0.5 ML VIAL SQ SCH (23:40)
--- NOTE | 2023-08-29 06:43 | Ultrasound Report ---
ULTRASOUND RIGHT LOWER EXTREMITY VENOUS CLINICAL HISTORY: Right leg swelling. Covid. COMPARISON STUDY: No priors. TECHNIQUE: Portable real-time grayscale and color Doppler sonography of the deep veins of the right l ower extremity was performed from the inguinal crease to the calf. Compression and augmentation were utilized. FINDINGS: There is no sonographic evidence of deep venous thrombosis identified in the right lower ex tremity. The common femoral, superficial femoral, and popliteal veins are patent and normally jenelle sible. The greater saphenous vein and the profunda femoris vein at the junction with the common femor al vein are clear. The visualized calf veins are patent. IMPRESSION: There is no sonographic evidence of deep venous thrombosis identified in the right lower extremity. ACT 112: Negative or not required by law. Electronically signed by: Bryant Cr M.D. 08/29/2023 6:40 AM
--- OUTSIDE RECORDS SUMMARY | 2023-08-29 07:43 | External Medical Summary | Continuity of Care Document ---
Author Name Unknown Organization [address] [place] [phone] Care Team Providers Care Prison Teacher Name Role Phone Amy Lafleur Primary Care Physician [phone] [facility]counter [facility] [id number] Date(s): 07/20/23 - 07/20/23 [facility] 0 [facility] 207 [facility] [address] [address] [phone] Encounter Diagnosis Hospital discharge follow-up(Discharge Diagnosis) - 07/20/23 Chronic pulmonary disease(Discharge Diagnosis) - 07/20/23 Cognitive impairment(Discharge Diagnosis) - 07/20/23 Diabetes(Discharge Diagnosis) - 07/20/23 Hyperlipidemia(Discharge Diagnosis) - 07/20/23 Hypertension(Discharge Diagnosis) - 07/20/23 Urinary incontinence(Discharge Diagnosis) - 07/20/23 Hypokalemia(Discharge Diagnosis) - 07/20/23 Tremor(Discharge Diagnosis) - 07/20/23 Eosinophilic asthma(Discharge Diagnosis) - 07/20/23 Discharge Disposition: Home or Self Care Attending Physician: MD Babar, [place] Allergies, Adverse Reactions, Alerts No Known Medication Allergies Assessment and Plan Extracted from: Title:Office Visit Note Author:DO Baldwin Audrey Date:07/20/23 1.Hospital discharge follo w-up Reviewed hospital records, medical decision making, labs, medication changes, specialist recommendations. 2.Chronic pulmonary disease Will continue Dulera at this time, patient has difficulty with powder administration of Breo Ellipta. Will send refill of Nucala as well for eosinophilic asthma, unsure which pharmacy this was previously sent to as [facility] is unable to fill it. 3.Cognitive impairment Continue memantine donepazil Seroquel discontinued due to increased sedation patient was started on adderall with some benefit increased alertness during daytime, no concerns with appetite or sleep, is more interactive, will continue this medication at this time. Was started on bromocriptine for tremor with some improvement, will continue this medication at this time. Noted further cognitive decline increased assistance/guidance needed with ADLs with some slow progressive weakness that may be due to worsening dementia. Previous caregiver Husbandrecently had decrease in physical ability and unable to care for her, son Rai is living and caring for her with nursing assistance however he also has multiple chronic medical conditions. [facility]Sent care management consult to assist family with searching for nursing homes/ assisted living, Daughter states if things were to continue to progress she and her brother would not be able to continue care for her at home Will f/u in 3 months 4.Diabetes Patient originally on metformin was having diarrhea nausea appetite loss so was discontinued, unfortunately patient became hyperglycemic, with recent hospitalization was started on lantus 34U daily and bromocriptine. Patient has had at least 1 episode of hypoglycemia corrected with orange juice. BSG 70-100. Discussed with daughter tight glycemic control is not necessary at this time, will decrease lantus to 28U daily, continue to trend BSG 5.Hyperlipidemia continue rosuvastatin 6.Hypertension May continue chlorthalidone and losartan at this time given recent hypertension, patient tolerating medication well 7.Urinary incontinence Using depends, scheduled bathroom visits. Patient still ambulatory enough to use bathroom Immunizations Given and Recorded Vaccine Date Status Refusal Reason influenza virus vaccine, inactivated 04/19/23 Give n influenza virus vaccine, inactivated 03/29/17 Give n influenza virus vaccine, inactivated 1 05/24/16 Re corded SARS-CoV-2 mRNA (Pfizer 12+) bivalent 2 02/17/22 R ecorded SARS-CoV-2 (COVID-19) mRNA-1273 vaccine 3 08/13/20 Recorded SARS-CoV-2 (COVID-19) mRNA-1273 vaccine 4 07/16/20 Recorded tetanus/diphtheria/pertuss, acel (Tdap) 03/29/17 G iven pneumococcal 13-valent vaccine 5 05/24/16 Recorded tetanus toxoids-diphtheria, Td (Adult) 6 02/20/03 Recorded tetanus toxoids-diphtheria, Td (Adult) 7 01/02/93 Recorded pneumococcal 23-valent vaccine 8 04/11/01 Recorded 1Result Comment: 2017-03-07: Historical information-source unspecified 2Result Comment: 2022-03-28: Historical information-source unspecified 3Result Comment: 2020-10-18: Historical information-source unspecified 4Result Comment: 2020-10-18: Historical information-source unspecified 5Result Comment: 2017-03-07: Historical information-source unspecified 6Result Comment: 2017-03-07: Historical information-source unspecified 7Result Comment: 2017-03-07: Historical information-source unspecified 8Result Comment: 2017-03-07: Historical information-source unspecified Medications albuterol 0.083% for nebulization Start: 04/29/21 16:38:00 EST, 6 mL, inhaled, q6h, Disp# 2,160 mL, Refills: 3, dx reactive airway disease, eosinophilic lung disease, Note to Pharmacy: diagnosis J45.909, PRN: as needed for wheezing, Pharmacy: [facility] Start Date: 04/29/21 Status: Ordered amphetamine-dextroamphetamine 15 mg oral capsule, extended release Start: 07/20/23 15:24:00 EST, 15 mg =, PO, qAM, Disp# 30 tab, Refills: 0, [facility] Start Date: 07/20/23 Stop Date: 08/19/23 Status: Ordered atorvastatin 40 mg oral tablet Start: 03/01/23 16:49:00 EDT, See Instructions, Disp# 90 tab, Refills: 4, TAKE 1 TABLET BY MOUTH DAILY, [facility] Start Date: 03/01/23 Status: Ordered bromocriptine 5 mg oral capsule Start: 07/20/23 14:26:00 EST, 1 cap, PO, bid, Disp# 60 cap, Refills: 3, Pharmacy: [facility] Start Date: 07/20/23 Stop Date: 11/17/23 Status: Ordered chlorthalidone 25 mg oral tablet Start: 04/05/23 16:47:00 EDT, 1 tab, PO, Daily, Disp# 90 tab, Refills: 4, Pharmacy: [facility] Start Date: 04/05/23 Status: Ordered Colace Start: 06/06/22 14:06:00 EST Start Date: 06/06/22 Status: Ordered dexAMETHasone 4 mg oral tablet Start: 04/05/23 16:47:00 EDT, 5 tab, PO, qmonth (30 days), Disp# 5 tab, Refills: 6, Pharmacy: [facility] [id number] Start Date: 04/05/23 Status: Ordered donepezil 10 mg oral tablet Start: 07/20/23 14:27:00 EST, 1 tab, PO, Daily, Disp# 30 tab, Refills: 2, Pharmacy: [facility] [id number] Start Date: 07/20/23 Stop Date: 10/18/23 Status: Ordered Dulera 100 mcg-5 mcg/inh inhalation aerosol Start: 07/20/23 14:29:00 EST, 2 puff, inhaled, Daily, Disp# 13 g, Refills: 3, Pharmacy: [facility] [id number] Start Date: 07/20/23 Stop Date: 11/17/23 Status: Ordered Lantus Solostar Pen 100 units/mL subcutaneous solution Start: 07/20/23 15:13:00 EST, 28 unit =, subQ, Daily, Disp# 15 mL, Refills: 2, administer in the morning. If blood sugar under 70, give orange juice, Pharmacy: [facility] [id number] Start Date: 07/20/23 Stop Date: 10/18/23 Status: Ordered loratadine 10 mg oral tablet Start: 12/27/21 13:59:00 EDT Start Date: 12/27/21 Status: Ordered losartan 25 mg oral tablet Start: 07/20/23 14:25:00 EST, 1 tab, PO, Daily, Disp# 30 tab, Refills: 3, Pharmacy: [facility] [id number] Start Date: 07/20/23 Stop Date: 11/17/23 Status: Ordered memantine 10 mg oral tablet Start: 07/20/23 14:30:00 EST, 0.5 tab, PO, Daily, Disp# 30 tab, Refills: 3, Take half a tab daily, may increase to 1 tab daily in 2 wks on 07/11/21, Note to Pharmacy: Take half a tab daily, may increase to 1 tab daily in 2 wks on 07/11/21, [facility]: [facility] Start Date: 07/20/23 Stop Date: 11/17/23 Status: Ordered Nucala 100 mg subcutaneous injection Start: 07/20/23 14:32:00 EST, 100 mg =, subQ, [id number], Disp# 30 each, Refills: 1, [facility] Start Date: 07/20/23 Stop Date: 01/04/24 Status: Ordered potassium chloride 10 mEq oral capsule, extended release Start: 07/20/23 14:22:00 EST, 2 cap, PO, bid, Disp# 120 cap, Refills: 2, Pharmacy: [id number] Start Date: 07/20/23 Stop Date: 10/18/23 Status: Ordered PreserVision Start: 04/06/17 10:12:00, 1 tab, PO, bid Start Date: 04/06/17 Status: Ordered sertraline 50 mg oral tablet Start: 07/20/23 14:31:00 EST, 1 tab, PO, Daily, Disp# 90 tab, Refills: 1, Pharmacy: [facility] Start Date: 07/20/23 Status: Ordered Vitamin B12 1000 mcg oral tablet Start: 12/27/21 14:00:00 EDT, 1 tab, PO, Daily Start Date: 12/27/21 Status: Ordered Vitamin D3 5000 intl units (125 mcg) oral tablet Start: 12/27/21 14:02:00 EDT Start Date: 12/27/21 Status: Ordered Mental Status 07/20/23 Barriers to Learning one year None evide nt Mandatory Health Literacy Documentation Yes Health Literacy Communication Barriers N ever Primary Language Romanian Problem List Condition Confirmation Course Effective Dates [...] Diagnosis Diagnosis Type Effective Dates Health Status Clinical Service Informant Diabetes Discharge Diagnosis 07/20/23 Hypertension Discharge Diagnosis 07/20/23 Hospital discharge follow-up Discharge Diagnosis 07/20/23 Chronic pulmonary disease Discharge Diagnosis 07/20/23 Cognitive impairment Discharge Diagnosis 07/20/23 Hyperlipidemia Discharge Diagnosis 07/20/23 Urinary incontinence Discharge Diagnosis 07/20/23 Tremor Discharge Diagnosis 07/20/23 Non-Specified Hypokalemia Discharge Diagnosis 07/20/23 Non-Specified Eosinophilic asthma Discharge Diagnosis 07/20/23 Non-Specified Procedures Procedure Date Related Diagnosis Body Site [...] Most recent to oldest [Reference Range]: 1 Temperature [36.5-37.9 DegC] 36.6 DegC (07/20/23 1:54 PM) Blood Pressure 138/76mmHg (07/20/23 1:54 PM) Cuff Pulse Pressure 62 mmHg (07/20/23 1:54 PM) BP Location # 1 Left Arm, Other: (07/20/23 1:54 PM) Social History Social History Type Response Smoking Status Never smoked cigaret meri Sex Female FCM Outpt Note * DO Baldwin Audrey: PERFORM MD Babar, [place]: MODIFY Event Display: FCM Outpt Note Authored Date: [id number] Chief Complaint Here for hospital admission f/u. History of Present Illness 88yo Female here for hospital f/u, was in [facility] 05/29/23-06/03/23 for weakness AMS 2/2 hyperglycemia also recently had fall brain bleed DM2 In hospital recommended starting lantus 10U daily -glucose 75-110 family gives orange juice if too low HTN hospital recommended starting losartan 12.5mg -continue chlorthalidone HLD continue rosuvastatin Urinary Incontinence -was sent to rehab with a sutton, was removed -family encouraging scheduled bathroom with depends Weakness -was sent to inpatient rehab, tolerated well -loosing muscle, not walking as much as she did, getting harder for her. Still ok walking from bathroom to bad, today was struggling -balance is declining -still has some home PT/OT Hypokalemia -hospital recommended starting 40meq K daily -last K level was 3 on 07/09 Depression -continue sertraline COPD -continue dulera -still on nucala Dementia -continue donepizil, memantine -stopped seroquel due to stupor, was started on aderrall, made her more alert throughout the day, only happened once -was started on bromocriptine for tremors, helps -has some difficulty word finding Living situation - recent hospitalization -lives with and son Rai, who has history TIA and balance issues -next door neighbor is PT, can be called for help -personal driver -Rai helping with shower and dressing -lost the home pharmacist critical care, looking for new agency still has PT/OT -Van and nurse helping to sort medications -Van giving insulin Brushing teeth, can feed self, washes hands, needs prompting -Van helps put her in bed -may need to consider assisted living in the future -working on getting med alert Daughter visits weekly -they did buy a portable wheelchair no difficulty swallowing -sleeping well, no longer waking at night Physical Exam Vitals & Measurements T:36.6C BP:138/76 SpO2:97% PHQ2 Data(Data Documented on:07/20/2023 13:52) Emotional health assessment NEGATIVE General: Well appearing age appropriate calm cooperative, in wheel chair Heart: RRR, +S1 S2, systolic murmur Lungs: CTA b/l, no wheezes/rales/rhonchi Extremities: no swelling, no rash HEENT: PERRLA, EOMI, normocephalic atraumatic, Neuro: CN2-12 intact b/l, gait mildly unsteady with support taking small closely spaced steps, equivocal crank test Musculoskeletal: 5/5 strength in upper extremities, difficulty with hip flexion noted, patient has difficulty lifting foot onto wheelchair step Psych: AAOx1, frequently answers 'i don't know' to most questions Assessment/Plan 1.Hospital discharge follow-up Reviewed hospital records, medical decision making, labs, medication changes, specialist recommendations. 2.Chronic pulmonary disease Will continue Dulera at this time, patient has difficulty with powder administration of Breo Ellipta. Will send refill of Nucala as well for eosinophilic asthma, unsure which pharmacy this was previously sent to as [facility] to [facility]. 3.Cognitive impairment Continue memantine donepazil Seroquel discontinued due to increased sedation patient was started on adderall with some benefit increased alertness during daytime, no concerns with appetite or sleep, is more interactive, will continue this medication at this time. Was started on bromocriptine for tremor with some improvement, will continue this medication at this time. Noted further cognitive decline increased assistance/guidance needed with ADLs with some slow progressive weakness that may be due to worsening dementia. Previous caregiver Husbandrecently had decrease in physical ability and unable to care for her, son Rai is living and caring for her with nursing assistance however he also has multiple chronic medical conditions. [facility]Sent care management consult to assist family with searching for nursing homes/ assisted living, Daughter states if things were to continue to progress she and her brother would not be able to continue care for her at home Will f/u in 3 months 4.Diabetes Patient originally on metformin was having diarrhea nausea appetite loss so was discontinued, unfortunately patient became hyperglycemic, with recent hospitalization was started on lantus 34U daily and bromocriptine. Patient has had at least 1 episode of hypoglycemia corrected with orange juice. BSG 70-100. Discussed with daughter tight glycemic control is not necessary at this time, will decrease lantus to 28U daily, continue to trend BSG 5.Hyperlipidemia continue rosuvastatin 6.Hypertension May continue chlorthalidone and losartan at this time given recent hypertension, patient toleratingmedication well 7.Urinary incontinence Using depends, scheduled bathroom visits. Patient still ambulatory enough to use bathroom Attestation Pt seen and examined in concert with Dr. Baldwin, agree with history and physical as documented above.Plan reviewed in detail. Any corrections or additions are noted here Discussed with daughter who's with the patient about polypharmacy, side effects of medication, especially Adderall. Patient is more awake during daytimewhen she takesAdderall, she's more interactive with people around her. Andsleep is better since she's awake mostlyduring the day . This medicine was prescribed when she was in Rehab. Informed daughter that we will continue to prescribe the medication but be aware of the side effects. We will keep her on the same dose. Problem List/Past Medical History Ongoing Chronic pulmonary [...] 6 mL, inhaled, q6h, PRN, 3 refills amphetamine-dextroamphetamine(amphetamine-dextroamphetamine 15 mg oral capsule, extended release), 15 mg, PO, qAM atorvastatin(atorvastatin 40 mg oral tablet), See Instructions, 4 refills bromocriptine(bromocriptine 5 mg oral capsule), 5 mg= 1 cap, PO, bid, 3 refills chlorthalidone(chlorthalidone 25 mg oral tablet), 1 tab, PO, Daily cholecalciferol(Vitamin D3 5000 intl units (125 mcg) oral tablet) cyanocobalamin(Vitamin B12 1000 mcg oral tablet), 1000 mcg= 1 tab, PO, Daily dexAMETHasone(dexAMETHasone 4 mg oral tablet), 5 tab, PO, qmonth (30 days) docusate(Colace) donepezil(donepezil 10 mg oral tablet), 1 tab, PO, Daily, 2 refills formoterol-mometasone(Dulera 100 mcg-5 mcg/inh inhalation aerosol), 2 puff, inhaled, Daily, 3 refills insulin glargine(Lantus Solostar Pen 100 units/mL subcutaneous solution), 28 unit, subQ, Daily, 2 refills loratadine(loratadine 10 mg oral tablet) losartan(losartan 25 mg oral tablet), 25 mg= 1 tab, PO, Daily, 3 refills memantine(memantine 10 mg oral tablet), 5 mg= 0.5 tab, PO, Daily, 3 refills mepolizumab(Nucala 100 mg subcutaneous injection), 100 mg, subQ, [id number], 1 refills multivitamin with minerals(PreserVision), 1 tab, PO, bid potassium chloride(potassium chloride 10 mEq oral capsule, extended release), 20 mEq= 2 cap, PO, bid, 2 refills sertraline(sertraline 50 mg oral tablet), 1 tab, PO, Daily, 1 refills Allergies No Known Medication Allergies Social [...] Status Family Member(s) Immunizations Vaccine Date Status influenza virus vaccine, inactivated 04/19/2023 Given SARS-CoV-2 mRNA (Pfizer 12+) bivalent 02/17/2022 Recorded Comments : 2022-03-28: Historical [...] Health Maintenance Pending(in the next year) OverDue Medicare Annual Wellness Visit due12/27/22and every 1year Diabetes Management A1c due05/10/23and every 366day Due Diabetic Eye Exam due06/14/23and every 731day Adult COVID-19 Vaccination due07/20/23Unknown Frequency Adult Social Determinants of Health Screening due07/20/23Unknown Frequency Falls Plan of Care due07/20/23Unknown Frequency Pneumococcal Vaccine Older Adults due07/20/23One-time only Shingles Vaccine due07/20/23One-time only Due In Future Adult Influenza Vaccine not due until12/02/23and every 1year Body Mass Index not due until04/19/24and every 366day Satisfied(in the past 1 year) Satisfied Adult Influenza Vaccine on04/19/23.Satisfied by GAVIOTA Weiss Cassidy Body Mass Index on04/19/23.Satisfied by GAVIOTA Price Courtney D Electronic Signature on File Electronically Reviewed/Signed by: Sheila Baldwin DO Author Signature Dt/Tm:07/20/2023 04:34 PM Resident Department of Family Medicine Electronically Reviewed/Signed by: Massiel Eckert MD Cosigner Signature Dt/Tm: 07/21/2023 07:15 PM Department of Family Medicine AD Patient Care team information Care Team Personnel Name: MD Ly Jonathan D Position: Physician - Family Med Member Role: Lifetime Relationship Address: Address: [address] [place] [address] [place] Name: DO Renae Amanda Position: Resident Member Role: Lifetime Relationship Address: Address: [address] [place] [address] [place] Name: NILS Lafleur Christina L Position: Physician - Podiatry Member Role: Primary Care Provider Address: Address: [address] [place], [place] [phone] Care Team Related Persons Name: LIANNA CHAUDHRY Address: home [address] [facility] [place] [id number] Name: DEEPTHI CHAUDHRY Address: [place] Address: home [address] [place] [id number]
[2023-08-29] MEDS ORDERED: DEXTROAMPHETAMINE/AMPHETAMINE ER 10 MG CAP PO SCH (09:00)
[2023-08-29] MEDS ORDERED: DEXTROAMPHETAMINE/AMPHETAMINE ER 5 MG CAP PO SCH (09:00)
[2023-08-29] MEDS: LANTUS PER UNIT CHARGE SQ SCH (09:01)
[2023-08-29] MEDS: LOSARTAN POTASSIUM 25 MG TAB PO SCH (09:05)
[2023-08-29] MEDS: MEMANTINE HCL 10 MG TAB PO SCH (09:05)
[2023-08-29] MEDS: SERTRALINE HCL 50 MG TABLET PO SCH (09:06)
[2023-08-29] MEDS: POTASSIUM CHLORIDE CRTAB 20 MEQ TABCR PO SCH (09:06)
[2023-08-29] MEDS: LORATADINE 10 MG TAB PO SCH (09:06)
[2023-08-29] MEDS: DOCUSATE SODIUM 100 MG CAP PO SCH (09:06)
[2023-08-29] MEDS: DEXTROAMPHETAMINE/AMPHETAMINE ER 10 MG CAP PO SCH (09:24)
[2023-08-29] MEDS: DEXTROAMPHETAMINE/AMPHETAMINE ER 5 MG CAP PO SCH (09:24)
[2023-08-29 09:26] LABS: Basophils # (auto) 0.04 K/uL (0.00-0.20); Basophils % (auto) 0.9 %; Eosinophils # (auto) 0.01 K/uL (0.00-0.50); Eosinophils % (auto) 0.2 %; Hematocrit (blood only) 37.6 % (37.0-47.0); Hemoglobin 11.9 g/dl (12.0-16.0); Immature Granulocytes # (auto) 0.05 K/uL (0.01-0.20); Immature Granulocytes % (auto) 1.1 %; Lymphocytes # (auto) 0.76 K/uL (1.20-3.40); Lymphocytes % (auto) 16.7 %; Mean Corpuscular Hemoglobin 27.2 pg (25.0-34.0); Mean Corpuscular Hgb Conc 31.6 g/dL (32.0-36.0); Mean Platelet Volume 9.2 fL (9.4-12.4); Monocytes # (auto) 0.38 K/uL (0.11-0.59); Monocytes % (auto) 8.3 %; Neutrophils # (auto) 3.32 K/uL (1.40-6.50); Neutrophils % (auto) 72.8 %; Platelet Count 196 K/uL (130-400); RDW Coefficient of Variation 14.6 % (11.5-14.5); RDW Standard Deviation 45.8 fL (36.4-46.3); Red Blood Count 4.37 M/uL (4.20-5.40); White Blood Count 4.56 K/ul (4.8-10.8)
[2023-08-29 09:42] LABS: BUN Creatinine Ratio 18.6 (10-20); Calcium 8.5 mg/dl (8.6-10.3); Creatinine Clr Calc Pharmacy 43.4 ml/min; Est GFR (African American) 57.3 ml/min; Est GFR (Non-African American) 49.4 ml/min; Potassium 3.1 mmol/L (3.5-5.1)
[2023-08-29 10:36] LABS: Estimated Average Glucose 126 mg/dl
[2023-08-29] MEDS: POTASSIUM CHLORIDE CRTAB 20 MEQ TABCR PO STA (12:54)
[2023-08-29] MEDS: REMDESIVIR 200 mg: Day 1 IV ONE (13:46)
[2023-08-29] MEDS: PAXLOVID PO SCH (15:08)
--- NOTE | 2023-08-29 15:34 | Hospitalist Progress Note ---
Date of Service August 29, 2023 Assessment & Plan (1) COVID-19: Plan: No hypoxia to suggest need for steroids but does have wheezing-patient family reports that steroids do not work for her in the past Chest x-ray negative for pneumonia, procalcitonin negative, blood cultures no growth Appetite and weakness are both improving with IV fluids and time Continue bronchodilators Continue Paxlovid but will have to hold bromocriptine and Adderall while on it PT/OT recommends rehab versus home with 25/12 care-daughter prefers [facility] his whole family is sick with COVID right now and unable to properly care for her With mildly elevated troponin demand ischemia, no ECG changes (2) Asthma exacerbation: Plan: Continues with wheezing Duonebs, formoterol\budesonide NEB Discussed systemic steroids with her daughter and elected to hold off for now as significantly improved with IV fluids only since coming to the ER and diabetes will be much harder to control. (3) Right leg swelling: Plan: US venous doppler negative No appreciative edema today Holding home chlorthalidone for dehydration and hypokalemia (4) Acute hypokalemia: Plan: On admission: magnesium 1.8, Potassium 3.1-potassium remains low today Continue to replace with 40 mEq KCl p.o. daily and add an extra 20 mill equivalents now Holding chlorthalidone due to dehydration Repeat with a.m. labs (5) Weakness: Plan: Improving, needs rehab (6) Dementia: Plan: Continue donepezil and memantine Adderall ER QAM - reportedly this has helped tremendously with her night and day cycles-holding while on Paxlovid Mentation much improved today as per daughter (7) Eosinophilic asthma: Plan: Switch inhalers to formoterol/budesonide nebulizers BID On Nucala as outpatient (8) Diabetes: Plan: HbA1C 11.9 in May, repeat now down to 6.0% since she has been on insulin at home Continue Lantus and NovoLog (9) HTN (hypertension): Plan: Hold chlorthalidone due to dehydration Continue losartan Plan VTE Prophylaxis - Heparin 5000 units SQ BID Diet - T2DM Disposition -continued stay med/surg, COVID precautions, plan to discharge to [facility] rehab-will ask lining caser to make referral Discussed care with her daughter on the phone on 08/28 Admission and Anticipated Discharge Date Admission Date: August 28, 2023 Subjective Patient feeling better, still coughing but denies shortness of breath, strength is improving, able to walk with hand-held assist short distance to the bathroom. Appetite is improved. Physical Exam Constitutional: WD/WN, vitals as above Respiratory: normal respiratory effort and + cough Auscultation: + wheezes (Bilateral); no crackles and no rhonchi Cardiovascular: RRR, no murmur, no edema Gastrointestinal (Abdomen): normal bowel sounds, soft, nontender, no hepatosplenomegaly Psychiatric: Orientation: alert, oriented to person, oriented to place and cooperative Results & Data Results & Data Vital Signs (Past 12 Hours) Vital Signs Temp Pulse Pulse Resp BP Pulse Ox O2 Del Method 08/29/23 15:12 36.3 C L 84 16 143/69 H 95 Room Air 08/29/23 14:07 87 18 97 Room Air 08/29/23 11:10 81 15 98 Room Air 08/29/23 07:55 36.5 C 82 16 164/81 H 95 Room Air 08/29/23 07:45 Room Air 08/29/23 07:23 76 16 95 Room Air FiO2 08/29/23 15:12 08/29/23 14:07 08/29/23 11:10 21 08/29/23 07:55 08/29/23 07:45 08/29/23 07:23 Laboratory Results CBC, BMP, troponin reviewed PG Care Time/CCT Total # of Minutes Spent Total Time Spent with Patient: Total time spent is greater than 50% in coordination of care (as documented) at patient's floor/unit and/or counseling patient: Coding Level of Care Code 65277 SUB INP/OBS CARE 2/35MIN Diagnoses COVID-19 U07.1 Asthma exacerbation J45.901 Right leg swelling M79.89 Acute hypokalemia E87.6 Weakness R53.1 Dementia F03.90 Dementia behavioral or psychological symptom: unspecified whether behavioral, psychotic, or mood disturbance or anxiety Dementia severity: unspecified severity Dementia type: unspecified type Eosinophilic asthma J82.83 Diabetes E11.9 HTN (hypertension) I10 (6) Dementia Dementia behavioral or psychological symptom: unspecified whether behavioral, psychotic, or mood disturbance or anxiety Dementia severity: unspecified severity Dementia type: unspecified type Qualified Code(s): F03.90 - Unspecified dementia, unspecified severity, without behavioral disturbance, psychotic disturbance, mood disturbance, and anxiety
--- NOTE | 2023-08-29 16:00 | Electrocardiogram Report ---
Test Reason : Blood Pressure : / mmHG Vent. Rate : 091 BPM Atrial Rate : 091 BPM P-R Int : 168 ms QRS Dur : 094 ms QT Int : 360 ms P-R-T Axes : 091 030 063 degrees QTc Int : 442 ms Sinus rhythm with occasional Premature ventricular complexes and Premature atrial complexes Abnormal ECG When compared with ECG of 08-MAY-2022 15:25, Premature ventricular complexes are now Present T wave inversion now evident in Inferior leads Confirmed by Sebastian Briceño ([id number]) on 08/29/2023 4:00:35 PM Referred By: REFERRED SELF Confirmed By:Sebastian Briceño
[2023-08-30 06:41] LABS: Basophils # (auto) 0.03 K/uL (0.00-0.20); Basophils % (auto) 0.6 %; Eosinophils # (auto) 0.05 K/uL (0.00-0.50); Hematocrit (blood only) 35.8 % (37.0-47.0); Hemoglobin 11.9 g/dl (12.0-16.0); Immature Granulocytes # (auto) 0.03 K/uL (0.01-0.20); Immature Granulocytes % (auto) 0.6 %; Lymphocytes # (auto) 1.74 K/uL (1.20-3.40); Lymphocytes % (auto) 34.9 %; Mean Corpuscular Hemoglobin 27.9 pg (25.0-34.0); Mean Corpuscular Hgb Conc 33.2 g/dL (32.0-36.0); Mean Corpuscular Volume 83.8 fL (80.0-100.0); Mean Platelet Volume 9.3 fL (9.4-12.4); Monocytes # (auto) 0.51 K/uL (0.11-0.59); Monocytes % (auto) 10.2 %; Neutrophils # (auto) 2.62 K/uL (1.40-6.50); Neutrophils % (auto) 52.7 %; Platelet Count 193 K/uL (130-400); RDW Coefficient of Variation 14.5 % (11.5-14.5); RDW Standard Deviation 44.2 fL (36.4-46.3); Red Blood Count 4.27 M/uL (4.20-5.40); White Blood Count 4.98 K/ul (4.8-10.8)
[2023-08-30 06:48] LABS: Albumin Globulin Ratio 1.1 (0.9-2); Albumin Level 3.2 gm/dl (3.4-5.0); BUN Creatinine Ratio 23.1 (10-20); Bilirubin,Total 0.4 mg/dl (0.2-1.0); Calcium 8.2 mg/dl (8.6-10.3); Creatinine Clr Calc Pharmacy 42.5 ml/min; Est GFR (African American) 55.9 ml/min; Est GFR (Non-African American) 48.3 ml/min; Magnesium 1.6 mg/dl (1.7-2.4); Potassium 3.3 mmol/L (3.5-5.1); Total Protein 6.2 gm/dl (6.0-8.3)
[2023-08-30] MEDS: ALBUT/IPRATROP 3MG/0.5MG NEB 3 ML VIAL NEB SCH (07:19)
[2023-08-30 07:40] VITALS: BP 161/86; TEMP 97.5
[2023-08-30] MEDS: MAGNESIUM SULFATE / D5W 1 GM/100 ML BAG IV ONE (09:42)
[2023-08-30 11:10] VITALS: PULSE 86; RESP 18; O2SAT 97
[2023-08-30] MEDS ORDERED: REMDESIVIR 100mg: Days 2-5 IV SCH (12:00)
--- NOTE | 2023-08-30 12:57 | Discharge Summary ---
Discharge Summary Date of Service August 30, 2023 Notes For Next Care Provider Medication Changes From Visit paxlovid 2 tabs po bid x 3.5 more days Admission HPI Per Admitting Provider Stephanie Lomeli is an 88 year old female with dementia and eosinophilic asthma who presents to the ER with generalized weakness, shortness of breath. Patient unable to give any history due to dementia. History taken from her daughter at bedside. She lives with her son who was diagnosed with COVID. The patient has symptoms for the last 2 days with increased weakness, shortness of breath and tired all the time. No cough, nasal congestion, nausea, vomiting, abdominal pain, diarrhea, urinary symptoms. The patient has severe eosinophilic asthma treated with Nucala once a month. Reportedly steroids have not been effective for exacerbations in the past. Principal Dx & Hospital Course #1 = Principal Diagnosis (1) COVID-19: No hypoxia to suggest need for steroids but does have wheezing-with concern from family about steroids causing hyperglycemia, not given Chest x-ray negative for pneumonia, procalcitonin negative, blood cultures no growth Appetite and weakness are both improving with IV fluids and time Continue bronchodilators Continue Paxlovid x 5 day course but will have to hold bromocriptine and Adderall while on it PT/OT recommends rehab versus home with 25/12 care-daughter prefers [facility] his whole family is sick with COVID right now and unable to properly care for her With mildly elevated troponin demand ischemia, no ECG changes (2) Asthma exacerbation: Continues with mild wheezing but cough improved Saul Watson continue Discussed systemic steroids with her daughter and elected to hold off for now as significantly improved with IV fluids only since coming to the ER and diabetes will be much harder to control. (3) Right leg swelling: US venous doppler negative No appreciative edema today dcd home chlorthalidone for dehydration and hypokalemia, can now dc poKCl as will be off thiazide (4) Acute hypokalemia: dcd home chlorthalidone for dehydration and hypokalemia, can now dc poKCl as will be off thiazide (5) Weakness: Improving, needs rehab (6) Dementia: Continue donepezil and memantine Adderall ER QAM - reportedly this has helped tremendously with her night and day cycles-holding while on Paxlovid Mentation much improved now (7) Eosinophilic asthma: continue maintenance inhaler, nebs On Nucala as outpatient (8) Diabetes: HbA1C 11.9 in May, repeat now down to 6.0% since she has been on insulin at home Continue Lantus and NovoLog (9) HTN (hypertension): dcd chlorthalidone due to dehydration Continue losartan but may need to increase dose if BPs become more elevated follow after discharge Plan VTE Prophylaxis - Heparin 5000 units SQ BID Diet - T2DM Disposition -dc to [facility] Discharge Exam Constitutional WD/WN, vitals as above Respiratory normal respiratory effort Auscultation: + wheezes (Bilateral); no crackles and no rhonchi Cardiovascular RRR, no murmur, no edema Gastrointestinal (Abdomen) normal bowel sounds, soft, nontender, no hepatosplenomegaly Psychiatric Orientation: alert, oriented to person, oriented to place and cooperative Updated Medication List Medication Instructions Recorded Confirmed Type atorvastatin 40 mg tablet 40 mg PO QAM 08/29/18 08/28/23 History multivitamin with minerals 1 tab PO BID 12/21/18 08/28/23 History mometasone-formoterol HFA 100 2 puff inhalation DAILY 08/26/20 08/28/23 History mcg-5 mcg/actuation aerosol inhaler (Dulera) sertraline 50 mg tablet 50 mg PO DAILY 08/26/20 08/28/23 History donepezil 10 mg tablet 10 mg PO HS 05/08/22 08/28/23 History memantine 10 mg tablet 10 mg PO DAILY 05/08/22 08/28/23 History albuterol sulfate 2.5 mg/3 mL 2.5 mg inhalation DIRECTED PRN 05/29/23 08/28/23 History (0.083 %) solution for nebulization Shortness Of Breath Or Wheezing cholecalciferol (vitamin D3) 125 5,000 unit PO DAILY 05/29/23 08/28/23 History mcg (5,000 unit) tablet (Vitamin D3) cyanocobalamin (vitamin B-12) 1,000 mcg PO DAILY 05/29/23 08/28/23 History 1,000 mcg tablet (Vitamin B-12) loratadine 10 mg tablet (Claritin) 10 mg PO DAILY 05/29/23 08/28/23 History mepolizumab 100 mg subcutaneous 100 mg subcut .[id number] 05/29/23 08/28/23 History solution (Nucala) losartan 25 mg tablet 12.5 mg (1/2 x 25 mg) PO QAM #30 06/03/23 08/28/23 Rx tabs bromocriptine 5 mg capsule 5 mg PO BID 08/28/23 08/28/23 History dextroamphetamine-amphetamine ER 15 mg PO DAILY 08/28/23 08/28/23 History 15 mg 24hr capsule,extend release docusate sodium 100 mg capsule 100 mg PO DAILY 08/28/23 08/28/23 History (Colace) insulin glargine 100 unit/mL (3 28 unit subcut QAM 08/28/23 08/28/23 History mL) subcutaneous pen (Lantus Solostar U-100 Insulin) nirmatrelvir 150 mg-ritonavir 100 See Rx Instructions PO .COMPLEX 08/28/23 Rx mg tablets in a dose pack #20 ea (Paxlovid) Hospital Stay Data Consultations 08/28/23 17:51 ED Decision to Admit Stat Diagnostic Imagining Performed 08/29/23 01:58 US venous doppler LE RT Routine Pending Results Patient Have Any Pending Studies at Discharge: Yes (Blood cultures-no growth to date) Discharge Instructions Given to Patient (Per Discharging Provider) Finish out the course of Paxlovid on 09/02/23. Continue breathing treatments as needed for your asthma. Total Time Total Time Spent Total Time Spent (In Minutes): 35 min Coding Level of Care Code 56298 INP/OBS DISCH >30 MIN Diagnoses COVID-19 U07.1 Asthma exacerbation J45.901 Right leg swelling M79.89 Acute hypokalemia E87.6 Weakness R53.1 Dementia F03.90 Dementia behavioral or psychological symptom: unspecified whether behavioral, psychotic, or mood disturbance or anxiety Dementia severity: unspecified severity Dementia type: unspecified type Eosinophilic asthma J82.83 Diabetes E11.9 HTN (hypertension) I10
== END 2023-08-30 16:07 | DRG 178 ==
LOC: ED 15:30 → SUATTDRO 18:15 → 3N 18:15

== ENCOUNTER 2023-11-20 10:42 | Inpatient (IN) ==
--- NOTE | 2023-11-20 11:26 | Emergency Department Note ---
Impression & Plan CHF (congestive heart failure), Hypertensive urgency, COPD (chronic obstructive pulmonary disease), Dementia ED Provider Note NAME: LORIN CHAUDHRY AGE: 88 SEX: F : 1935 ARRIVES VIA: Walk-In INFORMANT: Patient ED PROVIDER(S): Hudson Orosco MD CHIEF COMPLAINT: Shortness of breath. PLAN: Disposition: Admit MEDICAL DECISION MAKING: The patient is a pleasant 88-year-old woman with a past medical history of dementia, eosinophilic asthma, COPD, hypertension who presents to the emergency department via walk-in, accompanied by her daughter for evaluation of worsening shortness of breath with cough and congestion. Thick clear sputum production over the past couple weeks where she had an infusion a week ago for her eosinophilic asthma but had subsequently not have the improvement she typically gets. She reports she has been having difficulty breathing and woke up last night as if having a panic attack with intractable coughing. She reports that they are taking a palliative approach with her mother in the setting of her severe dementia and she is DNR/DNI. However, due to her symptoms and severity she feels that admission would be reasonable. However she further acknowledges that CT imaging is likely unnecessary as they would not want to pursue any aggressive therapies for findings such as malignancy or blood clots if they were to be diagnosed. On my evaluation the patient is no distress, afebrile with heart in the 100s and blood pressure 170/110s and vital signs otherwise stable. O2 saturation 97% on room air. She has mild increased work of breathing but is in no distress. She has rhonchi of bilateral mid to lower lung adams. She has 1+ pitting edema bilateral lower extremities which the patient's daughter reports fluctuates at times but has been worse over the past couple weeks. EKG without overt acute ischemia. CXR with vascular congestion and suspected pleural effusions. WBC and platelets within normal limits. H/H similar to prior values. Chemistry without metabolic acidosis. Lactic acid 1.0, within normal limits. Procalcitonin is not elevated. ALT 71, nonspecific and LFTs otherwise normal. High-sensitivity troponin is 34 with delta 31, stable and nonspecific. BNP is elevated at 870 and so suspicion for new CHF. Lipase is nonelevated. Respiratory viral panel/[employer] was negative. Treatment initiated with IV Lasix. Solu-Medrol and DuoNeb as well as guaifenesin provided for component of asthma. Case was discussed with Dr. Gomez [facility] hospitalist, who will evaluate the patient for admission. Nitropaste ordered for afterload reduction given persistence of hypertension. Further management per admitting team. Triage Nursing notes reviewed and agree them. Prior/external medical records reviewed Vital Signs: reviewed Differential diagnosis: Reactive airway disease, pneumonia, pneumothorax, COPD, CHF, infections, cardiac ischemia, pulmonary embolism, musculoskeletal, gastrointestinal, as well as other pathologies. ER treatment provided: See below. Diagnostics interpreted by me: ECG: Normal sinus rhythm, 100 bpm, no ectopy, nonspecific ST abnormality, no overt ST elevation or depression, QTc 456, QRS 88. Cardiac Monitoring: An order for continuous cardiac monitoring was placed and demonstrated Normal sinus rhythm, 100 bpm, no ectopy. Laboratory studies: See below Imaging studies: See below Consultation(s): Case was discussed with Dr. Gomez [facility] hospitalist, who will evaluate the patient for admission. HPI: The patient is a pleasant 88-year-old woman with a past medical history of dementia, eosinophilic asthma, COPD, hypertension who presents to the emergency department via walk-in, by her daughter for evaluation of worsening shortness of breath with cough and congestion. Thick clear sputum production over the past couple weeks where she had an infusion a week ago for her eosinophilic asthma but had subsequently not have the improvement she typically gets. She reports she has been having difficulty breathing and woke up last night as if having a panic attack with intractable coughing. She reports that they are taking a palliative approach with her mother in the setting of her severe dementia and she is DNR/DNI. However, due to her symptoms and severity she feels that admission would be reasonable. However she further acknowledges that CT imaging is likely unnecessary as they would not want to pursue any aggressive therapies for findings such as malignancy or blood clots if they were to be diagnosed. ROS: See above HPI for pertinent positives & negatives. A total of 10 systems reviewed and were otherwise negative. VITALS:See Below PHYSICAL EXAMINATION: GENERAL: Awake, alert, dyspneic-appearing, in no distress HENT: Normocephalic, atraumatic. Oropharynx unremarkable. EYES: Normal conjunctiva. Sclera non-icteric. NECK: Supple. No nuchal rigidity. FROM. No JVD. RESPIRATORY: Rhonchi of bilateral mid to lower lung adams. Underlying wheeze. CARDIAC: Regular rate, normal rhythm. Extremities warm and well perfused. Pulses equal. ABDOMEN: Soft, non-distended. No tenderness to palpation. No rebound or guarding. No masses. RECTAL: Deferred. MUSCULOSKELETAL: Chest examination reveals no tenderness. The back is symmetrical on inspection without obvious abnormality. There is no CVA tenderness to palpation. No joint edema. LOWER EXTREMITIES: Calves are equal size bilaterally and non-tender. 1+ pitting edema bilateral lower extremities. No discoloration. NEURO: No focal sensory or motor deficits noted. Confusion at baseline for dementia. SKIN: No rash or jaundice noted. Hudson Orosco MD Past Med/Surg History Problem List (Updated 11/21/23 @ 01:44 by Hudson Orosco MD) CHF (congestive heart failure) (Acute) Elevated troponin Acute heart failure Asthma exacerbation Acute hypokalemia (Acute) Weakness (Acute) COVID-19 (Acute) Hyperglycemia due to diabetes mellitus Dementia (Acute) Eosinophilic asthma JENNIFER (acute kidney injury) (Acute) Diabetes HTN (hypertension) COPD (chronic obstructive pulmonary disease) (Acute) Lumbar compression fracture (Acute) Paranasal sinus disease (Chronic) Eosinophilia (Chronic) Cognitive impairment (Chronic) COPD exacerbation (Acute) Acute asthma exacerbation (Acute) Hypertensive urgency (Acute) Medical History (Updated 11/21/23 @ 01:44 by Hudson Orosco MD) Acute dehydration DKA (diabetic ketoacidosis) Fall Obesity Diabetes Hypertensive urgency Pneumonia Bronchitis Asthma Surgical History H/O tubal ligation Family History Other Family history non-contributory Social History Smoking Status: Never smoker Second Hand Exposure: Yes; Do You Dip or Chew Tobacco: No; Hx Alcohol Use: No Hx Substance Use: No Preferred Language: Lithuanian Communication Ability: Impaired Communication Ability Comment: Dementia Manager Pe Required: No Beliefs That Will Affect Care: Islam marital status: Current Living Situation: Family current occupational status: retired current occupation: retired teacher How many Children do You have: 2 Feels Safe at Home: Yes Safety Concerns: Feels Safe At This Time Assistive Devices: CPAP Allergies Allergies Allergy/AdvReac Type Severity Reaction Status Date / Time No Known Allergies Allergy Unknown Verified 11/20/23 13:32 Home Meds Home Medications Medication Instructions Recorded Confirmed mometasone-formoterol HFA 100 2 puff inhalation DAILY 08/26/20 11/20/23 mcg-5 mcg/actuation aerosol inhaler (Dulera) sertraline 50 mg tablet 50 mg PO DAILY 08/26/20 11/20/23 donepezil 10 mg tablet 10 mg PO HS 05/08/22 11/20/23 memantine 10 mg tablet 10 mg PO DAILY 05/08/22 11/20/23 albuterol sulfate 2.5 mg/3 mL 2.5 mg inhalation DIRECTED PRN 05/29/23 11/20/23 (0.083 %) solution for nebulization Shortness Of Breath Or Wheezing loratadine 10 mg tablet (Claritin) 10 mg PO DAILY 05/29/23 11/20/23 mepolizumab 100 mg subcutaneous 100 mg subcut .[id number] 05/29/23 11/20/23 solution (Nucala) bromocriptine 5 mg capsule 5 mg PO BID 08/28/23 11/20/23 dextroamphetamine-amphetamine ER 15 mg PO DAILY 08/28/23 11/20/23 15 mg 24hr capsule,extend release docusate sodium 100 mg capsule 100 mg PO DAILY 08/28/23 11/20/23 (Colace) insulin glargine 100 unit/mL (3 28 unit subcut QAM 08/28/23 11/20/23 mL) subcutaneous pen (Lantus Solostar U-100 Insulin) Results & Data (ED) Vital Signs Vital Signs - 24 hr 11/20/23 10:51 11/20/23 11:03 11/20/23 12:21 Temperature 36.8 C Temperature Source Temporal Artery Scan Pulse Rate 91 H 92 H Pulse Rate [Apical] 101 H Pulse Rate from SpO2 Sensor Pulse Rhythm Regular Pulse Strength Normal Respiratory Rate 20 22 Respiratory Effort / Characteristics Non-Labored Spontaneous Spontaneous Short of Breath SOB on Exertion Respiratory Depth Normal Respiratory Pattern Regular Regular Blood Pressure 141/83 H Blood Pressure [Right Arm] 172/114 H Blood Pressure Mean 102 Blood Pressure Mean [Right Arm] 133 Blood Pressure Position Sitting Blood Pressure Position [Right Arm] Lying Pulse Oximetry 96 97 Oxygen Delivery Method Room Air Room Air Room Air Sepsis Recent Fever Within 48 Hours No Sepsis New/Unexplained Change in Mental Status No Sepsis Action Taken by Nursing No Action Required 11/20/23 12:21 11/20/23 12:35 11/20/23 14:31 Temperature Temperature Source Pulse Rate 93 H Pulse Rate [Apical] 106 H 92 H Pulse Rate from SpO2 Sensor Pulse Rhythm Pulse Strength Respiratory Rate 22 20 Respiratory Effort / Characteristics Spontaneous Short of Breath Non-Labored Spontaneous Respiratory Depth Normal Respiratory Pattern Regular Regular Blood Pressure Blood Pressure [Right Arm] 194/121 H 159/102 H Blood Pressure Mean Blood Pressure Mean [Right Arm] 145 121 Blood Pressure Position Blood Pressure Position [Right Arm] Lying Lying Pulse Oximetry 100 96 Oxygen Delivery Method Room Air Room Air Sepsis Recent Fever Within 48 Hours Sepsis New/Unexplained Change in Mental Status Sepsis Action Taken by Nursing 11/20/23 15:30 Temperature Temperature Source Pulse Rate 91 H Pulse Rate [Apical] Pulse Rate from SpO2 Sensor 90 Pulse Rhythm Pulse Strength Respiratory Rate 21 Respiratory Effort / Characteristics Respiratory Depth Respiratory Pattern Blood Pressure 138/111 H Blood Pressure [Right Arm] Blood Pressure Mean 120 Blood Pressure Mean [Right Arm] Blood Pressure Position Blood Pressure Position [Right Arm] Pulse Oximetry 95 Oxygen Delivery Method Sepsis Recent Fever Within 48 Hours Sepsis New/Unexplained Change in Mental Status Sepsis Action Taken by Nursing Laboratory Data Attestation: I reviewed the patient's lab results. 11/20/23 11:42 11/20/23 11:42 Lab Results 11/20/23 11/20/23 11/20/23 Range/Units 11:42 12:32 14:16 WBC 7.67 (4.8-10.8) K/ul RBC 3.97 L (4.20-5.40) M/uL Hgb 10.9 L (12.0-16.0) g/dl Hct 35.0 L (37.0-47.0) % MCV 88.2 (80.0-100.0) fL MCH 27.5 (25.0-34.0) pg MCHC 31.1 L (32.0-36.0) g/dL RDW Std Deviation 49.1 H (36.4-46.3) fL RDW Coeff of Shanti 15.3 H (11.5-14.5) % Plt Count 245 (130-400) K/uL MPV 9.4 (9.4-12.4) fL Immature Gran % (Auto) 0.9 % Neut % (Auto) 77.6 % Lymph % (Auto) 14.1 % [place] % (Auto) 6.1 % Eos % (Auto) 0.4 % Baso % (Auto) 0.9 % Neut # (Auto) 5.95 (1.40-6.50) K/uL Lymph # (Auto) 1.08 L (1.20-3.40) K/uL [place] # (Auto) 0.47 (0.11-0.59) K/uL Eos # (Auto) 0.03 (0.00-0.50) K/uL Baso # (Auto) 0.07 (0.00-0.20) K/uL Immature Gran # (Auto) 0.07 (0.01-0.20) K/uL VBG pH 7.37 (7.36-7.41) VBG pCO2 48 (38-50) mmHg VBG pO2 37 mmHg VBG HCO3 28 mmol/L VBG O2 Saturation < 60.0 % VBG Base Excess 1.8 mEq/L Sodium 143 (136-145) mmol/L Potassium 4.0 (3.5-5.1) mmol/L Chloride 108 H (98-107) mmol/L Carbon Dioxide 30 (21-32) mmol/L Anion Gap 5 (3-11) BUN 21 (6-23) mg/dl Creatinine 1.08 (0.6-1.2) mg/dl Est Cr Clr Drug Dosing Not Reportable Est GFR ( Amer) 53.5 ml/min Est GFR (Non-Af Amer) 46.1 ml/min BUN/Creatinine Ratio 19.4 (10-20) Glucose 165 H (70-99(Fasting)) mg/dl Lactate 1.0 (0.4-2.0) mmol/L Calcium 9.2 (8.6-10.3) mg/dl Phosphorus 4.3 (2.5-4.9) mg/dl Magnesium 1.8 (1.7-2.4) mg/dl Total Bilirubin 0.7 (0.2-1.0) mg/dl AST 35 (13-39) U/L ALT 71 H (7-52) U/L Alkaline Phosphatase 103 (34-104) U/L Troponin I High Sens 34.6 H 31.0 H (0-14) pg/ml B-Natriuretic Peptide 871 H (0-100) pg/ml Total Protein 6.6 (6.0-8.3) gm/dl Albumin 3.6 (3.4-5.0) gm/dl Globulin 3.0 (2.5-4.0) gm/dl Albumin/Globulin Ratio 1.2 (0.9-2) Lipase 15 (11-82) U/L Procalcitonin 0.06 (0-0.5) ng/ml TSH 1.872 (0.300-4.500) uIu/ml Adenovirus (PCR) Not Detected (NotDetected) B. pertussis DNA (PCR) Not Detected (NotDetected) B.parapertussis DNA PCR Not Detected (NotDetected) C. pneumoniae DNA (PCR) Not Detected (NotDetected) Coronavirus OC43 (PCR) Not Detected (NotDetected) Coronavirus HKU1 (PCR) Not Detected (NotDetected) Coronavirus 229E (PCR) Not Detected (NotDetected) SARS-CoV-2 (PCR) Not Detected (NotDetected) Coronavirus NL63 (PCR) Not Detected (NotDetected) Human Metapneumovir PCR Not Detected (NotDetected) Influenza Type A (PCR) Not Detected (NotDetected) Influenza Type B (PCR) Not Detected (NotDetected) M. pneumoniae (PCR) Not Detected (NotDetected) Parainfluenza 1 (PCR) Not Detected (NotDetected) Parainfluenza 2 (PCR) Not Detected (NotDetected) Parainfluenza 3 (PCR) Not Detected (NotDetected) Parainfluenza 4 (PCR) Not Detected (NotDetected) RSV (PCR) Not Detected (NotDetected) Entero/Rhino (PCR) Not Detected (NotDetected) Administered Medications Albuterol (Albut/Ipratrop 3mg/0.5mg Neb 3 Ml Vial) 3 ml NEB Q6R [facility]; Protocol Stop: 12/20/23 18:59 Last Admin: 11/21/23 00:41 Dose: 3 ml Documented By: Admin: 11/20/23 19:20 Dose: 3 ml Documented By: SAVANNAH Bromocriptine Mesylate (Bromocriptine Mesylate 2.5 Mg Tab) 5 mg PO BID LISBETH Stop: 12/20/23 20:59 Last Admin: 11/20/23 20:37 Dose: 5 mg Documented By: AEMadhav Donepezil HCl (Donepezil Hcl 10 Mg Tab) 10 mg PO HS LISBETH Stop: 12/20/23 20:59 Last Admin: 11/20/23 20:37 Dose: 10 mg Documented By: AEM Enoxaparin Sodium (Enoxaparin Inj 40 Mg/0.4 Ml Syr) 40 mg SQ Q24H LISBETH Stop: 12/20/23 21:29 Last Admin: 11/20/23 20:38 Dose: 40 mg Documented By: AEMadhav Furosemide (Furosemide 40 Mg/4 Ml Vial) 40 mg IV BID17 LISBETH Stop: 12/20/23 16:59 Last Admin: 11/20/23 17:24 Dose: 40 mg Documented By: SYLVIA Guaifenesin (Guaifenesin 600 Mg Tabcr) 600 mg PO Q12 LISBETH Stop: 12/20/23 20:59 Last Admin: 11/20/23 20:37 Dose: 600 mg Documented By: AEMadhav Insulin Aspart (Insulin Aspart Per Unit Charge) 0 units SC ACHS LISBETH Stop: 12/20/23 16:29 Last Admin: 11/20/23 20:36 Dose: 4 units Documented By: AEMadhav Co-signed By: JUNE Admin: 11/20/23 17:52 Dose: 3 units Documented By: SYLVIA Co-signed By: LND Potassium Chloride (Potassium Chloride Crtab 20 Meq Tabcr) 20 meq PO BID LISBETH Stop: 12/20/23 20:59 Last Admin: 11/20/23 20:40 Dose: 20 meq Documented By: AEM Discontinued Medications Albuterol (Albut/Ipratrop 3mg/0.5mg Neb 3 Ml Vial) 3 ml NEB NOW STA; Protocol Stop: 11/20/23 11:58 Last Admin: 11/20/23 12:08 Dose: 3 ml Documented By: NRNick Furosemide (Furosemide Inj 20 Mg/2 Ml Vial) 20 mg IV ONE ONE Stop: 11/20/23 14:03 Last Admin: 11/20/23 14:37 Dose: 20 mg Documented By: LIT Guaifenesin (Guaifenesin 600 Mg Tabcr) 600 mg PO NOW STA Stop: 11/20/23 11:58 Last Admin: 11/20/23 12:04 Dose: 600 mg Documented By: NRB Methylprednisolone (Methylprednisolone 125 Mg/2 Ml Vial) 125 mg IV NOW STA Stop: 11/20/23 11:58 Last Admin: 11/20/23 12:05 Dose: 125 mg Documented By: NRB Nitroglycerin (Nitroglycerin 2% Ointment 30gm Tube) 1 inch EXT NOW STA Stop: 11/20/23 14:26 Last Admin: 11/20/23 14:38 Dose: 1 inch Documented By: TNK Imaging Data Radiologist's Impression: Chest X-Ray 11/20/23 11:19 SINGLE VIEW CHEST CLINICAL HISTORY: Dyspnea FINDINGS: An AP, portable, upright chest radiograph is compared to study dated 08/28/2023 and correlated with chest CT dated 03/01/2019. The heart is enlarged noting atherosclerotic calcification of the thoracic aorta. There is mild pulmonary vascular congestion. Small pleural effusions are suspected. Scarring/atelectasis is noted at the lung bases. Scattered calcified granulomas are observed. No pneumothorax is seen. The skeletal structures are osteopenic. Bony thorax is grossly intact. IMPRESSION: 1. Cardiomegaly with mild pulmonary vascular congestion. 2. Small pleural effusions. ACT 112: Negative or not required by law. Electronically signed by: Bryant Cr M.D. 11/20/2023 11:34 AM Discharge Plan Visit Data Chief Complaint: Illness Stated Complaint: COUGH, WHEEZING, MUCUS, REF BY DOC ED Provider: Hudson Orosco Discharge Problem: CHF (congestive heart failure), Hypertensive urgency, COPD (chronic obstructive pulmonary disease), Dementia Patient Disposition: Admitted As Inpatient Discharge Instructions Interventions: ED Discharge Assessment Last Done: 11/20/23 16:43 Discharge Problem: CHF (congestive heart failure) Qualifiers: Heart failure type: unspecified Heart failure chronicity: acute Qualified Code(s): I50.9 - Heart failure, unspecified COPD (chronic obstructive pulmonary disease) Qualifiers: COPD type: COPD with acute exacerbation Qualified Code(s): J44.1 - Chronic obstructive pulmonary disease with (acute) exacerbation Dementia Qualifiers: Dementia type: unspecified type Dementia severity: severe Dementia behavioral or psychological symptom: without behavioral, psychotic, or mood disturbance or anxiety Qualified Code(s): F03.C0 - Unspecified dementia, severe, without behavioral disturbance, psychotic disturbance, mood disturbance, and anxiety
--- NOTE | 2023-11-20 11:35 | XRay Report ---
SINGLE VIEW CHEST CLINICAL HISTORY: Dyspnea FINDINGS: An AP, portable, upright chest radiograph is compared to study dated 08/28/2023 and correlat ed with chest CT dated 03/01/2019. The heart is enlarged noting atherosclerotic calcification of the t horacic aorta. There is mild pulmonary vascular congestion. Small pleural effusions are suspected. Sc arring/atelectasis is noted at the lung bases. Scattered calcified granulomas are observed. No pneumo thorax is seen. The skeletal structures are osteopenic. Bony thorax is grossly intact. IMPRESSION: 1. Cardiomegaly with mild pulmonary vascular congestion. 2. Small pleural effusions. ACT 112: Negative or not required by law. Electronically signed by: Bryant Cr M.D. 11/20/2023 11:34 AM
[2023-11-20 12:04] LABS: Basophils # (auto) 0.07 K/uL (0.00-0.20); Basophils % (auto) 0.9 %; Eosinophils # (auto) 0.03 K/uL (0.00-0.50); Eosinophils % (auto) 0.4 %; Hemoglobin 10.9 g/dl (12.0-16.0); Immature Granulocytes # (auto) 0.07 K/uL (0.01-0.20); Immature Granulocytes % (auto) 0.9 %; Lymphocytes # (auto) 1.08 K/uL (1.20-3.40); Lymphocytes % (auto) 14.1 %; Mean Corpuscular Hemoglobin 27.5 pg (25.0-34.0); Mean Corpuscular Hgb Conc 31.1 g/dL (32.0-36.0); Mean Corpuscular Volume 88.2 fL (80.0-100.0); Mean Platelet Volume 9.4 fL (9.4-12.4); Monocytes # (auto) 0.47 K/uL (0.11-0.59); Monocytes % (auto) 6.1 %; Neutrophils # (auto) 5.95 K/uL (1.40-6.50); Neutrophils % (auto) 77.6 %; Platelet Count 245 K/uL (130-400); RDW Coefficient of Variation 15.3 % (11.5-14.5); RDW Standard Deviation 49.1 fL (36.4-46.3); Red Blood Count 3.97 M/uL (4.20-5.40); White Blood Count 7.67 K/ul (4.8-10.8)
[2023-11-20] MEDS: guaiFENesin 600 MG TABCR PO STA (12:04)
[2023-11-20] MEDS: methylPREDNISolone 125 MG/2 ML VIAL IV STA (12:05)
[2023-11-20] MEDS: ALBUT/IPRATROP 3MG/0.5MG NEB 3 ML VIAL NEB STA (12:08)
[2023-11-20 12:25] LABS: Base Excess VBG 1.8 mEq/L; HCO3 VBG 28 mmol/L; Oxygen Saturation VBG < 60.0 %; PCO2 VBG 48 mmHg (38-50); PO2 VBG 37 mmHg; pH VBG 7.37 (7.36-7.41)
[2023-11-20 12:27] LABS: Alanine Aminotransferase 71 U/L (7-52); Albumin Globulin Ratio 1.2 (0.9-2); Albumin Level 3.6 gm/dl (3.4-5.0); Alkaline Phosphatase 103 U/L (34-104); Anion Gap 5 (3-11); Aspartate Aminotransferase 35 U/L (13-39); BUN Creatinine Ratio 19.4 (10-20); Bilirubin,Total 0.7 mg/dl (0.2-1.0); Blood Urea Nitrogen 21 mg/dl (6-23); Calcium 9.2 mg/dl (8.6-10.3); Carbon Dioxide 30 mmol/L (21-32); Chloride 108 mmol/L (98-107); Est GFR (African American) 53.5 ml/min; Est GFR (Non-African American) 46.1 ml/min; Glucose 165 mg/dl (70-99(Fasting)); Lipase 15 U/L (11-82); Magnesium 1.8 mg/dl (1.7-2.4); Phosphorus 4.3 mg/dl (2.5-4.9); Sodium 143 mmol/L (136-145); Total Protein 6.6 gm/dl (6.0-8.3)
[2023-11-20 12:32] LABS: Troponin I High Sensitivity 34.6 pg/ml (0-14)
[2023-11-20 12:41] LABS: Thyroid Stimulating Hormone 1.872 uIu/ml (0.300-4.500)
--- NOTE | 2023-11-20 13:00 | Electrocardiogram Report ---
Test Reason : Blood Pressure : / mmHG Vent. Rate : 100 BPM Atrial Rate : 100 BPM P-R Int : 162 ms QRS Dur : 088 ms QT Int : 354 ms P-R-T Axes : 047 022 091 degrees QTc Int : 456 ms Normal sinus rhythm Nonspecific T wave abnormality Abnormal ECG When compared with ECG of 28-AUG-2023 15:35, Premature ventricular complexes are no longer Present Premature atrial complexes are no longer Present Confirmed by Sebastian Briceño ([id number]) on 11/20/2023 12:59:03 PM Referred By: REFERRED SELF Confirmed By:Sebastian Briceño
[2023-11-20 13:47] LABS: Adenovirus PCR Not Detected (NotDetected); Bordetella parapertussis PCR Not Detected (NotDetected); Bordetella pertussis PCR Not Detected (NotDetected); Chlamydia pneumoniae PCR Not Detected (NotDetected); Coronavirus 229E PCR Not Detected (NotDetected); Coronavirus CoV-2 (COVID19)PCR Not Detected (NotDetected); Coronavirus HKU1 PCR Not Detected (NotDetected); Coronavirus NL63 PCR Not Detected (NotDetected); Coronavirus OC43PCR Not Detected (NotDetected); Human Metapneumovirus PCR Not Detected (NotDetected); Influenza A PCR Not Detected (NotDetected); Influenza B PCR Not Detected (NotDetected); Mycoplasma pneumoniae PCR Not Detected (NotDetected); Parainfluenza Virus 1 PCR Not Detected (NotDetected); Parainfluenza Virus 2 PCR Not Detected (NotDetected); Parainfluenza Virus 3 PCR Not Detected (NotDetected); Parainfluenza Virus 4 PCR Not Detected (NotDetected); Respiratory Syncytial VirusPCR Not Detected (NotDetected); Rhinovirus/Enterovirus PCR Not Detected (NotDetected)
[2023-11-20] MEDS: FUROSEMIDE INJ 20 MG/2 ML VIAL IV ONE (14:37)
[2023-11-20] MEDS: NITROGLYCERIN 2% OINTMENT 30GM TUBE EXT STA (14:38)
--- NOTE | 2023-11-20 14:51 | History & Physical Report ---
Date of Service November 20, 2023 Assessment & Plan (1) Acute heart failure: Plan: Worsening SOB, cough, and leg swelling x several weeks New onset of pitting edema x 2 days prior to admission No hx of CHF, per daughter Patient's daughter would only like conservative measures at this time (no CT scan for PE, no advanced workup) Echocardiogram ordered, pending BNP elevated at 871 (no prior for comparison) Heart healthy, low-sodium diet (1500 mL fluid restriction) Lasix 40 mg IV BID17 Potassium chloride 20mEq BID Daily weights Strict I&O monitoring A.m. CBC, BMP, mag (2) Asthma exacerbation: Plan: Guaifenesin 600 mg p.o. as needed for cough Sputum culture pending DuoNeb 3 mL Q6R Incentive spirometry, flutter valve Continuous pulse oximetry (3) Dementia: Plan: Continue donepezil, memantine Patient is currently in palliative care discussions Palliative care evaluation appreciated (4) Diabetes: Plan: Last A1c at 6.0% on 08/29/2023 Patient is normally on Lantus 28u QAM Lantus 14u BID while inpatient SSI; with target BSG range 110-140mg/dL, CF 30, carb ratio 15 T2DM diet BSG ACHS Adjust regimen as needed (5) Elevated troponin: Plan: Troponin 34 -->31 on arrival; suspect demand ischemia in the setting of new CHF However, given patient is a poor historian, unclear if she has been having chest pain Continuous telemetry monitoring (6) Cognitive impairment: (7) Eosinophilic asthma: (8) HTN (hypertension): (9) COPD (chronic obstructive pulmonary disease): Plan [facility] Heart healthy, low-sodium diet (1500 mL fluid restriction) VTE PPx: Lovenox 40mg SQ q24h History of Present Illness Chief Complaint: SOB/dyspnea, leg swelling Primary Care Provider: DO Stephanie Estevez is an 88-year-old female with PMH of eosinophilic asthma, COPD, HTN, dementia, gout, and diabetes. She presented on 11/19 for worsening SOB, cough, and congestion over the past several weeks. Patient is a poor historian at baseline due to her advanced dementia. Patient's daughter is in the room and provides most of the history. She reports that the patient usually develops wheezing/SOB just prior to her Nucala injection every 30 days; last injection was on November 11. However, this time she still exhibited SOB both at rest and with exertion after the injection. She has also had a productive cough with clear, thick sputum. Patient has also exhibited generalized weakness, and inability to stand/use walker. She was reportedly agitated and moaning last night, but was unable to convey if she was having chest pain or trouble breathing. No history of CHF to daughter's knowledge. No sick contacts. No PMH of DVT/PE, UT, or CVA. Patient has been eating half of what she usually eats, but does not watch salt intake. No recent change in weight, but may be slightly up today. Patient's pitting edema in her legs just started the past couple days, and this is new for her. Patient is currently on palliative care discussions, and daughter reports she is open to discussing further while here. Patient's daughter would not like any additional scans to look for a PE at this time; she did have a RLE Doppler several months ago with no DVT; patient's daug hter is amenable to echocardiogram. Patient did not take her regular morning medications, but did take her insulin 28 units. Patient denies smoking, tobacco use, and alcohol use. She does use a CPAP at night; no other supplemental oxygen use. Patient is hypertensive at 159/102 at time of admission; vitals otherwise stable. ED course: Solu-Medrol 125 mg IV DuoNeb 3 mL Guaifenesin 600 mg p.o. Lasix 20 mg IV Nitro-Bid 2% 1 inch ROS: Patient endorses generalizes weakness, loss of appetite, unclear if chest pain (patient has difficulty conveying), SOB at rest and with exertion, productive cough, loose stools (usually constipated), Patient denies fever, chills, dizziness, lightheadedness, abdominal pain, N/V/D, or blood in urine/stool. Allergies Allergy/AdvReac Type Severity Reaction Status Date / Time No Known Allergies Allergy Unknown Verified 11/20/23 13:32 Home Medications Medication Instructions Recorded Confirmed Type mometasone-formoterol HFA 100 2 puff inhalation DAILY 08/26/20 11/20/23 History mcg-5 mcg/actuation aerosol inhaler (Dulera) sertraline 50 mg tablet 50 mg PO DAILY 08/26/20 11/20/23 History donepezil 10 mg tablet 10 mg PO HS 05/08/22 11/20/23 History memantine 10 mg tablet 10 mg PO DAILY 05/08/22 11/20/23 History albuterol sulfate 2.5 mg/3 mL 2.5 mg inhalation DIRECTED PRN 05/29/23 11/20/23 History (0.083 %) solution for nebulization Shortness Of Breath Or Wheezing loratadine 10 mg tablet (Claritin) 10 mg PO DAILY 05/29/23 11/20/23 History mepolizumab 100 mg subcutaneous 100 mg subcut .[id number] 05/29/23 11/20/23 History solution (Nucala) bromocriptine 5 mg capsule 5 mg PO BID 08/28/23 11/20/23 History dextroamphetamine-amphetamine ER 15 mg PO DAILY 08/28/23 11/20/23 History 15 mg 24hr capsule,extend release docusate sodium 100 mg capsule 100 mg PO DAILY 08/28/23 11/20/23 History (Colace) insulin glargine 100 unit/mL (3 28 unit subcut QAM 08/28/23 11/20/23 History mL) subcutaneous pen (Lantus Solostar U-100 Insulin) Past Med/Surg History Problem List (Updated 11/20/23 @ 15:54 by Hudson Orosco MD) CHF (congestive heart failure) (Acute) Elevated troponin Acute heart failure Asthma exacerbation Acute hypokalemia (Acute) Weakness (Acute) COVID-19 (Acute) Hyperglycemia due to diabetes mellitus Dementia (Acute) Eosinophilic asthma JENNIFER (acute kidney injury) (Acute) Diabetes HTN (hypertension) COPD (chronic obstructive pulmonary disease) (Acute) Lumbar compression fracture (Acute) Paranasal sinus disease (Chronic) Eosinophilia (Chronic) Cognitive impairment (Chronic) COPD exacerbation (Acute) Acute asthma exacerbation (Acute) Hypertensive urgency (Acute) Medical History (Updated 11/20/23 @ 15:54 by Hudson Orosco MD) Acute dehydration DKA (diabetic ketoacidosis) Fall Obesity Diabetes Hypertensive urgency Pneumonia Bronchitis Asthma Surgical History H/O tubal ligation Family History Other Family history non-contributory Social History Smoking Status: Never smoker Second Hand Exposure: No; Do You Dip or Chew Tobacco: No; Hx Alcohol Use: No Hx Substance Use: No Preferred Language: Divehi Communication Ability: Impaired Communication Ability Comment: Dementia Absorption Operator Required: No Beliefs That Will Affect Care: None marital status: Current Living Situation: Family current occupational status: retired current occupation: retired teacher How many Children do You have: 2 Feels Safe at Home: Yes Assistive Devices: Walker and Wheelchair Review of Systems Review of Systems: See HPI above Physical Exam Physical Exam: General: no acute distress; non-toxic appearing; well-nourished; cooperative; SpO2 96% on RA HEENT: normocephalic, atraumatic; no scleral icterus; PERRLA; moist mucus membrane; vision and hearing intact Neck: supple; negative JVP; no lymphadenopathy; trachea midline Skin: warm, dry without signs of tenting; no cyanosis; no rashes, bruising, lesions, or erythema noted CV: chest wall NTP; RRR; S1/S2 normal; no murmurs/rubs/gallops; pulses intact and symmetric at radial, DP, and PT Lungs: no acute respiratory distress; symmetrical chest wall expansion; mild expiratory wheeze across all lung adams ABD: Soft, NTP; BS present; no rebound/guarding; no distention MSK: no tics or fasciculations; +2 pitting edema noted in the LEs b/l, nonerythematous Neuro: Oriented to name/, but not to location or month; follows, slow speech; may be exhibiting some expressive aphasia; no focal deficits; no facial droop; sensation intact in the LEs b/l Results & Data Results & Data Vital Signs (Past 12 Hours) Vital Signs Temp Pulse Pulse Resp BP BP Pulse Ox 11/20/23 14:31 92 H 20 159/102 H 96 11/20/23 12:35 106 H 22 194/121 H 100 11/20/23 12:21 93 H 11/20/23 12:21 92 H 11/20/23 11:03 101 H 22 172/114 H 97 11/20/23 10:51 36.8 C 91 H 20 141/83 H 96 O2 Del Method 11/20/23 14:31 Room Air 11/20/23 12:35 Room Air 11/20/23 12:21 11/20/23 12:21 Room Air 11/20/23 11:03 Room Air 11/20/23 10:51 Room Air Laboratory Results Abnormal lab results 11/20/23 Range/Units 11:42 RBC 3.97 L (4.20-5.40) M/uL Hgb 10.9 L (12.0-16.0) g/dl Hct 35.0 L (37.0-47.0) % MCHC 31.1 L (32.0-36.0) g/dL RDW Std Deviation 49.1 H (36.4-46.3) fL RDW Coeff of Shanti 15.3 H (11.5-14.5) % Lymph # (Auto) 1.08 L (1.20-3.40) K/uL Chloride 108 H (98-107) mmol/L Glucose 165 H (70-99(Fasting)) mg/dl ALT 71 H (7-52) U/L Troponin I High Sens 34.6 H (0-14) pg/ml B-Natriuretic Peptide 871 H (0-100) pg/ml Diagnostic Findings Chest X-Ray 11/20/23 11:19 SINGLE VIEW CHEST CLINICAL HISTORY: Dyspnea FINDINGS: An AP, portable, upright chest radiograph is compared to study dated 08/28/2023 and correlated with chest CT dated 03/01/2019. The heart is enlarged noting atherosclerotic calcification of the thoracic aorta. There is mild pulmonary vascular congestion. Small pleural effusions are suspected. Scarring/atelectasis is noted at the lung bases. Scattered calcified granulomas are observed. No pneumothorax is seen. The skeletal structures are osteopenic. Bony thorax is grossly intact. IMPRESSION: 1. Cardiomegaly with mild pulmonary vascular congestion. 2. Small pleural effusions. ACT 112: Negative or not required by law. Electronically signed by: Bryant Cr M.D. 11/20/2023 11:34 AM ECG Additional Comments: ECG revealed NSR at 100 bpm; QTc 456 Code Status & VTE Plan Code Status DNR/DNI Supervising Physician Co-Signing Physician Notes I have personally seen, evaluated and examined the patient. I have also personally discussed the management of the patient with the resident physician/MURIEL and I agree with the exam findings documented in the history and physical examination and the documented assessment and plan unless otherwise stated below. Brief Exam: In general is a very pleasant 88-year-old female is alert and oriented to person not somewhat to place and time which is her baseline. She is accompanied by her daughter Virginia at the bedside we spoke to her extensively. As described above they are looking for more quality of life and not quantity. They understand we will do our best at this point with the diuresis we will check a cardiogram. They did confirm her DNR status. They do not want any other provocative testing CAT scans etc. HEENT: Is normocephalic atraumatic. Heart: Is regular no sadaf murmur on exam. No rub. Lungs are coarse bilaterally cardiac rales and decreased breath sounds in the bases consistent with her pleural effusions. Abdomen: Obese soft nontender positive bowel sounds. Extremities: 2+ edema bilaterally pitting pretibial. Homans' sign negative. Neurologically: Again as above. She typically ambulates independently but over the last couple days has needed some assistance due to increased weakness and shortness of breath. Plan: As described above. Please refer to orders for further planning. PG Care Time/CCT Total # of Minutes Spent Total Time Spent with Patient: Total time spent is greater than 50% in coordination of care (as documented) at patient's floor/unit and/or counseling patient: Coding [place] [address] INT INP/OBS CARE 3/75MIN Patient Type Established Medical Decision Making High Complexity Diagnoses Acute heart failure I50.9 Asthma exacerbation J45.901 Dementia F03.90 Dementia behavioral or psychological symptom: unspecified whether behavi oral, psychotic, or mood disturbance or anxiety Dementia severity: unspecified severity Dementia type: unspecified type Diabetes E11.9 Elevated troponin R79.89 Cognitive impairment R41.89 Eosinophilic asthma J82.83 HTN (hypertension) I10 COPD (chronic obstructive pulmonary disease) J44.9 (3) Dementia Dementia behavioral or psychological symptom: unspecified whether behavioral, psychotic, or mood disturbance or anxiety Dementia severity: unspecified severity Dementia type: unspecified type Qualified Code(s): F03.90 - Unspecified dementia, unspecified severity, without behavioral disturbance, psychotic disturbance, mood disturbance, and anxiety
[2023-11-20] MEDS ORDERED: GLUCAGON FOR INJ 1 MG VIAL SQ PRN (15:23)
[2023-11-20] MEDS ORDERED: CARBOHYDRATES FOR HYPOGLYCEMIA PO PRN (15:23)
[2023-11-20] MEDS ORDERED: GLUCOSE 40% GEL 15 GM TUBE PO PRN (15:23)
[2023-11-20] MEDS ORDERED: DEXTROSE 50% 50 ML SYRINGE IV PRN (15:23)
[2023-11-20] MEDS ORDERED: GLUCOSE 10 TAB/TUBE PO PRN (15:23)
--- OUTSIDE RECORDS SUMMARY | 2023-11-20 16:45 | External Medical Summary | Continuity of Care Document ---
Author Name Unknown Organization [address] [place] [id number] Care Team Providers Care Lacquer Polisher Name Role Phone Amy Lafleur Primary Care Physician [phone] [id number] Date(s): 10/26/23 - 10/26/23 [facility] 0 [facility] 207 [facility] [address] [address] [place] [phone] Encounter Diagnosis Cognitive impairment(Discharge Diagnosis) - 10/26/23 Decreased activities of daily living (ADL)(Discharge Diagnosis) - 10/26/23 Diabetes(Discharge Diagnosis) - 10/26/23 Eosinophilic asthma(Discharge Diagnosis) - 10/26/23 Hyperlipidemia(Discharge Diagnosis) - 10/26/23 Hypertension(Discharge Diagnosis) - 10/26/23 Urinary incontinence(Discharge Diagnosis) - 10/26/23 Wheeze(Discharge Diagnosis) - 10/26/23 Discharge Disposition: Home or Self Care Attending Physician: DO Martinez Allison B Allergies, Adverse Reactions, Alerts No Known Medication Allergies Immunizations Given and Recorded Vaccine Date Status [...] unspecified Medications albuterol 0.083% for nebulization Start: 10/26/23 5:14:00 PM EDT, 6 mL, inhaled, q6h, Disp# 25 each, PRN: as needed for wheezing, [id number] Start Date: 10/26/23 Stop Date: 11/25/23 Status: Ordered amphetamine-dextroamphetamine 15 mg oral capsule, extended release Start: 10/17/23 3:10:00 PM EDT, 15 mg =, PO, qAM, Disp# 30 tab, Refills: 0, Pharmacy: [id number] Start Date: 10/17/23 Stop Date: 11/16/23 Status: Ordered bromocriptine 5 mg oral capsule Start: 10/26/23 5:20:00 PM EDT, 1 cap, PO, bid, Disp# 60 cap, Refills: 3, [id number] Start Date: 10/26/23 Stop Date: 02/23/24 Status: Ordered Colace Start: 06/06/22 2:06:00 PM EST Start Date: 06/06/22 Status: Ordered dexAMETHasone 4 mg oral tablet Start: 10/26/23 5:20:00 PM EDT, 5 tab, PO, qmonth (30 days), Disp# 5 tab, Refills: 6, Pharmacy: [facility] #[id number] Start Date: 10/26/23 Status: Ordered donepezil 10 mg oral tablet Start: 10/26/23 5:20:00 PM EDT, 1 tab, PO, Daily, Disp# 30 tab, Refills: 2, Pharmacy: [facility] #[id number] Start Date: 10/26/23 Stop Date: 01/24/24 Status: Ordered Dulera 100 mcg-5 mcg/inh inhalation aerosol Start: 10/26/23 5:20:00 PM EDT, 2 puff, inhaled, Daily, Disp# 13 g, Refills: 3, [id number] Start Date: 10/26/23 Stop Date: 02/23/24 Status: Ordered Lantus Solostar Pen 100 units/mL subcutaneous solution Start: 10/26/23 5:21:00 PM EDT, 28 unit =, subQ, Daily, Disp# 15 mL, Refills: 2, administer in the morning. If blood sugar under 70, give orange juice, [id number] Start Date: 10/26/23 Stop Date: 01/24/24 Status: Ordered loratadine 10 mg oral tablet Start: 12/27/21 1:59:00 PM EDT Start Date: 12/27/21 Status: Ordered memantine 10 mg oral tablet Start: 10/26/23 5:21:00 PM EDT, 0.5 tab, PO, Daily, Disp# 30 tab, Refills: 3, Take half a tab daily,may increase to 1 tab daily in 2 wks on 07/11/21, Note to Pharmacy: Take half a tab daily, may increase to 1 tab daily in 2 wks on 07/11/21, [id number] Start Date: 10/26/23 Stop Date: 02/23/24 Status: Ordered Nucala 100 mg subcutaneous injection Start: 07/20/23 2:32:00 PM EST, 100 mg =, subQ, [id number], Disp# 30 each, Refills: 1, [facility] [place] [id number] Start Date: 07/20/23 Stop Date: 01/04/24 Status: Ordered potassium chloride 10 mEq oral capsule, extended release Start: 10/26/23 5:21:00 PM EDT, 2 cap, PO, bid, Disp# 120 cap, Refills: 2, Pharmacy: [id number] Start Date: 10/26/23 Stop Date: 01/24/24 Status: Ordered PreserVision Start: 04/06/17 10:12:00 AM EDT, 1 tab, PO, bid Start Date: 04/06/17 Status: Ordered sertraline 50 mg oral tablet Start: 10/26/23 5:21:00 PM EDT, 1 tab, PO, Daily, Disp# 90 tab, Refills: 1, Pharmacy: [id number] Start Date: 10/26/23 Status: Ordered Mental Status 10/26/23 Barriers to Learning one year None evide nt Mandatory Health Literacy Documentation Yes Health Literacy Communication Barriers N ever Primary Language [place]de[place] Problem List Condition Confirmation Course Effective Dates [...] Effective Dates Health Status Clinical Service Informant Wheeze Discharge Diagnosis 10/26/23 Non-Specified Hyperlipidemia Discharge Diagnosis 10/26/23 Non-Specified Urinary incontinence Discharge Diagnosis 10/26/23 Non-Specified Decreased activities of daily living (ADL) Discharge Diagnosis 10/26/23 Non-Specified Diabetes Discharge Diagnosis 10/26/23 Non-Specified Eosinophilic asthma Discharge Diagnosis 10/26/23 Non-Specified Cognitive impairment Discharge Diagnosis 10/26/23 Non-Specified Hypertension Discharge Diagnosis 10/26/23 Non-Specified Procedures Procedure Date Related Diagnosis Body [...] to oldest [Reference Range]: 1 Patient Weight 91.9 kg (10/26/23 4:24 PM) Temperature [36.5-37.9 DegC] 36.6 DegC (10/26/23 4:24 PM) Heart Rate 66 bpm (10/26/23 4:24 PM) Respiratory Rate 20 br/min (10/26/23 4:24 PM) Blood Pressure 124/82mmHg (10/26/23 4:24 PM) Social History Social History Type Response Smoking Status Never smoked cigaret meri Sex Female Patient Care team information Care Team Personnel Name: MD Malachi, Josep Ibanez Position: Physician - Family Med Member Role: Lifetime Relationship Address: Address: [address] [place] [address] Name: DO Renae Amanda Position: Resident Member Role: Lifetime Relationship Address: Address: [address] [place] [address] Name: NILS Lafleur Christina L Position: Physician - Podiatry Member Role: Primary Care Provider Address: Address: [address] [place] [address] Care Team Related Persons Name: LIANNA CHAUDHRY Address: home [address] [facility] [place] [phone] Name: DEEPTHI CHAUDHRY Address: [place] Address: home [address] [place] [phone]
--- OUTSIDE RECORDS SUMMARY | 2023-11-20 16:45 | External Medical Summary | Continuity of Care Document ---
Author Name Unknown Organization [facility] [id number] [place] [id number] Care Team Providers Care Driver Sales Name Role Phone Amy Lafleur Primary Care Physician [phone] [facility] [id number] Date(s): 09/14/23 - 09/14/23 [facility] 0 [facility] 207 [facility] [address] [place] [id number] [phone] Encounter Diagnosis Hospital discharge follow-up(Discharge Diagnosis) - 09/14/23 Moderate dementia without behavioral disturbance(Discharge Diagnosis) - 09/14/23 COVID-19(Discharge Diagnosis) - 09/14/23 Toe pain, right(Discharge Diagnosis) - 09/14/23 Hypokalemia(Discharge Diagnosis) - 09/14/23 Hypomagnesemia(Discharge Diagnosis) - 09/14/23 Pain in right toe(s)(Final) - Unspecified dementia, moderate, without behavioral disturbance, psychotic disturbance, mood disturbance, and anxiety(Final) - COVID-19(Final) - Encounter for follow-up examination after completed treatment for conditions other than malignant neoplasm(Final) - Hypokalemia(Final) - Hypomagnesemia(Final) - Discharge Disposition: Home or Self Care Attending Physician: DO Gallagher Stephanie Marie Allergies, Adverse Reactions, Alerts No Known Medication [...] J45.909, PRN: as needed for wheezing, Pharmacy: [id number] Start Date: 04/29/21 Status: Ordered amphetamine-dextroamphetamine 15 mg oral capsule, extended release Start: 07/20/23 15:24:00 EST, 15 mg =, PO, qAM, Disp# 30 tab, Refills: 0, Pharmacy: [facility] Start Date: 07/20/23 Stop Date: 08/19/23 Status: Ordered atorvastatin 40 mg oral tablet Start: 03/01/23 16:49:00 EDT, See Instructions, Disp# 90 tab, Refills: 4, TAKE 1 TABLET BY MOUTH DAILY, Pharmacy: [facility] Start Date: 03/01/23 Status: Ordered bromocriptine 5 mg oral capsule Start: 07/20/23 14:26:00 EST, 1 cap, PO, bid, Disp# 60 cap, Refills: 3, Pharmacy: [facility] [id number] Start Date: 07/20/23 Stop Date: 11/17/23 Status: Ordered Colace Start: 06/06/22 14:06:00 EST Start Date: 06/06/22 Status: Ordered dexAMETHasone 4 mg oral tablet Start: 04/05/23 16:47:00 EDT, 5 tab, PO, qmonth (30 days), Disp# 5 tab, Refills: 6, Pharmacy: [facility] [id number] Start Date: 04/05/23 Status: Ordered donepezil 10 mg oral tablet Start: 07/20/23 14:27:00 EST, 1 tab, PO, Daily, Disp# 30 tab, Refills: 2, Pharmacy: [facility] [id number] Start Date: 07/20/23 Stop Date: 10/18/23 Status: Ordered Dulera 100 mcg-5 mcg/inh inhalation aerosol Start: 07/20/23 14:29:00 EST, 2 puff, inhaled, Daily, Disp# 13 g, Refills: 3, Pharmacy: [facility] [id number] Start Date: 07/20/23 Stop Date: 11/17/23 Status: Ordered Lantus Solostar Pen 100 units/mL subcutaneous solution Start: 07/20/23 15:13:00 EST, 28 unit =, subQ, Daily, Disp# 15 mL, Refills: 2, administer in the morning. If blood sugar under 70, give orange juice, Pharmacy: [facility] [id number] Start Date: 07/20/23 Stop Date: 10/18/23 Status: Ordered loratadine 10 mg oral tablet Start: 12/27/21 13:59:00 EDT Start Date: 12/27/21 Status: Ordered losartan 25 mg oral tablet Start: 07/20/23 14:25:00 EST, 1 tab, PO, Daily, Disp# 30 tab, Refills: 3, Pharmacy: [facility] [id number] Start Date: 07/20/23 Stop Date: 11/17/23 Status: Ordered memantine 10 mg oral tablet Start: 07/20/23 14:30:00 EST, 0.5 tab, PO, Daily, Disp# 30 tab, Refills: 3, Take half a tab daily, may increase to 1 tab daily in 2 wks on 2/7/22, Note to Pharmacy: Take half a tab daily, may increase to 1 tab daily in 2 wks on 07/11/21, Pharmacy: [facility] Start Date: 07/20/23 Stop Date: 11/17/23 Status: Ordered Nucala 100 mg subcutaneous injection Start: 07/20/23 14:32:00 EST, 100 mg =, subQ, [id number], Disp# 30 each, Refills: 1, Pharmacy: [id number] Start Date: 07/20/23 Stop Date: 01/04/24 Status: Ordered potassium chloride 10 mEq oral capsule, extended release Start: 07/20/23 14:22:00 EST, 2 cap, PO, bid, Disp# 120 cap, Refills: 2, Pharmacy: [id number] Start Date: 07/20/23 Stop Date: 10/18/23 Status: Ordered PreserVision Start: 04/06/17 10:12:00, 1 tab, PO, bid Start Date: 04/06/17 Status: Ordered sertraline 50 mg oral tablet Start: 07/20/23 14:31:00 EST, 1 tab, PO, Daily, Disp# 90 tab, Refills: 1, Pharmacy: [facility] Start Date: 07/20/23 Status: Ordered Vitamin B12 1000 mcg oral tablet Start: 12/27/21 14:00:00 EDT, 1 tab, PO, Daily Start Date: 12/27/21 Status: Ordered Vitamin D3 5000 intl units (125 mcg) oral tablet Start: 12/27/21 14:02:00 EDT Start Date: 12/27/21 Status: Ordered Mental Status 09/14/23 Barriers to Learning one year None evide nt Mandatory Health Literacy Documentation Yes Health Literacy Communication Barriers N ever Primary Language Argentine Problem List Condition Confirmation Course Effective Dates [...] Effective Dates Health Status Clinical Service Informant Moderate dementia without behavioral disturbance Discharge Diagnosis 09/14/23 Hospital discharge follow-up Discharge Diagnosis 09/14/23 COVID-19 Discharge Diagnosis 09/14/23 Hypokalemia Discharge Diagnosis 09/14/23 Non-Specified Hypomagnesemia Discharge Diagnosis 09/14/23 Non-Specified Toe pain, right Discharge Diagnosis 09/14/23 Procedures Procedure Date Related Diagnosis Body Site [...] No acute process. Stable bilateral pulmonary nodules. Results Laboratory List Name Date Complete Blood Count w Differential (CBC ,DIFFH) 09/14/23 Comprehensive Metabolic Panel (COMP META B PANEL) 09/14/23 Magnesium Level (MAGNESIUM) 09/14/23 Uric Acid Level (URIC ACID) 09/14/23 Most recent to oldest [Reference Range]: 1 eGFR CKD-EPI [>60 mL/min/1.73 m2] 44 mL/ min/1.73 m2 *LOW* (09/14/23 3:30 PM) Estimated CrCl 36.79 mL/min (09/14/23 9:33 PM) MPV [9.0-12.2 fL] 9.1 fL (09/14/23 3:30 PM) Immature Gran% 1.1 % (09/14/23 3:30 PM) Neut% 61.5 % (09/14/23 3:30 PM) Lymph% 29.1 % (09/14/23 3:30 PM) [place]% 6.9 % (09/14/23 3:30 PM) Baso% 0.9 % (09/14/23 3:30 PM) Eos% 0.5 % (09/14/23 3:30 PM) Immat Gran, Abs [0-0.4 K/uL] 0.09 K/uL (09/14/23 3:30 PM) Neut, Abs [2.0-7.7 K/uL] 4.84 K/uL (09/14/23 3:30 PM) Lymph, Abs [1.0-3.4 K/uL] 2.29 K/uL (09/14/23 3:30 PM) [place], Abs [0-1.0 K/uL] 0.54 K/uL (09/14/23 3:30 PM) Baso, Abs [0-0.1 K/uL] 0.07 K/uL (09/14/23 3:30 PM) Eos, Abs [0-0.5 K/uL] 0.04 K/uL (09/14/23 3:30 PM) Type of Diff: AUTO *Unknown* (09/14/23 3:30 PM) RDW [11.5-14.2 %] 15.4 % *HI* (09/14/23 3:30 PM) Anion Gap [5-14 mmol/L] 11 mmol/L (09/14/23 3:30 PM) Alb [3.5-5.2 g/dL] 3.8 g/dL (09/14/23 3:30 PM) Alk Phos [35-115 unit/L] 90 unit/L 1 (09/14/23 3:30 PM) ALT [0-33 unit/L] 28 unit/L (09/14/23 3:30 PM) AST [0-32 unit/L] 20 unit/L (09/14/23 3:30 PM) BUN [6-23 mg/dL] 22 mg/dL (09/14/23 3:30 PM) Ca [8.4-10.2 mg/dL] 9.6 mg/dL (09/14/23 3:30 PM) Cl- [98-107 mmol/L] 100 mmol/L (09/14/23 3:30 PM) HCO3 [22-29 mmol/L] 27 mmol/L (09/14/23 3:30 PM) Cret [0.60-1.00 mg/dL] 1.19 mg/dL *HI* (09/14/23 3:30 PM) Glu [74-109 mg/dL] 95 mg/dL 2 (09/14/23 3:30 PM) Hct [35-44 %] 37.3 % (09/14/23 3:30 PM) Hgb [11.7-15.0 g/dL] 11.7 g/dL (09/14/23 3:30 PM) K [3.5-5.1 mmol/L] 4.0 mmol/L (09/14/23 3:30 PM) MCH [28-33 pg] 27.3 pg *LOW* (09/14/23 3:30 PM) MCHC [32-36 g/dL] 31.4 g/dL *LOW* (09/14/23 3:30 PM) MCV [81-96 fL] 86.9 fL (09/14/23 3:30 PM) Mg [1.6-2.6 mg/dL] 2.0 mg/dL (09/14/23 3:30 PM) Na [136-145 mmol/L] 138 mmol/L (09/14/23 3:30 PM) Plts [150-350 K/uL] 477 K/uL *HI* (09/14/23 3:30 PM) RBC [3.90-5.00 M/uL] 4.29 M/uL (09/14/23 3:30 PM) T Bili [0.0-1.2 mg/dL] 0.3 mg/dL (09/14/23 3:30 PM) Prot [6.4-8.3 g/dL] 7.2 g/dL (09/14/23 3:30 PM) Uric Acid [2.7-6.4 mg/dL] 7.0 mg/dL *HI* (09/14/23 3:30 PM) WBC [4.0-10.4 K/uL] 7.87 K/uL (09/14/23 3:30 PM) 1Result Comment: Low levels of ALKP may indicate a deficiency in zinc, magnesium, or malnutritionbutcan also be an indicator of a rare genetic disease hypophosphatasia (HPP). 2Result Comment: ADA recommendation for FASTING Serum/Plasma Glucose: Normal: 70-100 mg/dL Prediabetes: 100-125 mg/dL Diabetes: 126 mg/dL or higher Vital Signs Most recent to oldest [Reference Range]: 1 Patient Weight 88.9 kg (09/14/23 2:21 PM) Temperature [36.5-37.9 DegC] 36.6 DegC (09/14/23 2:21 PM) Heart Rate 78 bpm (09/14/23 2:21 PM) Respiratory Rate 20 br/min (09/14/23 2:21 PM) Blood Pressure 118/78mmHg (09/14/23 2:21 PM) Cuff Pulse Pressure 40 mmHg (09/14/23 2:21 PM) Social History Social History Type Response Smoking Status Never smoked cigaret meri Sex Female Patient Care team information Care Team Personnel Name: MD Malachi, Josep Ibanez Position: Physician - Family Med Member Role: Lifetime Relationship Address: Address: [address] [place] [address] Name: DO Renae Amanda Position: Resident Member Role: Lifetime Relationship Address: Address: [address] [place] [address] Name: NILS Lafleur, Amy Yadav Position: Physician - Podiatry Member Role: Primary Care Provider Address: Address: [address] [place] [address] Care Team Related Persons Name: LIANNA CHAUDHRY Address: home [address] [facility] [place] [phone] Name: DEEPTHI CHAUDHRY Address: [place] Address: home [address] [place] [id number]
[2023-11-20] MEDS ORDERED: ACETAMINOPHEN 325 MG TAB PO PRN (16:51)
[2023-11-20] MEDS: FUROSEMIDE 40 MG/4 ML VIAL IV SCH (17:24)
[2023-11-20] MEDS: INSULIN ASPART PER UNIT CHARGE SC SCH (17:52)
[2023-11-20] MEDS: ALBUT/IPRATROP 3MG/0.5MG NEB 3 ML VIAL NEB SCH (19:20)
[2023-11-20] MEDS: DONEPEZIL HCL 10 MG TAB PO SCH (20:37)
[2023-11-20] MEDS: guaiFENesin 600 MG TABCR PO SCH (20:37)
[2023-11-20] MEDS: BROMOCRIPTINE MESYLATE 2.5 MG TAB PO SCH (20:37)
[2023-11-20] MEDS: ENOXAPARIN INJ 40 MG/0.4 ML SYR SQ SCH (20:38)
[2023-11-20] MEDS: POTASSIUM CHLORIDE CRTAB 20 MEQ TABCR PO SCH (20:40)
[2023-11-21 06:13] LABS: A calco-baum cmplx NotReported Not Detected (NotDetected); Bact fragilis Not Reported Not Detected (NotDetected); Blood Culture Id Panel See PCR Comment (NotDetected); C auris Not Reported Not Detected (NotDetected); Calbicans Not Reported Not Detected (NotDetected); Candida glabrata Not Reported Not Detected (NotDetected); Candida krusei Not Reported Not Detected (NotDetected); Cneoformans/gatti Not Reported Not Detected (NotDetected); Cparapsilosis Not Reported Not Detected (NotDetected); E cloacae compx Not Reported Not Detected (NotDetected); Efaecalis Not Reported Not Detected (NotDetected); Efaecium Not Reported Not Detected (NotDetected); Enterobacterales Not Reported Not Detected (NotDetected); Escherichia coli Not Reported Not Detected (NotDetected); H influenzae Not Reported Not Detected (NotDetected); K aerogenes Not Reported Not Detected (NotDetected); Koxytoca Not Reported Not Detected (NotDetected); Kpneumoniae grp Not Reported Not Detected (NotDetected); Lmonocyt Not Reported Not Detected (NotDetected); N meningitidis Not Reported Not Detected (NotDetected); P aeruginosa Not Reported Not Detected (NotDetected); Proteus spp Not Reported Not Detected (NotDetected); Salmonella spp Not Reported Not Detected (NotDetected); Smarcescens Not Reported Not Detected (NotDetected); Staph lugdunensis Not Reported Not Detected (NotDetected); Staph spp. Not Reported DETECTED (NotDetected); Staphaureus Not Reported Not Detected (NotDetected); Staphepi Not Reported DETECTED (NotDetected); Staphylococcus spp. DETECTED (NotDetected); Stenmaltophilia Not Reported Not Detected (NotDetected); Strep agal(GrpB) Not Reported Not Detected (NotDetected); Strep pneum Not Reported Not Detected (NotDetected); Strep pyog (GrpA) Not Reported Not Detected (NotDetected); Strep spp Not Reported Not Detected (NotDetected); mecAC Resistant Gene DETECTED (NotDetected)
[2023-11-21 06:32] LABS: Staphylococcus epidermidis DETECTED (NotDetected)
--- NOTE | 2023-11-21 07:20 | Hospitalist Progress Note ---
Date of Service November 21, 2023 Assessment & Plan (1) Acute heart failure: Plan: Worsening SOB, cough, and leg swelling x several weeks mild to moderate heart failure, maybe diastolic or HFpEF, but more likely acute on chronic cor pulmonale given extensive pulmonary history Patient's daughter would only like conservative measures at this time (no CT scan for PE, no advanced workup) Echocardiogram ordered, pending Lasix 40 mg IV BID17 Potassium chloride 20mEq BID (2) Asthma exacerbation: Plan: h/o eosinophilic asthma, CPAP dependent DuoNeb 3 mL Q6R Incentive spirometry, flutter valve Continuous pulse oximetry (3) Dementia: Plan: Continue donepezil, memantine Patient is currently in palliative care discussions Palliative care evaluation appreciated (4) Diabetes: Plan: Last A1c at 6.0% on 08/29/2023 Patient is normally on Lantus 28u QAM Lantus 14u BID while inpatient SSI; with target BSG range 110-140mg/dL, CF 30, carb ratio 15 T2DM diet BSG ACHS Adjust regimen as needed (5) Elevated troponin: Plan: Troponin 34 -->31 on arrival; suspect demand ischemia in the setting of new CHF However, given patient is a poor historian, unclear if she has been having chest pain Continuous telemetry monitoring Plan Blood cultures positive for gram-positive cocci expect this to be a contaminant and not exhibiting signs or symptoms of infectious etiologies but continue to watch DNR/DNI VTE PPx: Lovenox 40mg SQ q24h Admission and Anticipated Discharge Date Admission Date: November 20, 2023 Subjective pt states she feels much improved still with some mild shortness of breath Physical Exam Physical Exam: pt is awake and oriented x 2 lungs are with poor movement, mild rales at bases cardiac exam is regular with murmur Results & Data Results & Data Vital Signs (Past 12 Hours) Vital Signs Temp Pulse Pulse Resp BP Pulse Ox O2 Del Method 11/21/23 04:23 97.9 F 83 20 127/82 97 Room Air, BiPAP 11/21/23 00:42 90 18 95 CPAP 11/20/23 23:46 97.7 F 90 20 136/81 95 Room Air, BiPAP 11/20/23 21:58 93 H 11/20/23 19:50 97.5 F L 90 20 139/78 96 Room Air 11/20/23 19:45 Room Air 11/20/23 19:23 85 18 95 Room Air Laboratory Results Reviewed CBC reviewed chemistry PG Care Time/CCT Total # of Minutes Spent Total Time Spent with Patient: Total time spent is greater than 50% in coordination of care (as documented) at patient's floor/unit and/or counseling patient: Coding Level of Care Code 70779 SUB INP/OBS CARE 3/50MIN Diagnoses Acute heart failure I50.9 Asthma exacerbation J45.901 Dementia F03.C0 Dementia behavioral or psychological symptom: without behavioral, psychotic, or mood disturbance or anxiety Dementia severity: severe Dementia type: unspecified type Diabetes E11.9 Elevated troponin R79.89 (3) Dementia Dementia behavioral or psychological symptom: without behavioral, psychotic, or mood disturbance or anxiety Dementia severity: severe Dementia type: unspe cified type Qualified Code(s): F03.C0 - Unspecified dementia, severe, without behavioral disturbance, psychotic disturbance, mood disturbance, and anxiety
[2023-11-21 07:53] LABS: Basophils # (auto) 0.04 K/uL (0.00-0.20); Basophils % (auto) 0.6 %; Eosinophils # (auto) 0.02 K/uL (0.00-0.50); Eosinophils % (auto) 0.3 %; Hematocrit (blood only) 32.5 % (37.0-47.0); Hemoglobin 10.4 g/dl (12.0-16.0); Immature Granulocytes # (auto) 0.06 K/uL (0.01-0.20); Immature Granulocytes % (auto) 0.9 %; Lymphocytes # (auto) 1.31 K/uL (1.20-3.40); Lymphocytes % (auto) 19.2 %; Mean Corpuscular Volume 87.6 fL (80.0-100.0); Mean Platelet Volume 9.5 fL (9.4-12.4); Monocytes % (auto) 8.8 %; Neutrophils % (auto) 70.2 %; Platelet Count 240 K/uL (130-400); RDW Coefficient of Variation 15.1 % (11.5-14.5); RDW Standard Deviation 47.6 fL (36.4-46.3); Red Blood Count 3.71 M/uL (4.20-5.40); White Blood Count 6.83 K/ul (4.8-10.8)
[2023-11-21 08:23] LABS: BUN Creatinine Ratio 22.5 (10-20); Calcium 8.8 mg/dl (8.6-10.3); Creatinine Clr Calc Pharmacy 31.7 ml/min; Est GFR (African American) 39.7 ml/min; Est GFR (Non-African American) 34.3 ml/min; Potassium 3.5 mmol/L (3.5-5.1)
[2023-11-21] MEDS: SERTRALINE HCL 50 MG TABLET PO SCH (08:52)
[2023-11-21] MEDS: DOCUSATE SODIUM 100 MG CAP PO SCH (08:52)
[2023-11-21] MEDS: LORATADINE 10 MG TAB PO SCH (08:52)
[2023-11-21] MEDS: MEMANTINE HCL 10 MG TAB PO SCH (08:52)
[2023-11-21] MEDS: FLUTICASONE/VILANTEROL 100/25MCG 14 PUFFS/INHALER INH SCH (08:52)
[2023-11-21] MEDS: LANTUS PER UNIT CHARGE SQ SCH (08:57)
--- NOTE | 2023-11-21 16:13 | Communication Note ---
Date of Service: November 21, 2023 Brief Pall Med Note Consult received/appreciated/chart reviewed Full note to follow Patient with adv dementia, she is not decisional; she will need family meeting, this can be done in outpatient clinic if she is stable for dc - i am in clinic on and return to inpatient Sunday. Thank you for allowing me to participate in the ongoing care of this patient. Please page with any additional concerns. Koko Alarcon DNP Director, Palliative Medicine
--- NOTE | 2023-11-21 21:57 | XCELERA ---
[id number] \\[id number]
[2023-11-22 07:11] LABS: Basophils # (auto) 0.06 K/uL (0.00-0.20); Basophils % (auto) 0.9 %; Eosinophils # (auto) 0.04 K/uL (0.00-0.50); Eosinophils % (auto) 0.6 %; Hematocrit (blood only) 35.1 % (37.0-47.0); Hemoglobin 11.1 g/dl (12.0-16.0); Immature Granulocytes # (auto) 0.05 K/uL (0.01-0.20); Immature Granulocytes % (auto) 0.8 %; Lymphocytes # (auto) 1.45 K/uL (1.20-3.40); Lymphocytes % (auto) 21.8 %; Mean Corpuscular Hemoglobin 27.6 pg (25.0-34.0); Mean Corpuscular Hgb Conc 31.6 g/dL (32.0-36.0); Mean Corpuscular Volume 87.3 fL (80.0-100.0); Mean Platelet Volume 9.1 fL (9.4-12.4); Monocytes # (auto) 0.51 K/uL (0.11-0.59); Monocytes % (auto) 7.7 %; Neutrophils # (auto) 4.53 K/uL (1.40-6.50); Neutrophils % (auto) 68.2 %; Platelet Count 287 K/uL (130-400); RDW Coefficient of Variation 15.2 % (11.5-14.5); Red Blood Count 4.02 M/uL (4.20-5.40); White Blood Count 6.64 K/ul (4.8-10.8)
[2023-11-22 07:36] LABS: BUN Creatinine Ratio 23.3 (10-20); Calcium 9.1 mg/dl (8.6-10.3); Creatinine Clr Calc Pharmacy 32.9 ml/min; Est GFR (African American) 41.6 ml/min; Est GFR (Non-African American) 35.9 ml/min; Potassium 3.3 mmol/L (3.5-5.1)
[2023-11-22] MEDS: POTASSIUM CHLORIDE CRTAB 20 MEQ TABCR PO SCH (08:11)
[2023-11-22] MEDS: MAGNESIUM SULFATE / D5W 1 GM/100 ML BAG IV ONE (08:25)
[2023-11-22] MEDS ORDERED: POTASSIUM CHLORIDE CRTAB 20 MEQ TABCR PO SCH (09:00)
--- NOTE | 2023-11-22 20:08 | Hospitalist Progress Note ---
Date of Service November 22, 2023 Assessment & Plan (1) Acute heart failure: Plan: Patient presented with worsening SOB, cough, and leg swelling x several weeks mild to moderate heart failure, HFpEF, given severe aortic stenosis but more likely acute on chronic cor pulmonale given extensive pulmonary history Patient's daughter would only like conservative measures at this time (no CT scan for PE, no advanced workup) Echocardiogram revealed severe stenosis however daughter does not wish to pursue any intervention regarding this just medical management at this time. Lasix 40 mg IV BID caution with this and will need to downgrade to oral medications at some point Potassium chloride 20mEq BID CKD 3 stable at this time (2) Asthma exacerbation: Plan: h/o eosinophilic asthma, CPAP dependent DuoNeb 3 mL Q6R Incentive spirometry, flutter valve Continuous pulse oximetry (3) Dementia: Plan: Continue donepezil, memantine Patient is currently in palliative care discussions Palliative care evaluation appreciated (4) Diabetes: Plan: Last A1c at 6.0% on 08/29/2023 Patient is normally on Lantus 28u QAM Lantus 14u BID while inpatient SSI; with target BSG range 110-140mg/dL, CF 30, carb ratio 15 T2DM diet BSG ACHS Adjust regimen as needed (5) Elevated troponin: Plan: Troponin 34 -->31 on arrival; suspect demand ischemia in the setting of new CHF However, given patient is a poor historian, unclear if she has been having chest pain Continuous telemetry monitoring Plan Blood cultures positive for gram-positive cocci expect this to be a contaminant and not exhibiting signs or symptoms of infectious etiologies but continue to watch DNR/DNI VTE PPx: Lovenox 40mg SQ q24h Admission and Anticipated Discharge Date Admission Date: November 20, 2023 Subjective Continues to improve in mentation and hypoxia and respiratory distress no focal complaints at this time. Physical Exam Physical Exam: pt is awake and oriented x 2 lungs are with poor movement, have resolved but continues with poor air movement cardiac exam is regular with murmur Results & Data Results & Data Vital Signs (Past 12 Hours) Vital Signs Temp Pulse Pulse Resp BP BP Pulse Ox 11/22/23 19:36 85 17 97 11/22/23 19:04 98.1 F 84 16 154/78 H 94 11/22/23 15:15 97.5 F L 94 H 17 157/82 H 94 11/22/23 14:40 90 11/22/23 13:32 80 15 96 11/22/23 11:31 97.9 F 79 17 161/81 H 96 11/22/23 08:20 97.7 F 80 17 174/100 H 96 O2 Del Method 11/22/23 19:36 Room Air 11/22/23 19:04 Room Air 11/22/23 15:15 Room Air 11/22/23 14:40 11/22/23 13:32 Room Air 11/22/23 11:31 Room Air 11/22/23 08:20 Room Air Laboratory Results Reviewed CBC reviewed chemistry PG Care Time/CCT Total # of Minutes Spent Total Time Spent with Patient: Total time spent is greater than 50% in coordination of care (as documented) at patient's floor/unit and/or counseling patient: Coding Level of Care Code 12671 SUB INP/OBS CARE 235MIN Diagnoses Acute heart failure I50.9 Asthma exacerbation J45.901 Dementia F03.C0 Dementia behavioral or psychological symptom: without behavioral, psychotic, or mood disturbance or anxiety Dementia severity: severe Dementia type: unspecified type Diabetes E11.9 Elevated troponin R79.89 (3) Dementia Dementia behavioral or psychological symptom: without behavioral, psychotic, or mood disturbance or anxiety Dementia severity: severe Dementia type: unspecified type Qualified Code(s): F03.C0 - Unspecified dementia, severe, without behavioral disturbance, psychotic disturbance, mood disturbance, and anxiety
[2023-11-23 07:25] LABS: Basophils # (auto) 0.06 K/uL (0.00-0.20); Eosinophils # (auto) 0.02 K/uL (0.00-0.50); Eosinophils % (auto) 0.3 %; Hematocrit (blood only) 34.9 % (37.0-47.0); Hemoglobin 11.1 g/dl (12.0-16.0); Immature Granulocytes # (auto) 0.06 K/uL (0.01-0.20); Lymphocytes # (auto) 1.26 K/uL (1.20-3.40); Lymphocytes % (auto) 20.1 %; Mean Corpuscular Hemoglobin 27.7 pg (25.0-34.0); Mean Corpuscular Hgb Conc 31.8 g/dL (32.0-36.0); Mean Platelet Volume 9.1 fL (9.4-12.4); Monocytes # (auto) 0.58 K/uL (0.11-0.59); Monocytes % (auto) 9.2 %; Neutrophils % (auto) 68.4 %; Platelet Count 268 K/uL (130-400); RDW Standard Deviation 47.8 fL (36.4-46.3); Red Blood Count 4.01 M/uL (4.20-5.40); White Blood Count 6.28 K/ul (4.8-10.8)
[2023-11-23 07:52] LABS: BUN Creatinine Ratio 24.6 (10-20); Calcium 8.9 mg/dl (8.6-10.3); Creatinine Clr Calc Pharmacy 35.2 ml/min; Est GFR (African American) 46.1 ml/min; Est GFR (Non-African American) 39.8 ml/min; Magnesium 1.9 mg/dl (1.7-2.4); Potassium 3.4 mmol/L (3.5-5.1)
[2023-11-23] MEDS: METOPROLOL TARTRATE 1 MG/ML VIAL IV STA (09:31)
[2023-11-23] MEDS: MAGNESIUM SULFATE / D5W 1 GM/100 ML BAG IV ONE (09:39)
[2023-11-23] MEDS: METOPROLOL TARTRATE 25 MG TAB PO ONE (10:54)
[2023-11-23] MEDS ORDERED: METOPROLOL TARTRATE 1 MG/ML VIAL IV PRN (12:00)
--- NOTE | 2023-11-23 15:35 | Palliative Care Consultation ---
Date of Consultation November 23, 2023 Assessment & Plan (1) Dyspnea and respiratory abnormalities: (2) Confusion: (3) Weakness generalized: (4) Discussion about advance care planning held with family member: A 60-minute [id number] advance care planning meeting was held with patient's daughter, son and granddaughter in the family meeting room. Towards the end of the meeting, we were joined by care management, Chata. Daughter and son shared that extensive history of patient's disease progression which began approximately 8 years ago. In the last year or so, she has had worsening and progressively more acute decline. Current admission is due to the progressive lower extremity edema and they are aware that her echocardiogram showed severe aortic stenosis. They understand that she is in a very advanced state of heart failure but are relieved that the Lasix has been helping. They do not wish to have any pursuit of aggressive interventions, escalations in care, or further diagnostic testing or imaging. Daughter shares that approximately 8 years ago, when patient began to get sick she was still writing in her diary. Her was transferred to a fci approximately 6 months ago with progressive decline from a metastatic prostate cancer and repeated falls with subsequent neurologic decline. In the time the patient has continued to decline, family was able to review some of her diary entries. 8 years ago a clear documented entry indicates that she was aware of her progressive memory issues and that she felt if these issues continue to progress, her quality of life would not be what she wanted to be. 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 She prized her intellect and valued her autonomy. The current level of dependence on others and the lack of her cognitive capacity would be incredibly distressing to her and not in alignment with how she would define quality of life for herself. They are clear that they wish to transition to a focus on comfort. They had several questions about how this would look in the fci setting as she is no longer able to be managed safely at home because she has started to wander through the night, and can become very agitated and at times hostile. There is no way to have [id number]-[id number] 24 hours - 7 days a week caregiving support in the home. The son lives in the house with her and they have extensive video and audio alarm systems to the house however patient still manages to walk out. They note that their [place] [address] and they do not wish any harm to come to her. They feel it is time for placement in a secure dementia facility. Since her 's condition is also declining neurologically with more delirium and dementia like changes, they are hoping to be able to move him to whichever facility she is placed in so that they may share a room and both have hospice together. We discussed the benefits of hospice and I provided them with details about the hospice benefit. They were in agreement for discharge to a s killed facility and would like to make sure that all of her skilled days are used first because they know that those will be covered at 100% and then moved to long-term care status. Daughter states that there is a lot of other people at her father's current fci and that is why they do not wish to have the father transferred to the fci. She also states that she was recently advised that patient will not Qualify for Medicaid due to her income exceeding the top limit. Family is working with area aging and an mergers and acquisitions attorney to work towards getting coverage and support for patient and to remain in nursing facilities. They understand that there is some sort of a spend down required with Medicare. They are working on sorting those issues out as a family. When care management arrived they expressed preferences for skilled facility locations that would be close to the patient's daughter's home. Son would then be able to return to [place] where his family and grandchildren remain as he has been appear for several years as her primary caregiver. (5) Encounter for hospice care discussion: I provided education about the hospice benefit: an interdisciplinary program offered by nurses, nurses aides, social workers, chaplains and a medical biller for patients with a terminal condition and a life expectancy of less than 6 months. This is covered by Medicare at 100%/no out of pocket expense to patient and all meds/supplies needed by patient for the reason they are on hospice are paid for/covered by hospice. The goal is assure quality of life of the patient in their home setting (home, fci, inpatient hospice setting) by providing symptoms management, psychosocial and spiritual support. However, they cannot offer 24 hours care and if the family is unable to provide that care, they will have to consider personal care with out of pocket cost vs. fci placement. We discussed the goals of hospice as a patient service and the goals of care; we discussed EOL trajectories and transitions camryn the emotional impact of realizing mortality as a concrete reality from prior abstract considerations. Pt was reassured that no matter where they are along this trajectory, they are not alone - their medical team will remain by their side through their journey. Discussed the pros/cons of accepting help when especially weakened and distressed by pain-which would also help provide relief/decrease caregiver burden/strain. (6) Palliative care by specialist: Discussed Palliative Medicine provides specialized medical care for patients with a serious illness. We offer a focus on quality of life through reduction of symptom burden/more control over their illness, for patients and their family. Palliative Medicine interventions can be given along with curative treatment. I specifically clarified we are not hospice, which is a visiting nurse service that focuses on care delivered at the very end of life. (7) Dementia: Dementia behavioral or psychological symptom: without behavioral, psychotic, or mood disturbance or anxiety Dementia severity: severe Dementia type: unspecified type Qualified Code(s): F03.C0 - Unspecified dementia, severe, without behavioral disturbance, psychotic disturbance, mood disturbance, and anxiety (8) Eosinophilic asthma: (9) Cognitive impairment: Plan As noted above. Patient's son had several questions about what medications would and would not be continued when a focus is offered on comfort. Advised that we would stop the nonessential and on comfort focused medications but continue those which would offer comfort, example at this time I would continue her diuretic therapy as it does offer her comfort and relief. I would not however manage her diabetes with a goal of tight control I would liberalize this to be a blood sugar check twice a day with sliding scale insulin coverage and cessation of her long-acting insulin as her appetite continues to decline. We also talked about stopping additional vitamins and supplements as well as cholesterol-lowering medications that these will not offer any meaningful benefit at this stage. Family was in agreement with the recommendation above. Primary team was updated. Nursing was updated. My contact information was provided to the family. I am available to help with further symptom management if needs arise during this admission. That when she is admitted to team and their medical biller will the primary care management group for patient. However, I advised family they are always welcome to call me if they have any additional questions or concerns that I could try to answer for them Thank you for allowing us to participate in the ongoing care of this patient. Please page with any additional concerns. Koko Alarcon DNP Director, Palliative Medicine History of Present Illness Reason for Consultation: adv dementia , [facility] Attending Physician: Helio Lira MD History of Present Illness Stephanie is an 88-year-old female admitted from home with worsening shortness of breath, cough and bilateral lower extremity edema Progressed over several weeks. Family reports that it became a severe pitting edema in the 2 to 3 days prior to admission. Her BNP was found to be elevated at 871 and she was treated with Lasix 40 mg IV. Additionally, potassium chloride tablets were given to replace diuretic related loss. 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 She also uses guaifenesin tablets to loosen her congestion, DuoNebs as needed and has become less active at home. She has a diagnosis of dementia which has been progressing over the last decade. Patient's daughter is at the bedside and reports the patient has been taking donezepil and memantine for some time but her disease continues to worsen family does not feel she is getting any benefit from these medications her dementia has been started declining the course of the last 8 years with a very sharp decline noted over this past year or so., Very forgetful, has very few days with periods of lucidity, needs frequent reorientation, needs to be toileted on a schedule, perform her ADLs, supervision patient has been able to remain in her home with patient provide her with jypguk-jqi-wuonj care. Allergies Allergy/AdvReac Type Severity Reaction Status Date / Time No Known Allergies Allergy Unknown Verified 11/20/23 13:32 Home Medications Medication Instructions Recorded Confirmed Type mometasone-formoterol HFA 100 2 puff inhalation DAILY 08/26/20 11/20/23 History mcg-5 mcg/actuation aerosol inhaler (Dulera) sertraline 50 mg tablet 50 mg PO DAILY 08/26/20 11/20/23 History donepezil 10 mg tablet 10 mg PO HS 05/08/22 11/20/23 History memantine 10 mg tablet 10 mg PO DAILY 05/08/22 11/20/23 History albuterol sulfate 2.5 mg/3 mL 2.5 mg inhalation DIRECTED PRN 05/29/23 11/20/23 History (0.083 %) solution for nebulization Shortness Of Breath Or Wheezing loratadine 10 mg tablet (Claritin) 10 mg PO DAILY 05/29/23 11/20/23 History mepolizumab 100 mg subcutaneous 100 mg subcut .[id number] 05/29/23 11/20/23 History solution (Nucala) bromocriptine 5 mg capsule 5 mg PO BID 08/28/23 11/20/23 History dextroamphetamine-amphetamine ER 15 mg PO DAILY 08/28/23 11/20/23 History 15 mg 24hr capsule,extend release docusate sodium 100 mg capsule 100 mg PO DAILY 08/28/23 11/20/23 History (Colace) insulin glargine 100 unit/mL (3 28 unit subcut QAM 08/28/23 11/20/23 History mL) subcutaneous pen (Lantus Solostar U-100 Insulin) Patient History Medical History (Updated 11/23/23 @ 15:26 by Nicole Alarcon DNP) Acute dehydration DKA (diabetic ketoacidosis) Fall Obesity Diabetes Hypertensive urgency Pneumonia Bronchitis Asthma Surgical History H/O tubal ligation Family History Other Family history non-contributory Social History Smoking Status: Never smoker Second Hand Exposure: Yes; Do You Dip or Chew Tobacco: No; Hx Alcohol Use: No Hx Substance Use: No Preferred Language: Niuean Communication Ability: Impaired Communication Ability Comment: Dementia Wire Fence Erector Required: No Beliefs That Will Affect Care: Uatsdin marital status: Current Living Situation: Family current occupational status: retired current occupation: retired teacher How many Children do You have: 2 Feels Safe at Home: Yes Safety Concerns: Feels Safe At This Time Assistive Devices: CPAP, Lift Chair, Nebulizer and Walker Review of Systems Review of Systems: Unobtainable due to cognitive status Physical Exam Physical Exam: Elderly female, resting in bed, semireclined. No acute distress. She awakens to voice and is alert to self. Bitemporal wasting is noted. PERRLA. EOMI's. Neck is supple and without stridor. Anterior lung exam with diminished breath sounds, few scattered rhonchi. S1-S2, + murmur. Abdomen softly distended, + bowel sounds. Generalized weakness. Unable to follow commands consistently. Skin is pale, warm to touch. She is confused at baseline. +unable to participate in mini mental exam. Results & Data Vital Signs (Past 12 Hours) Vital Signs Temp Pulse Pulse Resp BP BP BP 11/23/23 14:00 81 11/23/23 13:47 11/23/23 13:08 84 18 11/23/23 11:40 36.3 C L 81 17 121/80 11/23/23 09:50 11/23/23 09:49 88 114/71 11/23/23 09:31 100 H 111/62 11/23/23 07:52 36.5 C 85 17 154/83 H 11/23/23 07:26 89 16 11/23/23 07:00 92 H Pulse Ox Pulse Ox O2 Del Method O2 Flow Rate 11/23/23 14:00 11/23/23 13:47 95 0 11/23/23 13:08 93 Room Air 11/23/23 11:40 94 Room Air 11/23/23 09:50 Room Air 11/23/23 09:49 11/23/23 09:31 11/23/23 07:52 95 Room Air 11/23/23 07:26 100 Room Air 11/23/23 07:00 Laboratory Results Data reviewed Diagnostic Findings Echocardiogram dated 11/21/2023 demonstrates left ventricular systolic function is normal, no regional wall motion abnormalities, moderate concentric LVH, ejection fraction 55 to 60%, severe aortic stenosis, mild to moderate mitral regurgitation, and when compared to the study of 09/12/2014, severe aortic stenosis is now present. PG Care Time/CCT Total # of Minutes Spent Total Time Spent with Patient: Total time spent is greater than 50% in coordination of care (as documented) at patient's floor/unit and/or counseling patient: I spent 135 minutes overall addressing this case: 15 min in medical data review/discussion with referring provider(s) and/or preparation for the visit 25 min in direct interaction with the patient/exam 60 min in Advance Care Planning/Goals of Care discussions as detailed above in note (must be >16min) 20 min in subsequent review and synthesis of assessment and plan 15 min communicating with other providers regarding the patient's case: Advanced Care Planning 05638 Advanced Care Planning 30 Min 15540 Advanced Care Planning Additional 30 [place] [address] IN/OBS CONSULT LVL 5,80M (25 - SIGNIFICANT, SEPARATELY IDENTIFIABLE ) Patient Type New Medical Decision Making High Complexity Diagnoses Dyspnea and respiratory abnormalities R06.00; R06.89 Confusion R41.0 Weakness generalized R53.1 Discussion about advance care planning held with family member Z71.0 Encounter for hospice care discussion Z71.89 Palliative care by specialist Z51.5 Dementia F03.C0 Dementia behavioral or psychological symptom: without behavioral, psychotic, or mood disturbance or anxiety Dementia severity: severe Dementia type: unspecified type Eosinophilic asthma J82.83 Cognitive impairment R41.89 Additional Codes Advanced Care Planning - 11288 Advanced Care Planning 30 Min: 69160 Advanced Care Planning 30 Min ([id number]) Advanced Care Planning - 09266 Advanced Care Planning Additional 30 Min: 36584 Advanced Care Planning Additional 30 Min ([id number])
--- NOTE | 2023-11-23 16:36 | Electrocardiogram Report ---
Test Reason : Blood Pressure : / mmHG Vent. Rate : 126 BPM Atrial Rate : 163 BPM P-R Int : 000 ms QRS Dur : 090 ms QT Int : 336 ms P-R-T Axes : 000 008 211 degrees QTc Int : 486 ms Atrial fibrillation with rapid ventricular response Abnormal ECG When compared with ECG of 20-NOV-2023 11:55, Atrial fibrillation has replaced Sinus rhythm Inverted T waves have replaced nonspecific T wave abnormality in Lateral leads Confirmed by Sebastian Briceño ([id number]) on 11/23/2023 4:35:52 PM Referred By: REFERRED SELF Confirmed By:Sebastian Briceño
--- NOTE | 2023-11-23 17:27 | Hospitalist Progress Note ---
Date of Service November 23, 2023 Assessment & Plan (1) Acute heart failure: Plan: Patient presented with worsening SOB, cough, and leg swelling x several weeks mild to moderate heart failure, HFpEF, given severe aortic stenosis but more likely acute on chronic cor pulmonale given extensive pulmonary history with new onset of afib will also consider acute diastolic HF from Afib RVR that maybe paf at home Patient's daughter would only like conservative measures at this time (no CT scan for PE, no advanced workup) Echocardiogram revealed severe stenosis however daughter does not wish to pursue any intervention regarding this just medical management at this time. transtion to po on 11/24/23 Potassium chloride 20mEq BID CKD 3 stable at this time (2) Afib: Plan: Afib rvr, likely PAF, given metoprolol iv then po also given one dose iv magnesium 1 gm this afib maybe responsible for hf worsening given severe (3) Asthma exacerbation: Plan: h/o eosinophilic asthma, CPAP dependent DuoNeb 3 mL Q6R Incentive spirometry, flutter valve Continuous pulse oximetry (4) Diabetes: Plan: Last A1c at 6.0% on 08/29/2023 Patient is normally on Lantus 28u QAM Lantus 14u BID while inpatient SSI; with target BSG range 110-140mg/dL, CF 30, carb ratio 15 T2DM diet BSG ACHS Adjust regimen as needed (5) Elevated troponin: Plan: Troponin 34 -->31 on arrival; suspect demand ischemia in the setting of new CHF However, given patient is a poor historian, unclear if she has been having chest pain Continuous telemetry monitoring (6) Dementia: Plan: Continue donepezil, memantine Patient is currently in palliative care discussions Palliative care evaluation appreciated Plan Blood cultures positive for gram-positive cocci expect this to be a contaminant and not exhibiting signs or symptoms of infectious etiologies but continue to watch DNR/DNI, did meet with palliative care, not ready for hospice but will move forward with conservative medical care perhaps in the future and are supportive of snf placement for the short term VTE PPx: Lovenox 40mg SQ q24h Admission and Anticipated Discharge Date Admission Date: November 20, 2023 Subjective pt developed afib rvr with dyspnea, this returned to sinus rhythm after metoprolol and symptoms resolved pt did not have chest pain or acs changes with rapid rate Physical Exam Physical Exam: pt is awake and oriented x 2 irregular rapid rhythm, now improved and returned to NSR on monitor lungs are with poor movement,rales have resolved Results & Data Results & Data Vital Signs (Past 12 Hours) Vital Signs Temp Pulse Pulse Resp BP BP BP 11/23/23 15:33 98.1 F 72 18 150/93 H 11/23/23 14:00 81 11/23/23 13:47 11/23/23 13:08 84 18 11/23/23 11:40 97.3 F L 81 17 121/80 11/23/23 09:50 11/23/23 09:49 88 114/71 11/23/23 09:31 100 H 111/62 11/23/23 07:52 97.7 F 85 17 154/83 H 11/23/23 07:26 89 16 11/23/23 07:00 92 H Pulse Ox Pulse Ox O2 Del Method O2 Flow Rate 11/23/23 15:33 96 Room Air 11/23/23 14:00 11/23/23 13:47 95 0 11/23/23 13:08 93 Room Air 11/23/23 11:40 94 Room Air 11/23/23 09:50 Room Air 11/23/23 09:49 11/23/23 09:31 11/23/23 07:52 95 Room Air 11/23/23 07:26 100 Room Air 11/23/23 07:00 Laboratory Results review cbc review chemistry PG Care Time/CCT Total # of Minutes Spent Total Time Spent with Patient: Total time spent is greater than 50% in coordination of care (as documented) at patient's floor/unit and/or counseling patient: Coding Level of Care Code 01865 SUB INP/OBS CARE 2/35MIN Diagnoses Acute heart failure I50.9 Afib I48.91 Asthma exacerbation J45.901 Diabetes E11.9 Elevated troponin R79.89 Dementia F03.C0 Dementia behavioral or psychological symptom: without behavioral, psychotic, or mood disturbance or anxiety Dementia severity: severe Dementia type: unspecified type (6) Dementia Dementia behavioral or psychological symptom: without behavioral, psychotic, or mood disturbance or anxiety Dementia severity: severe Dementia type: unspecified type Qualified Code(s): F03.C0 - Unspecified dementia, severe, without behavioral disturbance, psychotic disturbance, mood disturbance, and anxiety
[2023-11-23] MEDS: METOPROLOL TARTRATE 25 MG TAB PO SCH (21:40)
[2023-11-24 07:24] LABS: BUN Creatinine Ratio 28.1 (10-20); Calcium 9.3 mg/dl (8.6-10.3); Creatinine Clr Calc Pharmacy 35.5 ml/min; Est GFR (African American) 46.6 ml/min; Est GFR (Non-African American) 40.2 ml/min; Magnesium 2.2 mg/dl (1.7-2.4); Potassium 3.6 mmol/L (3.5-5.1)
[2023-11-24] MEDS: FUROSEMIDE 40 MG TAB PO SCH (08:19)
--- NOTE | 2023-11-24 16:42 | Hospitalist Progress Note ---
Date of Service November 24, 2023 Assessment & Plan (1) Acute heart failure: Plan: Patient presented with worsening SOB, cough, and leg swelling x several weeks mild to moderate heart failure, HFpEF, given severe aortic stenosis but more likely acute on chronic cor pulmonale given extensive pulmonary history with new onset of afib will also consider acute diastolic HF from Afib RVR that maybe paf at home Patient's daughter would only like conservative measures at this time (no CT scan for PE, no advanced workup) Echocardiogram revealed severe stenosis however daughter does not wish to pursue any intervention regarding this just medical management at this time. transtion to po on 11/24/23 Potassium chloride 20mEq BID CKD 3 stable at this time (2) Afib: Plan: Afib rvr, likely PAF, given metoprolol iv then po also given one dose iv magnesium 1 gm this afib maybe responsible for hf worsening given severe (3) Asthma exacerbation: Plan: h/o eosinophilic asthma, CPAP dependent DuoNeb 3 mL Q6R Incentive spirometry, flutter valve Continuous pulse oximetry (4) Diabetes: Plan: Last A1c at 6.0% on 08/29/2023 Patient is normally on Lantus 28u QAM Lantus 14u BID while inpatient SSI; with target BSG range 110-140mg/dL, CF 30, carb ratio 15 T2DM diet BSG ACHS Adjust regimen as needed (5) Elevated troponin: Plan: Troponin 34 -->31 on arrival; suspect demand ischemia in the setting of new CHF However, given patient is a poor historian, unclear if she has been having chest pain Continuous telemetry monitoring (6) Dementia: Plan: Continue donepezil, memantine Patient is currently in palliative care discussions Palliative care evaluation appreciated Plan Blood cultures positive for gram-positive cocci expect this to be a contaminant and not exhibiting signs or symptoms of infectious etiologies but continue to watch DNR/DNI, did meet with palliative care, not ready for hospice but will move forward with conservative medical care perhaps in the future and are supportive of snf placement for the short term VTE PPx: Lovenox 40mg SQ q24h Admission and Anticipated Discharge Date Admission Date: November 20, 2023 Subjective pt developed afib rvr with dyspnea on 11/22, this returned to sinus rhythm after metoprolol and symptoms resolved pt did not have chest pain or acs changes with rapid rate pt seems back to baseline Physical Exam Physical Exam: pt is awake and oriented x 2 irregular rapid rhythm, now improved and returned to NSR on monitor lungs are with poor movement,rales have resolved Results & Data Results & Data Vital Signs (Past 12 Hours) Vital Signs Temp Pulse Pulse Resp BP BP Pulse Ox 11/24/23 16:00 11/24/23 15:55 97.9 F 86 18 159/84 H 93 11/24/23 14:50 86 11/24/23 12:59 89 16 95 11/24/23 11:35 97.5 F L 81 18 152/98 H 92 11/24/23 07:33 11/24/23 07:29 97.9 F 69 18 166/85 H 100 11/24/23 07:15 80 16 96 11/24/23 07:10 74 Pulse Ox O2 Del Method O2 Del Method O2 Flow Rate 11/24/23 16:00 93 Room Air 11/24/23 15:55 Room Air 11/24/23 14:50 11/24/23 12:59 Room Air 11/24/23 11:35 Room Air 11/24/23 07:33 Room Air 11/24/23 07:29 Nebulizer 7 11/24/23 07:15 Room Air 11/24/23 07:10 Laboratory Results review chemistry PG Care Time/CCT Total # of Minutes Spent Total Time Spent with Patient: Total time spent is greater than 50% in coordination of care (as documented) at patient's floor/unit and/or counseling patient: Coding Level of Care Code 83250 SUB INP/OBS CARE 2/35MIN Diagnoses Acute heart failure I50.9 Afib I48.91 Asthma exacerbation J45.901 Diabetes E11.9 Elevated troponin R79.89 Dementia F03.C0 Dementia behavioral or psychological symptom: without behavioral, psychotic, or mood disturbance or anxiety Dementia severity: severe Dementia type: unspecified type (6) Dementia Dementia behavioral or psychological symptom: without behavioral, psychotic, or mood disturbance or anxiety Dementia severity: severe Dementia type: unspecified type Qualified Code(s): F03.C0 - Unspecified dementia, severe, without behavioral disturbance, psychotic disturbance, mood disturbance, and anxiety
--- NOTE | 2023-11-25 13:06 | Hospitalist Progress Note ---
Date of Service November 25, 2023 Assessment & Plan (1) Acute heart failure: Plan: Patient presented with worsening SOB, cough, and leg swelling x several weeks mild to moderate heart failure, HFpEF, given severe aortic stenosis but more likely acute on chronic cor pulmonale given extensive pulmonary history with new onset of afib will also consider acute diastolic HF from Afib RVR that maybe paf at home however did not start AC with this pt with short duration Patient's daughter would only like conservative measures at this time (no CT scan for PE, no advanced workup) Echocardiogram revealed severe stenosis however daughter does not wish to pursue any intervention regarding this just medical management at this time. transitioned to po on 11/24/23 Potassium chloride 20mEq BID CKD 3 stable at this time (2) Afib: Plan: Afib rvr, likely PAF, given metoprolol iv then po also given one dose iv magnesium 1 gm this afib maybe responsible for hf worsening given severe (3) Asthma exacerbation: Plan: h/o eosinophilic asthma, CPAP dependent DuoNeb 3 mL Q6R Incentive spirometry, flutter valve Continuous pulse oximetry (4) Diabetes: Plan: Last A1c at 6.0% on 08/29/2023 Patient is normally on Lantus 28u QAM Lantus 14u BID while inpatient SSI; with target BSG range 110-140mg/dL, CF 30, carb ratio 15 T2DM diet BSG ACHS Adjust regimen as needed (5) Elevated troponin: Plan: Troponin 34 -->31 on arrival; suspect demand ischemia in the setting of new CHF However, given patient is a poor historian, unclear if she has been having chest pain Continuous telemetry monitoring (6) Dementia: Plan: Continue donepezil, memantine Patient is currently in palliative care discussions Palliative care evaluation appreciated Plan Blood cultures positive for gram-positive cocci expect this to be a contaminant and not exhibiting signs or symptoms of infectious etiologies but continue to watch DNR/DNI, did meet with palliative care, not ready for hospice but will move forward with conservative medical care, supportive of snf placement for the short term, if declines will support hospice transtion VTE PPx: Lovenox 40mg SQ q24h Admission and Anticipated Discharge Date Admission Date: November 20, 2023 Subjective pt developed afib rvr with dyspnea on 11/22, this returned to sinus rhythm after metoprolol and symptoms resolved-remains in nsr , did not start AC as short duration afib likely sparked by HF from severe pt did not have chest pain or acs changes with rapid rate pt seems back to baseline Physical Exam Physical Exam: pt is awake and oriented x 2 irregular rapid rhythm, now improved and has not returned cardiac returned to NSR on monitor lungs are with poor movement,rales have resolved Results & Data Results & Data Vital Signs (Past 12 Hours) Vital Signs Temp Pulse Pulse Resp BP Pulse Ox O2 Del Method 11/25/23 12:59 76 16 93 Room Air 11/25/23 11:14 97.7 F 60 18 117/77 92 Room Air 11/25/23 07:43 97.5 F L 72 18 160/82 H 95 Room Air 11/25/23 07:23 Room Air 11/25/23 07:12 72 16 95 Room Air 11/25/23 06:51 80 11/25/23 03:04 98.1 F 82 16 155/80 H 92 Room Air 11/25/23 01:17 82 17 95 Room Air PG Care Time/CCT Total # of Minutes Spent Total Time Spent with Patient: Total time spent is greater than 50% in coordination of care (as documented) at patient's floor/unit and/or counseling patient: Coding Level of Care Code 11196 SUB INP/OBS CARE 2/35MIN Diagnoses Acute heart failure I50.9 Afib I48.91 Asthma exacerbation J45.901 Diabetes E11.9 Elevated troponin R79.89 Dementia F03.C0 Dementia behavioral or psychological symptom: without behavioral, psychotic, or mood disturbance or anxiety Dementia severity: severe Dementia type: unspecified type (6) Dementia Dementia behavioral or psychological symptom: without behavioral, psychotic, or mood disturbance or anxiety Dementia severity: severe Dementia type: unspecified type Qualified Code(s): F03.C0 - Unspecified dementia, severe, without behavioral disturbance, psychotic disturbance, mood disturbance, and anxiety
[2023-11-26 07:52] LABS: BUN Creatinine Ratio 20.9 (10-20); Calcium 8.9 mg/dl (8.6-10.3); Creatinine Clr Calc Pharmacy 32.1 ml/min; Est GFR (African American) 41.2 ml/min; Est GFR (Non-African American) 35.5 ml/min
[2023-11-26] MEDS: POTASSIUM CHLORIDE CRTAB 20 MEQ TABCR PO SCH (08:28)
[2023-11-26] MEDS: LANTUS PER UNIT CHARGE SQ SCH (09:32)
--- NOTE | 2023-11-26 11:54 | Hospitalist Progress Note ---
Date of Service November 26, 2023 Assessment & Plan (1) Acute heart failure: Plan: Acute diastolic CHF present on admission. She is now on Lasix 40 mg every morning by mouth. She is on room air. Resolved. (2) Afib: Plan: New onset. Rapid ventricular rate present on admission. Heart rate today is much more regular. She may have converted back to normal sinus rhythm. Repeat EKG is pending. (3) Asthma exacerbation: Plan: h/o eosinophilic asthma, CPAP dependent . Present on admission. Now resolved (4) Diabetes: Plan: ADA diet. Basal insulin down titrated today, November 25, to 10 units twice daily due to borderline hypoglycemia. (5) Elevated troponin: Plan: Mild on admission. No evidence of acute coronary syndrome. Telemetry (6) Dementia: Plan: Stable. Continue donepezil, memantine. Supportive care (7) Chronic kidney disease, stage III (moderate): Plan: Stable. Monitor urine output. Serial labs Plan SNF placement is pending. She is medically stable for discharge when arrangements are finalized Admission and Anticipated Discharge Date Admission Date: November 20, 2023 Subjective Alert and oriented. No distress. Awaiting SNF placement Review of Systems 2 Review of Systems: Constitutional-no fever or chills ENT-no blurred vision, no double vision, no epistaxis, no sore throat Respiratory-no cough, no wheezing, no shortness of breath at rest Cardiac-no palpitations, no chest pain, no syncope GI-no nausea, vomiting, diarrhea, melena, hematochezia -no urinary retention, no urinary incontinence, no dysuria, no hematuria Musculoskeletal-no joint pain, no muscle tenderness Skin-no bruising, no rashes, no pruritus Neuro-no isolated weakness, no paresthesia, no weakness Psych-no depression, no anxiety Physical Exam 2 Physical Exam: General-alert and oriented x3, no fever, no chills HEENT-head atraumatic and normocephalic, pupils equal and reactive to light, extraocular muscles intact Neck-no lymphadenopathy or thyromegaly, trachea midline Chest-clear to auscultation. No rales, wheezing or rhonchi Cardiac-regular rate and rhythm, normal S1 and S2. Systolic aortic stenosis murmur Abdomen-normal bowel sounds, no hepatosplenomegaly Extremities-no cyanosis, clubbing, or edema Neuro-cranial nerves II through XII intact, motor and sensory function within normal limits, strength symmetrical with generalized weakness consistent with age, no focal deficits Psych-normal affect, normal mood Results & Data Results & Data Vital Signs (Past 12 Hours) Vital Signs Temp Pulse Pulse Resp BP BP Pulse Ox 11/26/23 11:34 36.9 C 79 18 127/85 93 11/26/23 08:00 84 11/26/23 07:26 78 14 96 11/26/23 07:17 36.7 C 77 16 153/81 H 96 11/26/23 04:14 36.6 C 78 20 145/82 H 93 11/26/23 01:27 66 16 91 O2 Del Method FiO2 11/26/23 11:34 Room Air 11/26/23 08:00 11/26/23 07:26 Room Air 21 11/26/23 07:17 CPAP 11/26/23 04:14 Room Air 11/26/23 01:27 Room Air Laboratory Results 11/23/23 06:47 11/26/23 06:54 PG Care Time/CCT Total # of Minutes Spent Total Time Spent with Patient: Total time spent is greater than 50% in coordination of care (as documented) at patient's floor/unit and/or counseling patient: Coding Level of Care Code 87568 SUB INP/OBS CARE 3/50MIN Diagnoses Acute heart failure I50.9 Afib I48.91 Asthma exacerbation J45.901 Diabetes E11.9 Elevated troponin R79.89 Dementia F03.C0 Dementia behavioral or psychological symptom: without behavioral, psychotic, or mood disturbance or anxiety Dementia severity: severe Dementia type: unspecified type Chronic kidney disease, stage III (moderate) N18.30 (6) Dementia Dementia behavioral or psychological symptom: without behavioral, psychotic, or mood disturbance or anxiety Dementia severity: severe Dementia type: u nspecified type Qualified Code(s): F03.C0 - Unspecified dementia, severe, without behavioral disturbance, psychotic disturbance, mood disturbance, and anxiety
[2023-11-26] MEDS ORDERED: ALBUT/IPRATROP 3MG/0.5MG NEB 3 ML VIAL NEB PRN (13:52)
--- NOTE | 2023-11-26 18:34 | Electrocardiogram Report ---
Test Reason : Blood Pressure : / mmHG Vent. Rate : 077 BPM Atrial Rate : 077 BPM P-R Int : 164 ms QRS Dur : 100 ms QT Int : 398 ms P-R-T Axes : 058 021 119 degrees QTc Int : 450 ms Normal sinus rhythm Nonspecific T wave abnormality Anterolateral leads Abnormal ECG When compared with ECG of 23-NOV-2023 09:12, Sinus rhythm has replaced Atrial fibrillation Vent. rate has decreased BY 49 BPM Inverted T waves have replaced nonspecific T wave abnormality in Anterior leads Confirmed by Dorian Finn ([id number]) on 11/26/2023 6:33:45 PM Referred By: REFERRED SELF Confirmed By:Dorian Finn
--- NOTE | 2023-11-27 11:39 | Discharge Summary ---
Date of Service November 27, 2023 Admission HPI Per Admitting Provider Stephanie is an 88-year-old female with PMH of eosinophilic asthma, COPD, HTN, dementia, gout, and diabetes. She presented on 11/19 for worsening SOB, cough, and congestion over the past several weeks. Patient is a poor historian at baseline due to her advanced dementia. Patient's daughter is in the room and provides most of the history. She reports that the patient usually develops wheezing/SOB just prior to her Nucala injection every 30 days; last injection was on November 11. However, this time she still exhibited SOB both at rest and with exertion after the injection. She has also had a productive cough with cl ear, thick sputum. Patient has also exhibited generalized weakness, and inability to stand/use walker. She was reportedly agitated and moaning last night, but was unable to convey if she was having chest pain or trouble breathing. No history of CHF to daughter's knowledge. No sick contacts. No PMH of DVT/PE, NM, or CVA. Patient has been eating half of what she usually eats, but does not watch salt intake. No recent change in weight, but may be slightly up today. Patient's pitting edema in her legs just started the past couple days, and this is new for her. Patient is currently on palliative care discussions, and daughter reports she is open to discussing further while here. Patient's daughter would not like any additional scans to look for a PE at this time; she did have a RLE Doppler several months ago with no DVT; patient's daughter is amenable to echocardiogram. Patient did not take her regular morning medications, but did take her insulin 28 units. Patient denies smoking, tobacco use, and alcohol use. She does use a CPAP at night; no other supplemental oxygen use. Patient is hypertensive at 159/102 at time of admission; vitals otherwise stable. ED course: Solu-Medrol 125 mg IV DuoNeb 3 mL Guaifenesin 600 mg p.o. Lasix 20 mg IV Nitro-Bid 2% 1 inch ROS: Patient endorses generalizes weakness, loss of appetite, unclear if chest pain (patient has difficulty conveying), SOB at rest and with exertion, productive cough, loose stools (usually constipated), Patient denies fever, chills, dizziness, lightheadedness, abdominal pain, N/V/D, or blood in urine/stool. Principal Diagnosis New onset atrial fibrillation with rapid ventricular rate, acute diastolic CHF, acute exacerbation intrinsic asthma Discharge Exam General-alert and oriented x3, no fever, no chills HEENT-head atraumatic and normocephalic, pupils equal and reactive to light, extraocular muscles intact Neck-no lymphadenopathy or thyromegaly, trachea midline Chest-clear to auscultation. No rales, wheezing or rhonchi Cardiac-regular rate and rhythm, normal S1 and S2. Systolic aortic stenosis m urmur Abdomen-normal bowel sounds, no hepatosplenomegaly Extremities-no cyanosis, clubbing, or edema Neuro-cranial nerves II through XII intact, motor and sensory function within normal limits, strength symmetrical with generalized weakness consistent with age, no focal deficits Psych-normal affect, normal mood Discharge Data Allergies Allergy/AdvReac Type Severity Reaction Status Date / Time No Known Allergies Allergy Unknown Verified 11/20/23 13:32 Consultations 11/20/23 14:07 ED Decision to Admit Stat 11/20/23 16:51 Consult Palliative Care Routine Hospital Course (1) Acute heart failure: Acute diastolic CHF present on admission. Now resolved. She is now on Lasix 40 mg every morning by mouth. She is on room air. (2) Afib: New onset. Rapid ventricular rate present on admission. She has since converted back to normal sinus rhythm. Continue current medical management. Telemetry (3) Asthma exacerbation: h/o eosinophilic asthma. CPAP dependent . Present on admission. Now resolved (4) Diabetes: ADA diet. Basal insulin down titrated on November 25 to 10 units twice daily due to borderline hypoglycemia. Glucose level today, November 26, is 120 (5) Elevated troponin: Mild on admission. No evidence of acute coronary syndrome. Telemetry (6) Dementia: Stable. Continue donepezil, memantine. Supportive care (7) Chronic kidney disease, stage III (moderate): Stable. Monitor urine output. Serial labs Plan Discharge to [facility] today, November 26 Total Time Total Time Spent Total Time Spent (In Minutes): 45 minutes Discharge Plan Discharge Items Patient Disposition: Transfer [facility] Reason For Visit: SOB/DYSPNEA, LOWER EXTREMITY EDEMA Discharge Diagnosis: New onset atrial fibrillation with rapid ventricular rate, acute exacerbation intrinsic asthma, acute diastolic CHF Activity: Resume your previous activity Non-emergency contact: Primary Care Provider Call non-emergency contact if: you have any medication questions and your symptoms worsen Follow-up/Referrals: Sheila Baldwin DO [Primary Care Provider] - Diet: Carb Consistent or DM2 and Heart Healthy Addtl Attending Provider Instructions: See primary care provider as soon as possible after discharge from [facility] Pending Studies at Discharge: No Stand-Alone Forms: My [facility] Skilled Items Patient informed of condition?: Yes DNR: Yes Discharge Level of Care: Skilled Communicable Disease: No Discharge Prognosis: Stable Lines: None Urinary Catheter: No Medications and DC Order Prescriptions: New furosemide 40 mg Tablet 40 mg PO QAM Qty: 30 0RF potassium chloride 20 mEq Tablet,Er Particles/Crystals 20 meq PO DAILY Qty: 30 0RF metoprolol tartrate 25 mg Tablet 12.5 mg PO BID Qty: 60 0RF Continued sertraline 50 mg tablet 50 mg PO DAILY Dulera 100-5 mcg/actuation HFA aerosol inhaler 2 puff INHALATION DAILY memantine 10 mg tablet 10 mg PO DAILY donepezil 10 mg tablet 10 mg PO HS albuterol sulfate 2.5 mg /3 mL (0.083 %) Solution For Nebulization 2.5 mg INHALATION DIRECTED PRN (Reason: Shortness Of Breath Or Wheezing) loratadine [Claritin] 10 mg Tablet 10 mg PO DAILY Nucala 100 mg Recon Soln 100 mg SUBCUT .[id number] docusate sodium [Colace] 100 mg Capsule 100 mg PO DAILY bromocriptine 5 mg capsule 5 mg PO BID Hold Instructions: Resume on 09/03/23. Hold while on Paxlovid dextroamphetamine-amphetamine 15 mg capsule,extended release 24hr 15 mg PO DAILY Hold Instructions: Resume on 09/03/23. Hold while on Paxlovid insulin glargine [Lantus Solostar U-100 Insulin] 100 unit/mL (3 mL) Insulin Pen 28 unit SUBCUT QAM Discharge Orders: Discharge Order- CHF (Routine); Ordered 11/27/23 Ordered By: Kurt White Admission Data Admit Date/Time: 11/20/23 15:33 Attending Provider: Kurt White Admit Provider: Idris Gomez Primary Care Provider: Sheila Baldwin Other Providers: Idris Gomez; Fogelman,Nicole A. Coding Level of Care Code 17305 INP/OBS DISCH >30 MIN Diagnoses Acute heart failure I50.9 Afib I48.91 Asthma exacerbation J45.901 Diabetes E11.9 Elevated troponin R79.89 Dementia F03.C0 Dementia behavioral or psychological symptom: without behavioral, psychotic, or mood disturbance or anxiety Dementia severity: severe Dementia type: unspecified type Chronic kidney disease, stage III (moderate) N18.30
== END 2023-11-27 13:34 | DRG 291 ==
LOC: ED 10:42 → SUATTDRO 15:33 → 2W 15:33